=== PATIENT | female | born 1985 | race Caucasian/White ===

== ENCOUNTER 2021-03-11 10:08 | Inpatient (IN) ==
[2021-03-11] MEDS ORDERED: PANTOprazole 80 MG in DEXTROSE 5% 100 ML IV STA (11:21)
[2021-03-11] MEDS ORDERED: LORazepam 1 MG/2 ML VIAL IV STA (11:21)
[2021-03-11] MEDS ORDERED: SODIUM CHLORIDE 0.9% 1000ML 500 ML IV ONE (11:21)
--- NOTE | 2021-03-11 11:28 | Emergency Department Note ---
Impression & Plan Acute alcoholic hepatitis, Acute upper GI bleed, Alcohol withdrawal, Elevated INR, Acute hyponatremia ED Provider Note Name: JOSEPH WALTER Age: 35 Sex: F Arrives Via: Walk-In Informant: Patient, Mother ED Provider: Jeffery Coburn MD Chief Complaint: abdominal discomfort Impression: Acute alcoholic hepatitis Acute Upper Gi Bleed Alcohol Withdrawal Hyponatremia Elevated INR Medical Decision Makin yr old female arrives with mother for evaluation of worsening abdominal discomfort. Patient with long history alcoholism drinking 1 to 2 bottles wine nightly. Admits shakes if no etoh. On exam she is clearly cirrhotic with significant jaundice as well as has some shakes from no recent ETOH. Neurologically she is awake, alert, oriented and not confused. She is mildly tachycardic with soft, non-tender abdomen which has fluid wave with distension. Abdominal exam not consistent with peritonitis nor infection at this time. Mild hypotension on arrival improved with IV fluids. Admit black stools as well as some blood in vomit earlier but no large clots of blood. Will hold off on octreotide at this time. Initial Hgb ok and WBC is somewhat elevated. She was given IV ativan on arrival and some IV fluids with vast improvement in symptoms. Labs with acute hyponatremia, elevated bili, elevated lfts, normal cr, elevated INR amongst others. She is in acute hepatitis. Reviewed with chef instructor GI who advised meds and hospitalist admission with plan to monitoring neuro closely and take to Endo if worsening bleeding or anemia. We will treat with steroids, nac, albumin, thiamine, and will need admission. Patient re-evaluated many times and extensive amount of time spent managing her care. Prior Medical Record and Triage/Nursing Notes reviewed by Me Additional history obtained from chart and mother Differentials:Infection, dehydration, metabolic abnormality, hypo/hyperglycemia, electrolyte disturbance, anemia, hypoxia, cardiac sources, intracerebral event, toxicologic, neurologic, as well as other pathologies. Vital Signs: reviewed and remarkable for mild hypotension/tachy Interventions: saline lock, ativan 2mg iv, nss bolus, decadron iv, n- acetylcysteine iv, albumin iv, banana bag Labs:Reviewed and remarkable for extensive abnormalities Imaging:X ray results are stated below per my interpretation: Chest: 1 view: No infiltrate, no effusion, normal cardiac border. EKG:Per My Interpretation: Indication Liver failure: NSR 99 bpm, qtc 487. PAC. No Ischemia. Compared to EKG 05/11/08, no significant changes. Cardiac/Tele Monitoring: Cardiac Monitoring: An Order was placed for continuous cardiac monitoring. The monitor shows a rate of 90 with a normal sinus rhythm. Consults:Dr Ochoa: Advised above meds, hospitalist admit and will consult on patient Dr Minnie MITTAL Hospitalist in to evaluate patient further Plan: Disposition:Hospitalization. Condition: Fair History of Present Illness:35 yr old female arrives for evaluation of abdominal discomfort. Patient notes longterm use of alcohol for stress management. Drinking 1 to 2 bottles a day. Notes worsening abdominal distention over the last months. Associated nause,a vomiting, blood in vomit, black stools, weakness and shakes. Also having leg swelling, yellowing of eyes. To the point where she can not take a deep breath due to abdominal swelling. Notes worsening to the point of inability to eat. No projectile bloody emesis. No trauma/injuries/falls. Denies chest pain, sob, syncope, back pain, headache, rashes, urinary changes, nor other symptoms. Patient admits to taking entire bottle alkaseltzer a few weeks ago for indegestion. no NSAID use. Unable to go a day without ETOH due to shakes. Last etoh last night. ROS: See above HPI for pertinent positives & negatives. A total of 10 systems reviewed and were otherwise negative. Past Medical History:Anxiety, HTN, Alcohol abuse Past Surgical History:None Family History:See Below Social History:See Below Home Medications:None being taken Allergies:NKDA Vitals:Blood Pressure: 90/59, Pulse 97, RR 18, T 37.0C, O2 99% on RA Physical Exam: GENERAL: Patient is unwell and jaundice appearing and in moderate distress. Tremulous and anxious EYES: ++jaundice, unremarkable pupils. ENT: Mucous membranes moist, no nasal congestion. NECK: No masses appreciated, nomeningismus, trachea is midline. RESPIRATORY: No dyspnea. Clear to auscultation and equal bilaterally. No wheeze, no rhonchi. CARDIOVASCULAR: Regular rate and rhythm.No murmurs, rubs, gallops appreciated. GASTROINTESTINAL: Distended, distant bowel sounds, soft, fluid wave, no peritonitis..No masses appreciated. BACK: No midline tenderness, no CVA tenderness EXTREMITIES: Normal motion all extremities, no cyanosis, no edema. NEUROLOGIC: Alert and oriented, no acute motor or sensory deficits, no focal weakness, cranial nerves grossly intact. SKIN: No rash, ++ jaundice, no diaphoresis. Tattoo posterior right shoulder PSYCH: Appropriate, anxious GCS: 15 ED Course: Times/Reassessments: Vastly improved with ativan, breathing comfortably and no distress. Multiple rechecks, comfortable with staying MN, questions answered Critical Care: I have personally spent 45 minutes of critical care time in the direct management of this patient. Acute hepatitis with impending liver failure, GI bleed and alcohol withdrawal requiring rapid management. This was a life/limb threatening event. This 45 minutes is in excess of all separately billable procedures. Jeffery Coburn MD Past Med/Surg History Medical History (Updated 03/11/21 @ 19:27 by Jeffery Coburn MD) AA (alcohol abuse) Acute alcoholic hepatitis Coagulopathy Generalized anxiety disorder Hypertension Hyponatremia Obesities, morbid Upper GI bleed Surgical History No history of previous surgery Family History Father Myocardial infarction Depression Diabetes Heart disease Grandfather Prostate cancer MATERNAL Mother Depression Hypertension Denies family history of Ovarian cancer Breast cancer Colorectal cancer History of alcoholism Social History Smoking Status: Current every day smoker Tobacco Type: Cigarettes Age Started Using Tobacco: 22; Cigarettes Per Day: 5; Second Hand Exposure: No; Do You Dip or Chew Tobacco: No; Tobacco Cessation Education Requested by Patient: No Hx Alcohol Use: Yes Alcohol type: wine and hard liquor Alcohol Intake Frequency: 4 or More x per/Week Alcohol Intake Frequency Comment: DAILY; 1-2 bottles wine/day; multiple rum & coke Hx Substance Use: No Preferred Language: Croatian Communication Ability: Effective Visual Impairment: No Limitations Hearing Ability: Normal Steerer Required: No Beliefs That Will Affect Care: None marital status: Single Current Living Situation: Family Current Living Situation Comment: lives in [place] w/ Mom/dad current occupational status: unemployed 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 How many Children do You have: 0 Other Information That Helps Us Care for You: No Feels Safe at Home: Yes Safety Concerns: Feels Safe At This Time Childhood Exposure to Second-Hand Smoke: No Dental Care, Regularly: No Physical Activity Frequency: Does not Exercise Seatbelt Use: always Sunscreen Use: Yes Sexual Activity: has been sexually active, but not for at least 12 months Assistive Devices: Glasses Allergies Allergies Allergy/AdvReac Type Severity Reaction Status Date / Time No Known Allergies Allergy Unknown Unverified 03/11/21 12:47 Home Meds Previous Rx's Medication Instructions Recorded losartan 25 mg tablet 25 mg PO DAILY #90 tab 01/01/21 buspirone 5 mg tablet 5 mg PO BID #60 tab 02/01/21 pantoprazole 40 mg tablet,delayed 40 mg PO DAILY #90 tab 02/01/21 release Results & Data (ED) Vital Signs Vital Signs - 24 hr 03/11/21 10:21 03/11/21 12:14 03/11/21 14:00 Temperature 37.0 C Temperature Source Temporal Artery Scan Pulse Rate 97 H Pulse Rate [Finger] 98 H 98 H Respiratory Rate 18 22 20 Respiratory Effort / Characteristics Non-Labored Respiratory Depth Normal Blood Pressure 90/59 L Blood Pressure [Left Arm] 106/64 106/64 Blood Pressure Mean 69 Blood Pressure Mean [Left Arm] 78 78 Pulse Oximetry 99 98 94 Oxygen Delivery Method Room Air Room Air Room Air Sepsis Recent Fever Within 48 Hours No Sepsis New/Unexplained Change in Mental Status No Sepsis Action Taken by Nursing No Action Required 03/11/21 15:32 Temperature Temperature Source Pulse Rate Pulse Rate [Finger] 106 H Respiratory Rate 18 Respiratory Effort / Characteristics Respiratory Depth Blood Pressure Blood Pressure [Left Arm] 106/64 Blood Pressure Mean Blood Pressure Mean [Left Arm] 78 Pulse Oximetry 97 Oxygen Delivery Method Room Air Sepsis Recent Fever Within 48 Hours Sepsis New/Unexplained Change in Mental Status Sepsis Action Taken by Nursing Laboratory Data Result diagrams: 03/11/21 17:40 03/11/21 17:40 Lab Results 03/11/21 03/11/21 03/11/21 Range/Units 10:40 10:40 10:40 WBC 16.03 H (4.8-10.8) K/uL RBC 3.72 L (4.2-5.4) M/uL Hgb 12.8 (12.0-16.0) g/dL Hct 35.2 L (37-47) % MCV 94.6 (80-100) fL MCH 34.4 H (25-34) pg MCHC 36.4 H (32-36) g/dL RDW Std Deviation 69.8 H (36.4-46.3) fL RDW Coeff of Ace 20.1 H (11.5-14.5) % Plt Count 239 (130-400) K/uL MPV 10.1 (7.4-10.4) fL Immature Gran % (Auto) 0.6 % Neut % (Auto) 85.9 % Lymph % (Auto) 7.8 % Henderson % (Auto) 5.1 % Eos % (Auto) 0.4 % Baso % (Auto) 0.2 % Neut # (Auto) 13.78 H (1.4-6.5) K/uL Lymph # (Auto) 1.25 (1.2-3.4) K/uL Henderson # (Auto) 0.81 H (0.11-0.59) K/uL Eos # (Auto) 0.07 (0-0.5) K/uL Baso # (Auto) 0.03 (0-0.2) K/uL Immature Gran # (Auto) 0.09 H (0.00-0.02) K/uL Anisocytosis Present Target Cells 2+ PT (9.0-12.0) Seconds INR (0.9-1.1) APTT (21.0-31.0) Seconds PTT Ratio Sodium 117 L* (136-145) mmol/L Potassium 3.6 (3.5-5.1) mmol/L Chloride 83 L (98-107) mmol/L Carbon Dioxide 23 (21-32) mmol/L Anion Gap 11.0 (3-11) BUN 3 L (7-18) mg/dl Creatinine 1.16 (0.6-1.2) mg/dl Est Cr Clr Drug Dosing 67.5 ml/min Est GFR ( Amer) 70.6 ml/min Est GFR (Non-Af Amer) 61.0 ml/min BUN/Creatinine Ratio 2.6 L (10-20) Glucose 100 H (70-99) mg/dl Osmolality (280-300) mOsm/kg Calcium 7.6 L (8.5-10.1) mg/dl Magnesium 1.9 (1.8-2.4) mg/dl Total Bilirubin 17.6 H (0.2-1) mg/dl Direct Bilirubin 14.7 H (0-0.2) mg/dl AST 459 H (15-37) U/L ALT 135 H (12-78) U/L Alkaline Phosphatase 479 H (45-117) U/L Ammonia (11-32) umol/L Troponin I < 0.015 (0-0.045) ng/ml Total Protein 6.5 (6.4-8.2) gm/dl Albumin 2.2 L (3.4-5.0) gm/dl Lipase 281 (73-393) U/L TSH 5.580 H (0.300-4.500) uIu/ml Free T4 1.30 (0.8-1.6) ng/dl HCG, Qual (Negative) Urine Color Urine Appearance (Clear) Urine pH (4.5-7.5) Ur Specific [place] (1.000-1.030) Urine Protein (Negative) Urine Glucose (UA) (Negative) Urine Ketones (Negative) Urine Blood (Negative) Urine Nitrite (Negative) Urine Bilirubin (Negative) Urine Urobilinogen (Negative) Ur Leukocyte Esterase (Negative) Urine WBC (Auto) (0-5) /hpf Urine RBC (Auto) (0-4) /hpf U Hyaline Cast (Auto) (0-5) /lpf U Epithel Cells (Auto) (0-5) /lpf Urine Bacteria (Auto) (Negative) Urine Yeast Urine Osmolality (500-800) mOsm/kg Ur Random Sodium mmol/L Salicylates (2.8-20) mg/dl Urine Opiates Screen (Neg) Ur Methadone, Qual (Neg) Acetaminophen (10-30) ug/ml Urine Barbiturates (Neg) Ur Phencyclidine (PCP) (Neg) U Amphetamin/Meth Scrn (Neg) MDMA (Ecstasy) Screen (Neg) U Benzodiazepines Scrn (Neg) Ur Cocaine Metabolite (Neg) U Marijuana (THC) Screen (Neg) Ethyl Alcohol mg/dL (0-3) mg/dl COVID-19 Eval Order SARS-CoV-2 (PCR) (Negative) 03/11/21 03/11/21 03/11/21 Range/Units 10:40 11:48 11:48 WBC (4.8-10.8) K/uL RBC (4.2-5.4) M/uL Hgb (12.0-16.0) g/dL Hct (37-47) % MCV (80-100) fL MCH (25-34) pg MCHC (32-36) g/dL RDW Std Deviation (36.4-46.3) fL RDW Coeff of Ace (11.5-14.5) % Plt Count (130-400) K/uL MPV (7.4-10.4) fL Immature Gran % (Auto) % Neut % (Auto) % Lymph % (Auto) % Henderson % (Auto) % Eos % (Auto) % Baso % (Auto) % Neut # (Auto) (1.4-6.5) K/uL Lymph # (Auto) (1.2-3.4) K/uL Henderson # (Auto) (0.11-0.59) K/uL Eos # (Auto) (0-0.5) K/uL Baso # (Auto) (0-0.2) K/uL Immature Gran # (Auto) (0.00-0.02) K/uL Anisocytosis Target Cells PT 24.3 H (9.0-12.0) Seconds INR 2.6 H (0.9-1.1) APTT 51.8 H* (21.0-31.0) Seconds PTT Ratio 2.0 Sodium (136-145) mmol/L Potassium (3.5-5.1) mmol/L Chloride (98-107) mmol/L Carbon Dioxide (21-32) mmol/L Anion Gap (3-11) BUN (7-18) mg/dl Creatinine (0.6-1.2) mg/dl Est Cr Clr Drug Dosing ml/min Est GFR ( Amer) ml/min Est GFR (Non-Af Amer) ml/min BUN/Creatinine Ratio (10-20) Glucose (70-99) mg/dl Osmolality (280-300) mOsm/kg Calcium (8.5-10.1) mg/dl Magnesium (1.8-2.4) mg/dl Total Bilirubin (0.2-1) mg/dl Direct Bilirubin (0-0.2) mg/dl AST (15-37) U/L ALT (12-78) U/L Alkaline Phosphatase (45-117) U/L Ammonia (11-32) umol/L Troponin I (0-0.045) ng/ml Total Protein (6.4-8.2) gm/dl Albumin (3.4-5.0) gm/dl Lipase (73-393) U/L TSH (0.300-4.500) uIu/ml Free T4 (0.8-1.6) ng/dl HCG, Qual Negative (Negative) Urine Color Urine Appearance (Clear) Urine pH (4.5-7.5) Ur Specific [place] (1.000-1.030) Urine Protein (Negative) Urine Glucose (UA) (Negative) Urine Ketones (Negative) Urine Blood (Negative) Urine Nitrite (Negative) Urine Bilirubin (Negative) Urine Urobilinogen (Negative) Ur Leukocyte Esterase (Negative) Urine WBC (Auto) (0-5) /hpf Urine RBC (Auto) (0-4) /hpf U Hyaline Cast (Auto) (0-5) /lpf U Epithel Cells (Auto) (0-5) /lpf Urine Bacteria (Auto) (Negative) Urine Yeast Urine Osmolality (500-800) mOsm/kg Ur Random Sodium mmol/L Salicylates (2.8-20) mg/dl Urine Opiates Screen (Neg) Ur Methadone, Qual (Neg) Acetaminophen (10-30) ug/ml Urine Barbiturates (Neg) Ur Phencyclidine (PCP) (Neg) U Amphetamin/Meth Scrn (Neg) MDMA (Ecstasy) Screen (Neg) U Benzodiazepines Scrn (Neg) Ur Cocaine Metabolite (Neg) U Marijuana (THC) Screen (Neg) Ethyl Alcohol mg/dL 93.0 H (0-3) mg/dl COVID-19 Eval Order SARS-CoV-2 (PCR) (Negative) 03/11/21 03/11/21 03/11/21 Range/Units 11:48 11:48 12:18 WBC (4.8-10.8) K/uL RBC (4.2-5.4) M/uL Hgb (12.0-16.0) g/dL Hct (37-47) % MCV (80-100) fL MCH (25-34) pg MCHC (32-36) g/dL RDW Std Deviation (36.4-46.3) fL RDW Coeff of Ace (11.5-14.5) % Plt Count (130-400) K/uL MPV (7.4-10.4) fL Immature Gran % (Auto) % Neut % (Auto) % Lymph % (Auto) % Henderson % (Auto) % Eos % (Auto) % Baso % (Auto) % Neut # (Auto) (1.4-6.5) K/uL Lymph # (Auto) (1.2-3.4) K/uL [place] # (Auto) (0.11-0.59) K/uL Eos # (Auto) (0-0.5) K/uL Baso # (Auto) (0-0.2) K/uL Immature Gran # (Auto) (0.00-0.02) K/uL Anisocytosis Target Cells PT (9.0-12.0) Seconds INR (0.9-1.1) APTT (21.0-31.0) Seconds PTT Ratio Sodium (136-145) mmol/L Potassium (3.5-5.1) mmol/L Chloride (98-107) mmol/L Carbon Dioxide (21-32) mmol/L Anion Gap (3-11) BUN (7-18) mg/dl Creatinine (0.6-1.2) mg/dl Est Cr Clr Drug Dosing ml/min Est GFR ( Amer) ml/min Est GFR (Non-Af Amer) ml/min BUN/Creatinine Ratio (10-20) Glucose (70-99) mg/dl Osmolality 272 L (280-300) mOsm/kg Calcium (8.5-10.1) mg/dl Magnesium (1.8-2.4) mg/dl Total Bilirubin (0.2-1) mg/dl Direct Bilirubin (0-0.2) mg/dl AST (15-37) U/L ALT (12-78) U/L Alkaline Phosphatase (45-117) U/L Ammonia < 10.0 L (11-32) umol/L Troponin I (0-0.045) ng/ml Total Protein (6.4-8.2) gm/dl Albumin (3.4-5.0) gm/dl Lipase (73-393) U/L TSH (0.300-4.500) uIu/ml Free T4 (0.8-1.6) ng/dl HCG, Qual (Negative) Urine Color Dark Yellow Urine Appearance Cloudy A (Clear) Urine pH 5.5 (4.5-7.5) Ur Specific [place] 1.012 (1.000-1.030) Urine Protein Negative (Negative) Urine Glucose (UA) Negative (Negative) Urine Ketones 1+ H (Negative) Urine Blood 3+ H (Negative) Urine Nitrite Positive A (Negative) Urine Bilirubin 3+ H (Negative) Urine Urobilinogen Negative (Negative) Ur Leukocyte Esterase Trace H (Negative) Urine WBC (Auto) 1-5 (0-5) /hpf Urine RBC (Auto) 5-10 H (0-4) /hpf U Hyaline Cast (Auto) 1-5 (0-5) /lpf U Epithel Cells (Auto) >30 H (0-5) /lpf Urine Bacteria (Auto) 1+ H (Negative) Urine Yeast Not Reportable Urine Osmolality (500-800) mOsm/kg Ur Random Sodium mmol/L Salicylates (2.8-20) mg/dl Urine Opiates Screen (Neg) Ur Methadone, Qual (Neg) Acetaminophen (10-30) ug/ml Urine Barbiturates (Neg) Ur Phencyclidine (PCP) (Neg) U Amphetamin/Meth Scrn (Neg) MDMA (Ecstasy) Screen (Neg) U Benzodiazepines Scrn (Neg) Ur Cocaine Metabolite (Neg) U Marijuana (THC) Screen (Neg) Ethyl Alcohol mg/dL (0-3) mg/dl COVID-19 Eval Order SARS-CoV-2 (PCR) (Negative) 03/11/21 03/11/21 03/11/21 Range/Units 12:18 12:18 12:18 WBC (4.8-10.8) K/uL RBC (4.2-5.4) M/uL Hgb (12.0-16.0) g/dL Hct (37-47) % MCV (80-100) fL MCH (25-34) pg MCHC (32-36) g/dL RDW Std Deviation (36.4-46.3) fL RDW Coeff of Ace (11.5-14.5) % Plt Count (130-400) K/uL MPV (7.4-10.4) fL Immature Gran % (Auto) % Neut % (Auto) % Lymph % (Auto) % [place] % (Auto) % Eos % (Auto) % Baso % (Auto) % Neut # (Auto) (1.4-6.5) K/uL Lymph # (Auto) (1.2-3.4) K/uL [place] # (Auto) (0.11-0.59) K/uL Eos # (Auto) (0-0.5) K/uL Baso # (Auto) (0-0.2) K/uL Immature Gran # (Auto) (0.00-0.02) K/uL Anisocytosis Target Cells PT (9.0-12.0) Seconds INR (0.9-1.1) APTT (21.0-31.0) Seconds PTT Ratio Sodium (136-145) mmol/L Potassium (3.5-5.1) mmol/L Chloride (98-107) mmol/L Carbon Dioxide (21-32) mmol/L Anion Gap (3-11) BUN (7-18) mg/dl Creatinine (0.6-1.2) mg/dl Est Cr Clr Drug Dosing ml/min Est GFR ( Amer) ml/min Est GFR (Non-Af Amer) ml/min BUN/Creatinine Ratio (10-20) Glucose (70-99) mg/dl Osmolality (280-300) mOsm/kg Calcium (8.5-10.1) mg/dl Magnesium (1.8-2.4) mg/dl Total Bilirubin (0.2-1) mg/dl Direct Bilirubin (0-0.2) mg/dl AST (15-37) U/L ALT (12-78) U/L Alkaline Phosphatase (45-117) U/L Ammonia (11-32) umol/L Troponin I (0-0.045) ng/ml Total Protein (6.4-8.2) gm/dl Albumin (3.4-5.0) gm/dl Lipase (73-393) U/L TSH (0.300-4.500) uIu/ml Free T4 (0.8-1.6) ng/dl HCG, Qual (Negative) Urine Color Urine Appearance (Clear) Urine pH (4.5-7.5) Ur Specific [place] (1.000-1.030) Urine Protein (Negative) Urine Glucose (UA) (Negative) Urine Ketones (Negative) Urine Blood (Negative) Urine Nitrite (Negative) Urine Bilirubin (Negative) Urine Urobilinogen (Negative) Ur Leukocyte Esterase (Negative) Urine WBC (Auto) (0-5) /hpf Urine RBC (Auto) (0-4) /hpf U Hyaline Cast (Auto) (0-5) /lpf U Epithel Cells (Auto) (0-5) /lpf Urine Bacteria (Auto) (Negative) Urine Yeast Urine Osmolality 217 L (500-800) mOsm/kg Ur Random Sodium < 5 mmol/L Salicylates (2.8-20) mg/dl Urine Opiates Screen Neg (Neg) Ur Methadone, Qual Neg (Neg) Acetaminophen (10-30) ug/ml Urine Barbiturates Neg (Neg) Ur Phencyclidine (PCP) Neg (Neg) U Amphetamin/Meth Scrn Neg (Neg) MDMA (Ecstasy) Screen Neg (Neg) U Benzodiazepines Scrn Neg (Neg) Ur Cocaine Metabolite Neg (Neg) U Marijuana (THC) Screen Neg (Neg) Ethyl Alcohol mg/dL (0-3) mg/dl COVID-19 Eval Order SARS-CoV-2 (PCR) (Negative) 03/11/21 03/11/21 03/11/21 Range/Units 14:30 14:30 14:52 WBC (4.8-10.8) K/uL RBC (4.2-5.4) M/uL Hgb (12.0-16.0) g/dL Hct (37-47) % MCV (80-100) fL MCH (25-34) pg MCHC (32-36) g/dL RDW Std Deviation (36.4-46.3) fL RDW Coeff of Ace (11.5-14.5) % Plt Count (130-400) K/uL MPV (7.4-10.4) fL Immature Gran % (Auto) % Neut % (Auto) % Lymph % (Auto) % [place] % (Auto) % Eos % (Auto) % Baso % (Auto) % Neut # (Auto) (1.4-6.5) K/uL Lymph # (Auto) (1.2-3.4) K/uL [place] # (Auto) (0.11-0.59) K/uL Eos # (Auto) (0-0.5) K/uL Baso # (Auto) (0-0.2) K/uL Immature Gran # (Auto) (0.00-0.02) K/uL Anisocytosis Target Cells PT (9.0-12.0) Seconds INR (0.9-1.1) APTT (21.0-31.0) Seconds PTT Ratio Sodium 120 L (136-145) mmol/L Potassium (3.5-5.1) mmol/L Chloride (98-107) mmol/L Carbon Dioxide (21-32) mmol/L Anion Gap (3-11) BUN (7-18) mg/dl Creatinine (0.6-1.2) mg/dl Est Cr Clr Drug Dosing ml/min Est GFR ( Amer) ml/min Est GFR (Non-Af Amer) ml/min BUN/Creatinine Ratio (10-20) Glucose (70-99) mg/dl Osmolality (280-300) mOsm/kg Calcium (8.5-10.1) mg/dl Magnesium (1.8-2.4) mg/dl Total Bilirubin (0.2-1) mg/dl Direct Bilirubin (0-0.2) mg/dl AST (15-37) U/L ALT (12-78) U/L Alkaline Phosphatase (45-117) U/L Ammonia (11-32) umol/L Troponin I (0-0.045) ng/ml Total Protein (6.4-8.2) gm/dl Albumin (3.4-5.0) gm/dl Lipase (73-393) U/L TSH (0.300-4.500) uIu/ml Free T4 (0.8-1.6) ng/dl HCG, Qual (Negative) Urine Color Urine Appearance (Clear) Urine pH (4.5-7.5) Ur Specific [place] (1.000-1.030) Urine Protein (Negative) Urine Glucose (UA) (Negative) Urine Ketones (Negative) Urine Blood (Negative) Urine Nitrite (Negative) Urine Bilirubin (Negative) Urine Urobilinogen (Negative) Ur Leukocyte Esterase (Negative) Urine WBC (Auto) (0-5) /hpf Urine RBC (Auto) (0-4) /hpf U Hyaline Cast (Auto) (0-5) /lpf U Epithel Cells (Auto) (0-5) /lpf Urine Bacteria (Auto) (Negative) Urine Yeast Urine Osmolality (500-800) mOsm/kg Ur Random Sodium mmol/L Salicylates (2.8-20) mg/dl Urine Opiates Screen (Neg) Ur Methadone, Qual (Neg) Acetaminophen (10-30) ug/ml Urine Barbiturates (Neg) Ur Phencyclidine (PCP) (Neg) U Amphetamin/Meth Scrn (Neg) MDMA (Ecstasy) Screen (Neg) U Benzodiazepines Scrn (Neg) Ur Cocaine Metabolite (Neg) U Marijuana (THC) Screen (Neg) Ethyl Alcohol mg/dL (0-3) mg/dl COVID-19 Eval Order Covid19 at [facility] SARS-CoV-2 (PCR) NEGATIVE (Negative) Administered Medications Lorazepam (Ativan) 1 mg in 2 mls @ 2 mls/min IV ONE PRN; Protocol PRN Reason: EtoH Withdrawal AWSS 6-10 Stop: 04/10/21 15:51 Last Admin: 03/11/21 16:21 Dose: 2 mls/min Documented by: [id number] Thiamine HCl 250 mg/ Sodium (Chloride) 52.5 mls @ 208 mls/hr IV TID JONNA Stop: 04/10/21 17:59 Last Infusion: 03/11/21 18:23 Dose: 0 mls/hr Documented by: [id number] Admin: 03/11/21 17:53 Dose: 208 mls/hr Documented by: [id number] Albumin Human (Albumin 5%) 250 mls @ 50 mls/hr IV ONE ONE Stop: 03/11/21 22:18 Last Admin: 03/11/21 18:55 Dose: 50 mls/hr Documented by: [id number] Discontinued Medications Acetylcysteine (Acetylcysteine Iv 21 Hr Regimen (>40kg)) 1 ea IV NOW STA; Protocol Stop: 03/11/21 13:20 Last Admin: 03/11/21 17:32 Dose: 1 ea Documented by: [id number] Dexamethasone Sodium Phosphate (DexamethasonePf 10 Mg/Ml Vial) 10 mg IV NOW ONE Stop: 03/11/21 13:20 Last Admin: 03/11/21 14:04 Dose: 10 mg Documented by: [id number] Sodium Chloride (Nss 1000ml) 500 mls @ 999 mls/hr IV .Q31M ONE Stop: 03/11/21 11:51 Last Infusion: 03/11/21 12:44 Dose: 0 mls/hr Documented by: [id number] Admin: 03/11/21 12:13 Dose: 999 mls/hr Documented by: [id number] Pantoprazole Sodium 80 mg/ (Dextrose) 100 mls @ 400 mls/hr IV ONE STA Stop: 03/11/21 11:35 Last Infusion: 03/11/21 12:38 Dose: 0 mls/hr Documented by: [id number] Admin: 03/11/21 12:23 Dose: 400 mls/hr Documented by: [id number] Lorazepam (Ativan) 1 mg in 2 mls @ 2 mls/min IV NOW STA Stop: 03/11/21 11:22 Last Admin: 03/11/21 12:13 Dose: 2 mls/min Documented by: [id number] Acetylcysteine 12,410 mg/ (Dextrose) 262.05 mls @ 200 mls/hr IV ONCE ONE Stop: 03/11/21 14:37 Last Infusion: 03/11/21 15:27 Dose: 0 mls/hr Documented by: [id number] Admin: 03/11/21 14:05 Dose: 200 mls/hr Documented by: [id number] Acetylcysteine 4,140 mg/ (Dextrose) 520.7 mls @ 125 mls/hr IV ONCE ONE Stop: 03/11/21 18:29 Last Admin: 03/11/21 15:30 Dose: 125 mls/hr Documented by: [id number] Albumin Human (Albumin 25%) 12.5 gm in 50 mls @ 50 mls/hr IV Q1H JONNA Stop: 03/11/21 15:29 Last Infusion: 03/11/21 16:11 Dose: 0 mls/hr Documented by: [id number] Admin: 03/11/21 15:20 Dose: 50 mls/hr Documented by: [id number] Infusion: 03/11/21 15:20 Dose: 0 mls/hr Documented by: [id number] Admin: 03/11/21 14:21 Dose: 50 mls/hr Documented by: [id number] Multivitamins 10 ml/ Thiamine HCl 100 mg/ Folic Acid 1 mg/Sodium Chloride 1,011.2 mls @ 1,011.2 mls/hr IV .Q1H ONE Stop: 03/11/21 14:18 Last Infusion: 03/11/21 17:51 Dose: 0 mls/hr Documented by: [id number] Admin: 03/11/21 16:10 Dose: 1,011.2 mls/hr Documented by: [id number] Ceftriaxone Sodium 2,000 mg/ (Dextrose) 70 mls @ 100 mls/hr IV NOW STA; Protocol Stop: 03/11/21 17:58 Last Infusion: 03/11/21 18:23 Dose: 0 mls/hr Documented by: [id number] Admin: 03/11/21 17:32 Dose: 100 mls/hr Documented by: [id number] Octreotide Acetate 50 mcg/ (Syringe) 10 mls @ 3 mls/min IV ONE ONE Stop: 03/11/21 17:33 Last Admin: 03/11/21 17:32 Dose: 3 mls/min Documented by: [id number] Phytonadione 10 mg/ Sodium (Chloride) 51 mls @ 102 mls/hr IV ONE ONE Stop: 03/11/21 17:59 Last Infusion: 03/11/21 18:23 Dose: 0 mls/hr Documented by: [id number] Admin: 03/11/21 17:47 Dose: 102 mls/hr Documented by: [id number] Folic Acid 1 mg/ Syringe 10 mls @ 5 mls/min IV ONE ONE Stop: 03/11/21 17:31 Last Admin: 03/11/21 17:47 Dose: 5 mls/min Documented by: [id number] Ondansetron HCl (Ondansetron Inj 2 Mg/Ml 2 Ml Vial) Confirm Administered Dose 4 mg .ROUTE .STK-MED ONE Stop: 03/11/21 15:58 Last Admin: 03/11/21 15:59 Dose: 4 mg Documented by: [id number] Ondansetron HCl (Ondansetron Inj 2 Mg/Ml 2 Ml Vial) 4 mg IV NOW STA Stop: 03/11/21 16:14 Last Admin: 03/11/21 17:33 Dose: Not Given Documented by: [id number] Imaging Data Radiologist's Impression: Abdomen/Pelvis CT 03/11/21 15:[address] WITHOUT CONTRAST CT DOSE: 843.20 mGy.cm HISTORY: acute hepatitis, ?ascites, cirrhosis? TECHNIQUE: Multiaxial CT images of the abdomen and pelvis were performed without contrast. A dose lowering technique was utilized adhering to the principles of ALARA. COMPARISON STUDY: None. FINDINGS: A few bibasilar linear densities likely representing subsegmental atelectasis. No pneumoperitoneum. No pneumatosis. No fractures within the visualized osseous structures. There is moderate body wall edema. The liver is severely enlarged and markedly hypodense. This could represent an acute hepatitis or severe hepatic steatosis. There is moderate circumferential thickening of the gallbladder which is mildly distended. The spleen is normal in size. Normal adrenal glands. No renal stones or hydronephrosis. There is mild peripancreatic fat stranding/edema. No retroperitoneal lymphadenopathy. Normal caliber abdominal aorta. There is trace ascites seen within the abdomen. The bladder, uterus, bilateral adnexa are within normal limits. The appendix is reportedly surgically absent. No dilated loops of bowel to suggest an obst ruction. Mild thickening at the ascending colon may be due to the patient's diffuse edematous state. IMPRESSION: 1. The liver is severely enlarged and markedly hypodense. This could represent acute hepatitis or severe hepatic steatosis. 2. Moderate circumferential thickening of the gallbladder wall. Nonspecific but could be due to the hepatic abnormality. Acute cholecystitis is considered less likely but not entirely excluded. 3. Moderate body wall edema. 4. Trace ascites. 5. Mild peripancreatic fat stranding/edema. This could represent an acute pancreatitis versus peripancreatic edema related to the patient's diffuse edematous state. Recommend correlation with pancreatic enzymes. ACT 112: Negative or not required by law. Electronically signed by: Anand Marshall M.D. 03/11/2021 5:05 PM Discharge Plan Visit Data Chief Complaint: Abdominal Pain Stated Complaint: BLOATED ED Provider: Jeffery Coburn Discharge Problem: Acute alcoholic hepatitis, Acute upper GI bleed, Alcohol withdrawal, Elevated INR, Acute hyponatremia Patient Disposition: Admitted As Inpatient Discharge Instructions Interventions: ED Discharge Assessment Last Done: 03/11/21 16:41 Discharge Problem: Alcohol withdrawal Qualifiers: Complication of substance-induced condition: uncomplicated Qualified Code(s): F10.230 - Alcohol dependence with withdrawal, uncomplicated
[2021-03-11 11:31] LABS: Basophils # (auto) 0.03 K/uL (0-0.2); Basophils % (auto) 0.2 %; Eosinophils # (auto) 0.07 K/uL (0-0.5); Eosinophils % (auto) 0.4 %; Hematocrit (blood only) 35.2 % (37-47); Hemoglobin 12.8 g/dL (12.0-16.0); Immature Granulocytes # (auto) 0.09 K/uL (0.00-0.02); Immature Granulocytes % (auto) 0.6 %; Lymphocytes # (auto) 1.25 K/uL (1.2-3.4); Lymphocytes % (auto) 7.8 %; Mean Corpuscular Hemoglobin 34.4 pg (25-34); Mean Corpuscular Hgb Conc 36.4 g/dL (32-36); Mean Corpuscular Volume 94.6 fL (80-100); Mean Platelet Volume 10.1 fL (7.4-10.4); Monocytes # (auto) 0.81 K/uL (0.11-0.59); Monocytes % (auto) 5.1 %; Neutrophils # (auto) 13.78 K/uL (1.4-6.5); Neutrophils % (auto) 85.9 %; Platelet Count 239 K/uL (130-400); RDW Coefficient of Variation 20.1 % (11.5-14.5); RDW Standard Deviation 69.8 fL (36.4-46.3); Red Blood Count 3.72 M/uL (4.2-5.4); White Blood Count 16.03 K/uL (4.8-10.8)
[2021-03-11 11:39] LABS: Pregnancy Test, Serum Negative (Negative)
[2021-03-11 11:54] LABS: Alanine Aminotransferase 135 U/L (12-78); Albumin Level 2.2 gm/dl (3.4-5.0); Alkaline Phosphatase 479 U/L (45-117); Anisocytosis Present; Aspartate Aminotransferase 459 U/L (15-37); BUN Creatinine Ratio 2.6 (10-20); Bilirubin,Total 17.6 mg/dl (0.2-1); Blood Urea Nitrogen 3 mg/dl (7-18); Calcium 7.6 mg/dl (8.5-10.1); Carbon Dioxide 23 mmol/L (21-32); Chloride 83 mmol/L (98-107); Creatinine Clr Calc Pharmacy 67.5 ml/min; Est GFR (African American) 70.6 ml/min; Glucose 100 mg/dl (70-99); Lipase 281 U/L (73-393); Magnesium 1.9 mg/dl (1.8-2.4); Potassium 3.6 mmol/L (3.5-5.1); Sodium 117 mmol/L (136-145); Target Cells 2+; Total Protein 6.5 gm/dl (6.4-8.2); Troponin I < 0.015 ng/ml (0-0.045)
[2021-03-11 12:15] LABS: Bilirubin Direct 14.7 mg/dl (0-0.2)
[2021-03-11 12:26] LABS: INR 2.6 (0.9-1.1); Prothrombin Time 24.3 Seconds (9.0-12.0)
[2021-03-11 12:32] LABS: Appearance Urine Cloudy (Clear); Blood Urine 3+ (Negative); Color Urine Dark Yellow; Epithelial Cell Urine Auto >30 /lpf (0-5); Glucose Urine UA Negative (Negative); Ketones Urine 1+ (Negative); Leukocyte Esterase Urine Trace (Negative); Nitrite Urine Positive (Negative); Protein Urine Negative (Negative); Specific Gravity Urine 1.012 (1.000-1.030); Urobilinogen Urine Negative (Negative); pH Urine 5.5 (4.5-7.5)
[2021-03-11 12:42] LABS: Bilirubin Urine 3+ (Negative)
[2021-03-11 12:44] LABS: Bacteria Urine Automated 1+ (Negative)
[2021-03-11 12:46] LABS: Partial Thromboplastin Time 51.8 Seconds (21.0-31.0)
[2021-03-11 13:05] LABS: Amphetamines+Metham, Urine Neg (Neg); Barbiturates, Urine Neg (Neg); Benzodiazepine, Urine Neg (Neg); Cocaine, Urine Neg (Neg); MDMA (Ecstacy), Urine Neg (Neg); Methadone, Urine Neg (Neg); Opiate, Urine Neg (Neg); Phencyclidine, Urine Neg (Neg)
[2021-03-11] MEDS ORDERED: ACETYLCYSTEINE IV ONE ×3 (13:19→18:20)
[2021-03-11] MEDS ORDERED: AcetylCYSTEINE IV 21 HR REGIMEN (>40KG) IV STA (13:19)
[2021-03-11] MEDS ORDERED: DEXTROSE 5% IV ONE ×3 (13:19→18:20)
[2021-03-11] MEDS ORDERED: MULTI-VITAMIN INFUSION 10 ML, THIAMINE HCL 100 MG, FOLIC ACID 1 MG in SODIUM CHLORIDE 0... IV ONE (13:19)
[2021-03-11] MEDS ORDERED: dexAMETHasone**PF** 10 MG/ML VIAL IV ONE (13:19)
[2021-03-11] MEDS: ALBUMIN 25% 12.5 GM/50 ML VIAL IV SCH ×2 (14:21→15:20)
--- NOTE | 2021-03-11 14:43 | History & Physical Report ---
Date of Service March 11, 2021 Assessment & Plan (1) Acute alcoholic hepatitis: SEVERE acute etoh hepatitis. Troy's discriminant function score at least 75. Decadron 10mg IV x 1 given in ER. Severe coagulopathy. Fortunately she has stable BP, normal Creatinine, and no evidence of hepatic encephalopathy. There is concern for upper GI bleeding. Until EGD is complete and until H/H trend is known further steroids to be deferred for now per GI recommendations. I obtained CT abd/pelvis prior to transfer to ICU -- SEVERE hepatomegaly with only trace ascites. Serial LFTs. Serial coags. Serial CBC/platelets. Patient with history of cocaine abuse - check acute hepatitis profile in am, r/o Hep B & C. Prognosis is very guarded given the severity of her hepatitis. Cont NAC protocol as recommended by GI. Start rocephin for SBP prophylaxis and possible UTI. Appreciate critical care & GI consultations. (2) Coagulopathy: Severe, 2nd to acute etoh hepatitis. Check fibrinogen. Patient with hematemesis last evening at home, and heme + stool here. If H/H trend down she will need urgent EGD. Give FFP if urgent EGD is needed. Consider cryoprecipitate if fibrinogen is low and there is ongoing GI Bleeding. Consider vitamin K. (3) Hematemesis: Seen last night at home. Initial Hb here is 12. Trend h/h's q4h. GI aware of hematemesis. Due to concerns of upper GI bleeding will place on PPI drip and octreotide drip (latter in the event this is variceal in origin). (4) Ascites: only mild seen on CT abd/pelvis today. certainly at risk of worsening ascites in the midst of her critical illness and severe hepatitis. rocephin IV for SBP prophy. (5) Alcoholism: severe. thiamine 200mg IV BID. folic acid 1mg IV daily. with resulting acute etoh hepatitis. psych consult requested - she reports she uses her etoh to quell her severe anxiety. long-standing h/o untreated depression. was hospitalized at the [facility] at age 21 for severe depression and alcohol abuse. AT HIGH RISK OF ETOH WITHDRAWAL. ativan per etoh withdrawal protocol. defer to critical care any prophylactic meds. (6) Hyponatremia: severe. repeat Na level in ER was 120, up from 117. Urine Na <5 c/w severe solute depletion. Low serum Na likely multifactorial - acute liver failure, poor oral intake, vomiting, etc. cont cautious isotonic saline repletion. albumin per GI recommendations. TSH minimally elevated - unlikely playing any role in the low Na. Check cortisol level. serial Na checks q6h. (7) Abnormal TSH: would repeat the TSH in about 6 weeks as outpatient. no Rx indicated at this time. (8) Generalized anxiety disorder: severe. see above. psych consult. HOLD buspar. (9) Hypertension: HOLD ARB (10) UTI (urinary tract infection): u/a suggestive of UTI send urine cx. rocephin for SBP prophylaxis should suffice. (11) DVT prophylaxis: SCDS chemical means contraindicated due to GI bleeding father, and later her mother, updated at bedside complex care coordination with ER, ICU, and GI patient is critically ill with guarded prognosis and is at high risk of ARF, etoh withdrawal, resp failure, etc. total critical care time 100 minutes History of Present Illness Chief Complaint: abdominal distension Primary Care Provider: Hector Myrick, III, PAN HELPER 35yo female with history of alcohol abuse presents with acute/chronic abdominal distension and bloating. She also mentions "seeing blood in my stool" and has had labored breathing. Over the last few days the abdominal distension has worsened. With respect to GI bleeding she states it is bright red blood; no melena. She is drinking 1-2 bottles of wine each day "for anxiety." Over 2 weeks ago she was drinking rum with coke as well. In college she became a heavy drinker, and following college the drinking worsened. She became a regular user of alcohol in the last 2-3 years. Denies any tylenol use. Last night she had hematemesis after eating Cheerios. Had at least 4 episodes of such last night. She is vague about how much blood she saw. Lastly, she mentions she had been taking ivana seltzer for her "teeth" - not GI upset. She was taking the ivana-seltzer every 4-6 hours several weeks ago. Teeth are no longer bothering her. She stopped the ivana-seltzer abut 2 weeks ago. Allergies Allergy/AdvReac Type Severity Reaction Status Date / Time No Known Allergies Allergy Unknown Unverified 03/11/21 12:47 Home Medications Medication Instructions Recorded Confirmed Type losartan 25 mg tablet 25 mg PO DAILY #90 tab 04/12/21 06/20/21 Rx buspirone 5 mg tablet 5 mg PO BID #60 tab 02/01/21 03/11/21 Rx pantoprazole 40 mg tablet,delayed 40 mg PO DAILY #90 tab 02/01/21 03/11/21 Rx release Past Med/Surg History Medical History AA (alcohol abuse) Acute alcoholic hepatitis Coagulopathy Generalized anxiety disorder Hypertension Hyponatremia Obesities, morbid Upper GI bleed Surgical History No history of previous surgery Family History Father Myocardial infarction Depression Diabetes Heart disease Grandfather Prostate cancer MATERNAL Mother Depression Hypertension Denies family history of Ovarian cancer Breast cancer Colorectal cancer History of alcoholism Social History Smoking Status: Current every day smoker Tobacco Type: Cigarettes Age Started Using Tobacco: 22; Cigarettes Per Day: 5; Second Hand Exposure: No; Do You Dip or Chew Tobacco: No; Tobacco Cessation Education Requested by Patient: No Hx Alcohol Use: Yes Alcohol type: wine and hard liquor Alcohol Intake Frequency: 4 or More x per/Week Alcohol Intake Frequency Comment: DAILY; 1-2 bottles wine/day; multiple rum & coke Hx Substance Use: No Preferred Language: [place] Communication Ability: Effective Visual Impairment: No Limitations Hearing Ability: Normal Nurse Prn Required: No Beliefs That Will Affect Care: None marital status: Single Current Living Situation: Family Current Living Situation Comment: lives in [place] w/ Mom/dad current occupational status: unemployed 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 How many Children do You have: 0 Other Information That Helps Us Care for You: No Feels Safe at Home: Yes Safety Concerns: Feels Safe At This Time Childhood Exposure to Second-Hand Smoke: No Dental Care, Regularly: No Physical Activity Frequency: Does not Exercise Seatbelt Use: always Sunscreen Use: Yes Sexual Activity: has been sexually active, but not for at least 12 months Assistive Devices: Glasses and Oxygen - Continuous Review of Systems Constitutional: + fatigue and + anorexia; no fever, no weight loss and no weight gain Eyes: no worsening vision Ear, Nose, Mouth, Throat: + post nasal drip; no dysphagia Respiratory: + cough and + dyspnea on exertion Cardiovascular: + chest pain (substernal - gets it when she is anxious) and + edema Gastrointestinal: + abdominal pain, + belching, + bloating, + early satiety, + heartburn, + nausea, + vomiting, + hematemesis and + blood in stools Genitourinary: no dysuria LMP 5 months ago Musculoskeletal: + back pain Integumentary: no rash jaundice - no one noted it recently Neurologic: no loss of sensation and no tingling Psychiatric: + abnormal sleep pattern and + anxiety Endocrine: no diabetes Hematologic / Lymphatic: no easy bleeding Physical Exam Constitutional: + ill appearing and + obese; + not well developed, + not well nourished, no acute distress, no altered mental status and + not healthy appearing Eyes: PERRL; no nystagmus ENMT: Mouth: + oral mucosal abnormality (icterus of mucous membranes; no lesions, however) Neck: trachea midline, no thyromegaly Respiratory: normal respiratory effort, lungs clear to auscultation Auscultation: + diminished lung sounds (right base only) Cardiovascular: Rate/Rhythm: regular rhythm and + tachycardic Heart Sounds: normal S1, normal S2 and + murmur (1/6 ANATOLIY LSB) Vessels: posterior tibial pulses present and dorsalis pedis pulses present; no JVD Extremities: + edema (1-2+ b/l ) Gastrointestinal (Abdomen): Inspection/Auscultation: + abdomen distended Percussion/Palpation: + abdomen tender (minimal - high epigastric region) and + hepatomegaly (severe - about 2 inches below costal margin ); no guarding and no splenomegaly Rectal Exam: + heme positive stool and + hemorrhoids (x 2 - internal ); no rectal mass, no fecal impaction and no rectal tenderness EDSON - chaperoned by nursing staff Musculoskeletal: no cyanosis or clubbing, extremities motor strength 5/5 Skin: + jaundice (severe - from head down to knees ) Neurologic: deep tendon reflexes 2+ bilaterally and moves all extremities; no focal motor deficits Motor/Sensory: no tremor and no asterixis Psychiatric: Orientation: alert and oriented x 3 Affect: + flat affect Lymphatic: no cervical lymphadenopathy Results & Data Results & [facility] ([facility] Vital Signs (Past 12 Hours) Vital Signs Temp Pulse Pulse Resp BP BP Pulse Ox 03/11/21 12:14 98 H 22 106/64 98 03/11/21 10:21 37.0 C 97 H 18 90/59 L 99 Laboratory Results Abnormal lab results 03/11/21 03/11/21 03/11/21 Range/Units 10:40 10:40 11:48 WBC 16.03 H (4.8-10.8) K/uL RBC 3.72 L (4.2-5.4) M/uL Hgb (12.0-16.0) g/dL Hct 35.2 L (37-47) % MCH 34.4 H (25-34) pg MCHC 36.4 H (32-36) g/dL RDW Std Deviation 69.8 H (36.4-46.3) fL RDW Coeff of Ace 20.1 H (11.5-14.5) % Neut # (Auto) 13.78 H (1.4-6.5) K/uL Lymph # (Auto) (1.2-3.4) K/uL [place] # (Auto) 0.81 H (0.11-0.59) K/uL Immature Gran # (Auto) 0.09 H (0.00-0.02) K/uL PT 24.3 H (9.0-12.0) Seconds INR 2.6 H (0.9-1.1) APTT 51.8 H* (21.0-31.0) Seconds Fibrinogen (184-400) mg/dl VBG pCO2 (38-50) mmHg Sodium 117 L* (136-145) mmol/L Chloride 83 L (98-107) mmol/L Carbon Dioxide (21-32) mmol/L Anion Gap (3-11) BUN 3 L (7-18) mg/dl BUN/Creatinine Ratio 2.6 L (10-20) Glucose 100 H (70-99) mg/dl Osmolality (280-300) mOsm/kg Lactate (0.4-2.0) mmol/L Calcium 7.6 L (8.5-10.1) mg/dl Total Bilirubin 17.6 H (0.2-1) mg/dl Direct Bilirubin 14.7 H (0-0.2) mg/dl AST 459 H (15-37) U/L ALT 135 H (12-78) U/L Alkaline Phosphatase 479 H (45-117) U/L Ammonia (11-32) umol/L Albumin 2.2 L (3.4-5.0) gm/dl TSH 5.580 H (0.300-4.500) uIu/ml Urine Appearance (Clear) Urine Ketones (Negative) Urine Blood (Negative) Urine Nitrite (Negative) Urine Bilirubin (Negative) Ur Leukocyte Esterase (Negative) Urine RBC (Auto) (0-4) /hpf U Epithel Cells (Auto) (0-5) /lpf Urine Bacteria (Auto) (Negative) Urine Osmolality (500-800) mOsm/kg Nasal Screen MRSA (PCR) (Negative) Ethyl Alcohol mg/dL (0-3) mg/dl 03/11/21 03/11/21 03/11/21 Range/Units 11:48 11:48 11:48 WBC (4.8-10.8) K/uL RBC (4.2-5.4) M/uL Hgb (12.0-16.0) g/dL Hct (37-47) % MCH (25-34) pg MCHC (32-36) g/dL RDW Std Deviation (36.4-46.3) fL RDW Coeff of Ace (11.5-14.5) % Neut # (Auto) (1.4-6.5) K/uL Lymph # (Auto) (1.2-3.4) K/uL [place] # (Auto) (0.11-0.59) K/uL Immature Gran # (Auto) (0.00-0.02) K/uL PT (9.0-12.0) Seconds INR (0.9-1.1) APTT (21.0-31.0) Seconds Fibrinogen (184-400) mg/dl VBG pCO2 (38-50) mmHg Sodium (136-145) mmol/L Chloride (98-107) mmol/L Carbon Dioxide (21-32) mmol/L Anion Gap (3-11) BUN (7-18) mg/dl BUN/Creatinine Ratio (10-20) Glucose (70-99) mg/dl Osmolality 272 L (280-300) mOsm/kg Lactate (0.4-2.0) mmol/L Calcium (8.5-10.1) mg/dl Total Bilirubin (0.2-1) mg/dl Direct Bilirubin (0-0.2) mg/dl AST (15-37) U/L ALT (12-78) U/L Alkaline Phosphatase (45-117) U/L Ammonia < 10.0 L (11-32) umol/L Albumin (3.4-5.0) gm/dl TSH (0.300-4.500) uIu/ml Urine Appearance (Clear) Urine Ketones (Negative) Urine Blood (Negative) Urine Nitrite (Negative) Urine Bilirubin (Negative) Ur Leukocyte Esterase (Negative) Urine RBC (Auto) (0-4) /hpf U Epithel Cells (Auto) (0-5) /lpf Urine Bacteria (Auto) (Negative) Urine Osmolality (500-800) mOsm/kg Nasal Screen MRSA (PCR) (Negative) Ethyl Alcohol mg/dL 93.0 H (0-3) mg/dl 03/11/21 03/11/21 03/11/21 Range/Units 12:18 12:18 14:52 WBC (4.8-10.8) K/uL RBC (4.2-5.4) M/uL Hgb (12.0-16.0) g/dL Hct (37-47) % MCH (25-34) pg MCHC (32-36) g/dL RDW Std Deviation (36.4-46.3) fL RDW Coeff of Ace (11.5-14.5) % Neut # (Auto) (1.4-6.5) K/uL Lymph # (Auto) (1.2-3.4) K/uL [place] # (Auto) (0.11-0.59) K/uL Immature Gran # (Auto) (0.00-0.02) K/uL PT (9.0-12.0) Seconds INR (0.9-1.1) APTT (21.0-31.0) Seconds Fibrinogen (184-400) mg/dl VBG pCO2 (38-50) mmHg Sodium 120 L (136-145) mmol/L Chloride (98-107) mmol/L Carbon Dioxide (21-32) mmol/L Anion Gap (3-11) BUN (7-18) mg/dl BUN/Creatinine Ratio (10-20) Glucose (70-99) mg/dl Osmolality (280-300) mOsm/kg Lactate (0.4-2.0) mmol/L Calcium (8.5-10.1) mg/dl Total Bilirubin (0.2-1) mg/dl Direct Bilirubin (0-0.2) mg/dl AST (15-37) U/L ALT (12-78) U/L Alkaline Phosphatase (45-117) U/L Ammonia (11-32) umol/L Albumin (3.4-5.0) gm/dl TSH (0.300-4.500) uIu/ml Urine Appearance Cloudy A (Clear) Urine Ketones 1+ H (Negative) Urine Blood 3+ H (Negative) Urine Nitrite Positive A (Negative) Urine Bilirubin 3+ H (Negative) Ur Leukocyte Esterase Trace H (Negative) Urine RBC (Auto) 5-10 H (0-4) /hpf U Epithel Cells (Auto) >30 H (0-5) /lpf Urine Bacteria (Auto) 1+ H (Negative) Urine Osmolality 217 L (500-800) mOsm/kg Nasal Screen MRSA (PCR) (Negative) Ethyl Alcohol mg/dL (0-3) mg/dl 03/11/21 03/11/21 03/11/21 Range/Units 16:02 16:14 17:10 WBC (4.8-10.8) K/uL RBC (4.2-5.4) M/uL Hgb 10.9 L (12.0-16.0) g/dL Hct 29.8 L (37-47) % MCH (25-34) pg MCHC (32-36) g/dL RDW Std Deviation (36.4-46.3) fL RDW Coeff of Ace (11.5-14.5) % Neut # (Auto) (1.4-6.5) K/uL Lymph # (Auto) (1.2-3.4) K/uL [place] # (Auto) (0.11-0.59) K/uL Immature Gran # (Auto) (0.00-0.02) K/uL PT (9.0-12.0) Seconds INR (0.9-1.1) APTT (21.0-31.0) Seconds Fibrinogen 143 L (184-400) mg/dl VBG pCO2 (38-50) mmHg Sodium (136-145) mmol/L Chloride (98-107) mmol/L Carbon Dioxide (21-32) mmol/L Anion Gap (3-11) BUN (7-18) mg/dl BUN/Creatinine Ratio (10-20) Glucose (70-99) mg/dl Osmolality (280-300) mOsm/kg Lactate (0.4-2.0) mmol/L Calcium (8.5-10.1) mg/dl Total Bilirubin (0.2-1) mg/dl Direct Bilirubin (0-0.2) mg/dl AST (15-37) U/L ALT (12-78) U/L Alkaline Phosphatase (45-117) U/L Ammonia (11-32) umol/L Albumin (3.4-5.0) gm/dl TSH (0.300-4.500) uIu/ml Urine Appearance (Clear) Urine Ketones (Negative) Urine Blood (Negative) Urine Nitrite (Negative) Urine Bilirubin (Negative) Ur Leukocyte Esterase (Negative) Urine RBC (Auto) (0-4) /hpf U Epithel Cells (Auto) (0-5) /lpf Urine Bacteria (Auto) (Negative) Urine Osmolality (500-800) mOsm/kg Nasal Screen MRSA (PCR) Positive A (Negative) Ethyl Alcohol mg/dL (0-3) mg/dl 03/11/21 03/11/21 03/11/21 Range/Units 17:40 17:40 21:39 WBC 12.53 H (4.8-10.8) K/uL RBC 3.39 L (4.2-5.4) M/uL Hgb 11.7 L (12.0-16.0) g/dL Hct 32.5 L (37-47) % MCH 34.5 H (25-34) pg MCHC (32-36) g/dL RDW Std Deviation 70.4 H (36.4-46.3) fL RDW Coeff of Ace 19.9 H (11.5-14.5) % Neut # (Auto) 11.64 H (1.4-6.5) K/uL Lymph # (Auto) 0.40 L (1.2-3.4) K/uL [place] # (Auto) (0.11-0.59) K/uL Immature Gran # (Auto) 0.06 H (0.00-0.02) K/uL PT (9.0-12.0) Seconds INR (0.9-1.1) APTT (21.0-31.0) Seconds Fibrinogen (184-400) mg/dl VBG pCO2 (38-50) mmHg Sodium 124 L 124 L (136-145) mmol/L Chloride 87 L 87 L (98-107) mmol/L Carbon Dioxide 20 L (21-32) mmol/L Anion Gap 17.0 H 15.0 H (3-11) BUN 3 L 3 L (7-18) mg/dl BUN/Creatinine Ratio 2.8 L 2.8 L (10-20) Glucose 119 H 255 H (70-99) mg/dl Osmolality (280-300) mOsm/kg Lactate (0.4-2.0) mmol/L Calcium 7.9 L 7.9 L (8.5-10.1) mg/dl Total Bilirubin (0.2-1) mg/dl Direct Bilirubin (0-0.2) mg/dl AST (15-37) U/L ALT (12-78) U/L Alkaline Phosphatase (45-117) U/L Ammonia (11-32) umol/L Albumin (3.4-5.0) gm/dl TSH (0.300-4.500) uIu/ml Urine Appearance (Clear) Urine Ketones (Negative) Urine Blood (Negative) Urine Nitrite (Negative) Urine Bilirubin (Negative) Ur Leukocyte Esterase (Negative) Urine RBC (Auto) (0-4) /hpf U Epithel Cells (Auto) (0-5) /lpf Urine Bacteria (Auto) (Negative) Urine Osmolality (500-800) mOsm/kg Nasal Screen MRSA (PCR) (Negative) Ethyl Alcohol mg/dL (0-3) mg/dl 03/11/21 03/11/21 Range/Units 21:39 21:39 WBC (4.8-10.8) K/uL RBC (4.2-5.4) M/uL Hgb (12.0-16.0) g/dL Hct (37-47) % MCH (25-34) pg MCHC (32-36) g/dL RDW Std Deviation (36.4-46.3) fL RDW Coeff of Ace (11.5-14.5) % Neut # (Auto) (1.4-6.5) K/uL Lymph # (Auto) (1.2-3.4) K/uL [place] # (Auto) (0.11-0.59) K/uL Immature Gran # (Auto) (0.00-0.02) K/uL PT (9.0-12.0) Seconds INR (0.9-1.1) APTT (21.0-31.0) Seconds Fibrinogen (184-400) mg/dl VBG pCO2 35 L (38-50) mmHg Sodium (136-145) mmol/L Chloride (98-107) mmol/L Carbon Dioxide (21-32) mmol/L Anion Gap (3-11) BUN (7-18) mg/dl BUN/Creatinine Ratio (10-20) Glucose (70-99) mg/dl Osmolality (280-300) mOsm/kg Lactate 3.1 H* (0.4-2.0) mmol/L Calcium (8.5-10.1) mg/dl Total Bilirubin (0.2-1) mg/dl Direct Bilirubin (0-0.2) mg/dl AST (15-37) U/L ALT (12-78) U/L Alkaline Phosphatase (45-117) U/L Ammonia (11-32) umol/L Albumin (3.4-5.0) gm/dl TSH (0.300-4.500) uIu/ml Urine Appearance (Clear) Urine Ketones (Negative) Urine Blood (Negative) Urine Nitrite (Negative) Urine Bilirubin (Negative) Ur Leukocyte Esterase (Negative) Urine RBC (Auto) (0-4) /hpf U Epithel Cells (Auto) (0-5) /lpf Urine Bacteria (Auto) (Negative) Urine Osmolality (500-800) mOsm/kg Nasal Screen MRSA (PCR) (Negative) Ethyl Alcohol mg/dL (0-3) mg/dl Diagnostic Findings Abdomen/Pelvis CT 03/11/21 15:[address] WITHOUT CONTRAST CT DOSE: 843.20 mGy.cm HISTORY: acute hepatitis, ?ascites, cirrhosis? TECHNIQUE: Multiaxial CT images of the abdomen and pelvis were performed without contrast. A dose lowering technique was utilized adhering to the principles of ALARA. COMPARISON STUDY: None. FINDINGS: A few bibasilar linear densities likely representing subsegmental atelectasis. No pneumoperitoneum. No pneumatosis. No fractures within the visualized osseous structures. There is moderate body wall edema. The liver is severely enlarged and markedly hypodense. This could represent an acute hepatitis or severe hepatic steatosis. There is moderate circumferential thickening of the gallbladder which is mildly distended. The spleen is normal in size. Normal adrenal glands. No renal stones or hydronephrosis. There is mild peripancreatic fat stranding/edema. No retroperitoneal lymphadenopathy. Normal caliber abdominal aorta. There is trace ascites seen within the abdomen. The bladder, uterus, bilateral adnexa are within normal limits. The appendix is reportedly surgically absent. No dilated loops of bowel to suggest an obstruction. Mild thickening at the ascending colon may be due to the patient's diffuse edematous state. IMPRESSION: 1. The liver is severely enlarged and markedly hypodense. This could represent acute hepatitis or severe hepatic steatosis. 2. Moderate circumferential thickening of the gallbladder wall. Nonspecific but could be due to the hepatic abnormality. Acute cholecystitis is considered less likely but not entirely excluded. 3. Moderate body wall edema. 4. Trace ascites. 5. Mild peripancreatic fat stranding/edema. This could represent an acute pancreatitis versus peripancreatic edema related to the patient's diffuse edematous state. Recommend correlation with pancreatic enzymes. ACT 112: Negative or not required by law. Electronically signed by: Anand Marshall M.D. 03/11/2021 5:05 PM EKG - NSR, PACs, flattened ST segments anterior leads and inferior leads; nonsignificant Q's inferior leads Code Status & VTE Plan Code Status full VTE Prophylaxis Plan VTE Prophylaxis will be ordered: Yes Critical Care Time Critical Care Time: Yes Total Critical Care Time: 100 PG Care Time/CCT Total # of Minutes Spent Total Time Spent with Patient: Total time spent is greater than 50% in coordination of care (as documented) at patient's floor/unit and/or counseling patient: Critical Care Time: Yes Total Critical Care Time: 100 Coding Level of Care Code None Diagnoses Acute alcoholic hepatitis K70.10 Coagulopathy D68.9 Hematemesis K92.0 Ascites R18.8 Alcoholism F10.20 Hyponatremia E87.1 Abnormal TSH R79.89 Generalized anxiety disorder F41.1 Hypertension I10 UTI (urinary tract infection) N39.0 DVT prophylaxis Z29.9 Additional Codes Critical Care Time - Critical Care Time: Yes ([id number]) Time Spent (min) 100
[2021-03-11] MEDS ORDERED: LORazepam 1 MG/2 ML VIAL IV PRN ×3 (15:52→17:21)
[2021-03-11] MEDS ORDERED: ONDANSETRON INJ 2 MG/ML 2 ML VIAL ONE ×2 (15:57→19:36)
[2021-03-11] MEDS ORDERED: OCTREOTIDE ACETATE 500 MCG in 0.9 % SODIUM CHLORIDE 100 ML IV SCH (16:00)
[2021-03-11] MEDS ORDERED: ONDANSETRON INJ 2 MG/ML 2 ML VIAL IV STA (16:13)
[2021-03-11 16:21] LABS: Hematocrit (blood only) 29.8 % (37-47); Hemoglobin 10.9 g/dL (12.0-16.0)
[2021-03-11 16:38] LABS: Fibrinogen 143 mg/dl (184-400)
[2021-03-11] MEDS ORDERED: SODIUM CHLORIDE 0.9% 250 ML IV PRN (16:40)
--- NOTE | 2021-03-11 16:44 | Critical Care Consultation ---
Date of Consultation March 11, 2021 Assessment & Plan (1) Acute alcoholic hepatitis: 35-year-old female with a past medical history of alcoholism presenting for acute decompensated liver failure due to alcoholic hepatitis, severe hyponatremia, urinary tract infection and findings concerning for an upper GI bleed. Neurologic: No significant issues at present. Ammonia less than 10. We will need to monitor neurological status closely given her severe hyponatremia. We will aim to improve her sodium levels by no greater than 8 mEq in 24 hours due to the concern of pontine myelinolysis. Start thiamine 250 mg 3 times daily to prevent Warnicke's encephalopathy. Folic acid 1 mg daily. Will initiate alcohol withdrawal protocol with IV Ativan. Pulmonary: No issues at present. At significant risk for aspiration. Maintain head of the bed elevated at all times. Cardiovascular: No significant issues. Maintain mean arterial pressures above 65 consider higher pressures given her cirrhotic state. Gastrointestinal: Concern for upper GI bleed. Currently on octreotide and Protonix drip. GI to perform EGD. Personal interpretation of CT abdomen does not demonstrate evidence of significant ascites. Massive hepatomegaly noted. Will initiate ceftriaxone for prophylaxis. Continue albumin infusion. Continue N-acetylcysteine given the concern for alcoholic hepatitis. Steroids are contraindicated at this time despite her elevated MDF score due to the presence of urinary tract infection and concern for GI bleed. Will defer further use of steroids or pentoxifylline to gastroenterology. Trend daily INR and liver function tests. Meld score 33. Madrey discriminant function score 83.4. Child Lopez class C. Renal: Renal function intact. Hyponatremia likely secondary to hypervolemic hyponatremia in the setting of decompensated liver failure. Continue to monitor sodium closely. BMP ordered every 4 hours. Infectious disease: We will start ceftriaxone given the concerning urinary tract infection and upper GI bleed in the setting of decompensated liver failure. Hematologic: Receiving 2 units of FFP given her elevated INR and the concern for upper GI bleed. We will give 10 mg of IV vitamin K. Fibrinogen level low likely related to liver failure difficult to discern whether this is from DIC or liver failure. Will maintain hemoglobin above 7. Endocrine: TSH mildly elevated. Consider the addition of levothyroxine in the next 1 to 2 days. Cortisol levels pending. F/E/N: N.p.o. Lines and tubes: Peripheral IVs VTE prophylaxis: SCDs CODE STATUS: Full Family at bedside: None available at bedside Disposition: Remain in the ICU I have personally spent 35 minutes of critical care time in the direct management of this patient. This is a life/limb threatening event. This includes time spent evaluating patient, direct bedside care, chart review, placing orders, interpretation of diagnostic studies, discussion with consultants, patient, and family members, as well as other required patient management activities. This time is exclusive of all separately billable procedures, and teaching time and separate from and in addition to any other critical care service time. Thank you for allowing us to participate in the care of this patient. (2) Coagulopathy: (3) Alcoholism: (4) Upper GI bleed: (5) Hyponatremia: History of Present Illness Reason for Consultation: Upper GI bleed and hyponatremia History of Present Illness 35-year-old female who presented to the ER due to abdominal distention and bloating. She noted blood in her stool. She has had increasing abdominal distention over the last several days. She is a heavy alcohol drinker and drinks 1-2 bottles of wine a day. She had several episodes of hematemesis yesterday. She notes several weeks of lower GI bleeding. Labs reviewed and suggest anemia with a hemoglobin of 10.9. She has a significant coagulopathy with an elevated INR 2.6, PTT 51.8 and fibrinogen of 143. Severe hyponatremia was noted on ER presentation with a sodium level of 117. Sodium currently is 120. Serum osmolality 272. Transaminitis is noted with an AST of 459. ALT 135. Alk phos 479. Total bilirubin 17.6. Urinalysis was grossly abnormal and was positive for leukoesterase and urine nitrates. 3+ blood. Urine sodium was low at 5. Allergies Allergy/AdvReac Type Severity Reaction Status Date / Time No Known Allergies Allergy Unknown Unverified 03/11/21 12:47 Home Medications Medication Instructions Recorded Confirmed Type losartan 25 mg tablet 25 mg PO DAILY #90 tab 01/01/21 03/11/21 Rx buspirone 5 mg tablet 5 mg PO BID #60 tab 02/01/21 03/11/21 Rx pantoprazole 40 mg tablet,delayed 40 mg PO DAILY #90 tab 02/01/21 03/11/21 Rx release Patient History Medical History (Updated 03/11/21 @ 16:45 by Dominic Dewitt MD) AA (alcohol abuse) Generalized anxiety disorder Hypertension Upper GI bleed Surgical History No history of previous surgery Family History Father Myocardial infarction Depression Diabetes Heart disease Grandfather Prostate cancer MATERNAL Mother Depression Hypertension Denies family history of Ovarian cancer Breast cancer Colorectal cancer History of alcoholism Social History Smoking Status: Current every day smoker Tobacco Type: Cigarettes Age Started Using Tobacco: 22; Cigarettes Per Day: 5; Second Hand Exposure: No; Do You Dip or Chew Tobacco: No; Tobacco Cessation Education Requested by Patient: No Hx Alcohol Use: Yes Alcohol type: wine and hard liquor Alcohol Intake Frequency: 4 or More x per/Week Alcohol Intake Frequency Comment: DAILY; 1-2 bottles wine/day; multiple rum & coke Hx Substance Use: No Preferred Language: Honduran Communication Ability: Effective Visual Impairment: No Limitations Hearing Ability: Normal 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 Beliefs That Will Affect Care: None marital status: Single Current Living Situation: Family Current Living Situation Comment: lives in [place] w/ Mom/dad current occupational status: unemployed 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 How many Children do You have: 0 Other Information That Helps Us Care for You: No Feels Safe at Home: Yes Safety Concerns: Feels Safe At This Time Childhood Exposure to Second-Hand Smoke: No Dental Care, Regularly: No Physical Activity Frequency: Does not Exercise Seatbelt Use: always Sunscreen Use: Yes Sexual Activity: has been sexually active, but not for at least 12 months Assistive Devices: Glasses Review of Systems Review of Systems: All systems reviewed & are unremarkable except as noted in HPI & below Physical Exam Constitutional: + ill appearing and + obese Eyes: PERRL, conjunctivae normal, anicteric sclerae Scleral icterus noted. ENMT: external ear and nose normal, oropharynx normal Respiratory: normal respiratory effort, lungs clear to auscultation Cardiovascular: RRR, no murmur, no edema Gastrointestinal (Abdomen): Massive hepatomegaly noted. Mildly tender to palpation. No fluid wave. Musculoskeletal: no cyanosis or clubbing, extremities motor strength 5/5 Skin: Spider angiomata noted on her abdomen. Neurologic: PERRL, EOMI, accommodation nl, no face palsy, no dysarthria Psychiatric: A+Ox3, euthymic affect Results & Data Results & Data ([facility]) Vital Signs (Past 12 Hours) Vital Signs Temp Pulse Pulse Resp BP BP Pulse Ox 03/11/21 16:14 105 H 15 106/64 94 03/11/21 15:32 106 H 18 106/64 97 03/11/21 14:00 98 H 20 106/64 94 03/11/21 12:14 98 H 22 106/64 98 03/11/21 10:21 98.6 F 97 H 18 90/59 L 99 Vital signs, labs and imaging reviewed Coding Level of Care Code Critical Care 1st 30-74 mins Diagnoses Acute alcoholic hepatitis K70.10 Coagulopathy D68.9 Alcoholism F10.20 Upper GI bleed K92.2 Hyponatremia E87.1 Time Spent (min) 35
--- NOTE | 2021-03-11 17:06 | CT Scan Report ---
ABDOMEN AND PELVIS CT WITHOUT CONTRAST CT DOSE: 843.20 mGy.cm HISTORY: acute hepatitis, ?ascites, cirrhosis? TECHNIQUE: Multiaxial CT images of the abdomen and pelvis were performed without contrast. A dose lo wering technique was utilized adhering to the principles of ALARA. COMPARISON STUDY: None. FINDINGS: A few bibasilar linear densities likely representing subsegmental atelectasis. No pneumoper itoneum. No pneumatosis. No fractures within the visualized osseous structures. There is moderate bod y wall edema. The liver is severely enlarged and markedly hypodense. This could represent an acute he patitis or severe hepatic steatosis. There is moderate circumferential thickening of the gallbladder which is mildly distended. The spleen is normal in size. Normal adrenal glands. No renal stones or hy dronephrosis. There is mild peripancreatic fat stranding/edema. No retroperitoneal lymphadenopathy. N ormal caliber abdominal aorta. There is trace ascites seen within the abdomen. The bladder, uterus, b ilateral adnexa are within normal limits. The appendix is reportedly surgically absent. No dilated lo ops of bowel to suggest an obstruction. Mild thickening at the ascending colon may be due to the michael ent's diffuse edematous state. IMPRESSION: 1. The liver is severely enlarged and markedly hypodense. This could represent acute hepatitis or sev ere hepatic steatosis. 2. Moderate circumferential thickening of the gallbladder wall. Nonspecific but could be due to the h epatic abnormality. Acute cholecystitis is considered less likely but not entirely excluded. 3. Moderate body wall edema. 4. Trace ascites. 5. Mild peripancreatic fat stranding/edema. This could represent an acute pancreatitis versus peripan creatic edema related to the patient's diffuse edematous state. Recommend correlation with pancreatic enzymes. ACT 112: Negative or not required by law. Electronically signed by: Anand Marshall M.D. 03/11/2021 5:05 PM
[2021-03-11] MEDS ORDERED: cefTRIAXone SODIUM 1,000 MG in DEXTROSE 5% 50 ML IV SCH (17:15)
[2021-03-11] MEDS ORDERED: cefTRIAXone SODIUM 2,000 MG in DEXTROSE 5% 50 ML IV STA (17:17)
[2021-03-11] MEDS ORDERED: ALBUMIN 5% 250 ML IV ONE (17:19)
[2021-03-11] MEDS ORDERED: LORazepam 2 MG/4 ML VIAL IV PRN (17:21)
[2021-03-11] MEDS ORDERED: ATIVAN IV ALCOHOL WITHDRAWL IV PRN (17:21)
[2021-03-11] MEDS ORDERED: LORazepam 3 MG/6 ML VIAL IV PRN (17:21)
[2021-03-11] MEDS ORDERED: cefTRIAXone SODIUM 2,000 MG/70 ML BAG IV STA (17:22)
[2021-03-11] MEDS ORDERED: ICU PROTOCOL FOR HYPERGLYCEMIA PRN (17:22)
--- NOTE | 2021-03-11 17:24 | Electrocardiogram Report ---
Test Reason : Blood Pressure : / mmHG Vent. Rate : 099 BPM Atrial Rate : 099 BPM P-R Int : 114 ms QRS Dur : 080 ms QT Int : 380 ms P-R-T Axes : -06 012 018 degrees QTc Int : 487 ms Sinus rhythm with Premature supraventricular complexes Low voltage QRS Possible Inferior infarct , age undetermined Abnormal ECG When compared with ECG of 11-MAY-2008 19:25, Premature supraventricular complexes are now Present Confirmed by Mehul Anderson ([id number]) on 03/11/2021 5:24:26 PM Referred By: REFERRED SELF Confirmed By:Nico Anderson
[2021-03-11] MEDS ORDERED: FOLIC ACID 1 MG in SYRINGE 9.8 ML IV ONE (17:30)
[2021-03-11] MEDS ORDERED: PHYTONADIONE 10 MG in SODIUM CHLORIDE 0.9% 50 ML IV ONE (17:30)
[2021-03-11] MEDS ORDERED: OCTREOTIDE ACETATE 50 MCG in SYRINGE 9.5 ML IV ONE (17:30)
[2021-03-11] MEDS: THIAMINE HCL 250 MG in SODIUM CHLORIDE 0.9% 50 ML IV SCH (17:53)
--- NOTE | 2021-03-11 18:09 | Anesthesiology Consultation ---
Date of Service March 11, 2021 Assessment & Plan (1) Acute alcoholic hepatitis: (2) Coagulopathy: (3) Hyponatremia: (4) Encounter for pre-operative examination: Chart Review Chart Review: Acceptable Risk for Surgery (urgent procedure needed) History Surgery Operation Date: 03/11/21 18:30 Proposed Procedures p Esophagogastroduodenoscopy - Brett Ochoa MD Height/Weight Height: 5 ft 2 in Weight: 82.7 kg Allergies Allergy/AdvReac Type Severity Reaction Status Date / Time No Known Allergies Allergy Unknown Unverified 03/11/21 12:47 Medications Home Medications Medication Instructions Recorded Confirmed Last Taken losartan 25 mg tablet 25 mg PO DAILY #90 tab 01/01/21 03/11/21 Unknown buspirone 5 mg tablet 5 mg PO BID #60 tab 02/01/21 03/11/21 Unknown pantoprazole 40 mg tablet,delayed 40 mg PO DAILY #90 tab 02/01/21 03/11/21 Unknown release Active Medications Generic Name Dose Route Start Last Admin Trade Name Freq PRN Reason Stop Dose Admin Acetylcysteine 4,140 mg/ 520.7 mls @ 125 mls/hr 03/11/21 14:20 03/11/21 15:30 Dextrose IV 03/11/21 18:29 125 mls/hr ONCE ONE Administration Lorazepam 1 mg in 2 mls @ 2 mls/min 03/11/21 15:52 03/11/21 16:21 Ativan IV 04/10/21 15:51 2 mls/min ONE PRN Administration EtoH Withdrawal AWSS 6-10 Protocol Thiamine HCl 250 mg/ Sodium 52.5 mls @ 208 mls/hr 03/11/21 18:00 03/11/21 17:53 Chloride IV 04/10/21 17:59 208 mls/hr TID JONNA Administration Past Medical History Medical History (Updated 03/11/21 @ 18:13 by Evin Barrera MD) AA (alcohol abuse) Acute alcoholic hepatitis Coagulopathy Generalized anxiety disorder Hypertension Hyponatremia Upper GI bleed Past Family History Family History Father Myocardial infarction Depression Diabetes Heart disease Grandfather Prostate cancer MATERNAL Mother Depression Hypertension Denies family history of Ovarian cancer Breast cancer Colorectal cancer History of alcoholism Past Surgical History Surgical History No history of previous surgery Social History Smoking Status: Current every day smoker tobacco type: cigarettes Smoking cigarettes per day: 5 Do You Dip or Chew Tobacco: No Hx Alcohol Use: Yes Alcohol type: wine and hard liquor alcohol intake frequency: 3 or more drinks per day Alcohol Intake Frequency Comment: 1-2 bottles wine per day plus occasional liquor intake Hx Substance Use: No Substance Use Type Other:: h/o cocaine use (snort) - last use 2018 Physical Exam Vital Signs Last Vital Signs Temp 37.0 C 03/11/21 10:21 Pulse 105 H 03/11/21 16:14 Resp 15 03/11/21 16:14 BP 106/64 03/11/21 16:14 Pulse Ox 94 03/11/21 16:14 Testing Laboratory Results PT 24.3 Seconds (9.0-12.0) H 03/11/21 11:48 INR 2.6 (0.9-1.1) H 03/11/21 11:48 APTT 51.8 Seconds (21.0-31.0) H* 03/11/21 11:48 Urine Color Dark Yellow 03/11/21 12:18 Urine Appearance Cloudy (Clear) A 03/11/21 12:18 Urine pH 5.5 (4.5-7.5) 03/11/21 12:18 Ur Specific [place] 1.012 (1.000-1.030) 03/11/21 12:18 Urine Protein Negative (Negative) 03/11/21 12:18 Urine Glucose (UA) Negative (Negative) 03/11/21 12:18 Urine Ketones 1+ (Negative) H 03/11/21 12:18 Urine Nitrite Positive (Negative) A 03/11/21 12:18 Ur Leukocyte Esterase Trace (Negative) H 03/11/21 12:18 Urine WBC (Auto) 1-5 /hpf (0-5) 03/11/21 12:18 Urine RBC (Auto) 5-10 /hpf (0-4) H 03/11/21 12:18 U Hyaline Cast (Auto) 1-5 /lpf (0-5) 03/11/21 12:18 U Epithel Cells (Auto) >30 /lpf (0-5) H 03/11/21 12:18 Urine Bacteria (Auto) 1+ (Negative) H 03/11/21 12:18 Blood Type Cancelled 03/11/21 16:14 Antibody Screen Cancelled 03/11/21 16:14 Laboratory Tests 03/11/21 03/11/21 03/11/21 10:40 10:40 11:48 WBC 16.03 H Hgb Hct Plt Count 239 PT 24.3 H INR 2.6 H APTT 51.8 H* Sodium Potassium 3.6 Chloride 83 L Carbon Dioxide 23 BUN 3 L Creatinine 1.16 SARS-CoV-2 (PCR) 03/11/21 03/11/21 03/11/21 14:30 14:52 16:14 WBC Hgb 10.9 L Hct 29.8 L Plt Count PT INR APTT Sodium 120 L Potassium Chloride Carbon Dioxide BUN Creatinine SARS-CoV-2 (PCR) NEGATIVE Electrocardiogram Date: 03/11/21 Findings: + NSR @ (99 PAC's) possible inferior infarct
[2021-03-11 18:39] LABS: BUN Creatinine Ratio 2.8 (10-20); Calcium 7.9 mg/dl (8.5-10.1); Creatinine Clr Calc Pharmacy 77.5 ml/min; Est GFR (African American) 83.5 ml/min; Est GFR (Non-African American) 72.1 ml/min
[2021-03-11 18:57] LABS: Basophils # (auto) 0.01 K/uL (0-0.2); Basophils % (auto) 0.1 %; Eosinophils # (auto) 0.01 K/uL (0-0.5); Eosinophils % (auto) 0.1 %; Hematocrit (blood only) 32.5 % (37-47); Hemoglobin 11.7 g/dL (12.0-16.0); Immature Granulocytes # (auto) 0.06 K/uL (0.00-0.02); Immature Granulocytes % (auto) 0.5 %; Lymphocytes % (auto) 3.2 %; Mean Corpuscular Hemoglobin 34.5 pg (25-34); Mean Corpuscular Volume 95.9 fL (80-100); Mean Platelet Volume 10.2 fL (7.4-10.4); Monocytes # (auto) 0.41 K/uL (0.11-0.59); Monocytes % (auto) 3.3 %; Neutrophils # (auto) 11.64 K/uL (1.4-6.5); Neutrophils % (auto) 92.8 %; Platelet Count 196 K/uL (130-400); RDW Coefficient of Variation 19.9 % (11.5-14.5); RDW Standard Deviation 70.4 fL (36.4-46.3); Red Blood Count 3.39 M/uL (4.2-5.4); White Blood Count 12.53 K/uL (4.8-10.8)
--- NOTE | 2021-03-11 19:01 | Gastrointestinal Consultation ---
Date of Consultation March 11, 2021 Assessment & Plan (1) Upper GI bleed: Plan for urgent EGD today, start FFP transfusion. IV PPI and Octreotide drip. IV Ceftriaxone. Patient was explained in detail regarding risks, benefits, limitations and alternatives of the above endoscopic procedure. Risks of intravenous sedation used for procedure were also explained. Risks include, but not limited to perforation, bleeding, infection, respiratory distress, cardiac arrest and . Patient is also aware about the possibility of missed lesion. Patient's questions were answered. The patient verbalized understanding the information and agreed to undergo the procedure. (2) Acute alcoholic hepatitis: Mental status intact hence not yet acute liver failure. MDF is high but will hold off steroids till we control her UGIB. Alcohol cessation counseling provided. Albumin given which will help with her hyponatremia. Equivocal benefit of NAC. Watch for DTs and refeeding syndrome. (3) Coagulopathy: History of Present Illness Attending Physician: Trayrosa Hartman 35 years old female patient with no medical comorbids presented to the hospital with hematemesis. Reports heavy alcohol use for many years, worsened recently, mother at bedside as well. She lost her Job and insurance during COVID pandemic and she got depressed, she lives with her parents and drink wine daily. In the ED she was found with labs suggestive of alcoholic hepatitis. Reports 5 episodes of bright red hematemesis and melena. Mild abdominal discomfort and worsening distention. Had similar alcohol related issues 15 years ago. Allergies Allergy/AdvReac Type Severity Reaction Status Date / Time No Known Allergies Allergy Unknown Unverified 03/11/21 12:47 Home Medications Medication Instructions Recorded Confirmed Type losartan 25 mg tablet 25 mg PO DAILY #90 tab 01/01/21 03/11/21 Rx buspirone 5 mg tablet 5 mg PO BID #60 tab 02/01/21 03/11/21 Rx pantoprazole 40 mg tablet,delayed 40 mg PO DAILY #90 tab 02/01/21 03/11/21 Rx release Patient History Medical History (Updated 03/11/21 @ 18:13 by Evin Barrera MD) AA (alcohol abuse) Acute alcoholic hepatitis Coagulopathy Generalized anxiety disorder Hypertension Hyponatremia Upper GI bleed Surgical History No history of previous surgery Family History Father Myocardial infarction Depression Diabetes Heart disease Grandfather Prostate cancer MATERNAL Mother Depression Hypertension Denies family history of Ovarian cancer Breast cancer Colorectal cancer History of alcoholism Social History Smoking Status: Current every day smoker Tobacco Type: Cigarettes Age Started Using Tobacco: 22; Cigarettes Per Day: 5; Second Hand Exposure: No; Do You Dip or Chew Tobacco: No; Tobacco Cessation Education Requested by Patient: No Hx Alcohol Use: Yes Alcohol type: wine and hard liquor Alcohol Intake Frequency: 4 or More x per/Week Alcohol Intake Frequency Comment: DAILY; 1-2 bottles wine/day; multiple rum & coke Hx Substance Use: No Preferred Language: Polish Communication Ability: Effective Visual Impairment: No Limitations Hearing Ability: Normal Copywriter Required: No Beliefs That Will Affect Care: None marital status: Single Current Living Situation: Family Current Living Situation Comment: lives in [place] w/ Mom/dad current occupational status: unemployed 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 How many Children do You have: 0 Other Information That Helps Us Care for You: No Feels Safe at Home: Yes Safety Concerns: Feels Safe At This Time Childhood Exposure to Second-Hand Smoke: No Dental Care, Regularly: No Physical Activity Frequency: Does not Exercise Seatbelt Use: always Sunscreen Use: Yes Sexual Activity: has been sexually active, but not for at least 12 months Assistive Devices: Glasses Review of Systems Constitutional: no fever, no chills, no fatigue and no weight loss Eyes: no eye pain and no worsening vision Ear, Nose, Mouth, Throat: no tinnitus, no dizziness, no nasal discharge and no epistaxis Respiratory: no cough, no dyspnea, no dyspnea on exertion and no wheezing Cardiovascular: no chest pain, no orthopnea, no palpitations and no edema Gastrointestinal: as per Subjective / HPI Genitourinary: no dysuria, no urinary frequency, no urinary incontinence and no hematuria Musculoskeletal: no stiffness and no myalgia Neurologic: no localized weakness, no paralysis, no tremor(s) and no headache(s) Endocrine: no polydipsia and no polyuria Hematologic / Lymphatic: no easy bleeding and no night sweats Physical Exam Constitutional: + well hydrated, cooperative and comfortable Eyes: PERRL scleral icterus ENMT: external ear and nose normal, oropharynx normal Neck: normal visual inspection and trachea midline Respiratory: normal respiratory effort, lungs clear to auscultation Auscultation: no wheezes Cardiovascular: RRR, no murmur, no edema Gastrointestinal (Abdomen): Inspection/Auscultation: + abdomen distended and normal bowel sounds Percussion/Palpation: abdomen soft, + hepatomegaly and + ascites Musculoskeletal: no cyanosis or clubbing, extremities motor strength 5/5 Skin: no rashes, warm and dry Neurologic: awake; no focal motor deficits Results & Data ([facility]) Vital Signs (Past 12 Hours) Vital Signs Temp Pulse Pulse Resp BP BP Pulse Ox 03/11/21 18:36 36.8 C 102 H 20 129/85 92 03/11/21 18:21 36.8 C 115 H 22 152/99 H 93 03/11/21 16:14 105 H 15 106/64 94 03/11/21 15:32 106 H 18 106/64 97 03/11/21 14:00 98 H 20 106/64 94 03/11/21 12:14 98 H 22 106/64 98 03/11/21 10:21 37.0 C 97 H 18 90/59 L 99 Laboratory Results Laboratory Results - last 24 hr 03/11/21 03/11/21 03/11/21 10:40 10:40 10:40 WBC 16.03 H RBC 3.72 L Hgb 12.8 Hct 35.2 L MCV 94.6 MCH 34.4 H MCHC 36.4 H RDW Std Deviation 69.8 H RDW Coeff of Ace 20.1 H Plt Count 239 MPV 10.1 Immature Gran % (Auto) 0.6 Neut % (Auto) 85.9 Lymph % (Auto) 7.8 Placer % (Auto) 5.1 Eos % (Auto) 0.4 Baso % (Auto) 0.2 Neut # (Auto) 13.78 H Lymph # (Auto) 1.25 Placer # (Auto) 0.81 H Eos # (Auto) 0.07 Baso # (Auto) 0.03 Immature Gran # (Auto) 0.09 H Anisocytosis Present Target Cells 2+ PT INR APTT PTT Ratio Fibrinogen Sodium 117 L* Potassium 3.6 Chloride 83 L Carbon Dioxide 23 Anion Gap 11.0 BUN 3 L Creatinine 1.16 Est Cr Clr Drug Dosing 67.5 Est GFR ( Amer) 70.6 Est GFR (Non-Af Amer) 61.0 BUN/Creatinine Ratio 2.6 L Glucose 100 H Osmolality Calcium 7.6 L Magnesium 1.9 Total Bilirubin 17.6 H Direct Bilirubin 14.7 H AST 459 H ALT 135 H Alkaline Phosphatase 479 H Ammonia Troponin I < 0.015 Total Protein 6.5 Albumin 2.2 L Lipase 281 TSH 5.580 H Free T4 1.30 HCG, Qual Random Cortisol Specimen Hemolysis Urine Color Urine Appearance Urine pH Ur Specific [place] Urine Protein Urine Glucose (UA) Urine Ketones Urine Blood Urine Nitrite Urine Bilirubin Urine Urobilinogen Ur Leukocyte Esterase Urine WBC (Auto) Urine RBC (Auto) U Hyaline Cast (Auto) U Epithel Cells (Auto) Urine Bacteria (Auto) Urine Yeast Urine Osmolality Ur Random Sodium Nasal Screen MRSA (PCR) Salicylates Urine Opiates Screen Ur Methadone, Qual Acetaminophen Urine Barbiturates Ur Phencyclidine (PCP) U Amphetamin/Meth Scrn MDMA (Ecstasy) Screen U Benzodiazepines Scrn Ur Cocaine Metabolite U Marijuana (THC) Screen Ethyl Alcohol mg/dL COVID-19 Eval Order SARS-CoV-2 (PCR) Blood Type Blood Type Recheck Antibody Screen 03/11/21 03/11/21 03/11/21 10:40 11:48 11:48 WBC RBC Hgb Hct MCV MCH MCHC RDW Std Deviation RDW Coeff of Ace Plt Count MPV Immature Gran % (Auto) Neut % (Auto) Lymph % (Auto) Placer % (Auto) Eos % (Auto) Baso % (Auto) Neut # (Auto) Lymph # (Auto) Placer # (Auto) Eos # (Auto) Baso # (Auto) Immature Gran # (Auto) Anisocytosis Target Cells PT 24.3 H INR 2.6 H APTT 51.8 H* PTT Ratio 2.0 Fibrinogen Sodium Potassium Chloride Carbon Dioxide Anion Gap BUN Creatinine Est Cr Clr Drug Dosing Est GFR ( Amer) Est GFR (Non-Af Amer) BUN/Creatinine Ratio Glucose Osmolality Calcium Magnesium Total Bilirubin Direct Bilirubin AST ALT Alkaline Phosphatase Ammonia Troponin I Total Protein Albumin Lipase TSH Free T4 HCG, Qual Negative Random Cortisol Specimen Hemolysis Urine Color Urine Appearance Urine pH Ur Specific [place] Urine Protein Urine Glucose (UA) Urine Ketones Urine Blood Urine Nitrite Urine Bilirubin Urine Urobilinogen Ur Leukocyte Esterase Urine WBC (Auto) Urine RBC (Auto) U Hyaline Cast (Auto) U Epithel Cells (Auto) Urine Bacteria (Auto) Urine Yeast Urine Osmolality Ur Random Sodium Nasal Screen MRSA (PCR) Salicylates Urine Opiates Screen Ur Methadone, Qual Acetaminophen Urine Barbiturates Ur Phencyclidine (PCP) U Amphetamin/Meth Scrn MDMA (Ecstasy) Screen U Benzodiazepines Scrn Ur Cocaine Metabolite U Marijuana (THC) Screen Ethyl Alcohol mg/dL 93.0 H COVID-19 Eval Order SARS-CoV-2 (PCR) Blood Type Blood Type Recheck Antibody Screen 03/11/21 03/11/21 03/11/21 11:48 11:48 12:18 WBC RBC Hgb Hct MCV MCH MCHC RDW Std Deviation RDW Coeff of Ace Plt Count MPV Immature Gran % (Auto) Neut % (Auto) Lymph % (Auto) Placer % (Auto) Eos % (Auto) Baso % (Auto) Neut # (Auto) Lymph # (Auto) Placer # (Auto) Eos # (Auto) Baso # (Auto) Immature Gran # (Auto) Anisocytosis Target Cells PT INR APTT PTT Ratio Fibrinogen Sodium Potassium Chloride Carbon Dioxide Anion Gap BUN Creatinine Est Cr Clr Drug Dosing Est GFR ( Amer) Est GFR (Non-Af Amer) BUN/Creatinine Ratio Glucose Osmolality 272 L Calcium Magnesium Total Bilirubin Direct Bilirubin AST ALT Alkaline Phosphatase Ammonia < 10.0 L Troponin I Total Protein Albumin Lipase TSH Free T4 HCG, Qual Random Cortisol Specimen Hemolysis Urine Color Dark Yellow Urine Appearance Cloudy A Urine pH 5.5 Ur Specific [place] 1.012 Urine Protein Negative Urine Glucose (UA) Negative Urine Ketones 1+ H Urine Blood 3+ H Urine Nitrite Positive A Urine Bilirubin 3+ H Urine Urobilinogen Negative Ur Leukocyte Esterase Trace H Urine WBC (Auto) 1-5 Urine RBC (Auto) 5-10 H U Hyaline Cast (Auto) 1-5 U Epithel Cells (Auto) >30 H Urine Bacteria (Auto) 1+ H Urine Yeast Not Reportable Urine Osmolality Ur Random Sodium Nasal Screen MRSA (PCR) Salicylates Urine Opiates Screen Ur Methadone, Qual Acetaminophen Urine Barbiturates Ur Phencyclidine (PCP) U Amphetamin/Meth Scrn MDMA (Ecstasy) Screen U Benzodiazepines Scrn Ur Cocaine Metabolite U Marijuana (THC) Screen Ethyl Alcohol mg/dL COVID-19 Eval Order SARS-CoV-2 (PCR) Blood Type Blood Type Recheck Antibody Screen 03/11/21 03/11/21 03/11/21 12:18 12:18 12:18 WBC RBC Hgb Hct MCV MCH MCHC RDW Std Deviation RDW Coeff of Ace Plt Count MPV Immature Gran % (Auto) Neut % (Auto) Lymph % (Auto) Placer % (Auto) Eos % (Auto) Baso % (Auto) Neut # (Auto) Lymph # (Auto) Placer # (Auto) Eos # (Auto) Baso # (Auto) Immature Gran # (Auto) Anisocytosis Target Cells PT INR APTT PTT Ratio Fibrinogen Sodium Potassium Chloride Carbon Dioxide Anion Gap BUN Creatinine Est Cr Clr Drug Dosing Est GFR ( Amer) Est GFR (Non-Af Amer) BUN/Creatinine Ratio Glucose Osmolality Calcium Magnesium Total Bilirubin Direct Bilirubin AST ALT Alkaline Phosphatase Ammonia Troponin I Total Protein Albumin Lipase TSH Free T4 HCG, Qual Random Cortisol Specimen Hemolysis Urine Color Urine Appearance Urine pH Ur Specific [place] Urine Protein Urine Glucose (UA) Urine Ketones Urine Blood Urine Nitrite Urine Bilirubin Urine Urobilinogen Ur Leukocyte Esterase Urine WBC (Auto) Urine RBC (Auto) U Hyaline Cast (Auto) U Epithel Cells (Auto) Urine Bacteria (Auto) Urine Yeast Urine Osmolality 217 L Ur Random Sodium < 5 Nasal Screen MRSA (PCR) Salicylates Urine Opiates Screen Neg Ur Methadone, Qual Neg Acetaminophen Urine Barbiturates Neg Ur Phencyclidine (PCP) Neg U Amphetamin/Meth Scrn Neg MDMA (Ecstasy) Screen Neg U Benzodiazepines Scrn Neg Ur Cocaine Metabolite Neg U Marijuana (THC) Screen Neg Ethyl Alcohol mg/dL COVID-19 Eval Order SARS-CoV-2 (PCR) Blood Type Blood Type Recheck Antibody Screen 03/11/21 03/11/21 03/11/21 14:30 14:30 14:52 WBC RBC Hgb Hct MCV MCH MCHC RDW Std Deviation RDW Coeff of Ace Plt Count MPV Immature Gran % (Auto) Neut % (Auto) Lymph % (Auto) Placer % (Auto) Eos % (Auto) Baso % (Auto) Neut # (Auto) Lymph # (Auto) Placer # (Auto) Eos # (Auto) Baso # (Auto) Immature Gran # (Auto) Anisocytosis Target Cells PT INR APTT PTT Ratio Fibrinogen Sodium 120 L Potassium Chloride Carbon Dioxide Anion Gap BUN Creatinine Est Cr Clr Drug Dosing Est GFR ( Amer) Est GFR (Non-Af Amer) BUN/Creatinine Ratio Glucose Osmolality Calcium Magnesium Total Bilirubin Direct Bilirubin AST ALT Alkaline Phosphatase Ammonia Troponin I Total Protein Albumin Lipase TSH Free T4 HCG, Qual Random Cortisol Specimen Hemolysis Urine Color Urine Appearance Urine pH Ur Specific [place] Urine Protein Urine Glucose (UA) Urine Ketones Urine Blood Urine Nitrite Urine Bilirubin Urine Urobilinogen Ur Leukocyte Esterase Urine WBC (Auto) Urine RBC (Auto) U Hyaline Cast (Auto) U Epithel Cells (Auto) Urine Bacteria (Auto) Urine Yeast Urine Osmolality Ur Random Sodium Nasal Screen MRSA (PCR) Salicylates Urine Opiates Screen Ur Methadone, Qual Acetaminophen Urine Barbiturates Ur Phencyclidine (PCP) U Amphetamin/Meth Scrn MDMA (Ecstasy) Screen U Benzodiazepines Scrn Ur Cocaine Metabolite U Marijuana (THC) Screen Ethyl Alcohol mg/dL COVID-19 Eval Order Covid19 at [facility] SARS-CoV-2 (PCR) NEGATIVE Blood Type Blood Type Recheck Antibody Screen 03/11/21 03/11/21 03/11/21 14:52 16:02 16:14 WBC RBC Hgb 10.9 L Hct 29.8 L MCV MCH MCHC RDW Std Deviation RDW Coeff of Ace Plt Count MPV Immature Gran % (Auto) Neut % (Auto) Lymph % (Auto) Placer % (Auto) Eos % (Auto) Baso % (Auto) Neut # (Auto) Lymph # (Auto) Placer # (Auto) Eos # (Auto) Baso # (Auto) Immature Gran # (Auto) Anisocytosis Target Cells PT INR APTT PTT Ratio Fibrinogen 143 L Sodium Potassium Chloride Carbon Dioxide Anion Gap BUN Creatinine Est Cr Clr Drug Dosing Est GFR ( Amer) Est GFR (Non-Af Amer) BUN/Creatinine Ratio Glucose Osmolality Calcium Magnesium Total Bilirubin Direct Bilirubin AST ALT Alkaline Phosphatase Ammonia Troponin I Total Protein Albumin Lipase TSH Free T4 HCG, Qual Random Cortisol Pending Specimen Hemolysis Urine Color Urine Appearance Urine pH Ur Specific [place] Urine Protein Urine Glucose (UA) Urine Ketones Urine Blood Urine Nitrite Urine Bilirubin Urine Urobilinogen Ur Leukocyte Esterase Urine WBC (Auto) Urine RBC (Auto) U Hyaline Cast (Auto) U Epithel Cells (Auto) Urine Bacteria (Auto) Urine Yeast Urine Osmolality Ur Random Sodium Nasal Screen MRSA (PCR) Salicylates Urine Opiates Screen Ur Methadone, Qual Acetaminophen Urine Barbiturates Ur Phencyclidine (PCP) U Amphetamin/Meth Scrn MDMA (Ecstasy) Screen U Benzodiazepines Scrn Ur Cocaine Metabolite U Marijuana (THC) Screen Ethyl Alcohol mg/dL COVID-19 Eval Order SARS-CoV-2 (PCR) Blood Type Blood Type Recheck Antibody Screen 03/11/21 03/11/21 03/11/21 16:14 16:14 17:10 WBC RBC Hgb Hct MCV MCH MCHC RDW Std Deviation RDW Coeff of Ace Plt Count MPV Immature Gran % (Auto) Neut % (Auto) Lymph % (Auto) Placer % (Auto) Eos % (Auto) Baso % (Auto) Neut # (Auto) Lymph # (Auto) Placer # (Auto) Eos # (Auto) Baso # (Auto) Immature Gran # (Auto) Anisocytosis Target Cells PT INR APTT PTT Ratio Fibrinogen Sodium Potassium Chloride Carbon Dioxide Anion Gap BUN Creatinine Est Cr Clr Drug Dosing Est GFR ( Amer) Est GFR (Non-Af Amer) BUN/Creatinine Ratio Glucose Osmolality Calcium Magnesium Total Bilirubin Direct Bilirubin AST ALT Alkaline Phosphatase Ammonia Troponin I Total Protein Albumin Lipase TSH Free T4 HCG, Qual Random Cortisol Specimen Hemolysis Urine Color Urine Appearance Urine pH Ur Specific [place] Urine Protein Urine Glucose (UA) Urine Ketones Urine Blood Urine Nitrite Urine Bilirubin Urine Urobilinogen Ur Leukocyte Esterase Urine WBC (Auto) Urine RBC (Auto) U Hyaline Cast (Auto) U Epithel Cells (Auto) Urine Bacteria (Auto) Urine Yeast Urine Osmolality Ur Random Sodium Nasal Screen MRSA (PCR) Positive A Salicylates Urine Opiates Screen Ur Methadone, Qual Acetaminophen Urine Barbiturates Ur Phencyclidine (PCP) U Amphetamin/Meth Scrn MDMA (Ecstasy) Screen U Benzodiazepines Scrn Ur Cocaine Metabolite U Marijuana (THC) Screen Ethyl Alcohol mg/dL COVID-19 Eval Order SARS-CoV-2 (PCR) Blood Type Cancelled Blood Type Recheck A Negative Antibody Screen Cancelled 03/11/21 03/11/21 03/11/21 17:40 17:40 17:40 WBC 12.53 H RBC 3.39 L Hgb 11.7 L Hct 32.5 L MCV 95.9 MCH 34.5 H MCHC 36.0 RDW Std Deviation 70.4 H RDW Coeff of Ace 19.9 H Plt Count 196 MPV 10.2 Immature Gran % (Auto) 0.5 Neut % (Auto) 92.8 Lymph % (Auto) 3.2 Placer % (Auto) 3.3 Eos % (Auto) 0.1 Baso % (Auto) 0.1 Neut # (Auto) 11.64 H Lymph # (Auto) 0.40 L Placer # (Auto) 0.41 Eos # (Auto) 0.01 Baso # (Auto) 0.01 Immature Gran # (Auto) 0.06 H Anisocytosis Target Cells PT INR APTT PTT Ratio Fibrinogen Sodium 124 L Potassium 4.0 Chloride 87 L Carbon Dioxide 20 L Anion Gap 17.0 H BUN 3 L Creatinine 1.01 Est Cr Clr Drug Dosing 77.5 Est GFR ( Amer) 83.5 Est GFR (Non-Af Amer) 72.1 BUN/Creatinine Ratio 2.8 L Glucose 119 H Osmolality Calcium 7.9 L Magnesium Total Bilirubin Direct Bilirubin AST ALT Alkaline Phosphatase Ammonia Troponin I Total Protein Albumin Lipase TSH Free T4 HCG, Qual Random Cortisol Specimen Hemolysis Urine Color Urine Appearance Urine pH Ur Specific [place] Urine Protein Urine Glucose (UA) Urine Ketones Urine Blood Urine Nitrite Urine Bilirubin Urine Urobilinogen Ur Leukocyte Esterase Urine WBC (Auto) Urine RBC (Auto) U Hyaline Cast (Auto) U Epithel Cells (Auto) Urine Bacteria (Auto) Urine Yeast Urine Osmolality Ur Random Sodium Nasal Screen MRSA (PCR) Salicylates Urine Opiates Screen Ur Methadone, Qual Acetaminophen Urine Barbiturates Ur Phencyclidine (PCP) U Amphetamin/Meth Scrn MDMA (Ecstasy) Screen U Benzodiazepines Scrn Ur Cocaine Metabolite U Marijuana (THC) Screen Ethyl Alcohol mg/dL COVID-19 Eval Order SARS-CoV-2 (PCR) Blood Type A Negative Blood Type Recheck Antibody Screen NEGATIVE
[2021-03-11] MEDS ORDERED: LIDOCAINE 2% 2 ML VIAL/AMP(20MG/ML) INFIL ONE (19:07)
[2021-03-11] MEDS ORDERED: PROPOFOL IV EMULSION 10 MG/ML 20 ML VIAL IV ONE (19:07)
[2021-03-11] MEDS ORDERED: SUCCINYLCHOLINE CHLORIDE 20 MG/ML 10 ML VIAL IV ONE (19:07)
[2021-03-11] MEDS ORDERED: DEXTROSE 5% 250 ML IV ONE ×3 (19:19→22:40)
[2021-03-11] MEDS ORDERED: DEXAMETHASONE SOD INJ 4 MG/ML VIAL ONE (19:36)
--- NOTE | 2021-03-11 19:40 | Operative Report ---
Post Operative Report Pre & Post Diagnosis Operation Date: 03/11/21 18:30 <No data on this case meets the specified criteria> I identified the patient and participated in the time-out.: Yes Procedure Operation Date: 03/11/21 18:30 <No data on this case meets the specified criteria> Surgeon Brett Ochoa MD Electronics Test Engineer None Estimated Blood Loss 0 Findings See Below (Severe Esophagitis) Specimens None Description of Procedure EGD I attest to the content of the Intraoperative Record and any orders documented therein. Any exceptions are noted below.
--- NOTE | 2021-03-11 19:49 | GI REPORT ---
Patient Name: Megan Gloria Procedure Date: 03/11/2021 5:58 PM Date of : 1985 Admit Type: Inpatient Age: 35 Gender: Female Attending MD: Brett Ochoa MD Procedure: Upper GI endoscopy Providers: Brett Ochoa MD Referring MD: Tray Hartman Indications: Hematemesis Medicines: General Anesthesia Complications: No immediate complications. Estimated Blood Loss: Estimated blood loss: none. Procedure: Pre-Anesthesia Assessment: - Prior to the procedure, a History and Physical was performed, and patient medications, allergies and sensitivities were reviewed. The patient's tolerance of previous anesthesia was reviewed. - The risks and benefits of the procedure and the sedation options and risks were discussed with the patient. All questions were answered and informed consent was obtained. - Patient identification and proposed procedure were verified prior to the procedure by the physician and the nurse. The procedure was verified in the procedure room. - Pre-procedure physical examination revealed no contraindications to sedation. After obtaining informed consent, the endoscope was passed under direct vision. Throughout the procedure, the patient's blood pressure, pulse, and oxygen saturations were monitored continuously. The Endoscope was introduced through the mouth, and advanced to the second part of duodenum. The upper GI endoscopy was accomplished without difficulty. The patient tolerated the procedure well. Findings: LA Grade D (one or more mucosal breaks involving at least 75% of esophageal circumference) esophagitis with no bleeding was found in the lower third of the esophagus. The entire examined stomach was normal. The duodenal bulb and second portion of the duodenum were normal. Impression: - LA Grade D erosive esophagitis. - Normal stomach. - Normal duodenal bulb and second portion of the duodenum. - No specimens collected. Recommendation: - Return patient to ICU for ongoing care. - Clear liquid diet. - Repeat upper endoscopy in 3 months to check healing. - IV PPI. - No need for IV Octreotide. Brett Ochoa MD 03/11/2021 7:49:07 PM This report has been signed electronically. Note Initiated On: 03/11/2021 5:58 PM Number of Addenda: 0 I attest to the content of the Intraoperative Record and orders documented therein, exceptions below {[id number]}
--- NOTE | 2021-03-11 20:02 | Anesthesiology Progress Note ---
Date of Service March 11, 2021 Anesthesia Post Procedure Vital Signs Vital Signs: Temp Pulse Pulse Resp BP BP Pulse Ox 03/11/21 19:00 111 H 16 133/92 93 03/11/21 18:52 36.8 C 107 H 20 133/92 96 03/11/21 18:37 36.8 C 114 H 20 133/92 95 03/11/21 18:36 36.8 C 102 H 20 129/85 92 03/11/21 18:34 111 H 15 129/85 92 03/11/21 18:30 110 H 21 91 03/11/21 18:21 36.8 C 115 H 22 152/99 H 93 03/11/21 18:00 106 H 16 152/99 H 94 03/11/21 17:30 110 H 15 132/75 92 03/11/21 17:09 113 H 22 104/82 96 03/11/21 17:05 108 H 17 03/11/21 16:14 105 H 15 106/64 94 03/11/21 15:32 106 H 18 106/64 97 03/11/21 14:00 98 H 20 106/64 94 03/11/21 12:14 98 H 22 106/64 98 03/11/21 10:21 37.0 C 97 H 18 90/59 L 99 Pain Intensity Abdomen: Pain Intensity: 2 Transfer of Care Handoff Completed per policy Notes Mental Status: alert / awake / arousable Patient Amnestic to Procedure: Yes Nausea / Vomiting: adequately controlled Pain: adequately controlled Airway Patency, RR, SpO2: stable & adequate BP & HR: stable & adequate Hydration State: stable & adequate Anesthetic Complications: no major complications apparent and Pt Satisfied with anesthetic care Notes: The patient is awake and stable at her baseline. Sign out was given to Benny the ICU PA.
[2021-03-11] MEDS ORDERED: fentaNYL citrate 100 MCG/2 ML VIAL IV PRN (20:03)
[2021-03-11] MEDS ORDERED: ONDANSETRON INJ 2 MG/ML 2 ML VIAL IV PRN (20:03)
[2021-03-11] MEDS ORDERED: ATROPINE SULFATE 0.1 MG/ML 10ML SYR IV PRN (20:03)
[2021-03-11] MEDS ORDERED: PHENYLEPHRINE 100MCG/ML 5ML SYR IV PRN (20:03)
[2021-03-11] MEDS ORDERED: ePHEDrine sulfate 50 MG/ML AMP IV PRN (20:03)
[2021-03-11] MEDS ORDERED: LABETALOL HCL IV 5 MG/ML 20ML IV PRN (20:03)
[2021-03-11] MEDS: PANTOprazole 40 MG in DEXTROSE 5% 100 ML IV SCH ×2 (20:11→21:44)
[2021-03-11] MEDS ORDERED: THIAMINE HCL 200 MG in SODIUM CHLORIDE 0.9% 50 ML IV SCH (21:00)
[2021-03-11 21:58] LABS: Base Excess VBG -2.4 mEq/L; Oxygen Saturation VBG 64.9 %; pH VBG 7.41 (7.36-7.41)
[2021-03-11 22:13] LABS: BUN Creatinine Ratio 2.8 (10-20); Calcium 7.9 mg/dl (8.5-10.1); Creatinine Clr Calc Pharmacy 79.9 ml/min; Est GFR (African American) 86.6 ml/min; Est GFR (Non-African American) 74.7 ml/min; Potassium 4.2 mmol/L (3.5-5.1)
[2021-03-11] MEDS ORDERED: DEXTROSE 5% 500 ML IV ONE (22:42)
[2021-03-11 23:31] LABS: Hematocrit (blood only) 29.4 % (37-47); Hemoglobin 10.6 g/dL (12.0-16.0); Mean Corpuscular Hemoglobin 34.3 pg (25-34); Mean Corpuscular Hgb Conc 36.1 g/dL (32-36); Mean Corpuscular Volume 95.1 fL (80-100); Platelet Count 185 K/uL (130-400); RDW Coefficient of Variation 20.2 % (11.5-14.5); RDW Standard Deviation 70.6 fL (36.4-46.3); Red Blood Count 3.09 M/uL (4.2-5.4); White Blood Count 10.55 K/uL (4.8-10.8)
[2021-03-11 23:52] LABS: Anisocytosis Present; Basophilic Stippling 1+; Basophils # (auto) 0.01 K/uL (0-0.2); Basophils % (auto) 0.1 %; Immature Granulocytes # (auto) 0.09 K/uL (0.00-0.02); Immature Granulocytes % (auto) 0.9 %; Lymphocytes # (auto) 0.42 K/uL (1.2-3.4); Monocytes # (auto) 0.16 K/uL (0.11-0.59); Monocytes % (auto) 1.5 %; Neutrophils # (auto) 9.87 K/uL (1.4-6.5); Neutrophils % (auto) 93.5 %; Pappenheimer Bodies 1+; Target Cells 1+
[2021-03-12] MEDS: THIAMINE HCL 250 MG in SODIUM CHLORIDE 0.9% 50 ML IV SCH ×4 (00:02→20:29)
[2021-03-12] MEDS: PANTOprazole 40 MG in DEXTROSE 5% 100 ML IV SCH ×2 (00:19→05:20)
--- NOTE | 2021-03-12 00:25 | Critical Care Progress Note ---
Date of Service March 12, 2021 Assessment & Plan (1) Acute alcoholic hepatitis: 35-year-old female with a past medical history of alcoholism presenting for acute decompensated liver failure due to alcoholic hepatitis, severe hyponatremia, urinary tract infection and findings concerning for an upper GI bleed. Neurologic: No significant issues at present. Ammonia less than 10. We will need to monitor neurological status closely given her severe hyponatremia. Start thiamine 250 mg 3 times daily to prevent Wernicke's encephalopathy. Folic acid 1 mg daily. Anxiety -BuSpar 7.5 mg 3 times daily as needed Pulmonary: No issues at present. At significant risk for aspiration. Maintain head of the bed elevated at all times. Cardiovascular: Hypertension -Restart losartan Gastrointestinal: Esophagitis -C PPI twice daily - EGD reviewed -No documented varices will discontinue ceftriaxone for prophylaxis - N-acetylcysteine completed - Steroids are relatively contraindicated at this time despite her elevated MDF score due to the presence of urinary tract infection and esophagitis Will defer further use of steroids or pentoxifylline to gastroenterology. Renal: Renal function intact. Hyponatremia likely secondary to hypervolemic hyponatremia in the setting of decompensated liver failure. Continue to monitor sodium closely. Infectious disease: -Transition to oral Cipro for acute cystitis culture pending Hematologic: Supratherapeutic INR Endocrine: ICU hyperglycemia protocol F/E/N: Full liquids progress diet as tolerated Lines and tubes: Peripheral IVs VTE prophylaxis: SCDs CODE STATUS: Full Family at bedside: None available at bedside Disposition: Remain in the ICU secondary to hyponatremia (2) Coagulopathy: (3) Alcoholism: (4) Upper GI bleed: (5) Hyponatremia: Admission and Anticipated Discharge Date Admission Date: March 11, 2021 Supervising Physician Co-Signing Physician Notes I have personally spent 35 minutes of critical care time in the direct management of this patient. This is a life/limb threatening event. This includes time spent evaluating patient, direct bedside care, chart review, placing orders, interpretation of diagnostic studies, discussion with consultants, patient, and/or family members regarding treatment decisions, as well as other required patient management activities. This time is exclusive of all separately billable procedures, and teaching time and separate from and in addition to any other critical care service time. Subjective no current complaints Physical Exam Physical Exam: General: Alert. nontoxic. Skin: Warm, dry, Head: Atraumatic Ears, nose, mouth and throat: airway patent, scleral jaundice Cardiovascular: Normal peripheral perfusion Respiratory: no respiratory distress Gastrointestinal: Non distended Musculoskeletal: No deformity Results & Data Results & Data ([facility]) Vital Signs (Past 12 Hours) Vital Signs Temp Pulse Pulse Resp BP BP BP 03/12/21 00:06 36.7 C 03/11/21 23:20 36.7 C 03/11/21 23:00 108 H 17 155/95 H 03/11/21 22:30 94 H 14 142/87 H 03/11/21 22:00 97 H 20 139/90 03/11/21 21:43 36.5 C 105 H 18 146/85 H 03/11/21 21:22 36.5 C 105 H 17 146/85 H 03/11/21 20:52 36.5 C 98 H 18 141/95 H 03/11/21 20:37 36.5 C 104 H 15 139/94 03/11/21 20:35 36.5 C 98 H 17 142/89 H 03/11/21 20:30 100 H 16 146/86 H 03/11/21 20:21 36.5 C 102 H 20 147/96 H 03/11/21 20:20 104 H 20 147/96 H 03/11/21 20:10 97 H 16 143/90 H 03/11/21 20:09 36.5 C 105 H 14 136/102 H 03/11/21 20:00 36.5 C 104 H 101 H 16 136/102 H 137/84 03/11/21 19:52 36.5 C 110 H 16 121/84 03/11/21 19:00 111 H 16 133/92 03/11/21 18:52 36.8 C 107 H 20 133/92 03/11/21 18:37 36.8 C 114 H 20 133/92 03/11/21 18:36 36.8 C 102 H 20 129/85 03/11/21 18:34 111 H 15 129/85 03/11/21 18:30 110 H 21 03/11/21 18:21 36.8 C 115 H 22 152/99 H 03/11/21 18:00 106 H 16 152/99 H 03/11/21 17:30 110 H 15 132/75 03/11/21 17:09 113 H 22 104/82 06/20/21 17:05 108 H 17 03/11/21 16:14 105 H 15 106/64 03/11/21 15:32 106 H 18 106/64 03/11/21 14:00 98 H 20 106/64 Pulse Ox 03/12/21 00:06 03/11/21 23:20 03/11/21 23:00 95 03/11/21 22:30 93 03/11/21 22:00 90 03/11/21 21:43 95 03/11/21 21:22 97 03/11/21 20:52 95 03/11/21 20:37 94 03/11/21 20:35 95 03/11/21 20:30 96 03/11/21 20:21 95 03/11/21 20:20 97 03/11/21 20:10 98 03/11/21 20:09 99 03/11/21 20:00 99 03/11/21 19:52 99 03/11/21 19:00 93 03/11/21 18:52 96 03/11/21 18:37 95 03/11/21 18:36 92 03/11/21 18:34 92 03/11/21 18:30 91 03/11/21 18:21 93 03/11/21 18:00 94 03/11/21 17:30 92 03/11/21 17:09 96 03/11/21 17:05 03/11/21 16:14 94 03/11/21 15:32 97 03/11/21 14:00 94 Laboratory Results 03/12/21 03/12/21 03/12/21 Range/Units 11:17 11:15 08:20 WBC 13.27 H (4.8-10.8) K/uL RBC 2.94 L (4.2-5.4) M/uL Hgb 10.0 L (12.0-16.0) g/dL Hct 28.3 L (37-47) % MCV 96.3 (80-100) fL MCH 34.0 (25-34) pg MCHC 35.3 (32-36) g/dL RDW Std Deviation 71.7 H (36.4-46.3) fL RDW Coeff of Ace 20.5 H (11.5-14.5) % Plt Count 171 (130-400) K/uL MPV 9.7 (7.4-10.4) fL Immature Gran % (Auto) 0.5 % Neut % (Auto) 91.1 % Lymph % (Auto) 3.4 % Benson % (Auto) 4.9 % Eos % (Auto) 0.0 % Baso % (Auto) 0.1 % Neut # (Auto) 12.10 H (1.4-6.5) K/uL Lymph # (Auto) 0.45 L (1.2-3.4) K/uL Benson # (Auto) 0.65 H (0.11-0.59) K/uL Eos # (Auto) 0.00 (0-0.5) K/uL Baso # (Auto) 0.01 (0-0.2) K/uL Immature Gran # (Auto) 0.06 H (0.00-0.02) K/uL Basophilic Stippling Anisocytosis Present Pappenheimer Bodies Target Cells 2+ PT (9.0-12.0) Seconds INR (0.9-1.1) APTT (21.0-31.0) Seconds PTT Ratio Fibrinogen (184-400) mg/dl VBG pH (7.36-7.41) VBG pCO2 (38-50) mmHg VBG pO2 mmHg VBG HCO3 mmol/L VBG O2 Saturation % VBG Base Excess mEq/L Barometric Pressure mm/Hg Sodium 127 L (136-145) mmol/L Potassium 3.3 L (3.5-5.1) mmol/L Chloride 92 L (98-107) mmol/L Carbon Dioxide 24 (21-32) mmol/L Anion Gap 11.0 (3-11) BUN 2 L (7-18) mg/dl Creatinine 0.86 (0.6-1.2) mg/dl Est Cr Clr Drug Dosing 90.4 ml/min Est GFR ( Amer) 101.4 ml/min Est GFR (Non-Af Amer) 87.5 ml/min BUN/Creatinine Ratio 2.3 L (10-20) Glucose 248 H (70-99) mg/dl POC Glucose 183 H (70-99) mg/dl Osmolality (280-300) mOsm/kg Lactate (0.4-2.0) mmol/L Calcium 8.2 L (8.5-10.1) mg/dl Phosphorus (2.5-4.9) mg/dl Magnesium (1.8-2.4) mg/dl Total Bilirubin (0.2-1) mg/dl Direct Bilirubin (0-0.2) mg/dl AST (15-37) U/L ALT (12-78) U/L Alkaline Phosphatase (45-117) U/L Ammonia (11-32) umol/L Total Protein (6.4-8.2) gm/dl Albumin (3.4-5.0) gm/dl Globulin (2.5-4.0) gm/dl Albumin/Globulin Ratio (0.9-2) Random Cortisol mcg/dl Specimen Hemolysis Urine Color Urine Appearance (Clear) Urine pH (4.5-7.5) Ur Specific Herman (1.000-1.030) Urine Protein (Negative) Urine Glucose (UA) (Negative) Urine Ketones (Negative) Urine Blood (Negative) Urine Nitrite (Negative) Urine Bilirubin (Negative) Urine Urobilinogen (Negative) Ur Leukocyte Esterase (Negative) Urine WBC (Auto) (0-5) /hpf Urine RBC (Auto) (0-4) /hpf U Hyaline Cast (Auto) (0-5) /lpf U Epithel Cells (Auto) (0-5) /lpf Urine Bacteria (Auto) (Negative) Urine Yeast Urine Osmolality (500-800) mOsm/kg Ur Random Sodium mmol/L Nasal Screen MRSA (PCR) (Negative) Urine Opiates Screen (Neg) Ur Methadone, Qual (Neg) Urine Barbiturates (Neg) Ur Phencyclidine (PCP) (Neg) U Amphetamin/Meth Scrn (Neg) MDMA (Ecstasy) Screen (Neg) U Benzodiazepines Scrn (Neg) Ur Cocaine Metabolite (Neg) U Marijuana (THC) Screen (Neg) Ethyl Alcohol mg/dL (0-3) mg/dl COVID-19 Eval Order SARS-CoV-2 (PCR) (Negative) Hepatitis A IgM Ab Hep Bs Antigen (Neg) Hep B Core IgM Ab Hepatitis C Antibody (Neg) Blood Type Blood Type Recheck Antibody Screen 03/12/21 03/12/21 03/12/21 Range/Units 06:01 05:47 04:07 WBC (4.8-10.8) K/uL RBC (4.2-5.4) M/uL Hgb (12.0-16.0) g/dL Hct (37-47) % MCV (80-100) fL MCH (25-34) pg MCHC (32-36) g/dL RDW Std Deviation (36.4-46.3) fL RDW Coeff of Ace (11.5-14.5) % Plt Count (130-400) K/uL MPV (7.4-10.4) fL Immature Gran % (Auto) % Neut % (Auto) % Lymph % (Auto) % Benson % (Auto) % Eos % (Auto) % Baso % (Auto) % Neut # (Auto) (1.4-6.5) K/uL Lymph # (Auto) (1.2-3.4) K/uL Benson # (Auto) (0.11-0.59) K/uL Eos # (Auto) (0-0.5) K/uL Baso # (Auto) (0-0.2) K/uL Immature Gran # (Auto) (0.00-0.02) K/uL Basophilic Stippling Anisocytosis Pappenheimer Bodies Target Cells PT (9.0-12.0) Seconds INR (0.9-1.1) APTT (21.0-31.0) Seconds PTT Ratio Fibrinogen (184-400) mg/dl VBG pH (7.36-7.41) VBG pCO2 (38-50) mmHg VBG pO2 mmHg VBG HCO3 mmol/L VBG O2 Saturation % VBG Base Excess mEq/L Barometric Pressure mm/Hg Sodium 128 L (136-145) mmol/L Potassium 3.6 (3.5-5.1) mmol/L Chloride (98-107) mmol/L Carbon Dioxide (21-32) mmol/L Anion Gap (3-11) BUN (7-18) mg/dl Creatinine (0.6-1.2) mg/dl Est Cr Clr Drug Dosing ml/min Est GFR ( Amer) ml/min Est GFR (Non-Af Amer) ml/min BUN/Creatinine Ratio (10-20) Glucose (70-99) mg/dl POC Glucose 224 H (70-99) mg/dl Osmolality (280-300) mOsm/kg Lactate (0.4-2.0) mmol/L Calcium (8.5-10.1) mg/dl Phosphorus (2.5-4.9) mg/dl Magnesium 2.1 (1.8-2.4) mg/dl Total Bilirubin (0.2-1) mg/dl Direct Bilirubin 13.8 H (0-0.2) mg/dl AST 310 H (15-37) U/L ALT (12-78) U/L Alkaline Phosphatase (45-117) U/L Ammonia (11-32) umol/L Total Protein (6.4-8.2) gm/dl Albumin (3.4-5.0) gm/dl Globulin (2.5-4.0) gm/dl Albumin/Globulin Ratio (0.9-2) Random Cortisol mcg/dl Specimen Hemolysis Urine Color Urine Appearance (Clear) Urine pH (4.5-7.5) Ur Specific Herman (1.000-1.030) Urine Protein (Negative) Urine Glucose (UA) (Negative) Urine Ketones (Negative) Urine Blood (Negative) Urine Nitrite (Negative) Urine Bilirubin (Negative) Urine Urobilinogen (Negative) Ur Leukocyte Esterase (Negative) Urine WBC (Auto) (0-5) /hpf Urine RBC (Auto) (0-4) /hpf U Hyaline Cast (Auto) (0-5) /lpf U Epithel Cells (Auto) (0-5) /lpf Urine Bacteria (Auto) (Negative) Urine Yeast Urine Osmolality (500-800) mOsm/kg Ur Random Sodium mmol/L Nasal Screen MRSA (PCR) (Negative) Urine Opiates Screen (Neg) Ur Methadone, Qual (Neg) Urine Barbiturates (Neg) Ur Phencyclidine (PCP) (Neg) U Amphetamin/Meth Scrn (Neg) MDMA (Ecstasy) Screen (Neg) U Benzodiazepines Scrn (Neg) Ur Cocaine Metabolite (Neg) U Marijuana (THC) Screen (Neg) Ethyl Alcohol mg/dL (0-3) mg/dl COVID-19 Eval Order SARS-CoV-2 (PCR) (Negative) Hepatitis A IgM Ab Hep Bs Antigen (Neg) Hep B Core IgM Ab Hepatitis C Antibody (Neg) Blood Type Blood Type Recheck Antibody Screen 03/12/21 03/12/21 03/12/21 Range/Units 03:17 02:17 02:17 WBC 10.06 (4.8-10.8) K/uL RBC 3.05 L (4.2-5.4) M/uL Hgb 10.4 L (12.0-16.0) g/dL Hct 29.4 L (37-47) % MCV 96.4 (80-100) fL MCH 34.1 H (25-34) pg MCHC 35.4 (32-36) g/dL RDW Std Deviation 71.8 H (36.4-46.3) fL RDW Coeff of Ace 20.2 H (11.5-14.5) % Plt Count 189 (130-400) K/uL MPV 10.2 (7.4-10.4) fL Immature Gran % (Auto) 0.7 % Neut % (Auto) 93.7 % Lymph % (Auto) 3.4 % Benson % (Auto) 2.1 % Eos % (Auto) 0.0 % Baso % (Auto) 0.1 % Neut # (Auto) 9.43 H (1.4-6.5) K/uL Lymph # (Auto) 0.34 L (1.2-3.4) K/uL Benson # (Auto) 0.21 (0.11-0.59) K/uL Eos # (Auto) 0.00 (0-0.5) K/uL Baso # (Auto) 0.01 (0-0.2) K/uL Immature Gran # (Auto) 0.07 H (0.00-0.02) K/uL Basophilic Stippling 1+ Anisocytosis Present Pappenheimer Bodies 1+ Target Cells 1+ PT (9.0-12.0) Seconds INR (0.9-1.1) APTT (21.0-31.0) Seconds PTT Ratio Fibrinogen (184-400) mg/dl VBG pH (7.36-7.41) VBG pCO2 (38-50) mmHg VBG pO2 mmHg VBG HCO3 mmol/L VBG O2 Saturation % VBG Base Excess mEq/L Barometric Pressure mm/Hg Sodium (136-145) mmol/L Potassium (3.5-5.1) mmol/L Chloride (98-107) mmol/L Carbon Dioxide (21-32) mmol/L Anion Gap (3-11) BUN (7-18) mg/dl Creatinine (0.6-1.2) mg/dl Est Cr Clr Drug Dosing ml/min Est GFR ( Amer) ml/min Est GFR (Non-Af Amer) ml/min BUN/Creatinine Ratio (10-20) Glucose (70-99) mg/dl POC Glucose 261 H (70-99) mg/dl Osmolality (280-300) mOsm/kg Lactate 2.9 H* (0.4-2.0) mmol/L Calcium (8.5-10.1) mg/dl Phosphorus (2.5-4.9) mg/dl Magnesium (1.8-2.4) mg/dl Total Bilirubin (0.2-1) mg/dl Direct Bilirubin (0-0.2) mg/dl AST (15-37) U/L ALT (12-78) U/L Alkaline Phosphatase (45-117) U/L Ammonia (11-32) umol/L Total Protein (6.4-8.2) gm/dl Albumin (3.4-5.0) gm/dl Globulin (2.5-4.0) gm/dl Albumin/Globulin Ratio (0.9-2) Random Cortisol mcg/dl Specimen Hemolysis Urine Color Urine Appearance (Clear) Urine pH (4.5-7.5) Ur Specific Herman (1.000-1.030) Urine Protein (Negative) Urine Glucose (UA) (Negative) Urine Ketones (Negative) Urine Blood (Negative) Urine Nitrite (Negative) Urine Bilirubin (Negative) Urine Urobilinogen (Negative) Ur Leukocyte Esterase (Negative) Urine WBC (Auto) (0-5) /hpf Urine RBC (Auto) (0-4) /hpf U Hyaline Cast (Auto) (0-5) /lpf U Epithel Cells (Auto) (0-5) /lpf Urine Bacteria (Auto) (Negative) Urine Yeast Urine Osmolality (500-800) mOsm/kg Ur Random Sodium mmol/L Nasal Screen MRSA (PCR) (Negative) Urine Opiates Screen (Neg) Ur Methadone, Qual (Neg) Urine Barbiturates (Neg) Ur Phencyclidine (PCP) (Neg) U Amphetamin/Meth Scrn (Neg) MDMA (Ecstasy) Screen (Neg) U Benzodiazepines Scrn (Neg) Ur Cocaine Metabolite (Neg) U Marijuana (THC) Screen (Neg) Ethyl Alcohol mg/dL (0-3) mg/dl COVID-19 Eval Order SARS-CoV-2 (PCR) (Negative) Hepatitis A IgM Ab Hep Bs Antigen (Neg) Hep B Core IgM Ab Hepatitis C Antibody (Neg) Blood Type Blood Type Recheck Antibody Screen 03/12/21 03/12/21 03/12/21 Range/Units 02:17 02:17 02:17 WBC (4.8-10.8) K/uL RBC (4.2-5.4) M/uL Hgb (12.0-16.0) g/dL Hct (37-47) % MCV (80-100) fL MCH (25-34) pg MCHC (32-36) g/dL RDW Std Deviation (36.4-46.3) fL RDW Coeff of Ace (11.5-14.5) % Plt Count (130-400) K/uL MPV (7.4-10.4) fL Immature Gran % (Auto) % Neut % (Auto) % Lymph % (Auto) % Benson % (Auto) % Eos % (Auto) % Baso % (Auto) % Neut # (Auto) (1.4-6.5) K/uL Lymph # (Auto) (1.2-3.4) K/uL Benson # (Auto) (0.11-0.59) K/uL Eos # (Auto) (0-0.5) K/uL Baso # (Auto) (0-0.2) K/uL Immature Gran # (Auto) (0.00-0.02) K/uL Basophilic Stippling Anisocytosis Pappenheimer Bodies Target Cells PT 23.1 H (9.0-12.0) Seconds INR 2.4 H (0.9-1.1) APTT (21.0-31.0) Seconds PTT Ratio Fibrinogen (184-400) mg/dl VBG pH (7.36-7.41) VBG pCO2 (38-50) mmHg VBG pO2 mmHg VBG HCO3 mmol/L VBG O2 Saturation % VBG Base Excess mEq/L Barometric Pressure mm/Hg Sodium 128 L (136-145) mmol/L Potassium (3.5-5.1) mmol/L Chloride 92 L (98-107) mmol/L Carbon Dioxide 25 (21-32) mmol/L Anion Gap 11.0 (3-11) BUN 2 L (7-18) mg/dl Creatinine 0.92 (0.6-1.2) mg/dl Est Cr Clr Drug Dosing 85.1 ml/min Est GFR ( Amer) 93.5 ml/min Est GFR (Non-Af Amer) 80.7 ml/min BUN/Creatinine Ratio 2.5 L (10-20) Glucose 273 H (70-99) mg/dl POC Glucose (70-99) mg/dl Osmolality (280-300) mOsm/kg Lactate (0.4-2.0) mmol/L Calcium 7.9 L (8.5-10.1) mg/dl Phosphorus 1.8 L (2.5-4.9) mg/dl Magnesium (1.8-2.4) mg/dl Total Bilirubin 17.3 H (0.2-1) mg/dl Direct Bilirubin (0-0.2) mg/dl AST (15-37) U/L ALT 105 H (12-78) U/L Alkaline Phosphatase 321 H (45-117) U/L Ammonia (11-32) umol/L Total Protein 6.2 L (6.4-8.2) gm/dl Albumin 2.5 L (3.4-5.0) gm/dl Globulin 3.7 (2.5-4.0) gm/dl Albumin/Globulin Ratio 0.7 L (0.9-2) Random Cortisol mcg/dl Specimen Hemolysis Urine Color Urine Appearance (Clear) Urine pH (4.5-7.5) Ur Specific Herman (1.000-1.030) Urine Protein (Negative) Urine Glucose (UA) (Negative) Urine Ketones (Negative) Urine Blood (Negative) Urine Nitrite (Negative) Urine Bilirubin (Negative) Urine Urobilinogen (Negative) Ur Leukocyte Esterase (Negative) Urine WBC (Auto) (0-5) /hpf Urine RBC (Auto) (0-4) /hpf U Hyaline Cast (Auto) (0-5) /lpf U Epithel Cells (Auto) (0-5) /lpf Urine Bacteria (Auto) (Negative) Urine Yeast Urine Osmolality (500-800) mOsm/kg Ur Random Sodium mmol/L Nasal Screen MRSA (PCR) (Negative) Urine Opiates Screen (Neg) Ur Methadone, Qual (Neg) Urine Barbiturates (Neg) Ur Phencyclidine (PCP) (Neg) U Amphetamin/Meth Scrn (Neg) MDMA (Ecstasy) Screen (Neg) U Benzodiazepines Scrn (Neg) Ur Cocaine Metabolite (Neg) U Marijuana (THC) Screen (Neg) Ethyl Alcohol mg/dL (0-3) mg/dl COVID-19 Eval Order SARS-CoV-2 (PCR) (Negative) Hepatitis A IgM Ab Pending Hep Bs Antigen (Neg) Hep B Core IgM Ab Pending Hepatitis C Antibody (Neg) Blood Type Blood Type Recheck Antibody Screen 03/12/21 03/11/21 03/11/21 Range/Units 02:17 23:16 23:15 WBC 10.55 (4.8-10.8) K/uL RBC 3.09 L (4.2-5.4) M/uL Hgb 10.6 L (12.0-16.0) g/dL Hct 29.4 L (37-47) % MCV 95.1 (80-100) fL MCH 34.3 H (25-34) pg MCHC 36.1 H (32-36) g/dL RDW Std Deviation 70.6 H (36.4-46.3) fL RDW Coeff of Ace 20.2 H (11.5-14.5) % Plt Count 185 (130-400) K/uL MPV 10.0 (7.4-10.4) fL Immature Gran % (Auto) 0.9 % Neut % (Auto) 93.5 % Lymph % (Auto) 4.0 % Benson % (Auto) 1.5 % Eos % (Auto) 0.0 % Baso % (Auto) 0.1 % Neut # (Auto) 9.87 H (1.4-6.5) K/uL Lymph # (Auto) 0.42 L (1.2-3.4) K/uL Benson # (Auto) 0.16 (0.11-0.59) K/uL Eos # (Auto) 0.00 (0-0.5) K/uL Baso # (Auto) 0.01 (0-0.2) K/uL Immature Gran # (Auto) 0.09 H (0.00-0.02) K/uL Basophilic Stippling 1+ Anisocytosis Present Pappenheimer Bodies 1+ Target Cells 1+ PT (9.0-12.0) Seconds INR (0.9-1.1) APTT (21.0-31.0) Seconds PTT Ratio Fibrinogen (184-400) mg/dl VBG pH (7.36-7.41) VBG pCO2 (38-50) mmHg VBG pO2 mmHg VBG HCO3 mmol/L VBG O2 Saturation % VBG Base Excess mEq/L Barometric Pressure mm/Hg Sodium (136-145) mmol/L Potassium (3.5-5.1) mmol/L Chloride (98-107) mmol/L Carbon Dioxide (21-32) mmol/L Anion Gap (3-11) BUN (7-18) mg/dl Creatinine (0.6-1.2) mg/dl Est Cr Clr Drug Dosing ml/min Est GFR ( Amer) ml/min Est GFR (Non-Af Amer) ml/min BUN/Creatinine Ratio (10-20) Glucose (70-99) mg/dl POC Glucose 257 H (70-99) mg/dl Osmolality (280-300) mOsm/kg Lactate (0.4-2.0) mmol/L Calcium (8.5-10.1) mg/dl Phosphorus (2.5-4.9) mg/dl Magnesium (1.8-2.4) mg/dl Total Bilirubin (0.2-1) mg/dl Direct Bilirubin (0-0.2) mg/dl AST (15-37) U/L ALT (12-78) U/L Alkaline Phosphatase (45-117) U/L Ammonia (11-32) umol/L Total Protein (6.4-8.2) gm/dl Albumin (3.4-5.0) gm/dl Globulin (2.5-4.0) gm/dl Albumin/Globulin Ratio (0.9-2) Random Cortisol mcg/dl Specimen Hemolysis Urine Color Urine Appearance (Clear) Urine pH (4.5-7.5) Ur Specific Herman (1.000-1.030) Urine Protein (Negative) Urine Glucose (UA) (Negative) Urine Ketones (Negative) Urine Blood (Negative) Urine Nitrite (Negative) Urine Bilirubin (Negative) Urine Urobilinogen (Negative) Ur Leukocyte Esterase (Negative) Urine WBC (Auto) (0-5) /hpf Urine RBC (Auto) (0-4) /hpf U Hyaline Cast (Auto) (0-5) /lpf U Epithel Cells (Auto) (0-5) /lpf Urine Bacteria (Auto) (Negative) Urine Yeast Urine Osmolality (500-800) mOsm/kg Ur Random Sodium mmol/L Nasal Screen MRSA (PCR) (Negative) Urine Opiates Screen (Neg) Ur Methadone, Qual (Neg) Urine Barbiturates (Neg) Ur Phencyclidine (PCP) (Neg) U Amphetamin/Meth Scrn (Neg) MDMA (Ecstasy) Screen (Neg) U Benzodiazepines Scrn (Neg) Ur Cocaine Metabolite (Neg) U Marijuana (THC) Screen (Neg) Ethyl Alcohol mg/dL (0-3) mg/dl COVID-19 Eval Order SARS-CoV-2 (PCR) (Negative) Hepatitis A IgM Ab Hep Bs Antigen Neg (Neg) Hep B Core IgM Ab Hepatitis C Antibody Neg (Neg) Blood Type Blood Type Recheck Antibody Screen 03/11/21 03/11/21 03/11/21 Range/Units 21:39 21:39 21:39 WBC (4.8-10.8) K/uL RBC (4.2-5.4) M/uL Hgb (12.0-16.0) g/dL Hct (37-47) % MCV (80-100) fL MCH (25-34) pg MCHC (32-36) g/dL RDW Std Deviation (36.4-46.3) fL RDW Coeff of Ace (11.5-14.5) % Plt Count (130-400) K/uL MPV (7.4-10.4) fL Immature Gran % (Auto) % Neut % (Auto) % Lymph % (Auto) % Benson % (Auto) % Eos % (Auto) % Baso % (Auto) % Neut # (Auto) (1.4-6.5) K/uL Lymph # (Auto) (1.2-3.4) K/uL Benson # (Auto) (0.11-0.59) K/uL Eos # (Auto) (0-0.5) K/uL Baso # (Auto) (0-0.2) K/uL Immature Gran # (Auto) (0.00-0.02) K/uL Basophilic Stippling Anisocytosis Pappenheimer Bodies Target Cells PT (9.0-12.0) Seconds INR (0.9-1.1) APTT (21.0-31.0) Seconds PTT Ratio Fibrinogen (184-400) mg/dl VBG pH 7.41 (7.36-7.41) VBG pCO2 35 L (38-50) mmHg VBG pO2 34 mmHg VBG HCO3 22 mmol/L VBG O2 Saturation 64.9 % VBG Base Excess -2.4 mEq/L Barometric Pressure 726.7 mm/Hg Sodium 124 L (136-145) mmol/L Potassium 4.2 (3.5-5.1) mmol/L Chloride 87 L (98-107) mmol/L Carbon Dioxide 22 (21-32) mmol/L Anion Gap 15.0 H (3-11) BUN 3 L (7-18) mg/dl Creatinine 0.98 (0.6-1.2) mg/dl Est Cr Clr Drug Dosing 79.9 ml/min Est GFR ( Amer) 86.6 ml/min Est GFR (Non-Af Amer) 74.7 ml/min BUN/Creatinine Ratio 2.8 L (10-20) Glucose 255 H (70-99) mg/dl POC Glucose (70-99) mg/dl Osmolality (280-300) mOsm/kg Lactate 3.1 H* (0.4-2.0) mmol/L Calcium 7.9 L (8.5-10.1) mg/dl Phosphorus (2.5-4.9) mg/dl Magnesium (1.8-2.4) mg/dl Total Bilirubin (0.2-1) mg/dl Direct Bilirubin (0-0.2) mg/dl AST (15-37) U/L ALT (12-78) U/L Alkaline Phosphatase (45-117) U/L Ammonia (11-32) umol/L Total Protein (6.4-8.2) gm/dl Albumin (3.4-5.0) gm/dl Globulin (2.5-4.0) gm/dl Albumin/Globulin Ratio (0.9-2) Random Cortisol mcg/dl Specimen Hemolysis Urine Color Urine Appearance (Clear) Urine pH (4.5-7.5) Ur Specific Herman (1.000-1.030) Urine Protein (Negative) Urine Glucose (UA) (Negative) Urine Ketones (Negative) Urine Blood (Negative) Urine Nitrite (Negative) Urine Bilirubin (Negative) Urine Urobilinogen (Negative) Ur Leukocyte Esterase (Negative) Urine WBC (Auto) (0-5) /hpf Urine RBC (Auto) (0-4) /hpf U Hyaline Cast (Auto) (0-5) /lpf U Epithel Cells (Auto) (0-5) /lpf Urine Bacteria (Auto) (Negative) Urine Yeast Urine Osmolality (500-800) mOsm/kg Ur Random Sodium mmol/L Nasal Screen MRSA (PCR) (Negative) Urine Opiates Screen (Neg) Ur Methadone, Qual (Neg) Urine Barbiturates (Neg) Ur Phencyclidine (PCP) (Neg) U Amphetamin/Meth Scrn (Neg) MDMA (Ecstasy) Screen (Neg) U Benzodiazepines Scrn (Neg) Ur Cocaine Metabolite (Neg) U Marijuana (THC) Screen (Neg) Ethyl Alcohol mg/dL (0-3) mg/dl COVID-19 Eval Order SARS-CoV-2 (PCR) (Negative) Hepatitis A IgM Ab Hep Bs Antigen (Neg) Hep B Core IgM Ab Hepatitis C Antibody (Neg) Blood Type Blood Type Recheck Antibody Screen 03/11/21 03/11/21 03/11/21 Range/Units 17:40 17:40 17:40 WBC 12.53 H (4.8-10.8) K/uL RBC 3.39 L (4.2-5.4) M/uL Hgb 11.7 L (12.0-16.0) g/dL Hct 32.5 L (37-47) % MCV 95.9 (80-100) fL MCH 34.5 H (25-34) pg MCHC 36.0 (32-36) g/dL RDW Std Deviation 70.4 H (36.4-46.3) fL RDW Coeff of Ace 19.9 H (11.5-14.5) % Plt Count 196 (130-400) K/uL MPV 10.2 (7.4-10.4) fL Immature Gran % (Auto) 0.5 % Neut % (Auto) 92.8 % Lymph % (Auto) 3.2 % Benson % (Auto) 3.3 % Eos % (Auto) 0.1 % Baso % (Auto) 0.1 % Neut # (Auto) 11.64 H (1.4-6.5) K/uL Lymph # (Auto) 0.40 L (1.2-3.4) K/uL Benson # (Auto) 0.41 (0.11-0.59) K/uL Eos # (Auto) 0.01 (0-0.5) K/uL Baso # (Auto) 0.01 (0-0.2) K/uL Immature Gran # (Auto) 0.06 H (0.00-0.02) K/uL Basophilic Stippling Anisocytosis Pappenheimer Bodies Target Cells PT (9.0-12.0) Seconds INR (0.9-1.1) APTT (21.0-31.0) Seconds PTT Ratio Fibrinogen (184-400) mg/dl VBG pH (7.36-7.41) VBG pCO2 (38-50) mmHg VBG pO2 mmHg VBG HCO3 mmol/L VBG O2 Saturation % VBG Base Excess mEq/L Barometric Pressure mm/Hg Sodium 124 L (136-145) mmol/L Potassium 4.0 (3.5-5.1) mmol/L Chloride 87 L (98-107) mmol/L Carbon Dioxide 20 L (21-32) mmol/L Anion Gap 17.0 H (3-11) BUN 3 L (7-18) mg/dl Creatinine 1.01 (0.6-1.2) mg/dl Est Cr Clr Drug Dosing 77.5 ml/min Est GFR ( Amer) 83.5 ml/min Est GFR (Non-Af Amer) 72.1 ml/min BUN/Creatinine Ratio 2.8 L (10-20) Glucose 119 H (70-99) mg/dl POC Glucose (70-99) mg/dl Osmolality (280-300) mOsm/kg Lactate (0.4-2.0) mmol/L Calcium 7.9 L (8.5-10.1) mg/dl Phosphorus (2.5-4.9) mg/dl Magnesium (1.8-2.4) mg/dl Total Bilirubin (0.2-1) mg/dl Direct Bilirubin (0-0.2) mg/dl AST (15-37) U/L ALT (12-78) U/L Alkaline Phosphatase (45-117) U/L Ammonia (11-32) umol/L Total Protein (6.4-8.2) gm/dl Albumin (3.4-5.0) gm/dl Globulin (2.5-4.0) gm/dl Albumin/Globulin Ratio (0.9-2) Random Cortisol mcg/dl Specimen Hemolysis Urine Color Urine Appearance (Clear) Urine pH (4.5-7.5) Ur Specific Herman (1.000-1.030) Urine Protein (Negative) Urine Glucose (UA) (Negative) Urine Ketones (Negative) Urine Blood (Negative) Urine Nitrite (Negative) Urine Bilirubin (Negative) Urine Urobilinogen (Negative) Ur Leukocyte Esterase (Negative) Urine WBC (Auto) (0-5) /hpf Urine RBC (Auto) (0-4) /hpf U Hyaline Cast (Auto) (0-5) /lpf U Epithel Cells (Auto) (0-5) /lpf Urine Bacteria (Auto) (Negative) Urine Yeast Urine Osmolality (500-800) mOsm/kg Ur Random Sodium mmol/L Nasal Screen MRSA (PCR) (Negative) Urine Opiates Screen (Neg) Ur Methadone, Qual (Neg) Urine Barbiturates (Neg) Ur Phencyclidine (PCP) (Neg) U Amphetamin/Meth Scrn (Neg) MDMA (Ecstasy) Screen (Neg) U Benzodiazepines Scrn (Neg) Ur Cocaine Metabolite (Neg) U Marijuana (THC) Screen (Neg) Ethyl Alcohol mg/dL (0-3) mg/dl COVID-19 Eval Order SARS-CoV-2 (PCR) (Negative) Hepatitis A IgM Ab Hep Bs Antigen (Neg) Hep B Core IgM Ab Hepatitis C Antibody (Neg) Blood Type A Negative Blood Type Recheck Antibody Screen NEGATIVE 03/11/21 03/11/21 03/11/21 Range/Units 17:10 16:14 16:14 WBC (4.8-10.8) K/uL RBC (4.2-5.4) M/uL Hgb (12.0-16.0) g/dL Hct (37-47) % MCV (80-100) fL MCH (25-34) pg MCHC (32-36) g/dL RDW Std Deviation (36.4-46.3) fL RDW Coeff of Ace (11.5-14.5) % Plt Count (130-400) K/uL MPV (7.4-10.4) fL Immature Gran % (Auto) % Neut % (Auto) % Lymph % (Auto) % Benson % (Auto) % Eos % (Auto) % Baso % (Auto) % Neut # (Auto) (1.4-6.5) K/uL Lymph # (Auto) (1.2-3.4) K/uL Benson # (Auto) (0.11-0.59) K/uL Eos # (Auto) (0-0.5) K/uL Baso # (Auto) (0-0.2) K/uL Immature Gran # (Auto) (0.00-0.02) K/uL Basophilic Stippling Anisocytosis Pappenheimer Bodies Target Cells PT (9.0-12.0) Seconds INR (0.9-1.1) APTT (21.0-31.0) Seconds PTT Ratio Fibrinogen (184-400) mg/dl VBG pH (7.36-7.41) VBG pCO2 (38-50) mmHg VBG pO2 mmHg VBG HCO3 mmol/L VBG O2 Saturation % VBG Base Excess mEq/L Barometric Pressure mm/Hg Sodium (136-145) mmol/L Potassium (3.5-5.1) mmol/L Chloride (98-107) mmol/L Carbon Dioxide (21-32) mmol/L Anion Gap (3-11) BUN (7-18) mg/dl Creatinine (0.6-1.2) mg/dl Est Cr Clr Drug Dosing ml/min Est GFR ( Amer) ml/min Est GFR (Non-Af Amer) ml/min BUN/Creatinine Ratio (10-20) Glucose (70-99) mg/dl POC Glucose (70-99) mg/dl Osmolality (280-300) mOsm/kg Lactate (0.4-2.0) mmol/L Calcium (8.5-10.1) mg/dl Phosphorus (2.5-4.9) mg/dl Magnesium (1.8-2.4) mg/dl Total Bilirubin (0.2-1) mg/dl Direct Bilirubin (0-0.2) mg/dl AST (15-37) U/L ALT (12-78) U/L Alkaline Phosphatase (45-117) U/L Ammonia (11-32) umol/L Total Protein (6.4-8.2) gm/dl Albumin (3.4-5.0) gm/dl Globulin (2.5-4.0) gm/dl Albumin/Globulin Ratio (0.9-2) Random Cortisol mcg/dl Specimen Hemolysis Urine Color Urine Appearance (Clear) Urine pH (4.5-7.5) Ur Specific Herman (1.000-1.030) Urine Protein (Negative) Urine Glucose (UA) (Negative) Urine Ketones (Negative) Urine Blood (Negative) Urine Nitrite (Negative) Urine Bilirubin (Negative) Urine Urobilinogen (Negative) Ur Leukocyte Esterase (Negative) Urine WBC (Auto) (0-5) /hpf Urine RBC (Auto) (0-4) /hpf U Hyaline Cast (Auto) (0-5) /lpf U Epithel Cells (Auto) (0-5) /lpf Urine Bacteria (Auto) (Negative) Urine Yeast Urine Osmolality (500-800) mOsm/kg Ur Random Sodium mmol/L Nasal Screen MRSA (PCR) Positive A (Negative) Urine Opiates Screen (Neg) Ur Methadone, Qual (Neg) Urine Barbiturates (Neg) Ur Phencyclidine (PCP) (Neg) U Amphetamin/Meth Scrn (Neg) MDMA (Ecstasy) Screen (Neg) U Benzodiazepines Scrn (Neg) Ur Cocaine Metabolite (Neg) U Marijuana (THC) Screen (Neg) Ethyl Alcohol mg/dL (0-3) mg/dl COVID-19 Eval Order SARS-CoV-2 (PCR) (Negative) Hepatitis A IgM Ab Hep Bs Antigen (Neg) Hep B Core IgM Ab Hepatitis C Antibody (Neg) Blood Type Cancelled Blood Type Recheck A Negative Antibody Screen Cancelled 03/11/21 03/11/21 03/11/21 Range/Units 16:14 16:02 14:52 WBC (4.8-10.8) K/uL RBC (4.2-5.4) M/uL Hgb 10.9 L (12.0-16.0) g/dL Hct 29.8 L (37-47) % MCV (80-100) fL MCH (25-34) pg MCHC (32-36) g/dL RDW Std Deviation (36.4-46.3) fL RDW Coeff of Ace (11.5-14.5) % Plt Count (130-400) K/uL MPV (7.4-10.4) fL Immature Gran % (Auto) % Neut % (Auto) % Lymph % (Auto) % Benson % (Auto) % Eos % (Auto) % Baso % (Auto) % Neut # (Auto) (1.4-6.5) K/uL Lymph # (Auto) (1.2-3.4) K/uL Benson # (Auto) (0.11-0.59) K/uL Eos # (Auto) (0-0.5) K/uL Baso # (Auto) (0-0.2) K/uL Immature Gran # (Auto) (0.00-0.02) K/uL Basophilic Stippling Anisocytosis Pappenheimer Bodies Target Cells PT (9.0-12.0) Seconds INR (0.9-1.1) APTT (21.0-31.0) Seconds PTT Ratio Fibrinogen 143 L (184-400) mg/dl VBG pH (7.36-7.41) VBG pCO2 (38-50) mmHg VBG pO2 mmHg VBG HCO3 mmol/L VBG O2 Saturation % VBG Base Excess mEq/L Barometric Pressure mm/Hg Sodium (136-145) mmol/L Potassium (3.5-5.1) mmol/L Chloride (98-107) mmol/L Carbon Dioxide (21-32) mmol/L Anion Gap (3-11) BUN (7-18) mg/dl Creatinine (0.6-1.2) mg/dl Est Cr Clr Drug Dosing ml/min Est GFR ( Amer) ml/min Est GFR (Non-Af Amer) ml/min BUN/Creatinine Ratio (10-20) Glucose (70-99) mg/dl POC Glucose (70-99) mg/dl Osmolality (280-300) mOsm/kg Lactate (0.4-2.0) mmol/L Calcium (8.5-10.1) mg/dl Phosphorus (2.5-4.9) mg/dl Magnesium (1.8-2.4) mg/dl Total Bilirubin (0.2-1) mg/dl Direct Bilirubin (0-0.2) mg/dl AST (15-37) U/L ALT (12-78) U/L Alkaline Phosphatase (45-117) U/L Ammonia (11-32) umol/L Total Protein (6.4-8.2) gm/dl Albumin (3.4-5.0) gm/dl Globulin (2.5-4.0) gm/dl Albumin/Globulin Ratio (0.9-2) Random Cortisol 22.84 mcg/dl Specimen Hemolysis Urine Color Urine Appearance (Clear) Urine pH (4.5-7.5) Ur Specific Herman (1.000-1.030) Urine Protein (Negative) Urine Glucose (UA) (Negative) Urine Ketones (Negative) Urine Blood (Negative) Urine Nitrite (Negative) Urine Bilirubin (Negative) Urine Urobilinogen (Negative) Ur Leukocyte Esterase (Negative) Urine WBC (Auto) (0-5) /hpf Urine RBC (Auto) (0-4) /hpf U Hyaline Cast (Auto) (0-5) /lpf U Epithel Cells (Auto) (0-5) /lpf Urine Bacteria (Auto) (Negative) Urine Yeast Urine Osmolality (500-800) mOsm/kg Ur Random Sodium mmol/L Nasal Screen MRSA (PCR) (Negative) Urine Opiates Screen (Neg) Ur Methadone, Qual (Neg) Urine Barbiturates (Neg) Ur Phencyclidine (PCP) (Neg) U Amphetamin/Meth Scrn (Neg) MDMA (Ecstasy) Screen (Neg) U Benzodiazepines Scrn (Neg) Ur Cocaine Metabolite (Neg) U Marijuana (THC) Screen (Neg) Ethyl Alcohol mg/dL (0-3) mg/dl COVID-19 Eval Order SARS-CoV-2 (PCR) (Negative) Hepatitis A IgM Ab Hep Bs Antigen (Neg) Hep B Core IgM Ab Hepatitis C Antibody (Neg) Blood Type Blood Type Recheck Antibody Screen 03/11/21 03/11/21 03/11/21 Range/Units 14:52 14:30 14:30 WBC (4.8-10.8) K/uL RBC (4.2-5.4) M/uL Hgb (12.0-16.0) g/dL Hct (37-47) % MCV (80-100) fL MCH (25-34) pg MCHC (32-36) g/dL RDW Std Deviation (36.4-46.3) fL RDW Coeff of Ace (11.5-14.5) % Plt Count (130-400) K/uL MPV (7.4-10.4) fL Immature Gran % (Auto) % Neut % (Auto) % Lymph % (Auto) % Benson % (Auto) % Eos % (Auto) % Baso % (Auto) % Neut # (Auto) (1.4-6.5) K/uL Lymph # (Auto) (1.2-3.4) K/uL Benson # (Auto) (0.11-0.59) K/uL Eos # (Auto) (0-0.5) K/uL Baso # (Auto) (0-0.2) K/uL Immature Gran # (Auto) (0.00-0.02) K/uL Basophilic Stippling Anisocytosis Pappenheimer Bodies Target Cells PT (9.0-12.0) Seconds INR (0.9-1.1) APTT (21.0-31.0) Seconds PTT Ratio Fibrinogen (184-400) mg/dl VBG pH (7.36-7.41) VBG pCO2 (38-50) mmHg VBG pO2 mmHg VBG HCO3 mmol/L VBG O2 Saturation % VBG Base Excess mEq/L Barometric Pressure mm/Hg Sodium 120 L (136-145) mmol/L Potassium (3.5-5.1) mmol/L Chloride (98-107) mmol/L Carbon Dioxide (21-32) mmol/L Anion Gap (3-11) BUN (7-18) mg/dl Creatinine (0.6-1.2) mg/dl Est Cr Clr Drug Dosing ml/min Est GFR ( Amer) ml/min Est GFR (Non-Af Amer) ml/min BUN/Creatinine Ratio (10-20) Glucose (70-99) mg/dl POC Glucose (70-99) mg/dl Osmolality (280-300) mOsm/kg Lactate (0.4-2.0) mmol/L Calcium (8.5-10.1) mg/dl Phosphorus (2.5-4.9) mg/dl Magnesium (1.8-2.4) mg/dl Total Bilirubin (0.2-1) mg/dl Direct Bilirubin (0-0.2) mg/dl AST (15-37) U/L ALT (12-78) U/L Alkaline Phosphatase (45-117) U/L Ammonia (11-32) umol/L Total Protein (6.4-8.2) gm/dl Albumin (3.4-5.0) gm/dl Globulin (2.5-4.0) gm/dl Albumin/Globulin Ratio (0.9-2) Random Cortisol mcg/dl Specimen Hemolysis Urine Color Urine Appearance (Clear) Urine pH (4.5-7.5) Ur Specific Herman (1.000-1.030) Urine Protein (Negative) Urine Glucose (UA) (Negative) Urine Ketones (Negative) Urine Blood (Negative) Urine Nitrite (Negative) Urine Bilirubin (Negative) Urine Urobilinogen (Negative) Ur Leukocyte Esterase (Negative) Urine WBC (Auto) (0-5) /hpf Urine RBC (Auto) (0-4) /hpf U Hyaline Cast (Auto) (0-5) /lpf U Epithel Cells (Auto) (0-5) /lpf Urine Bacteria (Auto) (Negative) Urine Yeast Urine Osmolality (500-800) mOsm/kg Ur Random Sodium mmol/L Nasal Screen MRSA (PCR) (Negative) Urine Opiates Screen (Neg) Ur Methadone, Qual (Neg) Urine Barbiturates (Neg) Ur Phencyclidine (PCP) (Neg) U Amphetamin/Meth Scrn (Neg) MDMA (Ecstasy) Screen (Neg) U Benzodiazepines Scrn (Neg) Ur Cocaine Metabolite (Neg) U Marijuana (THC) Screen (Neg) Ethyl Alcohol mg/dL (0-3) mg/dl COVID-19 Eval Order Covid19 at [facility] SARS-CoV-2 (PCR) NEGATIVE (Negative) Hepatitis A IgM Ab Hep Bs Antigen (Neg) Hep B Core IgM Ab Hepatitis C Antibody (Neg) Blood Type Blood Type Recheck Antibody Screen 03/11/21 03/11/21 03/11/21 Range/Units 12:18 12:18 12:18 WBC (4.8-10.8) K/uL RBC (4.2-5.4) M/uL Hgb (12.0-16.0) g/dL Hct (37-47) % MCV (80-100) fL MCH (25-34) pg MCHC (32-36) g/dL RDW Std Deviation (36.4-46.3) fL RDW Coeff of Ace (11.5-14.5) % Plt Count (130-400) K/uL MPV (7.4-10.4) fL Immature Gran % (Auto) % Neut % (Auto) % Lymph % (Auto) % Benson % (Auto) % Eos % (Auto) % Baso % (Auto) % Neut # (Auto) (1.4-6.5) K/uL Lymph # (Auto) (1.2-3.4) K/uL Benson # (Auto) (0.11-0.59) K/uL Eos # (Auto) (0-0.5) K/uL Baso # (Auto) (0-0.2) K/uL Immature Gran # (Auto) (0.00-0.02) K/uL Basophilic Stippling Anisocytosis Pappenheimer Bodies Target Cells PT (9.0-12.0) Seconds INR (0.9-1.1) APTT (21.0-31.0) Seconds PTT Ratio Fibrinogen (184-400) mg/dl VBG pH (7.36-7.41) VBG pCO2 (38-50) mmHg VBG pO2 mmHg VBG HCO3 mmol/L VBG O2 Saturation % VBG Base Excess mEq/L Barometric Pressure mm/Hg Sodium (136-145) mmol/L Potassium (3.5-5.1) mmol/L Chloride (98-107) mmol/L Carbon Dioxide (21-32) mmol/L Anion Gap (3-11) BUN (7-18) mg/dl Creatinine (0.6-1.2) mg/dl Est Cr Clr Drug Dosing ml/min Est GFR ( Amer) ml/min Est GFR (Non-Af Amer) ml/min BUN/Creatinine Ratio (10-20) Glucose (70-99) mg/dl POC Glucose (70-99) mg/dl Osmolality (280-300) mOsm/kg Lactate (0.4-2.0) mmol/L Calcium (8.5-10.1) mg/dl Phosphorus (2.5-4.9) mg/dl Magnesium (1.8-2.4) mg/dl Total Bilirubin (0.2-1) mg/dl Direct Bilirubin (0-0.2) mg/dl AST (15-37) U/L ALT (12-78) U/L Alkaline Phosphatase (45-117) U/L Ammonia (11-32) umol/L Total Protein (6.4-8.2) gm/dl Albumin (3.4-5.0) gm/dl Globulin (2.5-4.0) gm/dl Albumin/Globulin Ratio (0.9-2) Random Cortisol mcg/dl Specimen Hemolysis Urine Color Urine Appearance (Clear) Urine pH (4.5-7.5) Ur Specific Herman (1.000-1.030) Urine Protein (Negative) Urine Glucose (UA) (Negative) Urine Ketones (Negative) Urine Blood (Negative) Urine Nitrite (Negative) Urine Bilirubin (Negative) Urine Urobilinogen (Negative) Ur Leukocyte Esterase (Negative) Urine WBC (Auto) (0-5) /hpf Urine RBC (Auto) (0-4) /hpf U Hyaline Cast (Auto) (0-5) /lpf U Epithel Cells (Auto) (0-5) /lpf Urine Bacteria (Auto) (Negative) Urine Yeast Urine Osmolality 217 L (500-800) mOsm/kg Ur Random Sodium < 5 mmol/L Nasal Screen MRSA (PCR) (Negative) Urine Opiates Screen Neg (Neg) Ur Methadone, Qual Neg (Neg) Urine Barbiturates Neg (Neg) Ur Phencyclidine (PCP) Neg (Neg) U Amphetamin/Meth Scrn Neg (Neg) MDMA (Ecstasy) Screen Neg (Neg) U Benzodiazepines Scrn Neg (Neg) Ur Cocaine Metabolite Neg (Neg) U Marijuana (THC) Screen Neg (Neg) Ethyl Alcohol mg/dL (0-3) mg/dl COVID-19 Eval Order SARS-CoV-2 (PCR) (Negative) Hepatitis A IgM Ab Hep Bs Antigen (Neg) Hep B Core IgM Ab Hepatitis C Antibody (Neg) Blood Type Blood Type Recheck Antibody Screen 03/11/21 03/11/21 03/11/21 Range/Units 12:18 11:48 11:48 WBC (4.8-10.8) K/uL RBC (4.2-5.4) M/uL Hgb (12.0-16.0) g/dL Hct (37-47) % MCV (80-100) fL MCH (25-34) pg MCHC (32-36) g/dL RDW Std Deviation (36.4-46.3) fL RDW Coeff of Ace (11.5-14.5) % Plt Count (130-400) K/uL MPV (7.4-10.4) fL Immature Gran % (Auto) % Neut % (Auto) % Lymph % (Auto) % Benson % (Auto) % Eos % (Auto) % Baso % (Auto) % Neut # (Auto) (1.4-6.5) K/uL Lymph # (Auto) (1.2-3.4) K/uL Benson # (Auto) (0.11-0.59) K/uL Eos # (Auto) (0-0.5) K/uL Baso # (Auto) (0-0.2) K/uL Immature Gran # (Auto) (0.00-0.02) K/uL Basophilic Stippling Anisocytosis Pappenheimer Bodies Target Cells PT (9.0-12.0) Seconds INR (0.9-1.1) APTT (21.0-31.0) Seconds PTT Ratio Fibrinogen (184-400) mg/dl VBG pH (7.36-7.41) VBG pCO2 (38-50) mmHg VBG pO2 mmHg VBG HCO3 mmol/L VBG O2 Saturation % VBG Base Excess mEq/L Barometric Pressure mm/Hg Sodium (136-145) mmol/L Potassium (3.5-5.1) mmol/L Chloride (98-107) mmol/L Carbon Dioxide (21-32) mmol/L Anion Gap (3-11) BUN (7-18) mg/dl Creatinine (0.6-1.2) mg/dl Est Cr Clr Drug Dosing ml/min Est GFR ( Amer) ml/min Est GFR (Non-Af Amer) ml/min BUN/Creatinine Ratio (10-20) Glucose (70-99) mg/dl POC Glucose (70-99) mg/dl Osmolality 272 L (280-300) mOsm/kg Lactate (0.4-2.0) mmol/L Calcium (8.5-10.1) mg/dl Phosphorus (2.5-4.9) mg/dl Magnesium (1.8-2.4) mg/dl Total Bilirubin (0.2-1) mg/dl Direct Bilirubin (0-0.2) mg/dl AST (15-37) U/L ALT (12-78) U/L Alkaline Phosphatase (45-117) U/L Ammonia < 10.0 L (11-32) umol/L Total Protein (6.4-8.2) gm/dl Albumin (3.4-5.0) gm/dl Globulin (2.5-4.0) gm/dl Albumin/Globulin Ratio (0.9-2) Random Cortisol mcg/dl Specimen Hemolysis Urine Color Dark Yellow Urine Appearance Cloudy A (Clear) Urine pH 5.5 (4.5-7.5) Ur Specific Herman 1.012 (1.000-1.030) Urine Protein Negative (Negative) Urine Glucose (UA) Negative (Negative) Urine Ketones 1+ H (Negative) Urine Blood 3+ H (Negative) Urine Nitrite Positive A (Negative) Urine Bilirubin 3+ H (Negative) Urine Urobilinogen Negative (Negative) Ur Leukocyte Esterase Trace H (Negative) Urine WBC (Auto) 1-5 (0-5) /hpf Urine RBC (Auto) 5-10 H (0-4) /hpf U Hyaline Cast (Auto) 1-5 (0-5) /lpf U Epithel Cells (Auto) >30 H (0-5) /lpf Urine Bacteria (Auto) 1+ H (Negative) Urine Yeast Not Reportable Urine Osmolality (500-800) mOsm/kg Ur Random Sodium mmol/L Nasal Screen MRSA (PCR) (Negative) Urine Opiates Screen (Neg) Ur Methadone, Qual (Neg) Urine Barbiturates (Neg) Ur Phencyclidine (PCP) (Neg) U Amphetamin/Meth Scrn (Neg) MDMA (Ecstasy) Screen (Neg) U Benzodiazepines Scrn (Neg) Ur Cocaine Metabolite (Neg) U Marijuana (THC) Screen (Neg) Ethyl Alcohol mg/dL (0-3) mg/dl COVID-19 Eval Order SARS-CoV-2 (PCR) (Negative) Hepatitis A IgM Ab Hep Bs Antigen (Neg) Hep B Core IgM Ab Hepatitis C Antibody (Neg) Blood Type Blood Type Recheck Antibody Screen 03/11/21 03/11/21 03/11/21 Range/Units 11:48 11:48 10:40 WBC (4.8-10.8) K/uL RBC (4.2-5.4) M/uL Hgb (12.0-16.0) g/dL Hct (37-47) % MCV (80-100) fL MCH (25-34) pg MCHC (32-36) g/dL RDW Std Deviation (36.4-46.3) fL RDW Coeff of Ace (11.5-14.5) % Plt Count (130-400) K/uL MPV (7.4-10.4) fL Immature Gran % (Auto) % Neut % (Auto) % Lymph % (Auto) % Benson % (Auto) % Eos % (Auto) % Baso % (Auto) % Neut # (Auto) (1.4-6.5) K/uL Lymph # (Auto) (1.2-3.4) K/uL Benson # (Auto) (0.11-0.59) K/uL Eos # (Auto) (0-0.5) K/uL Baso # (Auto) (0-0.2) K/uL Immature Gran # (Auto) (0.00-0.02) K/uL Basophilic Stippling Anisocytosis Pappenheimer Bodies Target Cells PT 24.3 H (9.0-12.0) Seconds INR 2.6 H (0.9-1.1) APTT 51.8 H* (21.0-31.0) Seconds PTT Ratio 2.0 Fibrinogen (184-400) mg/dl VBG pH (7.36-7.41) VBG pCO2 (38-50) mmHg VBG pO2 mmHg VBG HCO3 mmol/L VBG O2 Saturation % VBG Base Excess mEq/L Barometric Pressure mm/Hg Sodium (136-145) mmol/L Potassium (3.5-5.1) mmol/L Chloride (98-107) mmol/L Carbon Dioxide (21-32) mmol/L Anion Gap (3-11) BUN (7-18) mg/dl Creatinine (0.6-1.2) mg/dl Est Cr Clr Drug Dosing ml/min Est GFR ( Amer) ml/min Est GFR (Non-Af Amer) ml/min BUN/Creatinine Ratio (10-20) Glucose (70-99) mg/dl POC Glucose (70-99) mg/dl Osmolality (280-300) mOsm/kg Lactate (0.4-2.0) mmol/L Calcium (8.5-10.1) mg/dl Phosphorus (2.5-4.9) mg/dl Magnesium (1.8-2.4) mg/dl Total Bilirubin (0.2-1) mg/dl Direct Bilirubin 14.7 H (0-0.2) mg/dl AST (15-37) U/L ALT (12-78) U/L Alkaline Phosphatase (45-117) U/L Ammonia (11-32) umol/L Total Protein (6.4-8.2) gm/dl Albumin (3.4-5.0) gm/dl Globulin (2.5-4.0) gm/dl Albumin/Globulin Ratio (0.9-2) Random Cortisol mcg/dl Specimen Hemolysis Urine Color Urine Appearance (Clear) Urine pH (4.5-7.5) Ur Specific Herman (1.000-1.030) Urine Protein (Negative) Urine Glucose (UA) (Negative) Urine Ketones (Negative) Urine Blood (Negative) Urine Nitrite (Negative) Urine Bilirubin (Negative) Urine Urobilinogen (Negative) Ur Leukocyte Esterase (Negative) Urine WBC (Auto) (0-5) /hpf Urine RBC (Auto) (0-4) /hpf U Hyaline Cast (Auto) (0-5) /lpf U Epithel Cells (Auto) (0-5) /lpf Urine Bacteria (Auto) (Negative) Urine Yeast Urine Osmolality (500-800) mOsm/kg Ur Random Sodium mmol/L Nasal Screen MRSA (PCR) (Negative) Urine Opiates Screen (Neg) Ur Methadone, Qual (Neg) Urine Barbiturates (Neg) Ur Phencyclidine (PCP) (Neg) U Amphetamin/Meth Scrn (Neg) MDMA (Ecstasy) Screen (Neg) U Benzodiazepines Scrn (Neg) Ur Cocaine Metabolite (Neg) U Marijuana (THC) Screen (Neg) Ethyl Alcohol mg/dL 93.0 H (0-3) mg/dl COVID-19 Eval Order SARS-CoV-2 (PCR) (Negative) Hepatitis A IgM Ab Hep Bs Antigen (Neg) Hep B Core IgM Ab Hepatitis C Antibody (Neg) Blood Type Blood Type Recheck Antibody Screen Coding Level of Care Code Critical Care 1st 30-74 mins Diagnoses Acute alcoholic hepatitis K70.10 Coagulopathy D68.9 Alcoholism F10.20 Upper GI bleed K92.2 Hyponatremia E87.1
[2021-03-12 02:30] LABS: Basophils # (auto) 0.01 K/uL (0-0.2); Basophils % (auto) 0.1 %; Hematocrit (blood only) 29.4 % (37-47); Hemoglobin 10.4 g/dL (12.0-16.0); Immature Granulocytes # (auto) 0.07 K/uL (0.00-0.02); Immature Granulocytes % (auto) 0.7 %; Lymphocytes # (auto) 0.34 K/uL (1.2-3.4); Lymphocytes % (auto) 3.4 %; Mean Corpuscular Hemoglobin 34.1 pg (25-34); Mean Corpuscular Hgb Conc 35.4 g/dL (32-36); Mean Corpuscular Volume 96.4 fL (80-100); Mean Platelet Volume 10.2 fL (7.4-10.4); Monocytes # (auto) 0.21 K/uL (0.11-0.59); Monocytes % (auto) 2.1 %; Neutrophils # (auto) 9.43 K/uL (1.4-6.5); Neutrophils % (auto) 93.7 %; Platelet Count 189 K/uL (130-400); RDW Coefficient of Variation 20.2 % (11.5-14.5); RDW Standard Deviation 71.8 fL (36.4-46.3); Red Blood Count 3.05 M/uL (4.2-5.4); White Blood Count 10.06 K/uL (4.8-10.8)
[2021-03-12 02:48] LABS: INR 2.4 (0.9-1.1); Prothrombin Time 23.1 Seconds (9.0-12.0)
[2021-03-12 02:52] LABS: Anisocytosis Present; Basophilic Stippling 1+; Pappenheimer Bodies 1+; Target Cells 1+
[2021-03-12 03:11] LABS: Albumin Globulin Ratio 0.7 (0.9-2); Albumin Level 2.5 gm/dl (3.4-5.0); BUN Creatinine Ratio 2.5 (10-20); Bilirubin,Total 17.3 mg/dl (0.2-1); Calcium 7.9 mg/dl (8.5-10.1); Creatinine Clr Calc Pharmacy 85.1 ml/min; Est GFR (African American) 93.5 ml/min; Est GFR (Non-African American) 80.7 ml/min; Globulin 3.7 gm/dl (2.5-4.0); Phosphorus 1.8 mg/dl (2.5-4.9); Total Protein 6.2 gm/dl (6.4-8.2)
[2021-03-12] MEDS ORDERED: GLUCOSE 10 TABS/TUBE PO PRN (03:25)
[2021-03-12] MEDS ORDERED: GLUCOSE 40% GEL 15 GM TUBE PO PRN (03:25)
[2021-03-12] MEDS ORDERED: CARBOHYDRATES FOR HYPOGLYCEMIA PO PRN (03:25)
[2021-03-12] MEDS ORDERED: DEXTROSE 50% 50 ML SYRINGE IV PRN (03:25)
[2021-03-12] MEDS ORDERED: SODIUM CHLORIDE 0.45 % 1,000 ML IV ONE (03:25)
[2021-03-12] MEDS ORDERED: GLUCAGON FOR INJ 1 MG VIAL SQ PRN (03:25)
[2021-03-12] MEDS ORDERED: PHYTONADIONE 10 MG in SODIUM CHLORIDE 0.9% 50 ML IV ONE (03:30)
[2021-03-12] MEDS ORDERED: DESMOPRESSIN ACETATE 2 MCG in SODIUM CHLORIDE 0.9% 50 ML IV STA (03:34)
[2021-03-12] MEDS: INSULIN ASPART 100 UNITS/ML 3 ML PEN SC SCH ×4 (03:59→20:27)
[2021-03-12 04:38] LABS: Magnesium 2.1 mg/dl (1.8-2.4); Potassium 3.6 mmol/L (3.5-5.1)
[2021-03-12 05:03] LABS: Bilirubin Direct 13.8 mg/dl (0-0.2)
[2021-03-12] MEDS ORDERED: DEXTROSE 5% 500 ML IV ONE (06:34)
[2021-03-12] MEDS ORDERED: SODIUM CHLORIDE 0.45 % 1,000 ML IV SCH (07:00)
[2021-03-12] MEDS: FOLIC ACID 1 MG in SYRINGE 9.8 ML IV SCH (08:35)
[2021-03-12 08:54] LABS: BUN Creatinine Ratio 2.3 (10-20); Calcium 8.2 mg/dl (8.5-10.1); Creatinine Clr Calc Pharmacy 90.4 ml/min; Est GFR (African American) 101.4 ml/min; Est GFR (Non-African American) 87.5 ml/min; Potassium 3.3 mmol/L (3.5-5.1)
[2021-03-12] MEDS ORDERED: LORazepam 1 MG/2 ML VIAL IV STA (08:55)
[2021-03-12] MEDS ORDERED: FOLIC ACID 1 MG in SYRINGE 9.8 ML IV SCH (09:00)
[2021-03-12] MEDS ORDERED: PHARMACY GLYCEMIC MGMT CONSULT PRN (09:05)
[2021-03-12] MEDS ORDERED: INSULIN ASPART 100 UNITS/ML 3 ML PEN SC STA (09:10)
[2021-03-12] MEDS ORDERED: INSULIN GLARGINE SOLOSTAR 100 UNITS/ML 3 ML PEN SC ONE (09:15)
[2021-03-12 09:36] LABS: Hepatitis B Surf Ag Rflx Conf Neg (Neg)
[2021-03-12 10:04] LABS: Hepatitis C IgG 13Yrs+Old_Rflx Neg (Neg)
--- NOTE | 2021-03-12 10:08 | Gastroenterology Progress Note ---
Date of Service March 12, 2021 Assessment & Plan (1) Acute alcoholic hepatitis: 35 year old female with hematemesis, alcoholic hepatitis s/p EGD w/o evidence of high risk lesions, esophagitis noted ETOH cessation ETOH withdrawal protocol DR Brower Once infectious etiology ruled out start Prednisone Check Rosibel score day 7 Can continue IV PPI today then convert to PO tomorrow Daily labs Watch for any acute mental status changes, asterixis etc Admission and Anticipated Discharge Date Admission Date: March 11, 2021 Supervising Physician Co-Signing Physician Notes Attg add: I interviewed and examined pt, reviewed chart and labs. Pt without complaint. On exam, she is without tremor, confusion. She has no PE evidence of vol overload. Her skin is markedly jaundiced. A/p: UGIB - PPI gtt today, then PO PPI BID x 8 weeks. Compelte 7 days abx. Alc hep - Consider steroids once off PPI gtt, encourage PO intake. Need for EtOH cessation discussed. Subjective Pt was seen and evaluated, chart reviewed. Awake, alert and oriented. Offers no complaints this AM No nausea, vomiting No black/bloody stools EGD reviewed. Review of Systems Review of Systems: All systems reviewed & are unremarkable except as noted in Subjective Physical Exam Constitutional: well developed, well nourished, + ill appearing and + well hydrated; no acute distress Neck: trachea midline, no thyromegaly trachea midline; no neck crepitus Respiratory: normal respiratory effort, lungs clear to auscultation no cough Auscultation: no crackles Cardiovascular: RRR, no murmur, no edema Gastrointestinal (Abdomen): normal bowel sounds, soft, nontender, no hepatosplenomegaly Results & Data ([facility]) Vital Signs (Past 12 Hours) Vital Signs Temp Pulse Resp BP Pulse Ox 03/12/21 09:00 105 H 15 142/92 H 89 L 03/12/21 08:00 36.7 C 103 H 14 144/88 H 91 03/12/21 07:00 100 H 13 147/89 H 93 03/12/21 06:30 113 H 14 134/89 92 03/12/21 06:00 107 H 15 133/93 97 03/12/21 05:30 109 H 13 127/80 93 03/12/21 05:00 114 H 20 135/90 96 03/12/21 04:30 96 H 13 143/95 H 96 03/12/21 04:00 36.4 C L 94 H 14 146/96 H 97 03/12/21 03:30 100 H 12 131/88 94 03/12/21 03:00 101 H 12 140/86 94 03/12/21 02:30 101 H 17 143/87 H 95 03/12/21 02:00 102 H 12 147/82 H 94 03/12/21 01:30 107 H 13 152/100 H 96 03/12/21 01:00 111 H 19 135/86 96 03/12/21 00:30 108 H 18 146/99 H 96 03/12/21 00:06 36.7 C 03/12/21 00:00 95 H 13 148/89 H 94 03/11/21 23:59 94 H 03/11/21 23:30 97 H 14 144/86 H 94 03/11/21 23:20 36.7 C 03/11/21 23:00 108 H 17 155/95 H 95 03/11/21 22:30 94 H 14 142/87 H 93 Laboratory Results 03/12/21 03/12/21 03/12/21 Range/Units 08:20 06:01 05:47 WBC (4.8-10.8) K/uL RBC (4.2-5.4) M/uL Hgb (12.0-16.0) g/dL Hct (37-47) % MCV (80-100) fL MCH (25-34) pg MCHC (32-36) g/dL RDW Std Deviation (36.4-46.3) fL RDW Coeff of Ace (11.5-14.5) % Plt Count (130-400) K/uL MPV (7.4-10.4) fL Immature Gran % (Auto) % Neut % (Auto) % Lymph % (Auto) % Elliott % (Auto) % Eos % (Auto) % Baso % (Auto) % Neut # (Auto) (1.4-6.5) K/uL Lymph # (Auto) (1.2-3.4) K/uL Elliott # (Auto) (0.11-0.59) K/uL Eos # (Auto) (0-0.5) K/uL Baso # (Auto) (0-0.2) K/uL Immature Gran # (Auto) (0.00-0.02) K/uL Basophilic Stippling Anisocytosis Pappenheimer Bodies Target Cells PT (9.0-12.0) Seconds INR (0.9-1.1) APTT (21.0-31.0) Seconds PTT Ratio Fibrinogen (184-400) mg/dl VBG pH (7.36-7.41) VBG pCO2 (38-50) mmHg VBG pO2 mmHg VBG HCO3 mmol/L VBG O2 Saturation % VBG Base Excess mEq/L Barometric Pressure mm/Hg Sodium 127 L 128 L (136-145) mmol/L Potassium 3.3 L (3.5-5.1) mmol/L Chloride 92 L (98-107) mmol/L Carbon Dioxide 24 (21-32) mmol/L Anion Gap 11.0 (3-11) BUN 2 L (7-18) mg/dl Creatinine 0.86 (0.6-1.2) mg/dl Est Cr Clr Drug Dosing 90.4 ml/min Est GFR ( Amer) 101.4 ml/min Est GFR (Non-Af Amer) 87.5 ml/min BUN/Creatinine Ratio 2.3 L (10-20) Glucose 248 H (70-99) mg/dl POC Glucose 224 H (70-99) mg/dl Osmolality (280-300) mOsm/kg Lactate (0.4-2.0) mmol/L Calcium 8.2 L (8.5-10.1) mg/dl Phosphorus (2.5-4.9) mg/dl Magnesium (1.8-2.4) mg/dl Total Bilirubin (0.2-1) mg/dl Direct Bilirubin (0-0.2) mg/dl AST (15-37) U/L ALT (12-78) U/L Alkaline Phosphatase (45-117) U/L Ammonia (11-32) umol/L Troponin I (0-0.045) ng/ml Total Protein (6.4-8.2) gm/dl Albumin (3.4-5.0) gm/dl Globulin (2.5-4.0) gm/dl Albumin/Globulin Ratio (0.9-2) Lipase (73-393) U/L TSH (0.300-4.500) uIu/ml Free T4 (0.8-1.6) ng/dl HCG, Qual (Negative) Random Cortisol Specimen Hemolysis Urine Color Urine Appearance (Clear) Urine pH (4.5-7.5) Ur Specific [place] (1.000-1.030) Urine Protein (Negative) Urine Glucose (UA) (Negative) Urine Ketones (Negative) Urine Blood (Negative) Urine Nitrite (Negative) Urine Bilirubin (Negative) Urine Urobilinogen (Negative) Ur Leukocyte Esterase (Negative) Urine WBC (Auto) (0-5) /hpf Urine RBC (Auto) (0-4) /hpf U Hyaline Cast (Auto) (0-5) /lpf U Epithel Cells (Auto) (0-5) /lpf Urine Bacteria (Auto) (Negative) Urine Yeast Urine Osmolality (500-800) mOsm/kg Ur Random Sodium mmol/L Nasal Screen MRSA (PCR) (Negative) Salicylates (2.8-20) mg/dl Urine Opiates Screen (Neg) Ur Methadone, Qual (Neg) Acetaminophen (10-30) ug/ml Urine Barbiturates (Neg) Ur Phencyclidine (PCP) (Neg) U Amphetamin/Meth Scrn (Neg) MDMA (Ecstasy) Screen (Neg) U Benzodiazepines Scrn (Neg) Ur Cocaine Metabolite (Neg) U Marijuana (THC) Screen (Neg) Ethyl Alcohol mg/dL (0-3) mg/dl COVID-19 Eval Order SARS-CoV-2 (PCR) (Negative) Hepatitis A IgM Ab Hep Bs Antigen (Neg) Hep B Core IgM Ab Hepatitis C Antibody (Neg) Blood Type Blood Type Recheck Antibody Screen 03/12/21 03/12/21 03/12/21 Range/Units 04:07 03:17 02:17 WBC (4.8-10.8) K/uL RBC (4.2-5.4) M/uL Hgb (12.0-16.0) g/dL Hct (37-47) % MCV (80-100) fL MCH (25-34) pg MCHC (32-36) g/dL RDW Std Deviation (36.4-46.3) fL RDW Coeff of Ace (11.5-14.5) % Plt Count (130-400) K/uL MPV (7.4-10.4) fL Immature Gran % (Auto) % Neut % (Auto) % Lymph % (Auto) % Elliott % (Auto) % Eos % (Auto) % Baso % (Auto) % Neut # (Auto) (1.4-6.5) K/uL Lymph # (Auto) (1.2-3.4) K/uL Elliott # (Auto) (0.11-0.59) K/uL Eos # (Auto) (0-0.5) K/uL Baso # (Auto) (0-0.2) K/uL Immature Gran # (Auto) (0.00-0.02) K/uL Basophilic Stippling Anisocytosis Pappenheimer Bodies Target Cells PT (9.0-12.0) Seconds INR (0.9-1.1) APTT (21.0-31.0) Seconds PTT Ratio Fibrinogen (184-400) mg/dl VBG pH (7.36-7.41) VBG pCO2 (38-50) mmHg VBG pO2 mmHg VBG HCO3 mmol/L VBG O2 Saturation % VBG Base Excess mEq/L Barometric Pressure mm/Hg Sodium (136-145) mmol/L Potassium 3.6 (3.5-5.1) mmol/L Chloride (98-107) mmol/L Carbon Dioxide (21-32) mmol/L Anion Gap (3-11) BUN (7-18) mg/dl Creatinine (0.6-1.2) mg/dl Est Cr Clr Drug Dosing ml/min Est GFR ( Amer) ml/min Est GFR (Non-Af Amer) ml/min BUN/Creatinine Ratio (10-20) Glucose (70-99) mg/dl POC Glucose 261 H (70-99) mg/dl Osmolality (280-300) mOsm/kg Lactate 2.9 H* (0.4-2.0) mmol/L Calcium (8.5-10.1) mg/dl Phosphorus (2.5-4.9) mg/dl Magnesium 2.1 (1.8-2.4) mg/dl Total Bilirubin (0.2-1) mg/dl Direct Bilirubin 13.8 H (0-0.2) mg/dl AST 310 H (15-37) U/L ALT (12-78) U/L Alkaline Phosphatase (45-117) U/L Ammonia (11-32) umol/L Troponin I (0-0.045) ng/ml Total Protein (6.4-8.2) gm/dl Albumin (3.4-5.0) gm/dl Globulin (2.5-4.0) gm/dl Albumin/Globulin Ratio (0.9-2) Lipase (73-393) U/L TSH (0.300-4.500) uIu/ml Free T4 (0.8-1.6) ng/dl HCG, Qual (Negative) Random Cortisol Specimen Hemolysis Urine Color Urine Appearance (Clear) Urine pH (4.5-7.5) Ur Specific [place] (1.000-1.030) Urine Protein (Negative) Urine Glucose (UA) (Negative) Urine Ketones (Negative) Urine Blood (Negative) Urine Nitrite (Negative) Urine Bilirubin (Negative) Urine Urobilinogen (Negative) Ur Leukocyte Esterase (Negative) Urine WBC (Auto) (0-5) /hpf Urine RBC (Auto) (0-4) /hpf U Hyaline Cast (Auto) (0-5) /lpf U Epithel Cells (Auto) (0-5) /lpf Urine Bacteria (Auto) (Negative) Urine Yeast Urine Osmolality (500-800) mOsm/kg Ur Random Sodium mmol/L Nasal Screen MRSA (PCR) (Negative) Salicylates (2.8-20) mg/dl Urine Opiates Screen (Neg) Ur Methadone, Qual (Neg) Acetaminophen (10-30) ug/ml Urine Barbiturates (Neg) Ur Phencyclidine (PCP) (Neg) U Amphetamin/Meth Scrn (Neg) MDMA (Ecstasy) Screen (Neg) U Benzodiazepines Scrn (Neg) Ur Cocaine Metabolite (Neg) U Marijuana (THC) Screen (Neg) Ethyl Alcohol mg/dL (0-3) mg/dl COVID-19 Eval Order SARS-CoV-2 (PCR) (Negative) Hepatitis A IgM Ab Hep Bs Antigen (Neg) Hep B Core IgM Ab Hepatitis C Antibody (Neg) Blood Type Blood Type Recheck Antibody Screen 03/12/21 03/12/21 03/12/21 Range/Units 02:17 02:17 02:17 WBC 10.06 (4.8-10.8) K/uL RBC 3.05 L (4.2-5.4) M/uL Hgb 10.4 L (12.0-16.0) g/dL Hct 29.4 L (37-47) % MCV 96.4 (80-100) fL MCH 34.1 H (25-34) pg MCHC 35.4 (32-36) g/dL RDW Std Deviation 71.8 H (36.4-46.3) fL RDW Coeff of Ace 20.2 H (11.5-14.5) % Plt Count 189 (130-400) K/uL MPV 10.2 (7.4-10.4) fL Immature Gran % (Auto) 0.7 % Neut % (Auto) 93.7 % Lymph % (Auto) 3.4 % Elliott % (Auto) 2.1 % Eos % (Auto) 0.0 % Baso % (Auto) 0.1 % Neut # (Auto) 9.43 H (1.4-6.5) K/uL Lymph # (Auto) 0.34 L (1.2-3.4) K/uL Elliott # (Auto) 0.21 (0.11-0.59) K/uL Eos # (Auto) 0.00 (0-0.5) K/uL Baso # (Auto) 0.01 (0-0.2) K/uL Immature Gran # (Auto) 0.07 H (0.00-0.02) K/uL Basophilic Stippling 1+ Anisocytosis Present Pappenheimer Bodies 1+ Target Cells 1+ PT 23.1 H (9.0-12.0) Seconds INR 2.4 H (0.9-1.1) APTT (21.0-31.0) Seconds PTT Ratio Fibrinogen (184-400) mg/dl VBG pH (7.36-7.41) VBG pCO2 (38-50) mmHg VBG pO2 mmHg VBG HCO3 mmol/L VBG O2 Saturation % VBG Base Excess mEq/L Barometric Pressure mm/Hg Sodium 128 L (136-145) mmol/L Potassium (3.5-5.1) mmol/L Chloride 92 L (98-107) mmol/L Carbon Dioxide 25 (21-32) mmol/L Anion Gap 11.0 (3-11) BUN 2 L (7-18) mg/dl Creatinine 0.92 (0.6-1.2) mg/dl Est Cr Clr Drug Dosing 85.1 ml/min Est GFR ( Amer) 93.5 ml/min Est GFR (Non-Af Amer) 80.7 ml/min BUN/Creatinine Ratio 2.5 L (10-20) Glucose 273 H (70-99) mg/dl POC Glucose (70-99) mg/dl Osmolality (280-300) mOsm/kg Lactate (0.4-2.0) mmol/L Calcium 7.9 L (8.5-10.1) mg/dl Phosphorus 1.8 L (2.5-4.9) mg/dl Magnesium (1.8-2.4) mg/dl Total Bilirubin 17.3 H (0.2-1) mg/dl Direct Bilirubin (0-0.2) mg/dl AST (15-37) U/L ALT 105 H (12-78) U/L Alkaline Phosphatase 321 H (45-117) U/L Ammonia (11-32) umol/L Troponin I (0-0.045) ng/ml Total Protein 6.2 L (6.4-8.2) gm/dl Albumin 2.5 L (3.4-5.0) gm/dl Globulin 3.7 (2.5-4.0) gm/dl Albumin/Globulin Ratio 0.7 L (0.9-2) Lipase (73-393) U/L TSH (0.300-4.500) uIu/ml Free T4 (0.8-1.6) ng/dl HCG, Qual (Negative) Random Cortisol Specimen Hemolysis Urine Color Urine Appearance (Clear) Urine pH (4.5-7.5) Ur Specific [place] (1.000-1.030) Urine Protein (Negative) Urine Glucose (UA) (Negative) Urine Ketones (Negative) Urine Blood (Negative) Urine Nitrite (Negative) Urine Bilirubin (Negative) Urine Urobilinogen (Negative) Ur Leukocyte Esterase (Negative) Urine WBC (Auto) (0-5) /hpf Urine RBC (Auto) (0-4) /hpf U Hyaline Cast (Auto) (0-5) /lpf U Epithel Cells (Auto) (0-5) /lpf Urine Bacteria (Auto) (Negative) Urine Yeast Urine Osmolality (500-800) mOsm/kg Ur Random Sodium mmol/L Nasal Screen MRSA (PCR) (Negative) Salicylates (2.8-20) mg/dl Urine Opiates Screen (Neg) Ur Methadone, Qual (Neg) Acetaminophen (10-30) ug/ml Urine Barbiturates (Neg) Ur Phencyclidine (PCP) (Neg) U Amphetamin/Meth Scrn (Neg) MDMA (Ecstasy) Screen (Neg) U Benzodiazepines Scrn (Neg) Ur Cocaine Metabolite (Neg) U Marijuana (THC) Screen (Neg) Ethyl Alcohol mg/dL (0-3) mg/dl COVID-19 Eval Order SARS-CoV-2 (PCR) (Negative) Hepatitis A IgM Ab Hep Bs Antigen (Neg) Hep B Core IgM Ab Hepatitis C Antibody (Neg) Blood Type Blood Type Recheck Antibody Screen 03/12/21 03/12/21 03/11/21 Range/Units 02:17 02:17 23:16 WBC (4.8-10.8) K/uL RBC (4.2-5.4) M/uL Hgb (12.0-16.0) g/dL Hct (37-47) % MCV (80-100) fL MCH (25-34) pg MCHC (32-36) g/dL RDW Std Deviation (36.4-46.3) fL RDW Coeff of Ace (11.5-14.5) % Plt Count (130-400) K/uL MPV (7.4-10.4) fL Immature Gran % (Auto) % Neut % (Auto) % Lymph % (Auto) % Elliott % (Auto) % Eos % (Auto) % Baso % (Auto) % Neut # (Auto) (1.4-6.5) K/uL Lymph # (Auto) (1.2-3.4) K/uL Elliott # (Auto) (0.11-0.59) K/uL Eos # (Auto) (0-0.5) K/uL Baso # (Auto) (0-0.2) K/uL Immature Gran # (Auto) (0.00-0.02) K/uL Basophilic Stippling Anisocytosis Pappenheimer Bodies Target Cells PT (9.0-12.0) Seconds INR (0.9-1.1) APTT (21.0-31.0) Seconds PTT Ratio Fibrinogen (184-400) mg/dl VBG pH (7.36-7.41) VBG pCO2 (38-50) mmHg VBG pO2 mmHg VBG HCO3 mmol/L VBG O2 Saturation % VBG Base Excess mEq/L Barometric Pressure mm/Hg Sodium (136-145) mmol/L Potassium (3.5-5.1) mmol/L Chloride (98-107) mmol/L Carbon Dioxide (21-32) mmol/L Anion Gap (3-11) BUN (7-18) mg/dl Creatinine (0.6-1.2) mg/dl Est Cr Clr Drug Dosing ml/min Est GFR ( Amer) ml/min Est GFR (Non-Af Amer) ml/min BUN/Creatinine Ratio (10-20) Glucose (70-99) mg/dl POC Glucose 257 H (70-99) mg/dl Osmolality (280-300) mOsm/kg Lactate (0.4-2.0) mmol/L Calcium (8.5-10.1) mg/dl Phosphorus (2.5-4.9) mg/dl Magnesium (1.8-2.4) mg/dl Total Bilirubin (0.2-1) mg/dl Direct Bilirubin (0-0.2) mg/dl AST (15-37) U/L ALT (12-78) U/L Alkaline Phosphatase (45-117) U/L Ammonia (11-32) umol/L Troponin I (0-0.045) ng/ml Total Protein (6.4-8.2) gm/dl Albumin (3.4-5.0) gm/dl Globulin (2.5-4.0) gm/dl Albumin/Globulin Ratio (0.9-2) Lipase (73-393) U/L TSH (0.300-4.500) uIu/ml Free T4 (0.8-1.6) ng/dl HCG, Qual (Negative) Random Cortisol Specimen Hemolysis Urine Color Urine Appearance (Clear) Urine pH (4.5-7.5) Ur Specific [place] (1.000-1.030) Urine Protein (Negative) Urine Glucose (UA) (Negative) Urine Ketones (Negative) Urine Blood (Negative) Urine Nitrite (Negative) Urine Bilirubin (Negative) Urine Urobilinogen (Negative) Ur Leukocyte Esterase (Negative) Urine WBC (Auto) (0-5) /hpf Urine RBC (Auto) (0-4) /hpf U Hyaline Cast (Auto) (0-5) /lpf U Epithel Cells (Auto) (0-5) /lpf Urine Bacteria (Auto) (Negative) Urine Yeast Urine Osmolality (500-800) mOsm/kg Ur Random Sodium mmol/L Nasal Screen MRSA (PCR) (Negative) Salicylates (2.8-20) mg/dl Urine Opiates Screen (Neg) Ur Methadone, Qual (Neg) Acetaminophen (10-30) ug/ml Urine Barbiturates (Neg) Ur Phencyclidine (PCP) (Neg) U Amphetamin/Meth Scrn (Neg) MDMA (Ecstasy) Screen (Neg) U Benzodiazepines Scrn (Neg) Ur Cocaine Metabolite (Neg) U Marijuana (THC) Screen (Neg) Ethyl Alcohol mg/dL (0-3) mg/dl COVID-19 Eval Order SARS-CoV-2 (PCR) (Negative) Hepatitis A IgM Ab Pending Hep Bs Antigen Neg (Neg) Hep B Core IgM Ab Pending Hepatitis C Antibody Neg (Neg) Blood Type Blood Type Recheck Antibody Screen 03/11/21 03/11/21 03/11/21 Range/Units 23:15 21:39 21:39 WBC 10.55 (4.8-10.8) K/uL RBC 3.09 L (4.2-5.4) M/uL Hgb 10.6 L (12.0-16.0) g/dL Hct 29.4 L (37-47) % MCV 95.1 (80-100) fL MCH 34.3 H (25-34) pg MCHC 36.1 H (32-36) g/dL RDW Std Deviation 70.6 H (36.4-46.3) fL RDW Coeff of Ace 20.2 H (11.5-14.5) % Plt Count 185 (130-400) K/uL MPV 10.0 (7.4-10.4) fL Immature Gran % (Auto) 0.9 % Neut % (Auto) 93.5 % Lymph % (Auto) 4.0 % Elliott % (Auto) 1.5 % Eos % (Auto) 0.0 % Baso % (Auto) 0.1 % Neut # (Auto) 9.87 H (1.4-6.5) K/uL Lymph # (Auto) 0.42 L (1.2-3.4) K/uL Elliott # (Auto) 0.16 (0.11-0.59) K/uL Eos # (Auto) 0.00 (0-0.5) K/uL Baso # (Auto) 0.01 (0-0.2) K/uL Immature Gran # (Auto) 0.09 H (0.00-0.02) K/uL Basophilic Stippling 1+ Anisocytosis Present Pappenheimer Bodies 1+ Target Cells 1+ PT (9.0-12.0) Seconds INR (0.9-1.1) APTT (21.0-31.0) Seconds PTT Ratio Fibrinogen (184-400) mg/dl VBG pH 7.41 (7.36-7.41) VBG pCO2 35 L (38-50) mmHg VBG pO2 34 mmHg VBG HCO3 22 mmol/L VBG O2 Saturation 64.9 % VBG Base Excess -2.4 mEq/L Barometric Pressure 726.7 mm/Hg Sodium (136-145) mmol/L Potassium (3.5-5.1) mmol/L Chloride (98-107) mmol/L Carbon Dioxide (21-32) mmol/L Anion Gap (3-11) BUN (7-18) mg/dl Creatinine (0.6-1.2) mg/dl Est Cr Clr Drug Dosing ml/min Est GFR ( Amer) ml/min Est GFR (Non-Af Amer) ml/min BUN/Creatinine Ratio (10-20) Glucose (70-99) mg/dl POC Glucose (70-99) mg/dl Osmolality (280-300) mOsm/kg Lactate 3.1 H* (0.4-2.0) mmol/L Calcium (8.5-10.1) mg/dl Phosphorus (2.5-4.9) mg/dl Magnesium (1.8-2.4) mg/dl Total Bilirubin (0.2-1) mg/dl Direct Bilirubin (0-0.2) mg/dl AST (15-37) U/L ALT (12-78) U/L Alkaline Phosphatase (45-117) U/L Ammonia (11-32) umol/L Troponin I (0-0.045) ng/ml Total Protein (6.4-8.2) gm/dl Albumin (3.4-5.0) gm/dl Globulin (2.5-4.0) gm/dl Albumin/Globulin Ratio (0.9-2) Lipase (73-393) U/L TSH (0.300-4.500) uIu/ml Free T4 (0.8-1.6) ng/dl HCG, Qual (Negative) Random Cortisol Specimen Hemolysis Urine Color Urine Appearance (Clear) Urine pH (4.5-7.5) Ur Specific [place] (1.000-1.030) Urine Protein (Negative) Urine Glucose (UA) (Negative) Urine Ketones (Negative) Urine Blood (Negative) Urine Nitrite (Negative) Urine Bilirubin (Negative) Urine Urobilinogen (Negative) Ur Leukocyte Esterase (Negative) Urine WBC (Auto) (0-5) /hpf Urine RBC (Auto) (0-4) /hpf U Hyaline Cast (Auto) (0-5) /lpf U Epithel Cells (Auto) (0-5) /lpf Urine Bacteria (Auto) (Negative) Urine Yeast Urine Osmolality (500-800) mOsm/kg Ur Random Sodium mmol/L Nasal Screen MRSA (PCR) (Negative) Salicylates (2.8-20) mg/dl Urine Opiates Screen (Neg) Ur Methadone, Qual (Neg) Acetaminophen (10-30) ug/ml Urine Barbiturates (Neg) Ur Phencyclidine (PCP) (Neg) U Amphetamin/Meth Scrn (Neg) MDMA (Ecstasy) Screen (Neg) U Benzodiazepines Scrn (Neg) Ur Cocaine Metabolite (Neg) U Marijuana (THC) Screen (Neg) Ethyl Alcohol mg/dL (0-3) mg/dl COVID-19 Eval Order SARS-CoV-2 (PCR) (Negative) Hepatitis A IgM Ab Hep Bs Antigen (Neg) Hep B Core IgM Ab Hepatitis C Antibody (Neg) Blood Type Blood Type Recheck Antibody Screen 03/11/21 03/11/21 03/11/21 Range/Units 21:39 17:40 17:40 WBC (4.8-10.8) K/uL RBC (4.2-5.4) M/uL Hgb (12.0-16.0) g/dL Hct (37-47) % MCV (80-100) fL MCH (25-34) pg MCHC (32-36) g/dL RDW Std Deviation (36.4-46.3) fL RDW Coeff of Ace (11.5-14.5) % Plt Count (130-400) K/uL MPV (7.4-10.4) fL Immature Gran % (Auto) % Neut % (Auto) % Lymph % (Auto) % Elliott % (Auto) % Eos % (Auto) % Baso % (Auto) % Neut # (Auto) (1.4-6.5) K/uL Lymph # (Auto) (1.2-3.4) K/uL Elliott # (Auto) (0.11-0.59) K/uL Eos # (Auto) (0-0.5) K/uL Baso # (Auto) (0-0.2) K/uL Immature Gran # (Auto) (0.00-0.02) K/uL Basophilic Stippling Anisocytosis Pappenheimer Bodies Target Cells PT (9.0-12.0) Seconds INR (0.9-1.1) APTT (21.0-31.0) Seconds PTT Ratio Fibrinogen (184-400) mg/dl VBG pH (7.36-7.41) VBG pCO2 (38-50) mmHg VBG pO2 mmHg VBG HCO3 mmol/L VBG O2 Saturation % VBG Base Excess mEq/L Barometric Pressure mm/Hg Sodium 124 L 124 L (136-145) mmol/L Potassium 4.2 4.0 (3.5-5.1) mmol/L Chloride 87 L 87 L (98-107) mmol/L Carbon Dioxide 22 20 L (21-32) mmol/L Anion Gap 15.0 H 17.0 H (3-11) BUN 3 L 3 L (7-18) mg/dl Creatinine 0.98 1.01 (0.6-1.2) mg/dl Est Cr Clr Drug Dosing 79.9 77.5 ml/min Est GFR ( Amer) 86.6 83.5 ml/min Est GFR (Non-Af Amer) 74.7 72.1 ml/min BUN/Creatinine Ratio 2.8 L 2.8 L (10-20) Glucose 255 H 119 H (70-99) mg/dl POC Glucose (70-99) mg/dl Osmolality (280-300) mOsm/kg Lactate (0.4-2.0) mmol/L Calcium 7.9 L 7.9 L (8.5-10.1) mg/dl Phosphorus (2.5-4.9) mg/dl Magnesium (1.8-2.4) mg/dl Total Bilirubin (0.2-1) mg/dl Direct Bilirubin (0-0.2) mg/dl AST (15-37) U/L ALT (12-78) U/L Alkaline Phosphatase (45-117) U/L Ammonia (11-32) umol/L Troponin I (0-0.045) ng/ml Total Protein (6.4-8.2) gm/dl Albumin (3.4-5.0) gm/dl Globulin (2.5-4.0) gm/dl Albumin/Globulin Ratio (0.9-2) Lipase (73-393) U/L TSH (0.300-4.500) uIu/ml Free T4 (0.8-1.6) ng/dl HCG, Qual (Negative) Random Cortisol Specimen Hemolysis Urine Color Urine Appearance (Clear) Urine pH (4.5-7.5) Ur Specific [place] (1.000-1.030) Urine Protein (Negative) Urine Glucose (UA) (Negative) Urine Ketones (Negative) Urine Blood (Negative) Urine Nitrite (Negative) Urine Bilirubin (Negative) Urine Urobilinogen (Negative) Ur Leukocyte Esterase (Negative) Urine WBC (Auto) (0-5) /hpf Urine RBC (Auto) (0-4) /hpf U Hyaline Cast (Auto) (0-5) /lpf U Epithel Cells (Auto) (0-5) /lpf Urine Bacteria (Auto) (Negative) Urine Yeast Urine Osmolality (500-800) mOsm/kg Ur Random Sodium mmol/L Nasal Screen MRSA (PCR) (Negative) Salicylates (2.8-20) mg/dl Urine Opiates Screen (Neg) Ur Methadone, Qual (Neg) Acetaminophen (10-30) ug/ml Urine Barbiturates (Neg) Ur Phencyclidine (PCP) (Neg) U Amphetamin/Meth Scrn (Neg) MDMA (Ecstasy) Screen (Neg) U Benzodiazepines Scrn (Neg) Ur Cocaine Metabolite (Neg) U Marijuana (THC) Screen (Neg) Ethyl Alcohol mg/dL (0-3) mg/dl COVID-19 Eval Order SARS-CoV-2 (PCR) (Negative) Hepatitis A IgM Ab Hep Bs Antigen (Neg) Hep B Core IgM Ab Hepatitis C Antibody (Neg) Blood Type A Negative Blood Type Recheck Antibody Screen NEGATIVE 03/11/21 03/11/21 03/11/21 Range/Units 17:40 17:10 16:14 WBC 12.53 H (4.8-10.8) K/uL RBC 3.39 L (4.2-5.4) M/uL Hgb 11.7 L (12.0-16.0) g/dL Hct 32.5 L (37-47) % MCV 95.9 (80-100) fL MCH 34.5 H (25-34) pg MCHC 36.0 (32-36) g/dL RDW Std Deviation 70.4 H (36.4-46.3) fL RDW Coeff of Ace 19.9 H (11.5-14.5) % Plt Count 196 (130-400) K/uL MPV 10.2 (7.4-10.4) fL Immature Gran % (Auto) 0.5 % Neut % (Auto) 92.8 % Lymph % (Auto) 3.2 % Elliott % (Auto) 3.3 % Eos % (Auto) 0.1 % Baso % (Auto) 0.1 % Neut # (Auto) 11.64 H (1.4-6.5) K/uL Lymph # (Auto) 0.40 L (1.2-3.4) K/uL Elliott # (Auto) 0.41 (0.11-0.59) K/uL Eos # (Auto) 0.01 (0-0.5) K/uL Baso # (Auto) 0.01 (0-0.2) K/uL Immature Gran # (Auto) 0.06 H (0.00-0.02) K/uL Basophilic Stippling Anisocytosis Pappenheimer Bodies Target Cells PT (9.0-12.0) Seconds INR (0.9-1.1) APTT (21.0-31.0) Seconds PTT Ratio Fibrinogen (184-400) mg/dl VBG pH (7.36-7.41) VBG pCO2 (38-50) mmHg VBG pO2 mmHg VBG HCO3 mmol/L VBG O2 Saturation % VBG Base Excess mEq/L Barometric Pressure mm/Hg Sodium (136-145) mmol/L Potassium (3.5-5.1) mmol/L Chloride (98-107) mmol/L Carbon Dioxide (21-32) mmol/L Anion Gap (3-11) BUN (7-18) mg/dl Creatinine (0.6-1.2) mg/dl Est Cr Clr Drug Dosing ml/min Est GFR ( Amer) ml/min Est GFR (Non-Af Amer) ml/min BUN/Creatinine Ratio (10-20) Glucose (70-99) mg/dl POC Glucose (70-99) mg/dl Osmolality (280-300) mOsm/kg Lactate (0.4-2.0) mmol/L Calcium (8.5-10.1) mg/dl Phosphorus (2.5-4.9) mg/dl Magnesium (1.8-2.4) mg/dl Total Bilirubin (0.2-1) mg/dl Direct Bilirubin (0-0.2) mg/dl AST (15-37) U/L ALT (12-78) U/L Alkaline Phosphatase (45-117) U/L Ammonia (11-32) umol/L Troponin I (0-0.045) ng/ml Total Protein (6.4-8.2) gm/dl Albumin (3.4-5.0) gm/dl Globulin (2.5-4.0) gm/dl Albumin/Globulin Ratio (0.9-2) Lipase (73-393) U/L TSH (0.300-4.500) uIu/ml Free T4 (0.8-1.6) ng/dl HCG, Qual (Negative) Random Cortisol Specimen Hemolysis Urine Color Urine Appearance (Clear) Urine pH (4.5-7.5) Ur Specific [place] (1.000-1.030) Urine Protein (Negative) Urine Glucose (UA) (Negative) Urine Ketones (Negative) Urine Blood (Negative) Urine Nitrite (Negative) Urine Bilirubin (Negative) Urine Urobilinogen (Negative) Ur Leukocyte Esterase (Negative) Urine WBC (Auto) (0-5) /hpf Urine RBC (Auto) (0-4) /hpf U Hyaline Cast (Auto) (0-5) /lpf U Epithel Cells (Auto) (0-5) /lpf Urine Bacteria (Auto) (Negative) Urine Yeast Urine Osmolality (500-800) mOsm/kg Ur Random Sodium mmol/L Nasal Screen MRSA (PCR) Positive A (Negative) Salicylates (2.8-20) mg/dl Urine Opiates Screen (Neg) Ur Methadone, Qual (Neg) Acetaminophen (10-30) ug/ml Urine Barbiturates (Neg) Ur Phencyclidine (PCP) (Neg) U Amphetamin/Meth Scrn (Neg) MDMA (Ecstasy) Screen (Neg) U Benzodiazepines Scrn (Neg) Ur Cocaine Metabolite (Neg) U Marijuana (THC) Screen (Neg) Ethyl Alcohol mg/dL (0-3) mg/dl COVID-19 Eval Order SARS-CoV-2 (PCR) (Negative) Hepatitis A IgM Ab Hep Bs Antigen (Neg) Hep B Core IgM Ab Hepatitis C Antibody (Neg) Blood Type Blood Type Recheck A Negative Antibody Screen 03/11/21 03/11/21 03/11/21 Range/Units 16:14 16:14 16:02 WBC (4.8-10.8) K/uL RBC (4.2-5.4) M/uL Hgb 10.9 L (12.0-16.0) g/dL Hct 29.8 L (37-47) % MCV (80-100) fL MCH (25-34) pg MCHC (32-36) g/dL RDW Std Deviation (36.4-46.3) fL RDW Coeff of Ace (11.5-14.5) % Plt Count (130-400) K/uL MPV (7.4-10.4) fL Immature Gran % (Auto) % Neut % (Auto) % Lymph % (Auto) % Elliott % (Auto) % Eos % (Auto) % Baso % (Auto) % Neut # (Auto) (1.4-6.5) K/uL Lymph # (Auto) (1.2-3.4) K/uL [place] # (Auto) (0.11-0.59) K/uL Eos # (Auto) (0-0.5) K/uL Baso # (Auto) (0-0.2) K/uL Immature Gran # (Auto) (0.00-0.02) K/uL Basophilic Stippling Anisocytosis Pappenheimer Bodies Target Cells PT (9.0-12.0) Seconds INR (0.9-1.1) APTT (21.0-31.0) Seconds PTT Ratio Fibrinogen 143 L (184-400) mg/dl VBG pH (7.36-7.41) VBG pCO2 (38-50) mmHg VBG pO2 mmHg VBG HCO3 mmol/L VBG O2 Saturation % VBG Base Excess mEq/L Barometric Pressure mm/Hg Sodium (136-145) mmol/L Potassium (3.5-5.1) mmol/L Chloride (98-107) mmol/L Carbon Dioxide (21-32) mmol/L Anion Gap (3-11) BUN (7-18) mg/dl Creatinine (0.6-1.2) mg/dl Est Cr Clr Drug Dosing ml/min Est GFR ( Amer) ml/min Est GFR (Non-Af Amer) ml/min BUN/Creatinine Ratio (10-20) Glucose (70-99) mg/dl POC Glucose (70-99) mg/dl Osmolality (280-300) mOsm/kg Lactate (0.4-2.0) mmol/L Calcium (8.5-10.1) mg/dl Phosphorus (2.5-4.9) mg/dl Magnesium (1.8-2.4) mg/dl Total Bilirubin (0.2-1) mg/dl Direct Bilirubin (0-0.2) mg/dl AST (15-37) U/L ALT (12-78) U/L Alkaline Phosphatase (45-117) U/L Ammonia (11-32) umol/L Troponin I (0-0.045) ng/ml Total Protein (6.4-8.2) gm/dl Albumin (3.4-5.0) gm/dl Globulin (2.5-4.0) gm/dl Albumin/Globulin Ratio (0.9-2) Lipase (73-393) U/L TSH (0.300-4.500) uIu/ml Free T4 (0.8-1.6) ng/dl HCG, Qual (Negative) Random Cortisol Specimen Hemolysis Urine Color Urine Appearance (Clear) Urine pH (4.5-7.5) Ur Specific [place] (1.000-1.030) Urine Protein (Negative) Urine Glucose (UA) (Negative) Urine Ketones (Negative) Urine Blood (Negative) Urine Nitrite (Negative) Urine Bilirubin (Negative) Urine Urobilinogen (Negative) Ur Leukocyte Esterase (Negative) Urine WBC (Auto) (0-5) /hpf Urine RBC (Auto) (0-4) /hpf U Hyaline Cast (Auto) (0-5) /lpf U Epithel Cells (Auto) (0-5) /lpf Urine Bacteria (Auto) (Negative) Urine Yeast Urine Osmolality (500-800) mOsm/kg Ur Random Sodium mmol/L Nasal Screen MRSA (PCR) (Negative) Salicylates (2.8-20) mg/dl Urine Opiates Screen (Neg) Ur Methadone, Qual (Neg) Acetaminophen (10-30) ug/ml Urine Barbiturates (Neg) Ur Phencyclidine (PCP) (Neg) U Amphetamin/Meth Scrn (Neg) MDMA (Ecstasy) Screen (Neg) U Benzodiazepines Scrn (Neg) Ur Cocaine Metabolite (Neg) U Marijuana (THC) Screen (Neg) Ethyl Alcohol mg/dL (0-3) mg/dl COVID-19 Eval Order SARS-CoV-2 (PCR) (Negative) Hepatitis A IgM Ab Hep Bs Antigen (Neg) Hep B Core IgM Ab Hepatitis C Antibody (Neg) Blood Type Cancelled Blood Type Recheck Antibody Screen Cancelled 03/11/21 03/11/21 03/11/21 Range/Units 14:52 14:52 14:30 WBC (4.8-10.8) K/uL RBC (4.2-5.4) M/uL Hgb (12.0-16.0) g/dL Hct (37-47) % MCV (80-100) fL MCH (25-34) pg MCHC (32-36) g/dL RDW Std Deviation (36.4-46.3) fL RDW Coeff of Ace (11.5-14.5) % Plt Count (130-400) K/uL MPV (7.4-10.4) fL Immature Gran % (Auto) % Neut % (Auto) % Lymph % (Auto) % Elliott % (Auto) % Eos % (Auto) % Baso % (Auto) % Neut # (Auto) (1.4-6.5) K/uL Lymph # (Auto) (1.2-3.4) K/uL Elliott # (Auto) (0.11-0.59) K/uL Eos # (Auto) (0-0.5) K/uL Baso # (Auto) (0-0.2) K/uL Immature Gran # (Auto) (0.00-0.02) K/uL Basophilic Stippling Anisocytosis Pappenheimer Bodies Target Cells PT (9.0-12.0) Seconds INR (0.9-1.1) APTT (21.0-31.0) Seconds PTT Ratio Fibrinogen (184-400) mg/dl VBG pH (7.36-7.41) VBG pCO2 (38-50) mmHg VBG pO2 mmHg VBG HCO3 mmol/L VBG O2 Saturation % VBG Base Excess mEq/L Barometric Pressure mm/Hg Sodium 120 L (136-145) mmol/L Potassium (3.5-5.1) mmol/L Chloride (98-107) mmol/L Carbon Dioxide (21-32) mmol/L Anion Gap (3-11) BUN (7-18) mg/dl Creatinine (0.6-1.2) mg/dl Est Cr Clr Drug Dosing ml/min Est GFR ( Amer) ml/min Est GFR (Non-Af Amer) ml/min BUN/Creatinine Ratio (10-20) Glucose (70-99) mg/dl POC Glucose (70-99) mg/dl Osmolality (280-300) mOsm/kg Lactate (0.4-2.0) mmol/L Calcium (8.5-10.1) mg/dl Phosphorus (2.5-4.9) mg/dl Magnesium (1.8-2.4) mg/dl Total Bilirubin (0.2-1) mg/dl Direct Bilirubin (0-0.2) mg/dl AST (15-37) U/L ALT (12-78) U/L Alkaline Phosphatase (45-117) U/L Ammonia (11-32) umol/L Troponin I (0-0.045) ng/ml Total Protein (6.4-8.2) gm/dl Albumin (3.4-5.0) gm/dl Globulin (2.5-4.0) gm/dl Albumin/Globulin Ratio (0.9-2) Lipase (73-393) U/L TSH (0.300-4.500) uIu/ml Free T4 (0.8-1.6) ng/dl HCG, Qual (Negative) Random Cortisol Pending Specimen Hemolysis Urine Color Urine Appearance (Clear) Urine pH (4.5-7.5) Ur Specific [place] (1.000-1.030) Urine Protein (Negative) Urine Glucose (UA) (Negative) Urine Ketones (Negative) Urine Blood (Negative) Urine Nitrite (Negative) Urine Bilirubin (Negative) Urine Urobilinogen (Negative) Ur Leukocyte Esterase (Negative) Urine WBC (Auto) (0-5) /hpf Urine RBC (Auto) (0-4) /hpf U Hyaline Cast (Auto) (0-5) /lpf U Epithel Cells (Auto) (0-5) /lpf Urine Bacteria (Auto) (Negative) Urine Yeast Urine Osmolality (500-800) mOsm/kg Ur Random Sodium mmol/L Nasal Screen MRSA (PCR) (Negative) Salicylates (2.8-20) mg/dl Urine Opiates Screen (Neg) Ur Methadone, Qual (Neg) Acetaminophen (10-30) ug/ml Urine Barbiturates (Neg) Ur Phencyclidine (PCP) (Neg) U Amphetamin/Meth Scrn (Neg) MDMA (Ecstasy) Screen (Neg) U Benzodiazepines Scrn (Neg) Ur Cocaine Metabolite (Neg) U Marijuana (THC) Screen (Neg) Ethyl Alcohol mg/dL (0-3) mg/dl COVID-19 Eval Order SARS-CoV-2 (PCR) NEGATIVE (Negative) Hepatitis A IgM Ab Hep Bs Antigen (Neg) Hep B Core IgM Ab Hepatitis C Antibody (Neg) Blood Type Blood Type Recheck Antibody Screen 03/11/21 03/11/21 03/11/21 Range/Units 14:30 12:18 12:18 WBC (4.8-10.8) K/uL RBC (4.2-5.4) M/uL Hgb (12.0-16.0) g/dL Hct (37-47) % MCV (80-100) fL MCH (25-34) pg MCHC (32-36) g/dL RDW Std Deviation (36.4-46.3) fL RDW Coeff of Ace (11.5-14.5) % Plt Count (130-400) K/uL MPV (7.4-10.4) fL Immature Gran % (Auto) % Neut % (Auto) % Lymph % (Auto) % Elliott % (Auto) % Eos % (Auto) % Baso % (Auto) % Neut # (Auto) (1.4-6.5) K/uL Lymph # (Auto) (1.2-3.4) K/uL Elliott # (Auto) (0.11-0.59) K/uL Eos # (Auto) (0-0.5) K/uL Baso # (Auto) (0-0.2) K/uL Immature Gran # (Auto) (0.00-0.02) K/uL Basophilic Stippling Anisocytosis Pappenheimer Bodies Target Cells PT (9.0-12.0) Seconds INR (0.9-1.1) APTT (21.0-31.0) Seconds PTT Ratio Fibrinogen (184-400) mg/dl VBG pH (7.36-7.41) VBG pCO2 (38-50) mmHg VBG pO2 mmHg VBG HCO3 mmol/L VBG O2 Saturation % VBG Base Excess mEq/L Barometric Pressure mm/Hg Sodium (136-145) mmol/L Potassium (3.5-5.1) mmol/L Chloride (98-107) mmol/L Carbon Dioxide (21-32) mmol/L Anion Gap (3-11) BUN (7-18) mg/dl Creatinine (0.6-1.2) mg/dl Est Cr Clr Drug Dosing ml/min Est GFR ( Amer) ml/min Est GFR (Non-Af Amer) ml/min BUN/Creatinine Ratio (10-20) Glucose (70-99) mg/dl POC Glucose (70-99) mg/dl Osmolality (280-300) mOsm/kg Lactate (0.4-2.0) mmol/L Calcium (8.5-10.1) mg/dl Phosphorus (2.5-4.9) mg/dl Magnesium (1.8-2.4) mg/dl Total Bilirubin (0.2-1) mg/dl Direct Bilirubin (0-0.2) mg/dl AST (15-37) U/L ALT (12-78) U/L Alkaline Phosphatase (45-117) U/L Ammonia (11-32) umol/L Troponin I (0-0.045) ng/ml Total Protein (6.4-8.2) gm/dl Albumin (3.4-5.0) gm/dl Globulin (2.5-4.0) gm/dl Albumin/Globulin Ratio (0.9-2) Lipase (73-393) U/L TSH (0.300-4.500) uIu/ml Free T4 (0.8-1.6) ng/dl HCG, Qual (Negative) Random Cortisol Specimen Hemolysis Urine Color Urine Appearance (Clear) Urine pH (4.5-7.5) Ur Specific [place] (1.000-1.030) Urine Protein (Negative) Urine Glucose (UA) (Negative) Urine Ketones (Negative) Urine Blood (Negative) Urine Nitrite (Negative) Urine Bilirubin (Negative) Urine Urobilinogen (Negative) Ur Leukocyte Esterase (Negative) Urine WBC (Auto) (0-5) /hpf Urine RBC (Auto) (0-4) /hpf U Hyaline Cast (Auto) (0-5) /lpf U Epithel Cells (Auto) (0-5) /lpf Urine Bacteria (Auto) (Negative) Urine Yeast Urine Osmolality 217 L (500-800) mOsm/kg Ur Random Sodium < 5 mmol/L Nasal Screen MRSA (PCR) (Negative) Salicylates (2.8-20) mg/dl Urine Opiates Screen (Neg) Ur Methadone, Qual (Neg) Acetaminophen (10-30) ug/ml Urine Barbiturates (Neg) Ur Phencyclidine (PCP) (Neg) U Amphetamin/Meth Scrn (Neg) MDMA (Ecstasy) Screen (Neg) U Benzodiazepines Scrn (Neg) Ur Cocaine Metabolite (Neg) U Marijuana (THC) Screen (Neg) Ethyl Alcohol mg/dL (0-3) mg/dl COVID-19 Eval Order Covid19 at [facility] SARS-CoV-2 (PCR) (Negative) Hepatitis A IgM Ab Hep Bs Antigen (Neg) Hep B Core IgM Ab Hepatitis C Antibody (Neg) Blood Type Blood Type Recheck Antibody Screen 03/11/21 03/11/21 03/11/21 Range/Units 12:18 12:18 11:48 WBC (4.8-10.8) K/uL RBC (4.2-5.4) M/uL Hgb (12.0-16.0) g/dL Hct (37-47) % MCV (80-100) fL MCH (25-34) pg MCHC (32-36) g/dL RDW Std Deviation (36.4-46.3) fL RDW Coeff of Ace (11.5-14.5) % Plt Count (130-400) K/uL MPV (7.4-10.4) fL Immature Gran % (Auto) % Neut % (Auto) % Lymph % (Auto) % Elliott % (Auto) % Eos % (Auto) % Baso % (Auto) % Neut # (Auto) (1.4-6.5) K/uL Lymph # (Auto) (1.2-3.4) K/uL Elliott # (Auto) (0.11-0.59) K/uL Eos # (Auto) (0-0.5) K/uL Baso # (Auto) (0-0.2) K/uL Immature Gran # (Auto) (0.00-0.02) K/uL Basophilic Stippling Anisocytosis Pappenheimer Bodies Target Cells PT (9.0-12.0) Seconds INR (0.9-1.1) APTT (21.0-31.0) Seconds PTT Ratio Fibrinogen (184-400) mg/dl VBG pH (7.36-7.41) VBG pCO2 (38-50) mmHg VBG pO2 mmHg VBG HCO3 mmol/L VBG O2 Saturation % VBG Base Excess mEq/L Barometric Pressure mm/Hg Sodium (136-145) mmol/L Potassium (3.5-5.1) mmol/L Chloride (98-107) mmol/L Carbon Dioxide (21-32) mmol/L Anion Gap (3-11) BUN (7-18) mg/dl Creatinine (0.6-1.2) mg/dl Est Cr Clr Drug Dosing ml/min Est GFR ( Amer) ml/min Est GFR (Non-Af Amer) ml/min BUN/Creatinine Ratio (10-20) Glucose (70-99) mg/dl POC Glucose (70-99) mg/dl Osmolality 272 L (280-300) mOsm/kg Lactate (0.4-2.0) mmol/L Calcium (8.5-10.1) mg/dl Phosphorus (2.5-4.9) mg/dl Magnesium (1.8-2.4) mg/dl Total Bilirubin (0.2-1) mg/dl Direct Bilirubin (0-0.2) mg/dl AST (15-37) U/L ALT (12-78) U/L Alkaline Phosphatase (45-117) U/L Ammonia (11-32) umol/L Troponin I (0-0.045) ng/ml Total Protein (6.4-8.2) gm/dl Albumin (3.4-5.0) gm/dl Globulin (2.5-4.0) gm/dl Albumin/Globulin Ratio (0.9-2) Lipase (73-393) U/L TSH (0.300-4.500) uIu/ml Free T4 (0.8-1.6) ng/dl HCG, Qual (Negative) Random Cortisol Specimen Hemolysis Urine Color Dark Yellow Urine Appearance Cloudy A (Clear) Urine pH 5.5 (4.5-7.5) Ur Specific [place] 1.012 (1.000-1.030) Urine Protein Negative (Negative) Urine Glucose (UA) Negative (Negative) Urine Ketones 1+ H (Negative) Urine Blood 3+ H (Negative) Urine Nitrite Positive A (Negative) Urine Bilirubin 3+ H (Negative) Urine Urobilinogen Negative (Negative) Ur Leukocyte Esterase Trace H (Negative) Urine WBC (Auto) 1-5 (0-5) /hpf Urine RBC (Auto) 5-10 H (0-4) /hpf U Hyaline Cast (Auto) 1-5 (0-5) /lpf U Epithel Cells (Auto) >30 H (0-5) /lpf Urine Bacteria (Auto) 1+ H (Negative) Urine Yeast Not Reportable Urine Osmolality (500-800) mOsm/kg Ur Random Sodium mmol/L Nasal Screen MRSA (PCR) (Negative) Salicylates (2.8-20) mg/dl Urine Opiates Screen Neg (Neg) Ur Methadone, Qual Neg (Neg) Acetaminophen (10-30) ug/ml Urine Barbiturates Neg (Neg) Ur Phencyclidine (PCP) Neg (Neg) U Amphetamin/Meth Scrn Neg (Neg) MDMA (Ecstasy) Screen Neg (Neg) U Benzodiazepines Scrn Neg (Neg) Ur Cocaine Metabolite Neg (Neg) U Marijuana (THC) Screen Neg (Neg) Ethyl Alcohol mg/dL (0-3) mg/dl COVID-19 Eval Order SARS-CoV-2 (PCR) (Negative) Hepatitis A IgM Ab Hep Bs Antigen (Neg) Hep B Core IgM Ab Hepatitis C Antibody (Neg) Blood Type Blood Type Recheck Antibody Screen 03/11/21 03/11/21 03/11/21 Range/Units 11:48 11:48 11:48 WBC (4.8-10.8) K/uL RBC (4.2-5.4) M/uL Hgb (12.0-16.0) g/dL Hct (37-47) % MCV (80-100) fL MCH (25-34) pg MCHC (32-36) g/dL RDW Std Deviation (36.4-46.3) fL RDW Coeff of Ace (11.5-14.5) % Plt Count (130-400) K/uL MPV (7.4-10.4) fL Immature Gran % (Auto) % Neut % (Auto) % Lymph % (Auto) % Elliott % (Auto) % Eos % (Auto) % Baso % (Auto) % Neut # (Auto) (1.4-6.5) K/uL Lymph # (Auto) (1.2-3.4) K/uL Elliott # (Auto) (0.11-0.59) K/uL Eos # (Auto) (0-0.5) K/uL Baso # (Auto) (0-0.2) K/uL Immature Gran # (Auto) (0.00-0.02) K/uL Basophilic Stippling Anisocytosis Pappenheimer Bodies Target Cells PT 24.3 H (9.0-12.0) Seconds INR 2.6 H (0.9-1.1) APTT 51.8 H* (21.0-31.0) Seconds PTT Ratio 2.0 Fibrinogen (184-400) mg/dl VBG pH (7.36-7.41) VBG pCO2 (38-50) mmHg VBG pO2 mmHg VBG HCO3 mmol/L VBG O2 Saturation % VBG Base Excess mEq/L Barometric Pressure mm/Hg Sodium (136-145) mmol/L Potassium (3.5-5.1) mmol/L Chloride (98-107) mmol/L Carbon Dioxide (21-32) mmol/L Anion Gap (3-11) BUN (7-18) mg/dl Creatinine (0.6-1.2) mg/dl Est Cr Clr Drug Dosing ml/min Est GFR ( Amer) ml/min Est GFR (Non-Af Amer) ml/min BUN/Creatinine Ratio (10-20) Glucose (70-99) mg/dl POC Glucose (70-99) mg/dl Osmolality (280-300) mOsm/kg Lactate (0.4-2.0) mmol/L Calcium (8.5-10.1) mg/dl Phosphorus (2.5-4.9) mg/dl Magnesium (1.8-2.4) mg/dl Total Bilirubin (0.2-1) mg/dl Direct Bilirubin (0-0.2) mg/dl AST (15-37) U/L ALT (12-78) U/L Alkaline Phosphatase (45-117) U/L Ammonia < 10.0 L (11-32) umol/L Troponin I (0-0.045) ng/ml Total Protein (6.4-8.2) gm/dl Albumin (3.4-5.0) gm/dl Globulin (2.5-4.0) gm/dl Albumin/Globulin Ratio (0.9-2) Lipase (73-393) U/L TSH (0.300-4.500) uIu/ml Free T4 (0.8-1.6) ng/dl HCG, Qual (Negative) Random Cortisol Specimen Hemolysis Urine Color Urine Appearance (Clear) Urine pH (4.5-7.5) Ur Specific [place] (1.000-1.030) Urine Protein (Negative) Urine Glucose (UA) (Negative) Urine Ketones (Negative) Urine Blood (Negative) Urine Nitrite (Negative) Urine Bilirubin (Negative) Urine Urobilinogen (Negative) Ur Leukocyte Esterase (Negative) Urine WBC (Auto) (0-5) /hpf Urine RBC (Auto) (0-4) /hpf U Hyaline Cast (Auto) (0-5) /lpf U Epithel Cells (Auto) (0-5) /lpf Urine Bacteria (Auto) (Negative) Urine Yeast Urine Osmolality (500-800) mOsm/kg Ur Random Sodium mmol/L Nasal Screen MRSA (PCR) (Negative) Salicylates (2.8-20) mg/dl Urine Opiates Screen (Neg) Ur Methadone, Qual (Neg) Acetaminophen (10-30) ug/ml Urine Barbiturates (Neg) Ur Phencyclidine (PCP) (Neg) U Amphetamin/Meth Scrn (Neg) MDMA (Ecstasy) Screen (Neg) U Benzodiazepines Scrn (Neg) Ur Cocaine Metabolite (Neg) U Marijuana (THC) Screen (Neg) Ethyl Alcohol mg/dL 93.0 H (0-3) mg/dl COVID-19 Eval Order SARS-CoV-2 (PCR) (Negative) Hepatitis A IgM Ab Hep Bs Antigen (Neg) Hep B Core IgM Ab Hepatitis C Antibody (Neg) Blood Type Blood Type Recheck Antibody Screen 03/11/21 03/11/21 03/11/21 Range/Units 10:40 10:40 10:40 WBC (4.8-10.8) K/uL RBC (4.2-5.4) M/uL Hgb (12.0-16.0) g/dL Hct (37-47) % MCV (80-100) fL MCH (25-34) pg MCHC (32-36) g/dL RDW Std Deviation (36.4-46.3) fL RDW Coeff of Aec (11.5-14.5) % Plt Count (130-400) K/uL MPV (7.4-10.4) fL Immature Gran % (Auto) % Neut % (Auto) % Lymph % (Auto) % Elliott % (Auto) % Eos % (Auto) % Baso % (Auto) % Neut # (Auto) (1.4-6.5) K/uL Lymph # (Auto) (1.2-3.4) K/uL Elliott # (Auto) (0.11-0.59) K/uL Eos # (Auto) (0-0.5) K/uL Baso # (Auto) (0-0.2) K/uL Immature Gran # (Auto) (0.00-0.02) K/uL Basophilic Stippling Anisocytosis Pappenheimer Bodies Target Cells PT (9.0-12.0) Seconds INR (0.9-1.1) APTT (21.0-31.0) Seconds PTT Ratio Fibrinogen (184-400) mg/dl VBG pH (7.36-7.41) VBG pCO2 (38-50) mmHg VBG pO2 mmHg VBG HCO3 mmol/L VBG O2 Saturation % VBG Base Excess mEq/L Barometric Pressure mm/Hg Sodium 117 L* (136-145) mmol/L Potassium 3.6 (3.5-5.1) mmol/L Chloride 83 L (98-107) mmol/L Carbon Dioxide 23 (21-32) mmol/L Anion Gap 11.0 (3-11) BUN 3 L (7-18) mg/dl Creatinine 1.16 (0.6-1.2) mg/dl Est Cr Clr Drug Dosing 67.5 ml/min Est GFR ( Amer) 70.6 ml/min Est GFR (Non-Af Amer) 61.0 ml/min BUN/Creatinine Ratio 2.6 L (10-20) Glucose 100 H (70-99) mg/dl POC Glucose (70-99) mg/dl Osmolality (280-300) mOsm/kg Lactate (0.4-2.0) mmol/L Calcium 7.6 L (8.5-10.1) mg/dl Phosphorus (2.5-4.9) mg/dl Magnesium 1.9 (1.8-2.4) mg/dl Total Bilirubin 17.6 H (0.2-1) mg/dl Direct Bilirubin 14.7 H (0-0.2) mg/dl AST 459 H (15-37) U/L ALT 135 H (12-78) U/L Alkaline Phosphatase 479 H (45-117) U/L Ammonia (11-32) umol/L Troponin I < 0.015 (0-0.045) ng/ml Total Protein 6.5 (6.4-8.2) gm/dl Albumin 2.2 L (3.4-5.0) gm/dl Globulin (2.5-4.0) gm/dl Albumin/Globulin Ratio (0.9-2) Lipase 281 (73-393) U/L TSH 5.580 H (0.300-4.500) uIu/ml Free T4 1.30 (0.8-1.6) ng/dl HCG, Qual Negative (Negative) Random Cortisol Specimen Hemolysis Urine Color Urine Appearance (Clear) Urine pH (4.5-7.5) Ur Specific [place] (1.000-1.030) Urine Protein (Negative) Urine Glucose (UA) (Negative) Urine Ketones (Negative) Urine Blood (Negative) Urine Nitrite (Negative) Urine Bilirubin (Negative) Urine Urobilinogen (Negative) Ur Leukocyte Esterase (Negative) Urine WBC (Auto) (0-5) /hpf Urine RBC (Auto) (0-4) /hpf U Hyaline Cast (Auto) (0-5) /lpf U Epithel Cells (Auto) (0-5) /lpf Urine Bacteria (Auto) (Negative) Urine Yeast Urine Osmolality (500-800) mOsm/kg Ur Random Sodium mmol/L Nasal Screen MRSA (PCR) (Negative) Salicylates (2.8-20) mg/dl Urine Opiates Screen (Neg) Ur Methadone, Qual (Neg) Acetaminophen (10-30) ug/ml Urine Barbiturates (Neg) Ur Phencyclidine (PCP) (Neg) U Amphetamin/Meth Scrn (Neg) MDMA (Ecstasy) Screen (Neg) U Benzodiazepines Scrn (Neg) Ur Cocaine Metabolite (Neg) U Marijuana (THC) Screen (Neg) Ethyl Alcohol mg/dL (0-3) mg/dl COVID-19 Eval Order SARS-CoV-2 (PCR) (Negative) Hepatitis A IgM Ab Hep Bs Antigen (Neg) Hep B Core IgM Ab Hepatitis C Antibody (Neg) Blood Type Blood Type Recheck Antibody Screen 03/11/21 Range/Units 10:40 WBC 16.03 H (4.8-10.8) K/uL RBC 3.72 L (4.2-5.4) M/uL Hgb 12.8 (12.0-16.0) g/dL Hct 35.2 L (37-47) % MCV 94.6 (80-100) fL MCH 34.4 H (25-34) pg MCHC 36.4 H (32-36) g/dL RDW Std Deviation 69.8 H (36.4-46.3) fL RDW Coeff of Ace 20.1 H (11.5-14.5) % Plt Count 239 (130-400) K/uL MPV 10.1 (7.4-10.4) fL Immature Gran % (Auto) 0.6 % Neut % (Auto) 85.9 % Lymph % (Auto) 7.8 % Elliott % (Auto) 5.1 % Eos % (Auto) 0.4 % Baso % (Auto) 0.2 % Neut # (Auto) 13.78 H (1.4-6.5) K/uL Lymph # (Auto) 1.25 (1.2-3.4) K/uL Elliott # (Auto) 0.81 H (0.11-0.59) K/uL Eos # (Auto) 0.07 (0-0.5) K/uL Baso # (Auto) 0.03 (0-0.2) K/uL Immature Gran # (Auto) 0.09 H (0.00-0.02) K/uL Basophilic Stippling Anisocytosis Present Pappenheimer Bodies Target Cells 2+ PT (9.0-12.0) Seconds INR (0.9-1.1) APTT (21.0-31.0) Seconds PTT Ratio Fibrinogen (184-400) mg/dl VBG pH (7.36-7.41) VBG pCO2 (38-50) mmHg VBG pO2 mmHg VBG HCO3 mmol/L VBG O2 Saturation % VBG Base Excess mEq/L Barometric Pressure mm/Hg Sodium (136-145) mmol/L Potassium (3.5-5.1) mmol/L Chloride (98-107) mmol/L Carbon Dioxide (21-32) mmol/L Anion Gap (3-11) BUN (7-18) mg/dl Creatinine (0.6-1.2) mg/dl Est Cr Clr Drug Dosing ml/min Est GFR ( Amer) ml/min Est GFR (Non-Af Amer) ml/min BUN/Creatinine Ratio (10-20) Glucose (70-99) mg/dl POC Glucose (70-99) mg/dl Osmolality (280-300) mOsm/kg Lactate (0.4-2.0) mmol/L Calcium (8.5-10.1) mg/dl Phosphorus (2.5-4.9) mg/dl Magnesium (1.8-2.4) mg/dl Total Bilirubin (0.2-1) mg/dl Direct Bilirubin (0-0.2) mg/dl AST (15-37) U/L ALT (12-78) U/L Alkaline Phosphatase (45-117) U/L Ammonia (11-32) umol/L Troponin I (0-0.045) ng/ml Total Protein (6.4-8.2) gm/dl Albumin (3.4-5.0) gm/dl Globulin (2.5-4.0) gm/dl Albumin/Globulin Ratio (0.9-2) Lipase (73-393) U/L TSH (0.300-4.500) uIu/ml Free T4 (0.8-1.6) ng/dl HCG, Qual (Negative) Random Cortisol Specimen Hemolysis Urine Color Urine Appearance (Clear) Urine pH (4.5-7.5) Ur Specific [place] (1.000-1.030) Urine Protein (Negative) Urine Glucose (UA) (Negative) Urine Ketones (Negative) Urine Blood (Negative) Urine Nitrite (Negative) Urine Bilirubin (Negative) Urine Urobilinogen (Negative) Ur Leukocyte Esterase (Negative) Urine WBC (Auto) (0-5) /hpf Urine RBC (Auto) (0-4) /hpf U Hyaline Cast (Auto) (0-5) /lpf U Epithel Cells (Auto) (0-5) /lpf Urine Bacteria (Auto) (Negative) Urine Yeast Urine Osmolality (500-800) mOsm/kg Ur Random Sodium mmol/L Nasal Screen MRSA (PCR) (Negative) Salicylates (2.8-20) mg/dl Urine Opiates Screen (Neg) Ur Methadone, Qual (Neg) Acetaminophen (10-30) ug/ml Urine Barbiturates (Neg) Ur Phencyclidine (PCP) (Neg) U Amphetamin/Meth Scrn (Neg) MDMA (Ecstasy) Screen (Neg) U Benzodiazepines Scrn (Neg) Ur Cocaine Metabolite (Neg) U Marijuana (THC) Screen (Neg) Ethyl Alcohol mg/dL (0-3) mg/dl COVID-19 Eval Order SARS-CoV-2 (PCR) (Negative) Hepatitis A IgM Ab Hep Bs Antigen (Neg) Hep B Core IgM Ab Hepatitis C Antibody (Neg) Blood Type Blood Type Recheck Antibody Screen
[2021-03-12] MEDS ORDERED: POTASSIUM PHOSPHATE 21 MMOL in SODIUM CHLORIDE 0.9% 500 ML IV ONE (10:30)
[2021-03-12] MEDS: LOSARTAN POTASSIUM 25 MG TAB PO SCH (11:12)
[2021-03-12] MEDS: CIPROFLOXACIN 500 MG TAB PO SCH ×2 (11:12→20:27)
[2021-03-12] MEDS: busPIRone 7.5 MG TAB PO SCH ×2 (11:12→20:27)
[2021-03-12 11:26] LABS: Basophils # (auto) 0.01 K/uL (0-0.2); Basophils % (auto) 0.1 %; Hematocrit (blood only) 28.3 % (37-47); Immature Granulocytes # (auto) 0.06 K/uL (0.00-0.02); Immature Granulocytes % (auto) 0.5 %; Lymphocytes # (auto) 0.45 K/uL (1.2-3.4); Lymphocytes % (auto) 3.4 %; Mean Corpuscular Hgb Conc 35.3 g/dL (32-36); Mean Corpuscular Volume 96.3 fL (80-100); Mean Platelet Volume 9.7 fL (7.4-10.4); Monocytes # (auto) 0.65 K/uL (0.11-0.59); Monocytes % (auto) 4.9 %; Neutrophils % (auto) 91.1 %; Platelet Count 171 K/uL (130-400); RDW Coefficient of Variation 20.5 % (11.5-14.5); RDW Standard Deviation 71.7 fL (36.4-46.3); Red Blood Count 2.94 M/uL (4.2-5.4); White Blood Count 13.27 K/uL (4.8-10.8)
[2021-03-12 11:57] LABS: Anisocytosis Present; Target Cells 2+
[2021-03-12] MEDS ORDERED: INSULIN ASPART 100 UNITS/ML 3 ML PEN SC SCH ×2 (12:00)
--- NOTE | 2021-03-12 12:35 | Pharmacy Report ---
Pharmacy Glycemic Short Note 2 - Date of Service March 12, 2021 - Glycemic Short BSG Results (Last 24 hours): 03/11/21 03/11/21 03/11/21 17:40 21:39 23:16 Glucose 119 H 255 H POC Glucose 257 H 03/12/21 03/12/21 03/12/21 02:17 03:17 06:01 Glucose 273 H POC Glucose 261 H 224 H 03/12/21 03/12/21 08:20 11:17 Glucose 248 H POC Glucose 183 H OUTPATIENT ANTIDIABETIC REGIMEN: * None * HbA1c on order for 03/13/21 ASSESSMENT: * 35 yo F admitted with alcoholic hepatitis/hematemesis. * BSG's elevated 2nd steroids administered yesterday (none ongoing) and D5W infusion for overly rapid correction of Na (none ongoing) * Will give one-time low dose of Lantus as steroid effects will likely persist today * Will tighten Novolog parameters to weight-based moderate stress estimate (with slightly tighter CHO ratio 2nd steroids yesterday) PLAN FOR INPATIENT GLYCEMIC CONTROL: * Basal insulin * Lantus 15 units SQ x1 now * Bolus insulin * NovoLog per scale ACHS or Q6hrs while NPO * Goal Range: Low 120 mg/dL - High 150 mg/dL * Correction Factor: 30 mg/dL/unit * Nutritional / Prandial insulin per carb ratio of 1 unit per 9 grams CHO co nsumed
[2021-03-12 14:45] LABS: BUN Creatinine Ratio 2.9 (10-20); Calcium 7.6 mg/dl (8.5-10.1); Creatinine Clr Calc Pharmacy 102.3 ml/min; Est GFR (African American) 117.8 ml/min; Est GFR (Non-African American) 101.6 ml/min; Potassium 3.4 mmol/L (3.5-5.1)
--- NOTE | 2021-03-12 15:03 | Electrocardiogram Report ---
Test Reason : Blood Pressure : / mmHG Vent. Rate : 102 BPM Atrial Rate : 102 BPM P-R Int : 164 ms QRS Dur : 078 ms QT Int : 306 ms P-R-T Axes : 057 025 050 degrees QTc Int : 398 ms Sinus tachycardia Low voltage QRS Nonspecific T wave abnormality Abnormal ECG When compared with ECG of 11-MAR-2021 12:13, Premature supraventricular complexes are no longer Present Nonspecific T wave abnormality, worse in Lateral leads QT has shortened Confirmed by Chuckie Cherry ([id number]) on 03/12/2021 3:02:57 PM Referred By: REFERRED SELF Confirmed By:Chuckie Cherry
--- NOTE | 2021-03-12 15:25 | Psychiatric Consultation ---
Date of Consultation March 12, 2021 Impression / Recommendations Impression 35-year-old woman presenting with alcohol withdrawal and anxiety along with multiple other medical issues.. Typically anxiety is a symptom of alcohol withdrawal, however patient is endorsing longstanding anxiety prior to, which has led her to drink excessively. She will benefit from psychiatric medications to address her underlying symptoms to hopefully prevent her from drinking excessively in the future. Patient would also benefit from rehab if agreeable to go. (1) Generalized anxiety disorder: Continue to treat patient's alcohol withdrawal with Ativan. This will address her anxiety while she is in the hospital. We will plan to initiate Lexapro and a long-acting benzodiazepine once patient is out of the seizure window. Patient will require outpatient psychiatric care Risk Factors Assessment Male: No Health Problems: Yes Mental Health Diagnoses: Yes Hopelessness: No Psych History Chief Complaint "My drinking got out of hand because of my anxiety". History of Present Illness As per psychiatric liaison "Met with patient for initial assessment re: depression/anxiety and h/o inpatient treatment. Patient awake and alert at this time, speech is slowed, But answers questions appropriately. Patient reports severe anxiety with agoraphobia, often isolating/withdrawn. Patient reports worsening anxiety after moving back from [place] in 2019 (just prior to start of pandemic). She was residing in this area and moved to [place] for a job opportunity. 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 Patient has history of depression/anxiety since early late adolescents. Attempted OD on benedryl (while intoxicated) at age 21, then was placed at [place]. Denies any other suicide attempts or inpatient treatment. Patient seen psychiatrist, Dr. Courtney ~ 10 years ago. No history of therapy or other psych supports. Patient denies long standing history of violen ce or aggression. She admits to irritability recently. She is prescribed Buspar and Lexapro but have not been compliant. She is interested in restarting Lexapro, reporting it was helpful in the past. She does not believe Buspar is helpful and prefer to not continue it. Patient currently lives with her parents and able to return there. She does not identify any other supports. Conversation needed to be interrupted for EKG and other nursing interventions. Psychiatrist to see patient today and liaison will follow-up. " Patient was seen by property underwriter this afternoon. She endorses the above information is accurate. She states that her alcohol drinking was out of hand, but feels that it was used to self medicate her anxiety. She does not feel rehab would be necessary if she is on a correct mentioned regimen to address her underlying anxiety. Patient denies any history of manic symptoms. Denies any psychotic symptoms. Patient is also denying any current suicidal ideation. She does report longstanding anxiety along with occasional panic attacks. Past Psychiatric History Previous Psych History: As above Previous Psych Admissions: 1 prior psychiatric mission at the [facility] at age 21. Allergies Allergy/AdvReac Type Severity Reaction Status Date / Time No Known Allergies Allergy Unknown Unverified 03/11/21 12:47 Home Medications Medication Instructions Recorded Confirmed Type losartan 25 mg tablet 25 mg PO DAILY #90 tab 01/01/21 03/11/21 Rx buspirone 5 mg tablet 5 mg PO BID #60 tab 02/01/21 03/11/21 Rx pantoprazole 40 mg tablet,delayed 40 mg PO DAILY #90 tab 02/01/21 03/11/21 Rx release Personal History Beliefs That Will Affect Care: None Patient History Medical History AA (alcohol abuse) Acute alcoholic hepatitis Coagulopathy Generalized anxiety disorder Hypertension Hyponatremia Obesities, morbid Upper GI bleed Surgical History No history of previous surgery Family History Father Myocardial infarction Depression Diabetes Heart disease Grandfather Prostate cancer MATERNAL Mother Depression Hypertension Denies family history of Ovarian cancer Breast cancer Colorectal cancer History of alcoholism Social History Smoking Status: Current every day smoker Tobacco Type: Cigarettes Age Started Using Tobacco: 22; Cigarettes Per Day: 5; Second Hand Exposure: No; Do You Dip or Chew Tobacco: No; Tobacco Cessation Education Requested by Patient: No Hx Alcohol Use: Yes Alcohol type: wine and hard liquor Alcohol Intake Frequency: 4 or More x per/Week Alcohol Intake Frequency Comment: DAILY; 1-2 bottles wine/day; multiple rum & coke Hx Substance Use: No Preferred Language: Mexican Communication Ability: Effective Visual Impairment: No Limitations Hearing Ability: Normal Forklift Wheel Loader Required: No Beliefs That Will Affect Care: None marital status: Single Current Living Situation: Family Current Living Situation Comment: lives in [place] w/ Mom/dad current occupational status: unemployed 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 How many Children do You have: 0 Other Information That Helps Us Care for You: No Feels Safe at Home: Yes Safety Concerns: Feels Safe At This Time Childhood Exposure to Second-Hand Smoke: No Dental Care, Regularly: No Physical Activity Frequency: Does not Exercise Seatbelt Use: always Sunscreen Use: Yes Sexual Activity: has been sexually active, but not for at least 12 months Assistive Devices: Glasses Physical Exam Vital Signs (Past 24 Hours): Last Vital Signs Temp 36.6 C 03/12/21 12:00 Pulse 104 H 03/12/21 13:00 Resp 14 03/12/21 13:00 BP 135/79 03/12/21 13:00 Pulse Ox 89 L 03/12/21 13:00 Review of Systems All systems reviewed & are unremarkable except as noted in HPI & below Results & Data ([facility]) Medications Administered Buspirone HCl (Buspirone 7.5 Mg Tab) 7.5 mg PO BID [facility] Stop: 04/11/21 10:29 Last Admin: 03/12/21 11:12 Dose: Not Given Documented by: [id number] Ciprofloxacin (Ciprofloxacin 500 Mg Tab) 500 mg PO BID JONNA Stop: 03/22/21 10:29 Last Admin: 03/12/21 11:12 Dose: 500 mg Documented by: [id number] Lorazepam (Ativan) 1 mg in 2 mls @ 2 mls/min IV ONE PRN; Protocol PRN Reason: EtoH Withdrawal AWSS 6-10 Stop: 04/10/21 15:51 Last Admin: 03/11/21 16:21 Dose: 2 mls/min Documented by: [id number] Thiamine HCl 250 mg/ Sodium (Chloride) 52.5 mls @ 208 mls/hr IV TID JONNA Stop: 04/10/21 17:59 Last Infusion: 03/12/21 14:59 Dose: 0 mls/hr Documented by: [id number] Admin: 03/12/21 14:43 Dose: 208 mls/hr Documented by: [id number] Infusion: 03/12/21 08:50 Dose: 0 mls/hr Documented by: [id number] Admin: 03/12/21 08:34 Dose: 208 mls/hr Documented by: [id number] Infusion: 03/12/21 00:19 Dose: 0 mls/hr Documented by: [id number] Admin: 03/12/21 00:02 Dose: 208 mls/hr Documented by: [id number] Infusion: 03/11/21 18:23 Dose: 0 mls/hr Documented by: [id number] Admin: 03/11/21 17:53 Dose: 208 mls/hr Documented by: [id number] Folic Acid 1 mg/ Syringe 10 mls @ 5 mls/min IV QAM [facility] Stop: 04/11/21 08:59 Last Admin: 03/12/21 08:35 Dose: 5 mls/min Documented by: [id number] Potassium Phosphate 21 mmol/ (Sodium Chloride) 507 mls @ 88 mls/hr IV ONE ONE Stop: 03/12/21 16:15 Last Admin: 03/12/21 11:12 Dose: 88 mls/hr Documented by: [id number] Losartan Potassium (Losartan Potassium 25 Mg Tab) 25 mg PO DAILY [facility] Stop: 04/11/21 10:29 Last Admin: 03/12/21 11:12 Dose: 25 mg Documented by: [id number] Coding Level of Care Code 29390 [facility] Intl Hosp Care Lvl 2 Diagnoses Generalized anxiety disorder F41.1
[2021-03-12] MEDS ORDERED: cefTRIAXone SODIUM 2,000 MG in DEXTROSE 5% 50 ML IV SCH (17:00)
--- NOTE | 2021-03-12 17:46 | Hospitalist Progress Note ---
Date of Service March 12, 2021 Assessment & Plan (1) Acute alcoholic hepatitis: SEVERE acute EToH hepatitis. Troy's discriminant function score is 68 on 03/12. - Serial labs - Finished NAC protocol as recommended by GI. - Was on ceftriaxone for SBP prophylaxis, but no varices seen on EGD, so this was stopped. - Appreciate critical care & GI consultations. (2) Hematemesis: Seen at home. Initial hgb here is 12. - Trended down to 10.0 on 03/12. (3) Alcoholism: Severe. - Continue thiamine & folic acid - Psych consult requested - she reports she uses her EToH to quell her severe anxiety. - AT HIGH RISK OF ETOH WITHDRAWAL. (4) Hyponatremia: Na was 117 on admission. - Correcting per ICU; aim for 8 - 10 mg/dL/day. (5) Hypertension: BP is 135/80 today. - Hold losartan for now (6) Abnormal TSH: Would repeat the TSH in about 6 weeks as outpatient. No Rx indicated at this time. (7) Generalized anxiety disorder: - See above. (8) DVT prophylaxis: SCDs - Chemical means contraindicated due to GI bleeding Admission and Anticipated Discharge Date Admission Date: March 11, 2021 Subjective No complaints. Reports no fevers/chills, chest pain, shortness of breath, abdominal pain, nausea, or vomiting. Physical Exam Constitutional: WD/WN, vitals as above Eyes: EOM intact bilaterally; no conjunctival abnormality and sclerae not anicteric ENMT: external ear and nose normal, oropharynx normal Neck: trachea midline, no thyromegaly normal visual inspection Respiratory: normal respiratory effort, lungs clear to auscultation no respiratory distress Cardiovascular: RRR, no murmur, no edema Gastrointestinal (Abdomen): Inspection/Auscultation: abdomen normal to inspection; abdomen not distended Musculoskeletal: no cyanosis or clubbing, extremities motor strength 5/5 Skin: no rashes, warm and dry Neurologic: moves all extremities and awake Psychiatric: Orientation: alert, oriented to person and cooperative Results & Data Results & Data ([facility]) Vital Signs (Past 12 Hours) Vital Signs Temp Pulse Resp BP Pulse Ox 03/12/21 13:00 104 H 14 135/79 89 L 03/12/21 12:00 36.6 C 104 H 15 136/81 90 03/12/21 11:30 113 H 17 117/76 94 03/12/21 10:00 106 H 17 137/85 91 03/12/21 09:00 105 H 15 142/92 H 89 L 03/12/21 08:00 36.7 C 103 H 14 144/88 H 91 03/12/21 07:00 100 H 13 147/89 H 93 03/12/21 06:30 113 H 14 134/89 92 03/12/21 06:00 107 H 15 133/93 97 PG Care Time/CCT Total # of Minutes Spent Total Time Spent with Patient: Total time spent is greater than 50% in coordination of care (as documented) at patient's floor/unit and/or counseling patient: Coding Level of Care Code 31647 Subseq Hosp Care Lvl 2 Diagnoses Acute alcoholic hepatitis K70.10 Hematemesis K92.0 Alcoholism F10.20 Hyponatremia E87.1 Hypertension I10 Abnormal TSH R79.89 Generalized anxiety disorder F41.1 DVT prophylaxis Z29.9
[2021-03-12 18:15] LABS: Basophils # (auto) 0.01 K/uL (0-0.2); Basophils % (auto) 0.1 %; Hematocrit (blood only) 29.3 % (37-47); Hemoglobin 10.4 g/dL (12.0-16.0); Immature Granulocytes % (auto) 0.6 %; Lymphocytes % (auto) 4.4 %; Mean Corpuscular Hemoglobin 34.6 pg (25-34); Mean Corpuscular Hgb Conc 35.5 g/dL (32-36); Mean Corpuscular Volume 97.3 fL (80-100); Mean Platelet Volume 9.9 fL (7.4-10.4); Monocytes # (auto) 0.88 K/uL (0.11-0.59); Monocytes % (auto) 5.5 %; Neutrophils # (auto) 14.24 K/uL (1.4-6.5); Neutrophils % (auto) 89.4 %; Platelet Count 177 K/uL (130-400); RDW Coefficient of Variation 20.5 % (11.5-14.5); RDW Standard Deviation 72.8 fL (36.4-46.3); Red Blood Count 3.01 M/uL (4.2-5.4); White Blood Count 15.93 K/uL (4.8-10.8)
[2021-03-12 18:37] LABS: Anisocytosis Present; Target Cells 2+
[2021-03-12 18:38] LABS: BUN Creatinine Ratio 3.2 (10-20); Creatinine Clr Calc Pharmacy 83.6 ml/min; Est GFR (African American) 92.3 ml/min; Est GFR (Non-African American) 79.6 ml/min; Potassium 3.7 mmol/L (3.5-5.1)
[2021-03-12] MEDS: PANTOprazole 40 MG in SYRINGE 0 ML IV SCH (20:28)
[2021-03-13] MEDS ORDERED: INSULIN ASPART 100 UNITS/ML 3 ML PEN SC ONE (02:00)
[2021-03-13 02:51] LABS: Hepatitis A Antibody IgM NON-REACTIVE (NON-REACTIVE); Hepatitis B Core Antibody IgM NON-REACTIVE (NON-REACTIVE)
[2021-03-13 05:39] LABS: INR 1.7 (0.9-1.1); Prothrombin Time 16.9 Seconds (9.0-12.0)
[2021-03-13 05:56] LABS: Albumin Level 2.3 gm/dl (3.4-5.0); BUN Creatinine Ratio 3.7 (10-20); Bilirubin,Total 19.8 mg/dl (0.2-1); Magnesium 2.3 mg/dl (1.8-2.4); Phosphorus 1.8 mg/dl (2.5-4.9); Potassium 3.8 mmol/L (3.5-5.1); Total Protein 5.5 gm/dl (6.4-8.2)
[2021-03-13 05:57] LABS: Basophils # (auto) 0.01 K/uL (0-0.2); Basophils % (auto) 0.1 %; Hematocrit (blood only) 27.5 % (37-47); Hemoglobin 9.6 g/dL (12.0-16.0); Immature Granulocytes # (auto) 0.07 K/uL (0.00-0.02); Immature Granulocytes % (auto) 0.5 %; Lymphocytes # (auto) 0.88 K/uL (1.2-3.4); Lymphocytes % (auto) 6.5 %; Mean Corpuscular Hemoglobin 34.5 pg (25-34); Mean Corpuscular Hgb Conc 34.9 g/dL (32-36); Mean Corpuscular Volume 98.9 fL (80-100); Mean Platelet Volume 10.3 fL (7.4-10.4); Monocytes % (auto) 5.9 %; Neutrophils # (auto) 11.77 K/uL (1.4-6.5); Platelet Count 176 K/uL (130-400); RDW Coefficient of Variation 20.7 % (11.5-14.5); RDW Standard Deviation 75.2 fL (36.4-46.3); Red Blood Count 2.78 M/uL (4.2-5.4); White Blood Count 13.53 K/uL (4.8-10.8)
[2021-03-13 06:26] LABS: Estimated Average Glucose 103 mg/dl; Hemoglobin A1C 5.2 % (4.5-5.6)
[2021-03-13 06:31] LABS: Bilirubin Direct 14.8 mg/dl (0-0.2)
[2021-03-13 06:32] LABS: Creatinine Clr Calc Pharmacy 105.2 ml/min; Est GFR (African American) 121.7 ml/min
[2021-03-13 06:38] LABS: Anisocytosis Present; Basophilic Stippling 1+; Pappenheimer Bodies 1+; Target Cells 1+
[2021-03-13] MEDS: busPIRone 7.5 MG TAB PO SCH ×2 (08:26→21:42)
[2021-03-13] MEDS: CIPROFLOXACIN 500 MG TAB PO SCH (08:28)
[2021-03-13] MEDS: LOSARTAN POTASSIUM 25 MG TAB PO SCH (08:28)
[2021-03-13] MEDS: INSULIN ASPART 100 UNITS/ML 3 ML PEN SC SCH ×4 (08:32→21:43)
[2021-03-13] MEDS: THIAMINE HCL 250 MG in SODIUM CHLORIDE 0.9% 50 ML IV SCH ×3 (08:37→22:09)
[2021-03-13] MEDS: PANTOprazole 40 MG in SYRINGE 0 ML IV SCH (08:37)
[2021-03-13] MEDS: FOLIC ACID 1 MG in SYRINGE 9.8 ML IV SCH (08:38)
[2021-03-13] MEDS ORDERED: INSULIN GLARGINE SOLOSTAR 100 UNITS/ML 3 ML PEN SC ONE (09:15)
--- NOTE | 2021-03-13 09:18 | Gastroenterology Progress Note ---
Date of Service March 13, 2021 Assessment & Plan (1) Acute alcoholic hepatitis: 35 year old female with hematemesis, alcoholic hepatitis s/p EGD w/o evidence of high risk lesions, esophagitis noted ETOH cessation ETOH withdrawal protocol DR Brower Once infectious etiology ruled out start Prednisolone 40 mg daily Check Rosibel score day 7 If responding to steroids, continue full 28 days, and then taper off over 16 days - decrease 10 mg per day every four days until a dose of 10 mg per day is r eached, then by 5 mg per day every three days then stop PO PPI BID Daily labs Watch for any acute mental status changes, asterixis etc Thank you for allowing us to participate in the care of this patient. Please call with any acute changes, questions or concerns. Please see addendum below with additional recommendation from my supervising physician. Admission and Anticipated Discharge Date Admission Date: March 11, 2021 Supervising Physician Co-Signing Physician Notes I interviewed and examined pt, reviewed chart and labs. Pt without complaints, no new events. Labs show stable creat, no enceph on exam. Would recommend completing 7 d abx for GIB , BID PPI for eosphagitis, prednisolone as above. Subjective Pt was seen and evaluated, chart reviewed. Feeling well, tired. No acute concerns this AM No abd pain, no nausea, vomiting. Denies black/bloody stools. Is hungry. Review of Systems Review of Systems: All systems reviewed & are unremarkable except as noted in HPI & below Physical Exam Constitutional: well developed, well nourished, + ill appearing and + well hydrated; no acute distress Neck: trachea midline, no thyromegaly trachea midline; no neck crepitus Respiratory: normal respiratory effort, lungs clear to auscultation no cough Auscultation: no crackles Cardiovascular: RRR, no murmur, no edema Gastrointestinal (Abdomen): normal bowel sounds, soft, nontender, no hepatosplenomegaly Results & Data ([facility]) Vital Signs (Past 12 Hours) Vital Signs Temp Pulse Pulse Resp BP BP Pulse Ox 03/13/21 07:00 92 H 16 115/76 95 03/13/21 06:00 102 H 14 131/82 90 03/13/21 05:00 97 H 13 123/78 90 03/13/21 04:00 36.6 C 96 H 12 117/72 90 03/13/21 03:00 98 H 12 111/73 91 03/13/21 02:00 99 H 12 114/74 90 03/13/21 01:00 96 H 11 L 123/71 90 03/13/21 00:00 36.7 C 91 H 12 117/77 91 03/12/21 23:23 94 H 03/12/21 23:00 93 H 13 121/74 90 03/12/21 22:00 100 H 12 126/68 90 Laboratory Results 03/13/21 03/13/21 03/13/21 Range/Units 08:19 05:12 05:12 WBC (4.8-10.8) K/uL RBC (4.2-5.4) M/uL Hgb (12.0-16.0) g/dL Hct (37-47) % MCV (80-100) fL MCH (25-34) pg MCHC (32-36) g/dL RDW Std Deviation (36.4-46.3) fL RDW Coeff of Ace (11.5-14.5) % Plt Count (130-400) K/uL MPV (7.4-10.4) fL Immature Gran % (Auto) % Neut % (Auto) % Lymph % (Auto) % Smyth % (Auto) % Eos % (Auto) % Baso % (Auto) % Neut # (Auto) (1.4-6.5) K/uL Lymph # (Auto) (1.2-3.4) K/uL Smyth # (Auto) (0.11-0.59) K/uL Eos # (Auto) (0-0.5) K/uL Baso # (Auto) (0-0.2) K/uL Immature Gran # (Auto) (0.00-0.02) K/uL Basophilic Stippling Anisocytosis Pappenheimer Bodies Target Cells PT (9.0-12.0) Seconds INR (0.9-1.1) Sodium 130 L (136-145) mmol/L Potassium 3.8 (3.5-5.1) mmol/L Chloride 96 L (98-107) mmol/L Carbon Dioxide 28 (21-32) mmol/L Anion Gap 6.0 (3-11) BUN 3 L (7-18) mg/dl Creatinine 0.74 (0.6-1.2) mg/dl Est Cr Clr Drug Dosing 105.2 ml/min Est GFR ( Amer) 121.7 ml/min Est GFR (Non-Af Amer) 105.0 ml/min BUN/Creatinine Ratio 3.7 L (10-20) Glucose 121 H (70-99) mg/dl POC Glucose 181 H (70-99) mg/dl Estimat Average Glucose 103 mg/dl Hemoglobin A1c 5.2 (4.5-5.6) % Calcium 8.0 L (8.5-10.1) mg/dl Phosphorus 1.8 L (2.5-4.9) mg/dl Magnesium 2.3 (1.8-2.4) mg/dl Total Bilirubin 19.8 H (0.2-1) mg/dl Direct Bilirubin 14.8 H (0-0.2) mg/dl AST 257 H (15-37) U/L ALT 87 H (12-78) U/L Alkaline Phosphatase 286 H (45-117) U/L Total Protein 5.5 L (6.4-8.2) gm/dl Albumin 2.3 L (3.4-5.0) gm/dl Random Cortisol mcg/dl Hepatitis A IgM Ab (NON-REACTIVE) Hep Bs Antigen (Neg) Hep B Core IgM Ab (NON-REACTIVE) Hepatitis C Antibody (Neg) 03/13/21 03/13/21 03/13/21 Range/Units 05:12 05:12 01:53 WBC 13.53 H (4.8-10.8) K/uL RBC 2.78 L (4.2-5.4) M/uL Hgb 9.6 L (12.0-16.0) g/dL Hct 27.5 L (37-47) % MCV 98.9 (80-100) fL MCH 34.5 H (25-34) pg MCHC 34.9 (32-36) g/dL RDW Std Deviation 75.2 H (36.4-46.3) fL RDW Coeff of Ace 20.7 H (11.5-14.5) % Plt Count 176 (130-400) K/uL MPV 10.3 (7.4-10.4) fL Immature Gran % (Auto) 0.5 % Neut % (Auto) 87.0 % Lymph % (Auto) 6.5 % Smyth % (Auto) 5.9 % Eos % (Auto) 0.0 % Baso % (Auto) 0.1 % Neut # (Auto) 11.77 H (1.4-6.5) K/uL Lymph # (Auto) 0.88 L (1.2-3.4) K/uL Smyth # (Auto) 0.80 H (0.11-0.59) K/uL Eos # (Auto) 0.00 (0-0.5) K/uL Baso # (Auto) 0.01 (0-0.2) K/uL Immature Gran # (Auto) 0.07 H (0.00-0.02) K/uL Basophilic Stippling 1+ Anisocytosis Present Pappenheimer Bodies 1+ Target Cells 1+ PT 16.9 H (9.0-12.0) Seconds INR 1.7 H (0.9-1.1) Sodium (136-145) mmol/L Potassium (3.5-5.1) mmol/L Chloride (98-107) mmol/L Carbon Dioxide (21-32) mmol/L Anion Gap (3-11) BUN (7-18) mg/dl Creatinine (0.6-1.2) mg/dl Est Cr Clr Drug Dosing ml/min Est GFR ( Amer) ml/min Est GFR (Non-Af Amer) ml/min BUN/Creatinine Ratio (10-20) Glucose (70-99) mg/dl POC Glucose 137 H (70-99) mg/dl Estimat Average Glucose mg/dl Hemoglobin A1c (4.5-5.6) % Calcium (8.5-10.1) mg/dl Phosphorus (2.5-4.9) mg/dl Magnesium (1.8-2.4) mg/dl Total Bilirubin (0.2-1) mg/dl Direct Bilirubin (0-0.2) mg/dl AST (15-37) U/L ALT (12-78) U/L Alkaline Phosphatase (45-117) U/L Total Protein (6.4-8.2) gm/dl Albumin (3.4-5.0) gm/dl Random Cortisol mcg/dl Hepatitis A IgM Ab (NON-REACTIVE) Hep Bs Antigen (Neg) Hep B Core IgM Ab (NON-REACTIVE) Hepatitis C Antibody (Neg) 03/12/21 03/12/21 03/12/21 Range/Units 23:36 23:31 20:25 WBC (4.8-10.8) K/uL RBC (4.2-5.4) M/uL Hgb (12.0-16.0) g/dL Hct (37-47) % MCV (80-100) fL MCH (25-34) pg MCHC (32-36) g/dL RDW Std Deviation (36.4-46.3) fL RDW Coeff of Ace (11.5-14.5) % Plt Count (130-400) K/uL MPV (7.4-10.4) fL Immature Gran % (Auto) % Neut % (Auto) % Lymph % (Auto) % Smyth % (Auto) % Eos % (Auto) % Baso % (Auto) % Neut # (Auto) (1.4-6.5) K/uL Lymph # (Auto) (1.2-3.4) K/uL Smyth # (Auto) (0.11-0.59) K/uL Eos # (Auto) (0-0.5) K/uL Baso # (Auto) (0-0.2) K/uL Immature Gran # (Auto) (0.00-0.02) K/uL Basophilic Stippling Anisocytosis Pappenheimer Bodies Target Cells PT (9.0-12.0) Seconds INR (0.9-1.1) Sodium 130 L (136-145) mmol/L Potassium (3.5-5.1) mmol/L Chloride (98-107) mmol/L Carbon Dioxide (21-32) mmol/L Anion Gap (3-11) BUN (7-18) mg/dl Creatinine (0.6-1.2) mg/dl Est Cr Clr Drug Dosing ml/min Est GFR ( Amer) ml/min Est GFR (Non-Af Amer) ml/min BUN/Creatinine Ratio (10-20) Glucose (70-99) mg/dl POC Glucose 153 H 146 H (70-99) mg/dl Estimat Average Glucose mg/dl Hemoglobin A1c (4.5-5.6) % Calcium (8.5-10.1) mg/dl Phosphorus (2.5-4.9) mg/dl Magnesium (1.8-2.4) mg/dl Total Bilirubin (0.2-1) mg/dl Direct Bilirubin (0-0.2) mg/dl AST (15-37) U/L ALT (12-78) U/L Alkaline Phosphatase (45-117) U/L Total Protein (6.4-8.2) gm/dl Albumin (3.4-5.0) gm/dl Random Cortisol mcg/dl Hepatitis A IgM Ab (NON-REACTIVE) Hep Bs Antigen (Neg) Hep B Core IgM Ab (NON-REACTIVE) Hepatitis C Antibody (Neg) 03/12/21 03/12/21 03/12/21 Range/Units 17:55 17:55 16:26 WBC 15.93 H (4.8-10.8) K/uL RBC 3.01 L (4.2-5.4) M/uL Hgb 10.4 L (12.0-16.0) g/dL Hct 29.3 L (37-47) % MCV 97.3 (80-100) fL MCH 34.6 H (25-34) pg MCHC 35.5 (32-36) g/dL RDW Std Deviation 72.8 H (36.4-46.3) fL RDW Coeff of Ace 20.5 H (11.5-14.5) % Plt Count 177 (130-400) K/uL MPV 9.9 (7.4-10.4) fL Immature Gran % (Auto) 0.6 % Neut % (Auto) 89.4 % Lymph % (Auto) 4.4 % Smyth % (Auto) 5.5 % Eos % (Auto) 0.0 % Baso % (Auto) 0.1 % Neut # (Auto) 14.24 H (1.4-6.5) K/uL Lymph # (Auto) 0.70 L (1.2-3.4) K/uL Smyth # (Auto) 0.88 H (0.11-0.59) K/uL Eos # (Auto) 0.00 (0-0.5) K/uL Baso # (Auto) 0.01 (0-0.2) K/uL Immature Gran # (Auto) 0.10 H (0.00-0.02) K/uL Basophilic Stippling Anisocytosis Present Pappenheimer Bodies Target Cells 2+ PT (9.0-12.0) Seconds INR (0.9-1.1) Sodium 129 L (136-145) mmol/L Potassium 3.7 (3.5-5.1) mmol/L Chloride 94 L (98-107) mmol/L Carbon Dioxide 26 (21-32) mmol/L Anion Gap 10.0 (3-11) BUN 3 L (7-18) mg/dl Creatinine 0.93 (0.6-1.2) mg/dl Est Cr Clr Drug Dosing 83.6 ml/min Est GFR ( Amer) 92.3 ml/min Est GFR (Non-Af Amer) 79.6 ml/min BUN/Creatinine Ratio 3.2 L (10-20) Glucose 169 H (70-99) mg/dl POC Glucose 145 H (70-99) mg/dl Estimat Average Glucose mg/dl Hemoglobin A1c (4.5-5.6) % Calcium 8.0 L (8.5-10.1) mg/dl Phosphorus (2.5-4.9) mg/dl Magnesium (1.8-2.4) mg/dl Total Bilirubin (0.2-1) mg/dl Direct Bilirubin (0-0.2) mg/dl AST (15-37) U/L ALT (12-78) U/L Alkaline Phosphatase (45-117) U/L Total Protein (6.4-8.2) gm/dl Albumin (3.4-5.0) gm/dl Random Cortisol mcg/dl Hepatitis A IgM Ab (NON-REACTIVE) Hep Bs Antigen (Neg) Hep B Core IgM Ab (NON-REACTIVE) Hepatitis C Antibody (Neg) 03/12/21 03/12/21 03/12/21 Range/Units 13:54 11:17 11:15 WBC 13.27 H (4.8-10.8) K/uL RBC 2.94 L (4.2-5.4) M/uL Hgb 10.0 L (12.0-16.0) g/dL Hct 28.3 L (37-47) % MCV 96.3 (80-100) fL MCH 34.0 (25-34) pg MCHC 35.3 (32-36) g/dL RDW Std Deviation 71.7 H (36.4-46.3) fL RDW Coeff of Ace 20.5 H (11.5-14.5) % Plt Count 171 (130-400) K/uL MPV 9.7 (7.4-10.4) fL Immature Gran % (Auto) 0.5 % Neut % (Auto) 91.1 % Lymph % (Auto) 3.4 % Smyth % (Auto) 4.9 % Eos % (Auto) 0.0 % Baso % (Auto) 0.1 % Neut # (Auto) 12.10 H (1.4-6.5) K/uL Lymph # (Auto) 0.45 L (1.2-3.4) K/uL Smyth # (Auto) 0.65 H (0.11-0.59) K/uL Eos # (Auto) 0.00 (0-0.5) K/uL Baso # (Auto) 0.01 (0-0.2) K/uL Immature Gran # (Auto) 0.06 H (0.00-0.02) K/uL Basophilic Stippling Anisocytosis Present Pappenheimer Bodies Target Cells 2+ PT (9.0-12.0) Seconds INR (0.9-1.1) Sodium 127 L (136-145) mmol/L Potassium 3.4 L (3.5-5.1) mmol/L Chloride 94 L (98-107) mmol/L Carbon Dioxide 26 (21-32) mmol/L Anion Gap 7.0 (3-11) BUN 2 L (7-18) mg/dl Creatinine 0.76 (0.6-1.2) mg/dl Est Cr Clr Drug Dosing 102.3 ml/min Est GFR ( Amer) 117.8 ml/min Est GFR (Non-Af Amer) 101.6 ml/min BUN/Creatinine Ratio 2.9 L (10-20) Glucose 153 H (70-99) mg/dl POC Glucose 183 H (70-99) mg/dl Estimat Average Glucose mg/dl Hemoglobin A1c (4.5-5.6) % Calcium 7.6 L (8.5-10.1) mg/dl Phosphorus (2.5-4.9) mg/dl Magnesium (1.8-2.4) mg/dl Total Bilirubin (0.2-1) mg/dl Direct Bilirubin (0-0.2) mg/dl AST (15-37) U/L ALT (12-78) U/L Alkaline Phosphatase (45-117) U/L Total Protein (6.4-8.2) gm/dl Albumin (3.4-5.0) gm/dl Random Cortisol mcg/dl Hepatitis A IgM Ab (NON-REACTIVE) Hep Bs Antigen (Neg) Hep B Core IgM Ab (NON-REACTIVE) Hepatitis C Antibody (Neg) 03/12/21 03/12/21 03/11/21 Range/Units 02:17 02:17 14:52 WBC (4.8-10.8) K/uL RBC (4.2-5.4) M/uL Hgb (12.0-16.0) g/dL Hct (37-47) % MCV (80-100) fL MCH (25-34) pg MCHC (32-36) g/dL RDW Std Deviation (36.4-46.3) fL RDW Coeff of Ace (11.5-14.5) % Plt Count (130-400) K/uL MPV (7.4-10.4) fL Immature Gran % (Auto) % Neut % (Auto) % Lymph % (Auto) % Smyth % (Auto) % Eos % (Auto) % Baso % (Auto) % Neut # (Auto) (1.4-6.5) K/uL Lymph # (Auto) (1.2-3.4) K/uL Smyth # (Auto) (0.11-0.59) K/uL Eos # (Auto) (0-0.5) K/uL Baso # (Auto) (0-0.2) K/uL Immature Gran # (Auto) (0.00-0.02) K/uL Basophilic Stippling Anisocytosis Pappenheimer Bodies Target Cells PT (9.0-12.0) Seconds INR (0.9-1.1) Sodium (136-145) mmol/L Potassium (3.5-5.1) mmol/L Chloride (98-107) mmol/L Carbon Dioxide (21-32) mmol/L Anion Gap (3-11) BUN (7-18) mg/dl Creatinine (0.6-1.2) mg/dl Est Cr Clr Drug Dosing ml/min Est GFR ( Amer) ml/min Est GFR (Non-Af Amer) ml/min BUN/Creatinine Ratio (10-20) Glucose (70-99) mg/dl POC Glucose (70-99) mg/dl Estimat Average Glucose mg/dl Hemoglobin A1c (4.5-5.6) % Calcium (8.5-10.1) mg/dl Phosphorus (2.5-4.9) mg/dl Magnesium (1.8-2.4) mg/dl Total Bilirubin (0.2-1) mg/dl Direct Bilirubin (0-0.2) mg/dl AST (15-37) U/L ALT (12-78) U/L Alkaline Phosphatase (45-117) U/L Total Protein (6.4-8.2) gm/dl Albumin (3.4-5.0) gm/dl Random Cortisol 22.84 mcg/dl Hepatitis A IgM Ab NON-REACTIVE (NON-REACTIVE) Hep Bs Antigen Neg (Neg) Hep B Core IgM Ab NON-REACTIVE (NON-REACTIVE) Hepatitis C Antibody Neg (Neg)
--- NOTE | 2021-03-13 09:29 | Critical Care Progress Note ---
Date of Service March 13, 2021 Assessment & Plan (1) Acute alcoholic hepatitis: 35-year-old female with a past medical history of alcoholism presenting for acute decompensated liver failure due to alcoholic hepatitis, severe hyponatremia, urinary tract infection and findings concerning for an upper GI bleed. Neurologic: No significant issues at present. Ammonia less than 10. We will need to monitor neurological status closely given her severe hyponatremia. Start thiamine 250 mg 3 times daily to prevent Wernicke's encephalopathy. Folic acid 1 mg daily. Anxiety -BuSpar 7.5 mg 3 times daily as needed Pulmonary: No issues at present. Cardiovascular: Hypertension -losartan Gastrointestinal: Esophagitis - PPI twice daily - EGD reviewed -No documented varices will discontinue ceftriaxone for prophylaxis - N-acetylcysteine completed - Steroids are relatively contraindicated at this time despite her elevated MDF score due to the presence of urinary tract infection and esophagitis. Renal: Renal function intact. -Hyponatremia significantly improved. Hypophosphatemia -21 mmol potassium phosphate Infectious disease: -Gardnerella-like UTI species will discontinue antibiotics Hematologic: Supratherapeutic INR: Improving Endocrine: ICU hyperglycemia protocol: Improving F/E/N: Regular diet Lines and tubes: Peripheral IVs VTE prophylaxis: SCDs CODE STATUS: Full Family at bedside: None available at bedside Disposition: Stable for downgrade out of ICU (2) Coagulopathy: (3) Alcoholism: (4) Upper GI bleed: (5) Hyponatremia: Admission and Anticipated Discharge Date Admission Date: March 11, 2021 Subjective No overnight events, no complaints Physical Exam Physical Exam: General: Alert. nontoxic. Skin: Warm, dry, Head: Atraumatic Ears, nose, mouth and throat: airway patent, scleral jaundice Cardiovascular: Normal peripheral perfusion Respiratory: no respiratory distress Gastrointestinal: Non distended Musculoskeletal: No deformity Results & Data Results & Data ([facility]) Vital Signs (Past 12 Hours) Vital Signs Temp Pulse Pulse Resp BP BP Pulse Ox 03/13/21 07:00 92 H 16 115/76 95 03/13/21 06:00 102 H 14 131/82 90 03/13/21 05:00 97 H 13 123/78 90 03/13/21 04:00 36.6 C 96 H 12 117/72 90 03/13/21 03:00 98 H 12 111/73 91 03/13/21 02:00 99 H 12 114/74 90 03/13/21 01:00 96 H 11 L 123/71 90 03/13/21 00:00 36.7 C 91 H 12 117/77 91 03/12/21 23:23 94 H 03/12/21 23:00 93 H 13 121/74 90 03/12/21 22:00 100 H 12 126/68 90 Laboratory Results 03/13/21 03/13/21 03/13/21 Range/Units 08:19 05:12 05:12 WBC (4.8-10.8) K/uL RBC (4.2-5.4) M/uL Hgb (12.0-16.0) g/dL Hct (37-47) % MCV (80-100) fL MCH (25-34) pg MCHC (32-36) g/dL RDW Std Deviation (36.4-46.3) fL RDW Coeff of Ace (11.5-14.5) % Plt Count (130-400) K/uL MPV (7.4-10.4) fL Immature Gran % (Auto) % Neut % (Auto) % Lymph % (Auto) % Guthrie % (Auto) % Eos % (Auto) % Baso % (Auto) % Neut # (Auto) (1.4-6.5) K/uL Lymph # (Auto) (1.2-3.4) K/uL Guthrie # (Auto) (0.11-0.59) K/uL Eos # (Auto) (0-0.5) K/uL Baso # (Auto) (0-0.2) K/uL Immature Gran # (Auto) (0.00-0.02) K/uL Basophilic Stippling Anisocytosis Pappenheimer Bodies Target Cells PT (9.0-12.0) Seconds INR (0.9-1.1) Sodium 130 L (136-145) mmol/L Potassium 3.8 (3.5-5.1) mmol/L Chloride 96 L (98-107) mmol/L Carbon Dioxide 28 (21-32) mmol/L Anion Gap 6.0 (3-11) BUN 3 L (7-18) mg/dl Creatinine 0.74 (0.6-1.2) mg/dl Est Cr Clr Drug Dosing 105.2 ml/min Est GFR ( Amer) 121.7 ml/min Est GFR (Non-Af Amer) 105.0 ml/min BUN/Creatinine Ratio 3.7 L (10-20) Glucose 121 H (70-99) mg/dl POC Glucose 181 H (70-99) mg/dl Estimat Average Glucose 103 mg/dl Hemoglobin A1c 5.2 (4.5-5.6) % Calcium 8.0 L (8.5-10.1) mg/dl Phosphorus 1.8 L (2.5-4.9) mg/dl Magnesium 2.3 (1.8-2.4) mg/dl Total Bilirubin 19.8 H (0.2-1) mg/dl Direct Bilirubin 14.8 H (0-0.2) mg/dl AST 257 H (15-37) U/L ALT 87 H (12-78) U/L Alkaline Phosphatase 286 H (45-117) U/L Total Protein 5.5 L (6.4-8.2) gm/dl Albumin 2.3 L (3.4-5.0) gm/dl Random Cortisol mcg/dl Hepatitis A IgM Ab (NON-REACTIVE) Hep Bs Antigen (Neg) Hep B Core IgM Ab (NON-REACTIVE) Hepatitis C Antibody (Neg) 03/13/21 03/13/21 03/13/21 Range/Units 05:12 05:12 01:53 WBC 13.53 H (4.8-10.8) K/uL RBC 2.78 L (4.2-5.4) M/uL Hgb 9.6 L (12.0-16.0) g/dL Hct 27.5 L (37-47) % MCV 98.9 (80-100) fL MCH 34.5 H (25-34) pg MCHC 34.9 (32-36) g/dL RDW Std Deviation 75.2 H (36.4-46.3) fL RDW Coeff of Ace 20.7 H (11.5-14.5) % Plt Count 176 (130-400) K/uL MPV 10.3 (7.4-10.4) fL Immature Gran % (Auto) 0.5 % Neut % (Auto) 87.0 % Lymph % (Auto) 6.5 % Guthrie % (Auto) 5.9 % Eos % (Auto) 0.0 % Baso % (Auto) 0.1 % Neut # (Auto) 11.77 H (1.4-6.5) K/uL Lymph # (Auto) 0.88 L (1.2-3.4) K/uL Guthrie # (Auto) 0.80 H (0.11-0.59) K/uL Eos # (Auto) 0.00 (0-0.5) K/uL Baso # (Auto) 0.01 (0-0.2) K/uL Immature Gran # (Auto) 0.07 H (0.00-0.02) K/uL Basophilic Stippling 1+ Anisocytosis Present Pappenheimer Bodies 1+ Target Cells 1+ PT 16.9 H (9.0-12.0) Seconds INR 1.7 H (0.9-1.1) Sodium (136-145) mmol/L Potassium (3.5-5.1) mmol/L Chloride (98-107) mmol/L Carbon Dioxide (21-32) mmol/L Anion Gap (3-11) BUN (7-18) mg/dl Creatinine (0.6-1.2) mg/dl Est Cr Clr Drug Dosing ml/min Est GFR ( Amer) ml/min Est GFR (Non-Af Amer) ml/min BUN/Creatinine Ratio (10-20) Glucose (70-99) mg/dl POC Glucose 137 H (70-99) mg/dl Estimat Average Glucose mg/dl Hemoglobin A1c (4.5-5.6) % Calcium (8.5-10.1) mg/dl Phosphorus (2.5-4.9) mg/dl Magnesium (1.8-2.4) mg/dl Total Bilirubin (0.2-1) mg/dl Direct Bilirubin (0-0.2) mg/dl AST (15-37) U/L ALT (12-78) U/L Alkaline Phosphatase (45-117) U/L Total Protein (6.4-8.2) gm/dl Albumin (3.4-5.0) gm/dl Random Cortisol mcg/dl Hepatitis A IgM Ab (NON-REACTIVE) Hep Bs Antigen (Neg) Hep B Core IgM Ab (NON-REACTIVE) Hepatitis C Antibody (Neg) 03/12/21 03/12/2121 Range/Units 23:36 23:31 20:25 WBC (4.8-10.8) K/uL RBC (4.2-5.4) M/uL Hgb (12.0-16.0) g/dL Hct (37-47) % MCV (80-100) fL MCH (25-34) pg MCHC (32-36) g/dL RDW Std Deviation (36.4-46.3) fL RDW Coeff of Ace (11.5-14.5) % Plt Count (130-400) K/uL MPV (7.4-10.4) fL Immature Gran % (Auto) % Neut % (Auto) % Lymph % (Auto) % Guthrie % (Auto) % Eos % (Auto) % Baso % (Auto) % Neut # (Auto) (1.4-6.5) K/uL Lymph # (Auto) (1.2-3.4) K/uL Guthrie # (Auto) (0.11-0.59) K/uL Eos # (Auto) (0-0.5) K/uL Baso # (Auto) (0-0.2) K/uL Immature Gran # (Auto) (0.00-0.02) K/uL Basophilic Stippling Anisocytosis Pappenheimer Bodies Target Cells PT (9.0-12.0) Seconds INR (0.9-1.1) Sodium 130 L (136-145) mmol/L Potassium (3.5-5.1) mmol/L Chloride (98-107) mmol/L Carbon Dioxide (21-32) mmol/L Anion Gap (3-11) BUN (7-18) mg/dl Creatinine (0.6-1.2) mg/dl Est Cr Clr Drug Dosing ml/min Est GFR ( Amer) ml/min Est GFR (Non-Af Amer) ml/min BUN/Creatinine Ratio (10-20) Glucose (70-99) mg/dl POC Glucose 153 H 146 H (70-99) mg/dl Estimat Average Glucose mg/dl Hemoglobin A1c (4.5-5.6) % Calcium (8.5-10.1) mg/dl Phosphorus (2.5-4.9) mg/dl Magnesium (1.8-2.4) mg/dl Total Bilirubin (0.2-1) mg/dl Direct Bilirubin (0-0.2) mg/dl AST (15-37) U/L ALT (12-78) U/L Alkaline Phosphatase (45-117) U/L Total Protein (6.4-8.2) gm/dl Albumin (3.4-5.0) gm/dl Random Cortisol mcg/dl Hepatitis A IgM Ab (NON-REACTIVE) Hep Bs Antigen (Neg) Hep B Core IgM Ab (NON-REACTIVE) Hepatitis C Antibody (Neg) 03/12/21 03/12/21 03/12/21 Range/Units 17:55 17:55 16:26 WBC 15.93 H (4.8-10.8) K/uL RBC 3.01 L (4.2-5.4) M/uL Hgb 10.4 L (12.0-16.0) g/dL Hct 29.3 L (37-47) % MCV 97.3 (80-100) fL MCH 34.6 H (25-34) pg MCHC 35.5 (32-36) g/dL RDW Std Deviation 72.8 H (36.4-46.3) fL RDW Coeff of Ace 20.5 H (11.5-14.5) % Plt Count 177 (130-400) K/uL MPV 9.9 (7.4-10.4) fL Immature Gran % (Auto) 0.6 % Neut % (Auto) 89.4 % Lymph % (Auto) 4.4 % Guthrie % (Auto) 5.5 % Eos % (Auto) 0.0 % Baso % (Auto) 0.1 % Neut # (Auto) 14.24 H (1.4-6.5) K/uL Lymph # (Auto) 0.70 L (1.2-3.4) K/uL Guthrie # (Auto) 0.88 H (0.11-0.59) K/uL Eos # (Auto) 0.00 (0-0.5) K/uL Baso # (Auto) 0.01 (0-0.2) K/uL Immature Gran # (Auto) 0.10 H (0.00-0.02) K/uL Basophilic Stippling Anisocytosis Present Pappenheimer Bodies Target Cells 2+ PT (9.0-12.0) Seconds INR (0.9-1.1) Sodium 129 L (136-145) mmol/L Potassium 3.7 (3.5-5.1) mmol/L Chloride 94 L (98-107) mmol/L Carbon Dioxide 26 (21-32) mmol/L Anion Gap 10.0 (3-11) BUN 3 L (7-18) mg/dl Creatinine 0.93 (0.6-1.2) mg/dl Est Cr Clr Drug Dosing 83.6 ml/min Est GFR ( Amer) 92.3 ml/min Est GFR (Non-Af Amer) 79.6 ml/min BUN/Creatinine Ratio 3.2 L (10-20) Glucose 169 H (70-99) mg/dl POC Glucose 145 H (70-99) mg/dl Estimat Average Glucose mg/dl Hemoglobin A1c (4.5-5.6) % Calcium 8.0 L (8.5-10.1) mg/dl Phosphorus (2.5-4.9) mg/dl Magnesium (1.8-2.4) mg/dl Total Bilirubin (0.2-1) mg/dl Direct Bilirubin (0-0.2) mg/dl AST (15-37) U/L ALT (12-78) U/L Alkaline Phosphatase (45-117) U/L Total Protein (6.4-8.2) gm/dl Albumin (3.4-5.0) gm/dl Random Cortisol mcg/dl Hepatitis A IgM Ab (NON-REACTIVE) Hep Bs Antigen (Neg) Hep B Core IgM Ab (NON-REACTIVE) Hepatitis C Antibody (Neg) 03/12/21 03/12/21 03/12/21 Range/Units 13:54 11:17 11:15 WBC 13.27 H (4.8-10.8) K/uL RBC 2.94 L (4.2-5.4) M/uL Hgb 10.0 L (12.0-16.0) g/dL Hct 28.3 L (37-47) % MCV 96.3 (80-100) fL MCH 34.0 (25-34) pg MCHC 35.3 (32-36) g/dL RDW Std Deviation 71.7 H (36.4-46.3) fL RDW Coeff of Ace 20.5 H (11.5-14.5) % Plt Count 171 (130-400) K/uL MPV 9.7 (7.4-10.4) fL Immature Gran % (Auto) 0.5 % Neut % (Auto) 91.1 % Lymph % (Auto) 3.4 % Guthrie % (Auto) 4.9 % Eos % (Auto) 0.0 % Baso % (Auto) 0.1 % Neut # (Auto) 12.10 H (1.4-6.5) K/uL Lymph # (Auto) 0.45 L (1.2-3.4) K/uL Guthrie # (Auto) 0.65 H (0.11-0.59) K/uL Eos # (Auto) 0.00 (0-0.5) K/uL Baso # (Auto) 0.01 (0-0.2) K/uL Immature Gran # (Auto) 0.06 H (0.00-0.02) K/uL Basophilic Stippling Anisocytosis Present Pappenheimer Bodies Target Cells 2+ PT (9.0-12.0) Seconds INR (0.9-1.1) Sodium 127 L (136-145) mmol/L Potassium 3.4 L (3.5-5.1) mmol/L Chloride 94 L (98-107) mmol/L Carbon Dioxide 26 (21-32) mmol/L Anion Gap 7.0 (3-11) BUN 2 L (7-18) mg/dl Creatinine 0.76 (0.6-1.2) mg/dl Est Cr Clr Drug Dosing 102.3 ml/min Est GFR ( Amer) 117.8 ml/min Est GFR (Non-Af Amer) 101.6 ml/min BUN/Creatinine Ratio 2.9 L (10-20) Glucose 153 H (70-99) mg/dl POC Glucose 183 H (70-99) mg/dl Estimat Average Glucose mg/dl Hemoglobin A1c (4.5-5.6) % Calcium 7.6 L (8.5-10.1) mg/dl Phosphorus (2.5-4.9) mg/dl Magnesium (1.8-2.4) mg/dl Total Bilirubin (0.2-1) mg/dl Direct Bilirubin (0-0.2) mg/dl AST (15-37) U/L ALT (12-78) U/L Alkaline Phosphatase (45-117) U/L Total Protein (6.4-8.2) gm/dl Albumin (3.4-5.0) gm/dl Random Cortisol mcg/dl Hepatitis A IgM Ab (NON-REACTIVE) Hep Bs Antigen (Neg) Hep B Core IgM Ab (NON-REACTIVE) Hepatitis C Antibody (Neg) 03/12/21 03/12/21 03/11/21 Range/Units 02:17 02:17 14:52 WBC (4.8-10.8) K/uL RBC (4.2-5.4) M/uL Hgb (12.0-16.0) g/dL Hct (37-47) % MCV (80-100) fL MCH (25-34) pg MCHC (32-36) g/dL RDW Std Deviation (36.4-46.3) fL RDW Coeff of Ace (11.5-14.5) % Plt Count (130-400) K/uL MPV (7.4-10.4) fL Immature Gran % (Auto) % Neut % (Auto) % Lymph % (Auto) % Guthrie % (Auto) % Eos % (Auto) % Baso % (Auto) % Neut # (Auto) (1.4-6.5) K/uL Lymph # (Auto) (1.2-3.4) K/uL Guthrie # (Auto) (0.11-0.59) K/uL Eos # (Auto) (0-0.5) K/uL Baso # (Auto) (0-0.2) K/uL Immature Gran # (Auto) (0.00-0.02) K/uL Basophilic Stippling Anisocytosis Pappenheimer Bodies Target Cells PT (9.0-12.0) Seconds INR (0.9-1.1) Sodium (136-145) mmol/L Potassium (3.5-5.1) mmol/L Chloride (98-107) mmol/L Carbon Dioxide (21-32) mmol/L Anion Gap (3-11) BUN (7-18) mg/dl Creatinine (0.6-1.2) mg/dl Est Cr Clr Drug Dosing ml/min Est GFR ( Amer) ml/min Est GFR (Non-Af Amer) ml/min BUN/Creatinine Ratio (10-20) Glucose (70-99) mg/dl POC Glucose (70-99) mg/dl Estimat Average Glucose mg/dl Hemoglobin A1c (4.5-5.6) % Calcium (8.5-10.1) mg/dl Phosphorus (2.5-4.9) mg/dl Magnesium (1.8-2.4) mg/dl Total Bilirubin (0.2-1) mg/dl Direct Bilirubin (0-0.2) mg/dl AST (15-37) U/L ALT (12-78) U/L Alkaline Phosphatase (45-117) U/L Total Protein (6.4-8.2) gm/dl Albumin (3.4-5.0) gm/dl Random Cortisol 22.84 mcg/dl Hepatitis A IgM Ab NON-REACTIVE (NON-REACTIVE) Hep Bs Antigen Neg (Neg) Hep B Core IgM Ab NON-REACTIVE (NON-REACTIVE) Hepatitis C Antibody Neg (Neg) Coding Level of Care Code 17065 Subseq Hosp Care Lvl 3 Diagnoses Acute alcoholic hepatitis K70.10 Coagulopathy D68.9 Alcoholism F10.20 Upper GI bleed K92.2 Hyponatremia E87.1
[2021-03-13] MEDS ORDERED: POTASSIUM PHOSPHATE 21 MMOL in SODIUM CHLORIDE 0.9% 500 ML IV STA (10:06)
--- NOTE | 2021-03-13 10:23 | Pharmacy Report ---
Pharmacy Glycemic Short Note 2 - Date of Service March 13, 2021 - Glycemic Short BSG Results (Last 24 hours): 03/12/21 03/12/21 03/12/21 11:17 13:54 16:26 Glucose 153 H POC Glucose 183 H 145 H 03/12/21 03/12/21 03/12/21 17:55 20:25 23:36 Glucose 169 H POC Glucose 146 H 153 H 03/13/21 03/13/21 03/13/21 01:53 05:12 08:19 Glucose 121 H POC Glucose 137 H 181 H OUTPATIENT ANTIDIABETIC REGIMEN: * None * HbA1c 5.2% on 03/13/21 ASSESSMENT: 03/13 * HbA1c resulted - normal * BSG's responded nicely to interventions yesterday * POC BSG >180 mg/dL this AM, but ? if this was obtained post-prandially as it was significantly different from the random w AM labs * Will continue Novolog and also continue low-dose once daily Lantus for now * Anticipate prolonged tapering course of prednisolone to start tomorrow, per GI note 03/12 * 35 yo F admitted with alcoholic hepatitis/hematemesis. * BSG's elevated 2nd steroids administered yesterday (none ongoing) and D5W infusion for overly rapid correction of Na (none ongoing) * Will give one-time low dose of Lantus as steroid effects will likely persist today * Will tighten Novolog parameters to weight-based moderate stress estimate (with slightly tighter CHO ratio 2nd steroids yesterday) PLAN FOR INPATIENT GLYCEMIC CONTROL: * Basal insulin * Lantus 15 units SQ x1 now * Bolus insulin * NovoLog per scale ACHS or Q6hrs while NPO * Goal Range: Low 120 mg/dL - High 150 mg/dL * Correction Factor: 30 mg/dL/unit * Nutritional / Prandial insulin per carb ratio of 1 unit per 9 grams CHO consumed
--- NOTE | 2021-03-13 12:55 | Hospitalist Progress Note ---
Date of Service March 13, 2021 Assessment & Plan (1) Acute alcoholic hepatitis: SEVERE acute EToH hepatitis. Troy's discriminant function score was 68 on 03/12. Down to 43 on 03/13. - Finished NAC protocol as recommended by GI. - Was on ceftriaxone for SBP prophylaxis, but no varices seen on EGD, so this was stopped. - Appreciate critical care & GI consultations. - Start prednisolone 40 mg PO daily on 03/14. (2) Hematemesis: Seen at home. Initial hgb here is 12. - Trended down to 10.0 on 03/12. Presently 9.6 on 03/13. (3) Alcoholism: Severe. - Continue thiamine & folic acid - Psych consult requested - she reports she uses her EToH to quell her severe anxiety. - AT HIGH RISK OF ETOH WITHDRAWAL. (4) Hyponatremia: Na was 117 on admission. Due to poor PO intake. - Corrected per ICU; aim for 8 - 10 mg/dL/day. On 03/13, it was 130. (5) Hypertension: BP is 115/65 today. - Continue losartan (6) Abnormal TSH: Would repeat the TSH in about 6 weeks as outpatient. No Rx indicated at this time. (7) Generalized anxiety disorder: - See above. (8) DVT prophylaxis: SCDs - Chemical means contraindicated due to GI bleeding Admission and Anticipated Discharge Date Admission Date: March 11, 2021 Subjective Doing well today. Some tremor and anxiety. Reports no fevers/chills, chest pain, shortness of breath, abdominal pain, nausea, or vomiting. Physical Exam Constitutional: WD/WN, vitals as above Eyes: EOM intact bilaterally; no conjunctival abnormality and sclerae not anicteric ENMT: external ear and nose normal, oropharynx normal Neck: trachea midline, no thyromegaly normal visual inspection Respiratory: normal respiratory effort, lungs clear to auscultation no respiratory distress Cardiovascular: RRR, no murmur, no edema Gastrointestinal (Abdomen): Inspection/Auscultation: abdomen normal to inspection; abdomen not distended Musculoskeletal: no cyanosis or clubbing, extremities motor strength 5/5 Skin: no rashes, warm and dry Neurologic: moves all extremities and awake Psychiatric: Orientation: alert, oriented to person and cooperative Results & Data Results & Data ([facility]) Vital Signs (Past 12 Hours) Vital Signs Temp Pulse Pulse Resp BP BP Pulse Ox 03/13/21 12:00 36.8 C 96 H 14 114/66 91 03/13/21 11:00 98 H 20 117/75 91 03/13/21 10:00 100 H 14 122/77 92 03/13/21 09:00 97 H 16 139/83 94 03/13/21 08:00 36.4 C L 98 H 104 H 14 117/80 92 03/13/21 07:00 92 H 16 115/76 95 03/13/21 06:00 102 H 14 131/82 90 03/13/21 05:00 97 H 13 123/78 90 03/13/21 04:00 36.6 C 96 H 12 117/72 90 03/13/21 03:00 98 H 12 111/73 91 03/13/21 02:00 99 H 12 114/74 90 03/13/21 01:00 96 H 11 L 123/71 90 PG Care Time/CCT Total # of Minutes Spent Total Time Spent with Patient: Total time spent is greater than 50% in coordination of care (as documented) at patient's floor/unit and/or counseling patient: Coding Level of Care Code 24086 Subseq Hosp Care Lvl 2 Diagnoses Acute alcoholic hepatitis K70.10 Hematemesis K92.0 Alcoholism F10.20 Hyponatremia E87.1 Hypertension I10 Abnormal TSH R79.89 Generalized anxiety disorder F41.1 DVT prophylaxis Z29.9
[2021-03-14 08:23] LABS: INR 1.6 (0.9-1.1); Prothrombin Time 15.3 Seconds (9.0-12.0)
[2021-03-14 08:41] LABS: Hematocrit (blood only) 30.5 % (37-47); Hemoglobin 10.3 g/dL (12.0-16.0); Mean Corpuscular Hemoglobin 34.8 pg (25-34); Mean Corpuscular Hgb Conc 33.8 g/dL (32-36); Mean Platelet Volume 10.6 fL (7.4-10.4); Nucleated RBC # (auto) 0.04 K/uL (0-0); Nucleated RBC % (auto) 0.3 %; Platelet Count 172 K/uL (130-400); RDW Standard Deviation 79.1 fL (36.4-46.3); Red Blood Count 2.96 M/uL (4.2-5.4); White Blood Count 12.35 K/uL (4.8-10.8)
[2021-03-14] MEDS: INSULIN ASPART 100 UNITS/ML 3 ML PEN SC SCH ×4 (08:51→21:30)
[2021-03-14] MEDS: busPIRone 7.5 MG TAB PO SCH (08:59)
[2021-03-14] MEDS: FOLIC ACID 1 MG in SYRINGE 9.8 ML IV SCH (08:59)
[2021-03-14] MEDS: THIAMINE HCL 250 MG in SODIUM CHLORIDE 0.9% 50 ML IV SCH (09:06)
[2021-03-14 09:07] LABS: ALC (manual) 0.75 K/uL (1.2-3.4); ANC (manual) 10.84 K/uL (1.4-6.5); Anisocytosis Present; Lymphocytes # (manual) 0.75 K/uL (1.2-3.4); Lymphocytes % (manual) 6.1 %; Monocytes # (manual) 0.64 K/uL (0.11-0.59); Monocytes % (manual) 5.2 %; Myelocytes # (manual) 0.11 K/uL (0-0); Myelocytes % (manual) 0.9 %; Neutrophils # (manual) 10.84 K/uL (1.4-6.5); Neutrophils % (manual) 87.8 %; Target Cells 2+
[2021-03-14] MEDS: prednisoLONE SYRUP 15 MG/5 ML BTL PO SCH (09:09)
[2021-03-14] MEDS: LOSARTAN POTASSIUM 25 MG TAB PO SCH (09:16)
[2021-03-14 09:27] LABS: Alanine Aminotransferase 86 U/L (12-78); Albumin Level 2.4 gm/dl (3.4-5.0); Alkaline Phosphatase 313 U/L (45-117); Aspartate Aminotransferase 228 U/L (15-37); Bilirubin,Total 23.6 mg/dl (0.2-1); Blood Urea Nitrogen 3 mg/dl (7-18); Calcium 8.4 mg/dl (8.5-10.1); Carbon Dioxide 27 mmol/L (21-32); Glucose 92 mg/dl (70-99); Magnesium 1.9 mg/dl (1.8-2.4); Phosphorus 1.3 mg/dl (2.5-4.9); Potassium 3.3 mmol/L (3.5-5.1); Sodium 138 mmol/L (136-145)
--- NOTE | 2021-03-14 09:32 | Pharmacy Report ---
Pharmacy Glycemic Short Note 2 - Date of Service March 14, 2021 - Glycemic Short BSG Results (Last 24 hours): 03/13/21 03/13/21 03/13/21 11:31 16:29 21:40 Glucose POC Glucose 150 H 126 H 133 H 03/14/21 03/14/21 08:02 08:11 Glucose 92 POC Glucose 88 OUTPATIENT ANTIDIABETIC REGIMEN: * None * HbA1c 5.2% on 03/13/21 ASSESSMENT: 03/14 * Pt has received 18 units of insulin over the past 24hrs * 15 units of basal with Lantus * 3 units of bolus with NovoLog * BSGs [phone] mg/dl * No hx of DM but had multiple stressors on admission + D5W infusion leading to hyperglycemia * Pt starting prednisolone today which can cause hyperglycemia in both diabetics and non-diabetics. Will trial bolus insulin monotherapy since pt w/o hx of DM and add weight based dosing NPH if BSG > 140mg/dl. * AM fasting BSG is 88mg/dl. Pt does have Lantus 15 units on board from yesterday but possible that this is just replacing her own endogenous insulin secretion. Will trial holding basal insulin and add back if BSG > 140mg/dl 03/13 * HbA1c resulted - normal * BSG's responded nicely to interventions yesterday * POC BSG >180 mg/dL this AM, but ? if this was obtained post-prandially as it was significantly different from the random w AM labs * Will continue Novolog and also continue low-dose once daily Lantus for now * Anticipate prolonged tapering course of prednisolone to start tomorrow, per GI note 03/12 * 35 yo F admitted with alcoholic hepatitis/hematemesis. * BSG's elevated 2nd steroids administered yesterday (none ongoing) and D5W infusion for overly rapid correction of Na (none ongoing) * Will give one-time low dose of Lantus as steroid effects will likely persist today * Will tighten Novolog parameters to weight-based moderate stress estimate (with slightly tighter CHO ratio 2nd steroids yesterday) PLAN FOR INPATIENT GLYCEMIC CONTROL: * Basal insulin * Hold for now * Bolus insulin * NovoLog per scale ACHS or Q6hrs while NPO * Goal Range: Low 110 mg/dL - High 140 mg/dL * Correction Factor: 25 mg/dL/unit * Nutritional / Prandial insulin per carb ratio of 1 unit per 8 grams CHO consumed
[2021-03-14 09:39] LABS: Chloride 104 mmol/L (98-107)
[2021-03-14] MEDS ORDERED: POTASSIUM PHOS 3 MMOL/1 ML INFUSION IV STA (09:52)
[2021-03-14 09:54] LABS: Bilirubin Direct 19.2 mg/dl (0-0.2)
[2021-03-14] MEDS ORDERED: POTASSIUM PHOSPHATE 30 MMOL in SODIUM CHLORIDE 0.9% 500 ML IV ONE (10:15)
--- NOTE | 2021-03-14 10:22 | Gastroenterology Progress Note ---
Date of Service March 14, 2021 Assessment & Plan (1) Acute alcoholic hepatitis: 35 year old female with hematemesis, alcoholic hepatitis s/p EGD w/o evidence of high risk lesions, esophagitis noted, DF 70 ETOH cessation ETOH withdrawal protocol Prednisolone 40 mg daily Check Lille score day 7 If responding to steroids, continue full 28 days, and then taper off over 16 days - decrease 10 mg per day every four days until a dose of 10 mg per day is reached, then by 5 mg per day every three days then stop PO PPI BID Daily labs Watch for any acute mental status changes, asterixis etc Thank you for allowing us to participate in the care of this patient. Please call with any acute changes, questions or concerns. Please see addendum below with additional recommendation from my supervising physician. Attg add: I interviewed and examined pt, reviewed chart and labs. Pt without complaint, feels well. On exam, she is without tremor, lucid; her abd is more protuberant and dull to percuss. Labs show rising bili. RECS: Cont prednisolone with plan to check Lille score. Uls and possible tap for ascites on exam. BID PPI. Admission and Anticipated Discharge Date Admission Date: March 11, 2021 Subjective Started on Prednisone of ETOH Hep Tbili rising HGB stable. Review of Systems Review of Systems: All systems reviewed & are unremarkable except as noted in HPI & below Physical Exam Constitutional: well developed, well nourished, + ill appearing and + well hydrated; no acute distress Neck: trachea midline, no thyromegaly trachea midline; no neck crepitus Respiratory: normal respiratory effort, lungs clear to auscultation no cough Auscultation: no crackles Cardiovascular: RRR, no murmur, no edema Gastrointestinal (Abdomen): normal bowel sounds, soft, nontender, no hepatosplenomegaly Results & Data ([facility]) Vital Signs (Past 12 Hours) Vital Signs Temp Pulse Resp BP Pulse Ox 03/14/21 09:15 37 C 105 H 16 118/80 96 03/14/21 05:47 36.9 C 98 H 16 125/80 98 03/13/21 23:35 36.9 C 100 H 16 112/71 94
[2021-03-14] MEDS ORDERED: POLYETHYLENE (MIRALAX) 17 GM PACK PO ONE (10:28)
[2021-03-14] MEDS: PANTOprazole 40 MG TAB PO SCH (10:40)
[2021-03-14] MEDS: hydrOXYzine HCl 10 MG TAB PO PRN (13:13)
--- NOTE | 2021-03-14 14:59 | Ultrasound Report ---
US abdomen limited CLINICAL HISTORY: Alcoholic appetite is. Abdominal distention. Evaluate for ascites. COMPARISON STUDY: CT scan dated 03/11/2021 FINDINGS: A four-quadrant survey view was performed. There is trace lower quadrant ascites, probably slightly diminished in volume as compared the prior study. There is increased hepatic echogenicity. T here is a 7 mm hypoechoic hepatic nodule. IMPRESSION: Trace lower quadrant ascites. ACT 112: Negative or not required by law. Electronically signed by: Redd Foote M.D. 03/14/2021 2:58 PM
--- NOTE | 2021-03-14 15:55 | Hospitalist Progress Note ---
Date of Service March 14, 2021 Assessment & Plan (1) Acute alcoholic hepatitis: SEVERE acute EToH hepatitis. Troy's discriminant function score was 68 on 03/12. Down to 43 on 03/13. - Finished NAC protocol as recommended by GI. - Was on ceftriaxone for SBP prophylaxis, but no varices seen on EGD, so this was stopped. - Appreciate critical care & GI consultations. - Start prednisolone 40 mg PO daily on 03/14. Tbili up today, but INR stable. (2) Hematemesis: Seen at home. Initial hgb here is 12. - Trended down to 10.0 on 03/12. Presently 10.3 on 03/14. (3) Alcoholism: Severe. - Continue thiamine & folic acid - Psych consult requested - she reports she uses her EToH to quell her severe anxiety. - No indications of significant withdrawal. Stopped ZACK scale on 03/14. (4) Hyponatremia: Na was 117 on admission. Due to poor PO intake. - Corrected per ICU; aim for 8 - 10 mg/dL/day. On 03/14, it was 138. (5) Hypertension: BP is 115/80 today. - Continue losartan (6) Abnormal TSH: TSH was 5.6 on 03/11, but in the context of severe illness. - Would repeat the TSH in about 6 weeks as outpatient. No Rx indicated at this time. (7) Generalized anxiety disorder: - See above. (8) DVT prophylaxis: SCDs - Chemical means contraindicated due to GI bleeding Admission and Anticipated Discharge Date Admission Date: March 11, 2021 Subjective Feeling some anxiety today. Also feeling some bloating in the upper abdomen. Reports no fevers/chills, chest pain, shortness of breath, abdominal pain, nausea, or vomiting. Physical Exam Constitutional: WD/WN, vitals as above Eyes: EOM intact bilaterally; no conjunctival abnormality and sclerae not anicteric ENMT: external ear and nose normal, oropharynx normal Neck: trachea midline, no thyromegaly normal visual inspection Respiratory: normal respiratory effort, lungs clear to auscultation no respiratory distress Cardiovascular: RRR, no murmur, no edema Gastrointestinal (Abdomen): Inspection/Auscultation: abdomen normal to inspection; abdomen not distended Musculoskeletal: no cyanosis or clubbing, extremities motor strength 5/5 Skin: no rashes, warm and dry Neurologic: moves all extremities and awake Psychiatric: Orientation: alert, oriented to person and cooperative Results & Data Results & Data ([facility]) Vital Signs (Past 12 Hours) Vital Signs Temp Pulse Resp BP Pulse Ox 03/14/21 09:15 37 C 105 H 16 118/80 96 03/14/21 05:47 36.9 C 98 H 16 125/80 98 PG Care Time/CCT Total # of Minutes Spent Total Time Spent with Patient: Total time spent is greater than 50% in coordination of care (as documented) at patient's floor/unit and/or counseling patient: Coding Level of Care Code 90815 Subseq Hosp Care Lvl 2 Diagnoses Acute alcoholic hepatitis K70.10 Hematemesis K92.0 Alcoholism F10.20 Hyponatremia E87.1 Hypertension I10 Abnormal TSH R79.89 Generalized anxiety disorder F41.1 DVT prophylaxis Z29.9
[2021-03-15] MEDS: hydrOXYzine HCl 10 MG TAB PO PRN ×2 (02:40→21:10)
[2021-03-15 05:52] LABS: Hematocrit (blood only) 30.1 % (37-47); Hemoglobin 10.1 g/dL (12.0-16.0); Mean Corpuscular Hemoglobin 34.2 pg (25-34); Mean Corpuscular Hgb Conc 33.6 g/dL (32-36); Mean Platelet Volume 10.3 fL (7.4-10.4); Nucleated RBC # (auto) 0.11 K/uL (0-0); Nucleated RBC % (auto) 0.8 %; Platelet Count 149 K/uL (130-400); RDW Coefficient of Variation 21.1 % (11.5-14.5); RDW Standard Deviation 77.6 fL (36.4-46.3); Red Blood Count 2.95 M/uL (4.2-5.4); White Blood Count 14.25 K/uL (4.8-10.8)
[2021-03-15 06:07] LABS: INR 1.6 (0.9-1.1); Partial Thromboplastin Ratio 1.2; Prothrombin Time 15.4 Seconds (9.0-12.0)
[2021-03-15 06:34] LABS: Alanine Aminotransferase 81 U/L (12-78); Albumin Level 2.2 gm/dl (3.4-5.0); Alkaline Phosphatase 265 U/L (45-117); Aspartate Aminotransferase 206 U/L (15-37); Bilirubin,Total 22.6 mg/dl (0.2-1); Blood Urea Nitrogen 3 mg/dl (7-18); Calcium 7.6 mg/dl (8.5-10.1); Carbon Dioxide 28 mmol/L (21-32); Chloride 105 mmol/L (98-107); Glucose 91 mg/dl (70-99); Phosphorus 2.1 mg/dl (2.5-4.9); Potassium 3.4 mmol/L (3.5-5.1); Sodium 139 mmol/L (136-145)
[2021-03-15] MEDS: LOSARTAN POTASSIUM 25 MG TAB PO SCH (08:05)
[2021-03-15] MEDS: PANTOprazole 40 MG TAB PO SCH (08:08)
[2021-03-15] MEDS: FOLIC ACID 1 MG TAB PO SCH (08:08)
[2021-03-15] MEDS: THIAMINE HCL 100 MG TAB PO SCH (08:09)
[2021-03-15] MEDS: prednisoLONE SYRUP 15 MG/5 ML BTL PO SCH (08:09)
[2021-03-15] MEDS: INSULIN ASPART 100 UNITS/ML 3 ML PEN SC SCH ×4 (08:39→21:14)
--- NOTE | 2021-03-15 09:41 | Pharmacy Report ---
Pharmacy Glycemic Short Note 2 - Date of Service March 15, 2021 - Glycemic Short BSG Results (Last 24 hours): 03/14/21 03/14/21 03/14/21 11:31 17:01 21:09 Glucose POC Glucose 155 H 132 H 124 H 03/15/21 03/15/21 05:28 08:07 Glucose 91 POC Glucose 97 OUTPATIENT ANTIDIABETIC REGIMEN: * None * HbA1c 5.2% on 03/13/21 ASSESSMENT: 03/15 * Pt has received 13 units of insulin over the past 24hrs * 0 units of basal * 13 units of bolus with NovoLog * BSGs 14-355-643-124-91 mg/dl * AM fasting BSG remains in goal range without basal insulin. Will continue to use bolus insulin monotherapy to treat steroid induced hyperglycemia with prednisolone 40mg daily. 03/14 * Pt has received 18 units of insulin over the past 24hrs * 15 units of basal with Lantus * 3 units of bolus with NovoLog * BSGs [id number] mg/dl * No hx of DM but had multiple stressors on admission + D5W infusion leading to hyperglycemia * Pt starting prednisolone today which can cause hyperglycemia in both diabetics and non-diabetics. Will trial bolus insulin monotherapy since pt w/o hx of DM and add weight based dosing NPH if BSG > 140mg/dl. * AM fasting BSG is 88mg/dl. Pt does have Lantus 15 units on board from y but possible that this is just replacing her own endogenous insulin secretion. Will trial holding basal insulin and add back if BSG > 140mg/dl 03/13 * HbA1c resulted - normal * BSG's responded nicely to interventions yesterday * POC BSG >180 mg/dL this AM, but ? if this was obtained post-prandially as it was significantly different from the random w AM labs * Will continue Novolog and also continue low-dose once daily Lantus for now * Anticipate prolonged tapering course of prednisolone to start tomorrow, per GI note 03/12 * 35 yo F admitted with alcoholic hepatitis/hematemesis. * BSG's elevated 2nd steroids administered yesterday (none ongoing) and D5W infusion for overly rapid correction of Na (none ongoing) * Will give one-time low dose of Lantus as steroid effects will likely persist today * Will tighten Novolog parameters to weight-based moderate stress estimate (with slightly tighter CHO ratio 2nd steroids yesterday) PLAN FOR INPATIENT GLYCEMIC CONTROL: * Basal insulin * Continue to hold * Bolus insulin * NovoLog per scale ACHS or Q6hrs while NPO * Goal Range: Low 110 mg/dL - High 140 mg/dL * Correction Factor: 20 mg/dL/unit * Nutritional / Prandial insulin per carb ratio of 1 unit per 7 grams CHO consumed Looking ahead to discharge: * If patient responds well to prednisolone patient will continue with a long slow taper of prednisolone. Will continue prednisolone 40mg daily x 28 days, and then taper off over 16 days (decrease 10 mg per day every four days until a dose of 10 mg per day is reached, then by 5 mg per day every three days then stop). Concerns for continuing insulin at sc d/t anxiety and compliance issues. * May consider LOW dose FIELDS with glipizide while patient in on the 40mg/day dose. * Hepatic disease and insufficiency may increase drug levels of glipizide and may also diminish gluconeogenic capacity, both of which increase the risk of hypoglycemic reactions. Lower initial doses of glipizide are generally recommended in patients with hepatic disease. Careful blood glucose monitoring may help to avoid hypoglycemic reactions. * Could consider Glipizide (immediate release) 2.5mg PO daily WITH FOOD and at the same time that prednisolone is taken. May titrate dosing by 2.5mg to achieve goal BSGs while on steroids.
--- NOTE | 2021-03-15 09:45 | Gastroenterology Progress Note ---
Date of Service March 15, 2021 Assessment & Plan (1) Acute alcoholic hepatitis: 35 year old female with hematemesis, alcoholic hepatitis s/p EGD w/o evidence of high risk lesions, esophagitis noted, DF 40 ETOH cessation ETOH withdrawal protocol Prednisolone 40 mg daily Check Lille score day 7 (03/20) If responding to steroids, continue full 28 days, and then taper off over 16 days - decrease 10 mg per day every four days until a dose of 10 mg per day is reached, then by 5 mg per day every three days then stop PO PPI BID Daily labs Watch for any acute mental status changes, asterixis etc Once discharged she will need labs within 1 week and appointment with GI Encouraged her to use miralax Thank you for allowing us to participate in the care of this patient. Please call with any acute changes, questions or concerns. Please see addendum below with additional recommendation from my supervising physician. Attg add: I interviewed and examined pt, reviewed chart and labs. No complaints today. DF 36 today, which is improved from admission.. Imaging without ascites. SHe should have Lille score (see online calculators) on day 7 -- prednisone should be stopped if no improvement per Lille score. Please call with questions. Admission and Anticipated Discharge Date Admission Date: March 11, 2021 Subjective Pt was seen and evaluated, chart reviewed Sitting upright in bed, tolerating PO Feeling some bloating and gas moved bowel a lot yesterday Notes she is feeling 5% better than she was yesterday ABD US reviewed w/ trace ascites, less than prior Review of Systems Review of Systems: All systems reviewed & are unremarkable except as noted in HPI & below Physical Exam Constitutional: well developed, well nourished, + ill appearing and + well hydrated; no acute distress Neck: trachea midline, no thyromegaly trachea midline; no neck crepitus Respiratory: normal respiratory effort, lungs clear to auscultation no cough Auscultation: no crackles Cardiovascular: RRR, no murmur, no edema Gastrointestinal (Abdomen): normal bowel sounds, soft, nontender, no hepatosplenomegaly Results & Data ([place]) Vital Signs (Past 12 Hours) Vital Signs Temp Pulse Resp BP Pulse Ox 03/15/21 07:57 37.0 C 93 H 20 109/75 94 03/14/21 22:47 36.8 C 94 H 16 133/85 94
--- NOTE | 2021-03-15 14:42 | Hospitalist Progress Note ---
Date of Service March 15, 2021 Assessment & Plan (1) Acute alcoholic hepatitis: SEVERE acute EToH hepatitis. Troy's discriminant function score was 68 on 03/12. Down to 43 on 03/13. - Finished NAC protocol as recommended by GI. - Was on ceftriaxone for SBP prophylaxis, but no varices seen on EGD, so this was stopped. - Appreciate critical care & GI consultations. - Start prednisolone 40 mg PO daily on 03/14. Tbili down today, and INR stable. AST/ALT down also. (2) Hematemesis: Seen at home. Initial hgb here is 12. - Trended down to 10.0 on 03/12. Presently 10.3 on 03/14. (3) Alcoholism: Severe. - Continue thiamine & folic acid - Psych consult requested - she reports she uses her EToH to quell her severe anxiety. - No indications of significant withdrawal. Stopped ZACK scale on 03/14. - Will get B12/folate as well for macrocytic anemia. (4) Hyponatremia: Na was 117 on admission. Due to poor PO intake. - Corrected per ICU; aim for 8 - 10 mg/dL/day. On 03/14, it was 138. (5) Hypertension: BP is 110/75 today. - Continue losartan (6) Abnormal TSH: TSH was 5.6 on 03/11, but in the context of severe illness. - Would repeat the TSH in about 6 weeks as outpatient. No Rx indicated at this time. (7) Generalized anxiety disorder: Declined Lexapro for me on 03/15. Feels Vistaril is helping. - Continue Vistaril 10 mg PO BID PRN (8) DVT prophylaxis: SCDs - Chemical means contraindicated due to GI bleeding Admission and Anticipated Discharge Date Admission Date: March 11, 2021 Subjective Feeling better today. Reports no fevers/chills, chest pain, shortness of breath, abdominal pain, nausea, or vomiting. Physical Exam Constitutional: WD/WN, vitals as above Eyes: EOM intact bilaterally; no conjunctival abnormality and sclerae not anicteric ENMT: external ear and nose normal, oropharynx normal Neck: trachea midline, no thyromegaly normal visual inspection Respiratory: normal respiratory effort, lungs clear to auscultation no respiratory distress Cardiovascular: RRR, no murmur, no edema Gastrointestinal (Abdomen): Inspection/Auscultation: abdomen normal to inspection; abdomen not distended Musculoskeletal: no cyanosis or clubbing, extremities motor strength 5/5 Skin: no rashes, warm and dry Neurologic: moves all extremities and awake Psychiatric: Orientation: alert, oriented to person and cooperative Results & Data Results & Data ([facility]) Vital Signs (Past 12 Hours) Vital Signs Temp Pulse Resp BP Pulse Ox 03/15/21 07:57 37.0 C 93 H 20 109/75 94 PG Care Time/CCT Total # of Minutes Spent Total Time Spent with Patient: Total time spent is greater than 50% in coordination of care (as documented) at patient's floor/unit and/or counseling patient: Coding Level of Care Code 83782 Subseq Hosp Care Lvl 2 Diagnoses Acute alcoholic hepatitis K70.10 Hematemesis K92.0 Alcoholism F10.20 Hyponatremia E87.1 Hypertension I10 Abnormal TSH R79.89 Generalized anxiety disorder F41.1 DVT prophylaxis Z29.9
[2021-03-16 05:44] LABS: Hematocrit (blood only) 30.2 % (37-47); Hemoglobin 10.1 g/dL (12.0-16.0); Mean Corpuscular Hemoglobin 35.1 pg (25-34); Mean Corpuscular Hgb Conc 33.4 g/dL (32-36); Mean Corpuscular Volume 104.9 fL (80-100); Mean Platelet Volume 10.6 fL (7.4-10.4); Nucleated RBC # (auto) 0.12 K/uL (0-0); Nucleated RBC % (auto) 0.8 %; Platelet Count 146 K/uL (130-400); RDW Coefficient of Variation 21.2 % (11.5-14.5); RDW Standard Deviation 79.3 fL (36.4-46.3); Red Blood Count 2.88 M/uL (4.2-5.4)
[2021-03-16 06:07] LABS: INR 1.5 (0.9-1.1); Partial Thromboplastin Ratio 1.2; Partial Thromboplastin Time 30.7 Seconds (21.0-31.0)
[2021-03-16 06:45] LABS: Alanine Aminotransferase 77 U/L (12-78); Albumin Level 2.1 gm/dl (3.4-5.0); Alkaline Phosphatase 251 U/L (45-117); Aspartate Aminotransferase 179 U/L (15-37); Bilirubin,Total 21.1 mg/dl (0.2-1); Blood Urea Nitrogen 4 mg/dl (7-18); Carbon Dioxide 31 mmol/L (21-32); Chloride 107 mmol/L (98-107); Glucose 90 mg/dl (70-99); Magnesium 1.9 mg/dl (1.8-2.4); Phosphorus 2.4 mg/dl (2.5-4.9); Potassium 3.5 mmol/L (3.5-5.1); Sodium 141 mmol/L (136-145)
[2021-03-16 07:06] LABS: Vitamin B12 > 2000 pg/ml (193-986)
[2021-03-16] MEDS: INSULIN ASPART 100 UNITS/ML 3 ML PEN SC SCH ×4 (08:24→21:10)
[2021-03-16] MEDS: FOLIC ACID 1 MG TAB PO SCH (08:31)
[2021-03-16] MEDS: prednisoLONE SYRUP 15 MG/5 ML BTL PO SCH (08:31)
[2021-03-16] MEDS: THIAMINE HCL 100 MG TAB PO SCH (08:31)
[2021-03-16] MEDS: LOSARTAN POTASSIUM 25 MG TAB PO SCH (08:31)
[2021-03-16] MEDS: PANTOprazole 40 MG TAB PO SCH (08:31)
--- NOTE | 2021-03-16 09:38 | Pharmacy Report ---
Pharmacy Glycemic Short Note 2 - Date of Service March 16, 2021 - Glycemic Short BSG Results (Last 24 hours): 03/15/21 03/15/21 03/15/21 12:07 17:08 21:09 Glucose POC Glucose 161 H 136 H 123 H 03/16/21 03/16/21 05:23 08:10 Glucose 90 POC Glucose 91 OUTPATIENT ANTIDIABETIC REGIMEN: * None * HbA1c 5.2% on 03/13/21 ASSESSMENT: 03/16 * Megan received a total of 11 units of insulin over the past 24 hours * All 11 units were Novolog * BSGs were [id number] mg/dL, well controlled * Fasting BSG this AM was 91 mg/dL * Will continue with Novolog monotherapy for treatment of steroid induced hyperglycemia while on Prednisolone 40 mg daily. 03/15 * Pt has received 13 units of insulin over the past 24hrs * 0 units of basal * 13 units of bolus with NovoLog * BSGs 90-751-944-124-91 mg/dl * AM fasting BSG remains in goal range without basal insulin. Will continue to use bolus insulin monotherapy to treat steroid induced hyperglycemia with prednisolone 40mg daily. PLAN FOR INPATIENT GLYCEMIC CONTROL: * Basal insulin * Continue to hold * Bolus insulin * NovoLog per scale ACHS or Q6hrs while NPO * Goal Range: Low 110 mg/dL - High 140 mg/dL * Correction Factor: 20 mg/dL/unit * Nutritional / Prandial insulin per carb ratio of 1 unit per 7 grams CHO consumed Looking ahead to discharge: * If patient responds well to prednisolone patient will continue with a long slow taper of prednisolone. Will continue prednisolone 40mg daily x 28 days, and then taper off over 16 days (decrease 10 mg per day every four days until a dose of 10 mg per day is reached, then by 5 mg per day every three days then stop). Concerns for continuing insulin at hi d/t anxiety and compliance issues. * May consider LOW dose FIELDS with glipizide while patient in on the 40mg/day dose. * Hepatic disease and insufficiency may increase drug levels of glipizide and may also diminish gluconeogenic capacity, both of which increase the risk of hypoglycemic reactions. Lower initial doses of glipizide are generally recommended in patients with hepatic disease. Careful blood glucose monitoring may help to avoid hypoglycemic reactions. * Could consider Glipizide (immediate release) 2.5mg PO daily WITH FOOD and at the same time that prednisolone is taken. May titrate dosing by 2.5mg to achieve goal BSGs while on steroids.
--- NOTE | 2021-03-16 17:03 | Hospitalist Progress Note ---
Date of Service March 16, 2021 Assessment & Plan (1) Acute alcoholic hepatitis: SEVERE acute EToH hepatitis. Troy's discriminant function score was 68 on 03/12. Down to 43 on 03/13. - Finished NAC protocol as recommended by GI. - Was on ceftriaxone for SBP prophylaxis, but no varices seen on EGD, so this was stopped. - Appreciate GI consultations. - Started prednisolone 40 mg PO daily on 03/14. Tbili down today, and INR stable. AST/ALT down also. Hopefully discharge on Friday/Friday if liver continues to improve. (2) Hematemesis: Seen at home. Initial hgb here is 12. - Trended down to 10.0 on 03/12. Presently 10.1 on 03/16. Stable. (3) Alcoholism: - Continue thiamine & folic acid - Psych consult requested - she reports she uses her EToH to quell her severe anxiety. - No indications of significant withdrawal. Stopped ZACK scale on 03/14. - B12/folate also normal. (4) Hyponatremia: Na was 117 on admission. Due to poor PO intake. - Corrected per ICU. On 03/16, it was 141. (5) Hypertension: BP is 120/80 today. - Continue losartan (6) Abnormal TSH: TSH was 5.6 on 03/11, but in the context of severe illness. FT4 was 1.3, so within normal limits. - Would repeat the TSH in about 6 weeks as outpatient. No Rx indicated at this time. (7) Generalized anxiety disorder: Declined Lexapro for me on 03/15. Feels Vistaril is helping. - Continue Vistaril 10 mg PO BID PRN - Discussed with psychiatry. Would prefer to restart Lexapro, but presently Ms. Gloria would like to hold off. (8) DVT prophylaxis: SCDs - Chemical means contraindicated due to GI bleeding Admission and Anticipated Discharge Date Admission Date: March 11, 2021 Subjective Feeling 20% better today. Reports no fevers/chills, chest pain, shortness of breath, abdominal pain, nausea, or vomiting. Physical Exam Constitutional: WD/WN, vitals as above Eyes: EOM intact bilaterally; no conjunctival abnormality and sclerae not anicteric ENMT: external ear and nose normal, oropharynx normal Neck: trachea midline, no thyromegaly normal visual inspection Respiratory: normal respiratory effort, lungs clear to auscultation no respiratory distress Cardiovascular: RRR, no murmur, no edema Gastrointestinal (Abdomen): Inspection/Auscultation: abdomen normal to inspection; abdomen not distended Musculoskeletal: no cyanosis or clubbing, extremities motor strength 5/5 Skin: no rashes, warm and dry Neurologic: moves all extremities and awake Psychiatric: Orientation: alert, oriented to person and cooperative Results & Data Results & Data ([facility]) Vital Signs (Past 12 Hours) Vital Signs Temp Pulse Resp BP Pulse Ox 03/16/21 07:37 36.9 C 86 16 117/80 95 PG Care Time/CCT Total # of Minutes Spent Total Time Spent with Patient: Total time spent is greater than 50% in coordination of care (as documented) at patient's floor/unit and/or counseling patient: Coding Level of Care Code 45845 Subseq Hosp Care Lvl 3 Diagnoses Acute alcoholic hepatitis K70.10 Hematemesis K92.0 Alcoholism F10.20 Hyponatremia E87.1 Hypertension I10 Abnormal TSH R79.89 Generalized anxiety disorder F41.1 DVT prophylaxis Z29.9
[2021-03-16] MEDS ORDERED: IBUPROFEN 200 MG TAB PO PRN (17:04)
[2021-03-16] MEDS ORDERED: DICLOFENAC SOD 1% GEL 100 GM TUBE EXT PRN (17:04)
[2021-03-17] MEDS: hydrOXYzine HCl 10 MG TAB PO PRN ×2 (01:08→10:06)
[2021-03-17 05:32] LABS: Hemoglobin 10.1 g/dL (12.0-16.0); Mean Corpuscular Hgb Conc 32.6 g/dL (32-36); Mean Corpuscular Volume 104.4 fL (80-100); Mean Platelet Volume 10.3 fL (7.4-10.4); Nucleated RBC # (auto) 0.15 K/uL (0-0); Platelet Count 138 K/uL (130-400); RDW Coefficient of Variation 21.6 % (11.5-14.5); RDW Standard Deviation 82.2 fL (36.4-46.3); Red Blood Count 2.97 M/uL (4.2-5.4); White Blood Count 14.32 K/uL (4.8-10.8)
[2021-03-17 05:41] LABS: INR 1.5 (0.9-1.1); Partial Thromboplastin Ratio 1.1; Partial Thromboplastin Time 29.7 Seconds (21.0-31.0); Prothrombin Time 14.6 Seconds (9.0-12.0)
[2021-03-17 06:14] LABS: Albumin Globulin Ratio 0.6 (0.9-2); BUN Creatinine Ratio 12.8 (10-20); Bilirubin,Total 17.5 mg/dl (0.2-1); Calcium 7.8 mg/dl (8.5-10.1); Est GFR (African American) 137.6 ml/min; Est GFR (Non-African American) 118.7 ml/min; Globulin 3.2 gm/dl (2.5-4.0); Magnesium 1.9 mg/dl (1.8-2.4); Phosphorus 2.2 mg/dl (2.5-4.9); Potassium 3.4 mmol/L (3.5-5.1); Total Protein 5.2 gm/dl (6.4-8.2)
--- NOTE | 2021-03-17 06:30 | Communication Note ---
Date of Service: March 17, 2021 case reviewed as covering for Dr. Vazquez, psychiatric databases software consultant. Patient with significant ETOH use disorder and medical comps. Had considered SSRI in c ontext of acute detox. Notes reflect anxiety is responding to prn Vistaril. would avoid benzos for anxiety indication. Vistaril could be increased in frequency or dose if additional concerns. If patient does not go to an inpatient program per CM, contact liaison if need additional assistance in referrals to outpatient therapy such as [facility].
[2021-03-17] MEDS: INSULIN ASPART 100 UNITS/ML 3 ML PEN SC SCH ×2 (08:31→12:13)
[2021-03-17] MEDS: LOSARTAN POTASSIUM 25 MG TAB PO SCH (08:32)
[2021-03-17] MEDS: PANTOprazole 40 MG TAB PO SCH (08:33)
[2021-03-17] MEDS: FOLIC ACID 1 MG TAB PO SCH (08:33)
[2021-03-17] MEDS: prednisoLONE SYRUP 15 MG/5 ML BTL PO SCH (08:33)
[2021-03-17] MEDS: THIAMINE HCL 100 MG TAB PO SCH (08:34)
[2021-03-17] MEDS ORDERED: POTASSIUM CHLORIDE CRTAB 20 MEQ TABCR PO STA (08:37)
[2021-03-17] MEDS ORDERED: POTASSIUM PHOS 3 MMOL/1 ML INFUSION IV STA (08:37)
[2021-03-17] MEDS ORDERED: FUROSEMIDE 20 MG TAB PO SCH (09:00)
[2021-03-17] MEDS ORDERED: POTASSIUM PHOSPHATE 24 MMOL in SODIUM CHLORIDE 0.9% 500 ML IV ONE (09:15)
--- NOTE | 2021-03-17 15:14 | Discharge Summary ---
Date of Service March 17, 2021 Admission HPI Per Admitting Provider 35yo female with history of alcohol abuse presents with acute/chronic abdominal distension and bloating. She also mentions "seeing blood in my stool" and has had labored breathing. Over the last few days the abdominal distension has worsened. With respect to GI bleeding she states it is bright red blood; no melena. She is drinking 1-2 bottles of wine each day "for anxiety." Over 2 weeks ago she was drinking rum with coke as well. In college she became a heavy drinker, and following college the drinking worsened. She became a regular user of alcohol in the last 2-3 years. Denies any tylenol use. Last night she had hematemesis after eating Cheerios. Had at least 4 episodes of such last night. She is vague about how much blood she saw. Lastly, she mentions she had been taking ivana seltzer for her "teeth" - not GI upset. She was taking the ivana-seltzer every 4-6 hours several weeks ago. Teeth are no longer bothering her. She stopped the ivana-seltzer abut 2 weeks ago. Principal Diagnosis Acute alcohol hepatitis Discharge Exam Constitutional WD/WN, vitals as above Eyes EOM intact bilaterally; no conjunctival abnormality and sclerae not anicteric ENMT external ear and nose normal, oropharynx normal Neck trachea midline, no thyromegaly normal visual inspection Respiratory normal respiratory effort, lungs clear to auscultation no respiratory distress Cardiovascular RRR, no murmur, no edema Gastrointestinal (Abdomen) Inspection/Auscultation: abdomen normal to inspection; abdomen not distended Musculoskeletal no cyanosis or clubbing, extremities motor strength 5/5 Skin no rashes, warm and dry Neurologic moves all extremities and awake Psychiatric Orientation: alert, oriented to person and cooperative Discharge Data Allergies Allergy/AdvReac Type Severity Reaction Status Date / Time No Known Allergies Allergy Unknown Unverified 03/11/21 12:47 Consultations 03/11/21 13:19 Consult Gastroenterology Stat ED Decision to Admit Stat 03/11/21 17:22 Consult Director Of Operations For Therapy Routine Consult Psychiatry Routine Procedures Performed Operation Date: 03/11/21 18:30 Actual Procedures p Esophagogastroduodenoscopy - Brett Ochoa MD Ordered Studies 03/11/21 15:40 CT abd pelvis wo con Stat 03/14/21 14:09 US abdomen limited Routine Hospital Course (1) Acute alcoholic hepatitis: SEVERE acute EToH hepatitis. Troy's discriminant function score was 68 on 03/12. Down to 43 on 03/13. - Finished NAC protocol as recommended by GI. - Was on ceftriaxone for SBP prophylaxis, but no varices seen on EGD, so this was stopped. - Appreciate GI consultations. - Started prednisolone 40 mg PO daily on 03/14. Tbili and INR down. AST/ALT down also. - Discharged with 30 days of prednisolone. Will get labs on Friday (03/20) for Lille score; however, Tbili is improving, so it was already indicating good prognosis. Her positive score will mean continuing prednisolone with GI. - Already had follow-up with GI scheduled. - Discharged on PPI PO BID x 4 weeks. Will follow up with GI on this as well. (2) Hematemesis: Seen at home. Initial hgb here is 12. - Trended down to 10.0 on 03/12. Presently 10.1 on 03/16. Stable. (3) Alcoholism: - Continued thiamine & folic acid while inpatient. - Psych consult requested - she reports she uses her EToH to quell her severe anxiety. - No indications of significant withdrawal. Stopped ZACK scale on 03/14. - B12/folate also normal. -> Given resources for [facility] for her anxiety. She will follow up with them on Friday. (4) Hyponatremia: Na was 117 on admission. Due to poor PO intake. - Corrected per ICU. On 03/16, it was 141. (5) Hypertension: BP is 120/80 today. - Continue losartan (6) Abnormal TSH: TSH was 5.6 on 03/11, but in the context of severe illness. FT4 was 1.3, so within normal limits. - Would repeat the TSH in about 6 weeks as outpatient. No Rx indicated at this time. (7) Generalized anxiety disorder: Declined Lexapro for me on 03/15. Feels Vistaril is helping. - Continue Vistaril 10 mg PO TID PRN per psychiatry - Would prefer to restart Lexapro, but presently Ms. Gloria would like to hold off. Will assess with her psychiatrist. (8) DVT prophylaxis: SCDs - Chemical means contraindicated due to GI bleeding Total Time Total Time Spent Total Time Spent (In Minutes): 35 Discharge Plan Discharge Items Patient Disposition: Home - Self-Care Reason For Visit: ACUTE ALCHOLIC HEPATITIS, HEMATEMESIS Discharge Diagnosis: Acute alcoholic liver injury, blood in vomit Activity: Resume your previous activity Non-emergency contact: Primary Care Provider and Rehab Nurse Call non-emergency contact if: your symptoms worsen Follow-up/Referrals: [facility] [Other] ([facility] intake to call patient for appointment, if not called by Monday 03/19 please call [phone]. ) Hector Myrick III, CRNP [Primary Care Provider] - Crow Albert MD [Physician] - 03/27/21 11:30 am Diet: Regular Ambulatory Orders: Complete Blood Count no Diff (Routine) Timeframe: 20210320 Location: Determined by Patient Ordered By: Bandar Domínguez Comprehensive Metabolic Panel (Routine) Timeframe: 20210320 Location: Determined by Patient Ordered By: Bandar Domínguez Prothrombin Time INR (Routine) Timeframe: 20210320 Location: Determined by Patient Ordered By: Bandar Domínguez Partial Thromboplastin Time (Routine) Timeframe: 20210320 Location: Determined by Patient Ordered By: Bandar Domínguez Addtl Attending Provider Instructions: Ms. Gloria, You were admitted to the hospital due to liver injury from alcohol consumption. Your liver was very affected and stopped functioning very well. At the time of your admission, it was possible it would fail completely, requiring a liver transplant to live. You are incredibly fortunate, and your liver is recovering at this point. We are sending you home on steroids to help calm the liver down and allow it to heal. You will be on the steroids likely for a month or so, with a taper down after that. Please see the GI doctors this coming week. They will check on the status of your liver with lab tests and make recommendations on stopping or continuing the steroids. Please call Dr. Albert's office on Friday to arrange a follow- up appointment. It is so, so important that you get help with your mental health and anxiety. You MUST avoid all alcohol. If you return to drinking, not only could this happ en again, but the next time, your liver could *NOT* recover, and you could either need a liver transplant or even . I don't say this to scare or frighten you, but just to be realistic that your liver came very close to completely failing. [facility] should call [facility] on Friday to arrange an outpatient follow-up in the next week or so. I have given you a month's worth of Vistaril which has been h elping your anxiety. Please take this up to three times a day for anxiety. There are no refills on the prescription, so you must link up with a psychiatrist to continue this medication. I know you don't want to take lots of medications, but please consider going back on the Lexapro as well. This helped with your anxiety previously, and it can also be safely taken while taking the Vistaril occasionally. Pending Studies at Discharge: No Stand-Alone Forms: My [facility], Smoking Cessation Medications and DC Order Prescriptions: New hydroxyzine HCl 10 mg Tablet 10 mg PO TID PRN (Reason: anxiety) Qty: 90 RF: 0 prednisolone 15 mg/5 mL Solution 40 mg PO DAILY Qty: 480 RF: 0 prednisolone 15 mg/5 mL solution 40 mg PO DAILY Qty: 240 RF: 0 Continued losartan 25 mg tablet 25 mg PO DAILY Qty: 90 RF: 3 Changed pantoprazole 40 mg tablet,delayed release (DR/EC) 40 mg PO BID Qty: 90 RF: 1 Discontinued buspirone 5 mg tablet 5 mg PO BID Qty: 60 RF: 2 Discharge Orders: Discharge Order (Routine); Ordered 03/17/21 Ordered By: Bandar Shannon/Other Patient Handouts: Anxiety Disorders Tx Therapy, Alcoholism: Getting Help Admission Data Admit Date/Time: 03/11/21 15:52 Attending Provider: Bandar Domínguez Admit Provider: Tray Hartman Primary Care Provider: Hector Myrick III Other Providers: Bandar Domínguez ; Brett Ochoa ; Tray Hartman ; Dominic Dewitt ; Kate Hidalgo ; Dr Mono ; Lilly Juarez ; Cam Vazquez Other Interventions: Discharge Summary Assessment (RN) Last Done: 03/17/21 11:41 Coding Level of Care Code D/C Day Management >30 mins Diagnoses Acute alcoholic hepatitis K70.10 Hematemesis K92.0 Alcoholism F10.20 Hyponatremia E87.1 Hypertension I10 Abnormal TSH R79.89 Generalized anxiety disorder F41.1 DVT prophylaxis Z29.9
== END 2021-03-17 14:38 | disposition home or self-care (01) | DRG 432 ==
LOC: ED 10:08 → 1E 15:52 → SUATTDRO 15:52 → 1E 16:41 → 3E 03-13 12:50

== ENCOUNTER 2021-07-18 20:11 | Inpatient (IN) ==
[2021-07-18] MEDS ORDERED: FOLIC ACID 1 MG in SYRINGE 9.8 ML IV STA (21:08)
[2021-07-18] MEDS ORDERED: SODIUM CHLORIDE 0.9% 1000ML 2,000 ML IV ONE (21:08)
[2021-07-18] MEDS ORDERED: THIAMINE HCL 100 MG in SYRINGE 9 ML IV STA (21:08)
[2021-07-18 21:33] LABS: Hematocrit (blood only) 37.7 % (37-47); Hemoglobin 13.4 g/dL (12.0-16.0); Mean Corpuscular Hemoglobin 31.2 pg (25-34); Mean Corpuscular Hgb Conc 35.5 g/dL (32-36); Mean Corpuscular Volume 87.7 fL (80-100); Mean Platelet Volume 9.9 fL (7.4-10.4); Platelet Count 197 K/uL (130-400); RDW Standard Deviation 73.3 fL (36.4-46.3); White Blood Count 14.96 K/uL (4.8-10.8)
[2021-07-18 21:51] LABS: Anisocytosis Present; Basophils # (auto) 0.05 K/uL (0-0.2); Basophils % (auto) 0.3 %; Eosinophils # (auto) 0.09 K/uL (0-0.5); Eosinophils % (auto) 0.6 %; Immature Granulocytes # (auto) 0.05 K/uL (0.00-0.02); Immature Granulocytes % (auto) 0.3 %; Lymphocytes # (auto) 5.27 K/uL (1.2-3.4); Lymphocytes % (auto) 35.2 %; Monocytes # (auto) 0.84 K/uL (0.11-0.59); Monocytes % (auto) 5.6 %; Neutrophils # (auto) 8.66 K/uL (1.4-6.5); Pappenheimer Bodies 1+; Target Cells 2+
[2021-07-18 21:59] LABS: Albumin Globulin Ratio 0.5 (0.9-2); Albumin Level 2.7 gm/dl (3.4-5.0); BUN Creatinine Ratio 2.9 (10-20); Bilirubin,Total 4.7 mg/dl (0.2-1); Calcium 8.3 mg/dl (8.5-10.1); Creatinine Clr Calc Pharmacy 104.6 ml/min; Est GFR (African American) 123.7 ml/min; Est GFR (Non-African American) 106.7 ml/min; Globulin 5.6 gm/dl (2.5-4.0); Magnesium 2.2 mg/dl (1.8-2.4); Potassium 3.1 mmol/L (3.5-5.1); Total Protein 8.3 gm/dl (6.4-8.2)
[2021-07-18 22:07] LABS: Appearance Urine Clear (Clear); Bacteria Urine Automated Negative (Negative); Bilirubin Urine 1+ (Negative); Blood Urine Trace (Negative); Color Urine Dark Yellow; Epithelial Cell Urine Auto >30 /lpf (0-5); Glucose Urine UA Negative (Negative); Ketones Urine Negative (Negative); Leukocyte Esterase Urine Trace (Negative); Nitrite Urine Negative (Negative); Protein Urine Negative (Negative); RBC Urine Automated 0-4 /hpf (0-4); Specific Gravity Urine 1.005 (1.000-1.030); Urobilinogen Urine Negative (Negative); pH Urine 5.5 (4.5-7.5)
--- NOTE | 2021-07-18 22:13 | Emergency Department Note ---
Impression & Plan Acute alcoholic hepatitis, Elevated INR, Alcoholism, Pancreatitis, Abdominal pain, GI bleed, Acute hypokalemia ED Provider Note NAME: JOSEPH WALTER AGE: 35 SEX: F : 1985 ARRIVES VIA: Walk-In INFORMANT: Patient ED PROVIDER(S): Ramon Douglas DO CHIEF COMPLAINT: abdominal pain HPI: Patient is a 35-year-old female who is a known alcoholic who presents the ER for nausea, vomiting, and diarrhea which has been present for the past 2 weeks. She notes that she is having trouble keeping anything down but the vomiting has improved currently. She has been having bright red blood per rectum and and black stools. This has been going on but getting worse over the past 2 weeks. She notes that every bowel movement has bright red blood with darker stool as well. She has been vomiting which she believes to be darker and possibly coffee ground. She denies any dysuria, urgency, or frequency. She has left-sided abdominal pain which is fairly constant. No other exacerbating or remitting factors. She follows with [facility]. She has no known history that she is aware of the varices. ROS: See above HPI for pertinent positives & negatives. A total of 10 systems reviewed and were otherwise negative. PAST MEDICAL HISTORY:See Below PAST SURGICAL HISTORY:See Below FAMILY HISTORY:See Below SOCIAL HISTORY:See Below HOME MEDICATIONS:See Below ALLERGIES:See Below VITALS:See Below PHYSICAL EXAMINATION: GENERAL: Sitting up in bed, alert, chronically ill-appearing, disheveled, smell of alcohol on breath EYE EXAM: normal conjunctiva. PERRL and EOM's grossly intact. OROPHARYNX: no exudate, no erythema, lips, buccal mucosa, and tongue normal and mucous membranes are moist NECK: supple, no nuchal rigidity, no adenopathy, non-tender LUNGS: Clear to auscultation. Normal chest wall mechanics HEART: no murmurs, S1 normal and S2 normal ABDOMEN: abdomen soft, non-tender, normo-active bowel sounds, no masses, no rebound or guarding. BACK: Back is symmetrical on inspection and there is no deformity, no midline tenderness, no CVA tenderness. SKIN: no rashes and no bruising UPPER EXTREMITIES: upper extremities are grossly normal. LOWER EXTREMITIES: No pitting edema. NEURO EXAM: Normal sensorium, cranial nerves II-XII grossly intact, normal speech, no gross weakness of arms, no gross weakness of legs. MEDICAL DECISION MAKING: Patient is a 35-year-old female with a past medical history who is an alcoholic that presents the ER for the above-stated complaint. Previous EGD was performed in February which showed gastritis and a small ulcer but no varices. Patient was given IV fluids. IV was established blood work was obtained. Labs show mild leukocytosis of 14,000. No significant anemia. BMP with a hypokalemia 3.1. AST 450 and ALT of 91. T bili elevated at 4.7 which is actually improved from previous. Lipase was at 400. INR is continuing to trend up and is at 1.7 up from 1.5 on the last admission. UA did have yeast. Alcohol was 380. Covid was ordered and pending. CT abdomen pelvis showed fluid in the paracolic gutters with concern for pancreatitis or duodenitis. Patient was given a bolus of Protonix and placed on a Protonix drip. Patient was updated bedside. Mom was at bedside with the patient. Discussed with Dr. Jay admitted for further work-up. Vitals were stable while in the ER with a heart rate in the 90s.. She was not actively vomiting or having bright red blood per rectum or dark tarry stools on upon admission. Triage Nursing notes reviewed. Limited review of prior medical records performed Vital Signs: reviewed and remarkable for tachy Differential diagnosis: Differential diagnosis includes etiologies such as diverticulitis, diverticulosis, AVM, coagulopathy, colitis, inflammatory bowel disease, malig marisela, Tracie-Mendoza tear, esophagitis, peptic ulcer disease, variceal bleed, gastritis, epistaxis, fissure, hemorrhoids, as well as others were entertained. ER treatment provided: See below Diagnostics interpreted by me: ECG: none Cardiac Monitoring: An order was placed for continuous cardiac monitoring. The monitor shows a rate of 98 with sinus rhythm. Laboratory studies: As stated above and show below. Imaging studies: CT abdomen pelvis as discussed above Consultation(s): Discussed with Godfrey Sanders for further evaluation Procedures: none Critical Care: None Past Med/Surg History Medical History AA (alcohol abuse) Acute alcoholic hepatitis Coagulopathy Generalized anxiety disorder Hypertension Hyponatremia Obesities, morbid Upper GI bleed Surgical History No history of previous surgery Family History Father Myocardial infarction Depression Diabetes Heart disease Grandfather Prostate cancer Mother Depression Hypertension Denies family history of Ovarian cancer Breast cancer Colorectal cancer History of alcoholism Social History Smoking Status: Current every day smoker Tobacco Type: Cigarettes Age Started Using Tobacco: 22; Cigarettes Per Day: 5; Second Hand Exposure: No; Hx Alcohol Use: Yes Alcohol type: wine and hard liquor Alcohol Intake Frequency: 4 or More x per/Week Alcohol Intake Frequency Comment: DAILY; 1-2 bottles wine/day; multiple rum & coke Hx Substance Use: No Preferred Language: Swiss Communication Ability: Effective Visual Impairment: No Limitations Hearing Ability: Normal Bundle Cutter Required: No Beliefs That Will Affect Care: None marital status: Single Current Living Situation: Family Current Living Situation Comment: lives in [place] w/ Mom/dad current occupational status: unemployed 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 How many Children do You have: 0 Feels Safe at Home: Yes Childhood Exposure to Second-Hand Smoke: No Dental Care, Regularly: No Physical Activity Frequency: Does not Exercise Seatbelt Use: always Sunscreen Use: Yes Sexual Activity: has been sexually active, but not for at least 12 months Assistive Devices: Glasses Allergies Allergies Allergy/AdvReac Type Severity Reaction Status Date / Time No Known Allergies Allergy Unknown Unverified 07/18/21 21:35 Home Meds Home Medications Medication Instructions Recorded Confirmed escitalopram oxalate 5 mg tablet 5 mg PO DAILY 04/22/21 07/18/21 losartan 25 mg tablet 25 mg PO DAILY 04/22/21 07/18/21 pantoprazole 20 mg tablet,delayed 20 mg PO BID 04/22/21 07/18/21 release (Protonix) Results & Data (ED) Vital Signs Vital Signs - 24 hr 07/18/21 20:21 07/18/21 21:33 07/18/21 21:40 Temperature 36.7 C Temperature Source Temporal Artery Scan Pulse Rate 107 H 98 H 98 H Pulse Rate from SpO2 Sensor 98 H 101 H Respiratory Rate 20 13 20 Respiratory Effort / Characteristics Non-Labored Spontaneous Respiratory Depth Normal Blood Pressure 122/80 Blood Pressure Mean 94 Pulse Oximetry 95 98 98 Oxygen Delivery Method Room Air Sepsis New/Unexplained Change in Mental Status N/A Sepsis Action Taken by Nursing No Action Required 07/18/21 21:50 07/18/21 22:00 07/18/21 22:10 Temperature Temperature Source Pulse Rate 90 90 104 H Pulse Rate from SpO2 Sensor 91 H 93 H 104 H Respiratory Rate 18 15 16 Respiratory Effort / Characteristics Respiratory Depth Blood Pressure Blood Pressure Mean Pulse Oximetry 96 92 96 Oxygen Delivery Method Sepsis New/Unexplained Change in Mental Status Sepsis Action Taken by Nursing 07/18/21 22:20 07/18/21 22:43 07/18/21 22:50 Temperature Temperature Source Pulse Rate 96 H 100 H 96 H Pulse Rate from SpO2 Sensor 95 H 100 H Respiratory Rate 15 21 25 H Respiratory Effort / Characteristics Respiratory Depth Blood Pressure Blood Pressure Mean Pulse Oximetry 93 91 Oxygen Delivery Method Sepsis New/Unexplained Change in Mental Status Sepsis Action Taken by Nursing 07/18/21 23:00 Temperature Temperature Source Pulse Rate 99 H Pulse Rate from SpO2 Sensor 98 H Respiratory Rate 18 Respiratory Effort / Characteristics Respiratory Depth Blood Pressure Blood Pressure Mean Pulse Oximetry 94 Oxygen Delivery Method Sepsis New/Unexplained Change in Mental Status Sepsis Action Taken by Nursing Laboratory Data Result diagrams: 07/18/21 21:21 07/18/21 21:21 Lab Results 07/18/21 07/18/21 07/18/21 Range/Units 00:11 21:13 21:21 WBC 14.96 H (4.8-10.8) K/uL RBC 4.30 (4.2-5.4) M/uL Hgb 13.4 (12.0-16.0) g/dL Hct 37.7 (37-47) % MCV 87.7 (80-100) fL MCH 31.2 (25-34) pg MCHC 35.5 (32-36) g/dL RDW Std Deviation 73.3 H (36.4-46.3) fL RDW Coeff of Ace 23.0 H (11.5-14.5) % Plt Count 197 (130-400) K/uL MPV 9.9 (7.4-10.4) fL Immature Gran % (Auto) 0.3 % Neut % (Auto) 58.0 % Lymph % (Auto) 35.2 % Parker % (Auto) 5.6 % Eos % (Auto) 0.6 % Baso % (Auto) 0.3 % Neut # (Auto) 8.66 H (1.4-6.5) K/uL Lymph # (Auto) 5.27 H (1.2-3.4) K/uL Parker # (Auto) 0.84 H (0.11-0.59) K/uL Eos # (Auto) 0.09 (0-0.5) K/uL Baso # (Auto) 0.05 (0-0.2) K/uL Immature Gran # (Auto) 0.05 H (0.00-0.02) K/uL Anisocytosis Present Pappenheimer Bodies 1+ Target Cells 2+ PT INR Sodium (136-145) mmol/L Potassium (3.5-5.1) mmol/L Chloride (98-107) mmol/L Carbon Dioxide (21-32) mmol/L Anion Gap (3-11) BUN (7-18) mg/dl Creatinine (0.6-1.2) mg/dl Est Cr Clr Drug Dosing ml/min Est GFR ( Amer) ml/min Est GFR (Non-Af Amer) ml/min BUN/Creatinine Ratio (10-20) Glucose (70-99) mg/dl Calcium (8.5-10.1) mg/dl Magnesium (1.8-2.4) mg/dl Total Bilirubin (0.2-1) mg/dl AST (15-37) U/L ALT (12-78) U/L Alkaline Phosphatase (45-117) U/L Total Protein (6.4-8.2) gm/dl Albumin (3.4-5.0) gm/dl Globulin (2.5-4.0) gm/dl Albumin/Globulin Ratio (0.9-2) Lipase (73-393) U/L Specimen Hemolysis Urine Color Dark Yellow Urine Appearance Clear (Clear) Urine pH 5.5 (4.5-7.5) Ur Specific Guttenberg 1.005 (1.000-1.030) Urine Protein Negative (Negative) Urine Glucose (UA) Negative (Negative) Urine Ketones Negative (Negative) Urine Blood Trace H (Negative) Urine Nitrite Negative (Negative) Urine Bilirubin 1+ H (Negative) Urine Urobilinogen Negative (Negative) Ur Leukocyte Esterase Trace H (Negative) Urine WBC (Auto) 1-5 (0-5) /hpf Urine RBC (Auto) 0-4 (0-4) /hpf U Hyaline Cast (Auto) 1-5 (0-5) /lpf U Epithel Cells (Auto) >30 H (0-5) /lpf Urine Bacteria (Auto) Negative (Negative) Urine Yeast Budding w/ Hyphae A (None Prsent) Ethyl Alcohol mg/dL (0-3) mg/dl COVID-19 Eval Order Blood Type A Negative Antibody Screen NEGATIVE 07/18/21 07/18/21 07/18/21 Range/Units 21:21 21:21 21:21 WBC (4.8-10.8) K/uL RBC (4.2-5.4) M/uL Hgb (12.0-16.0) g/dL Hct (37-47) % MCV (80-100) fL MCH (25-34) pg MCHC (32-36) g/dL RDW Std Deviation (36.4-46.3) fL RDW Coeff of Ace (11.5-14.5) % Plt Count (130-400) K/uL MPV (7.4-10.4) fL Immature Gran % (Auto) % Neut % (Auto) % Lymph % (Auto) % Parker % (Auto) % Eos % (Auto) % Baso % (Auto) % Neut # (Auto) (1.4-6.5) K/uL Lymph # (Auto) (1.2-3.4) K/uL Parker # (Auto) (0.11-0.59) K/uL Eos # (Auto) (0-0.5) K/uL Baso # (Auto) (0-0.2) K/uL Immature Gran # (Auto) (0.00-0.02) K/uL Anisocytosis Pappenheimer Bodies Target Cells PT Cancelled INR Cancelled Sodium 138 (136-145) mmol/L Potassium 3.1 L (3.5-5.1) mmol/L Chloride 99 (98-107) mmol/L Carbon Dioxide 30 (21-32) mmol/L Anion Gap 9.0 (3-11) BUN 2 L (7-18) mg/dl Creatinine 0.73 (0.6-1.2) mg/dl Est Cr Clr Drug Dosing 104.6 ml/min Est GFR ( Amer) 123.7 ml/min Est GFR (Non-Af Amer) 106.7 ml/min BUN/Creatinine Ratio 2.9 L (10-20) Glucose 148 H (70-99) mg/dl Calcium 8.3 L (8.5-10.1) mg/dl Magnesium 2.2 (1.8-2.4) mg/dl Total Bilirubin 4.7 H (0.2-1) mg/dl AST 457 H (15-37) U/L ALT 91 H (12-78) U/L Alkaline Phosphatase 372 H (45-117) U/L Total Protein 8.3 H (6.4-8.2) gm/dl Albumin 2.7 L (3.4-5.0) gm/dl Globulin 5.6 H (2.5-4.0) gm/dl Albumin/Globulin Ratio 0.5 L (0.9-2) Lipase 347 (73-393) U/L Specimen Hemolysis Urine Color Urine Appearance (Clear) Urine pH (4.5-7.5) Ur Specific Guttenberg (1.000-1.030) Urine Protein (Negative) Urine Glucose (UA) (Negative) Urine Ketones (Negative) Urine Blood (Negative) Urine Nitrite (Negative) Urine Bilirubin (Negative) Urine Urobilinogen (Negative) Ur Leukocyte Esterase (Negative) Urine WBC (Auto) (0-5) /hpf Urine RBC (Auto) (0-4) /hpf U Hyaline Cast (Auto) (0-5) /lpf U Epithel Cells (Auto) (0-5) /lpf Urine Bacteria (Auto) (Negative) Urine Yeast (None Prsent) Ethyl Alcohol mg/dL (0-3) mg/dl COVID-19 Eval Order Blood Type Cancelled Antibody Screen Cancelled 07/18/21 07/18/21 07/18/21 Range/Units 22:02 22:58 23:42 WBC (4.8-10.8) K/uL RBC (4.2-5.4) M/uL Hgb (12.0-16.0) g/dL Hct (37-47) % MCV (80-100) fL MCH (25-34) pg MCHC (32-36) g/dL RDW Std Deviation (36.4-46.3) fL RDW Coeff of Ace (11.5-14.5) % Plt Count (130-400) K/uL MPV (7.4-10.4) fL Immature Gran % (Auto) % Neut % (Auto) % Lymph % (Auto) % Parker % (Auto) % Eos % (Auto) % Baso % (Auto) % Neut # (Auto) (1.4-6.5) K/uL Lymph # (Auto) (1.2-3.4) K/uL Parker # (Auto) (0.11-0.59) K/uL Eos # (Auto) (0-0.5) K/uL Baso # (Auto) (0-0.2) K/uL Immature Gran # (Auto) (0.00-0.02) K/uL Anisocytosis Pappenheimer Bodies Target Cells PT 16.6 H INR 1.7 H Sodium (136-145) mmol/L Potassium (3.5-5.1) mmol/L Chloride (98-107) mmol/L Carbon Dioxide (21-32) mmol/L Anion Gap (3-11) BUN (7-18) mg/dl Creatinine (0.6-1.2) mg/dl Est Cr Clr Drug Dosing ml/min Est GFR ( Amer) ml/min Est GFR (Non-Af Amer) ml/min BUN/Creatinine Ratio (10-20) Glucose (70-99) mg/dl Calcium (8.5-10.1) mg/dl Magnesium (1.8-2.4) mg/dl Total Bilirubin (0.2-1) mg/dl AST (15-37) U/L ALT (12-78) U/L Alkaline Phosphatase (45-117) U/L Total Protein (6.4-8.2) gm/dl Albumin (3.4-5.0) gm/dl Globulin (2.5-4.0) gm/dl Albumin/Globulin Ratio (0.9-2) Lipase (73-393) U/L Specimen Hemolysis Urine Color Urine Appearance (Clear) Urine pH (4.5-7.5) Ur Specific Guttenberg (1.000-1.030) Urine Protein (Negative) Urine Glucose (UA) (Negative) Urine Ketones (Negative) Urine Blood (Negative) Urine Nitrite (Negative) Urine Bilirubin (Negative) Urine Urobilinogen (Negative) Ur Leukocyte Esterase (Negative) Urine WBC (Auto) (0-5) /hpf Urine RBC (Auto) (0-4) /hpf U Hyaline Cast (Auto) (0-5) /lpf U Epithel Cells (Auto) (0-5) /lpf Urine Bacteria (Auto) (Negative) Urine Yeast (None Prsent) Ethyl Alcohol mg/dL 379.6 H (0-3) mg/dl COVID-19 Eval Order Covid19 at [facility] Blood Type Antibody Screen Administered Medications Discontinued Medications Sodium Chloride (Nss 1000ml) 2,000 mls @ 999 mls/hr IV .Q2H1M ONE Stop: 07/18/21 23:08 Last Infusion: 07/18/21 23:12 Dose: 0 mls/hr Documented by: [id number] Admin: 07/18/21 22:03 Dose: 999 mls/hr Documented by: [id number] Thiamine HCl 100 mg/ Syringe 10 mls @ 2 mls/min IV NOW STA Stop: 07/18/21 21:12 Last Admin: 07/18/21 22:03 Dose: 2 mls/min Documented by: [id number] Folic Acid 1 mg/ Syringe 10 mls @ 5 mls/min IV NOW STA Stop: 07/18/21 21:09 Last Admin: 07/18/21 22:03 Dose: 5 mls/min Documented by: [id number] Ioversol (Optiray 320 100ml) 100 ml IV ONCE ONE Stop: 07/18/21 22:37 Last Admin: 07/18/21 22:36 Dose: 93 ml Documented by: [id number] Discharge Plan Visit Data Chief Complaint: Flank Pain Stated Complaint: blood in stool, flank pain, vomit ED Provider: Ramon Douglas Discharge Problem: Acute alcoholic hepatitis, Elevated INR, Alcoholism, Pancreatitis, Abdominal pain, GI bleed, Acute hypokalemia Forms Stand Alone Forms: My [facility] Prescriptions Prescriptions: No Action pantoprazole [Protonix] 20 mg tablet,delayed release (DR/EC) 20 mg PO BID RF: 0 escitalopram oxalate 5 mg tablet 5 mg PO DAILY RF: 0 losartan 25 mg tablet 25 mg PO DAILY RF: 0 Referrals Referrals: Hector Myrick III, CRNP [Primary Care Provider] - Discharge Problem: Pancreatitis Qualifiers: Chronicity: acute Pancreatitis type: unspecified pancreatitis type Acute pancreatitis complication: unspecified Qualified Code(s): K85.90 - Acute pancreatitis without necrosis or infection, unspecified Abdominal pain Qualifiers: Abdominal location: unspecified location Qualified Code(s): R10.9 - Unspecified abdominal pain GI bleed Qualifiers: GI bleed type/associated pathology: unspecified gastrointestinal hemorrhage type Qualified Code(s): K92.2 - Gastrointestinal hemorrhage, unspecified
[2021-07-18 22:25] LABS: INR 1.7 (0.9-1.1); Prothrombin Time 16.6 Seconds (9.0-12.0)
[2021-07-18] MEDS ORDERED: OPTIRAY 320 100ml IV ONE (22:36)
[2021-07-18] MEDS ORDERED: PANTOprazole 40 MG in SYRINGE 0 ML IV ONE (23:24)
[2021-07-19] MEDS ORDERED: PANTOprazole 40 MG in DEXTROSE 5% 100 ML IV SCH (00:30)
--- NOTE | 2021-07-19 00:43 | History & Physical Report ---
Date of Service July 19, 2021 Assessment & Plan (1) Alcohol intoxication: Plan: Megan is a 35 yo woman with a PMHx of alcohol use disorder who presented to the [facility] ED for evaluation of nausea/vomiting and diarrhea. - etoh level 379 on admission - patient demonstrating symptoms of withdrawal (ie tachycardia, tremulousness, anxiety) - AWSS protocol with IV ativan ordered - thiamine 100mg daily - folate 1mg daily - consider inpatient rehab placement upon discharge (2) Alcoholic liver disease: Plan: - MELD score of 18 - AST 457, ALT 91, ALK phos 372 - trend CMP - cessation of etoh is strongly recommended - follows with [facility]; consult placed (3) GI bleed: Plan: - BRBPR reported on admission as well as blood streaked emesis - hemodynamically stable, hgb normal - etiology uncertain as for as upper vs. lower source - hx of etoh use disorder makes gastric varcies a strong possibility; intent of May EGD was to assess for this pathology - Protonix 40mg IV BID and Octreotide ggt ordered; can discontinue once UGI source is ruled out - GI consult placed, NPO in the event of procedure (4) Gastrointestinal distress: Plan: - duodenitis and colitis noted on CT scan of abdomen - etiology uncertain: suspect related to ETOH use disorder/withdrawal rather than infectious source - zofran prn for nausea (5) Yeast infection: Plan: - noted on UA - given contamination of urine with epithelial cells, may be vaginal source - diflucan 150mg ordered (6) Anxiety: Plan: - continue home dose escitalopram DVT ppx: chemo contraindicated in setting of acute GI bleed Diet: NPO Dispo: Med/tele Code: Full History of Present Illness Primary Care Provider: Hector Myrick, WILLY, JAC Megan is a 35 yo woman with a PMHx of alcohol use disorder and alcohol induced liver disease who came to the ED for evaluation of nausea/vomiting and diarrhea of 2 weeks duration. She has been have bloody bowel movements - her emesis has occasional bloody streaks. She has not taken her temperature, but states she has had intermittent chills. Both her and her mother have had URI symptoms about 2 weeks ago. Most of the URI symptoms have cleared up at this point. No recent antibiotic use or hospitalizat ion. Her last drink was at 2pm on 07/18/21. She typically has 1-2 bottles of wine per day. She was sober for a period of 2 months earlier this year - the of her father in February 2021 caused her to return to drinking. She has never been to inpatient alcohol rehab - she is 'open' to this idea. She says she uses alcohol to medicate her otherwise uncontrollable anxiety. 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 She was supposed to have an EGD in May 2021 - but she canceled it due to being too anxious. She has been seen at [facility] for anxiety - she says none of the medications she has tried have ever helped her. She has been to counseling at [facility]. Social HX: she lives at home with her mother; not currently employed or in school. She has smoked cigarettes for 15 years; currently smoking 7 cigarette per day. In the ED, she was afebrile, HR in high 90s, normal blood pressure and oxygenation. Her WBC was mildly elevated to 14, CBC otherwise normal. INR was 1.8. K low at 3.1. Ca low at 8.3. Kidney function normal. AST 457, ALT 91. Alk phos 372. Lipase 347. T bili 4.7. Urine with budding hyphae. Urine culture pending. COVID 19 neg. Etoh level of 379. CT of abdomen showing hepatomegaly with hepatic steatosis; peripancreatic fat stranding; duodenitis with diffuse thickening of the ascending colon, consistent in appearance with colitis. She was given 1 liter of NSS, 1mg folic acid, 100mg thiamine, and 40mg IV prtonix. Allergies Allergy/AdvReac Type Severity Reaction Status Date / Time No Known Allergies Allergy Unknown Unverified 07/18/21 21:35 Home Medications Medication Instructions Recorded Confirmed Type escitalopram oxalate 5 mg tablet 5 mg PO DAILY 04/22/21 07/18/21 History losartan 25 mg tablet 25 mg PO DAILY 04/22/21 07/18/21 History pantoprazole 20 mg tablet,delayed 20 mg PO BID 30 Days #60 tab 07/20/21 Rx release (Protonix) sucralfate 100 mg/mL oral 1 g PO Q6H 28 Days #1120 ml 07/20/21 Rx suspension (Carafate) Past Med/Surg History Medical History AA (alcohol abuse) Acute alcoholic hepatitis Coagulopathy Generalized anxiety disorder Hypertension Hyponatremia Obesities, morbid Upper GI bleed Surgical History No history of previous surgery Family History Father Myocardial infarction Depression Diabetes Heart disease Grandfather Prostate cancer Mother Depression Hypertension Denies family history of Ovarian cancer Breast cancer Colorectal cancer History of alcoholism Social History Smoking Status: Current some day smoker Tobacco Type: Cigarettes Age Started Using Tobacco: 22; Cigarettes Per Day: 5; Second Hand Exposure: No; Hx Alcohol Use: Yes Alcohol type: wine Alcohol Intake Frequency: 4 or More x per/Week Alcohol Intake Frequency Comment: DAILY; 1-2 bottles wine/day; multiple rum & coke Hx Substance Use: No Preferred Language: Arabic Communication Ability: Effective Visual Impairment: No Limitations Hearing Ability: Normal Precinct Captain Required: No Beliefs That Will Affect Care: None marital status: Single Current Living Situation: Alone Current Living Situation Comment: lives in [place] w/ Mom/dad current occupational status: unemployed 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 How many Children do You have: 0 Feels Safe at Home: Yes Safety Concerns: Feels Safe At This Time Childhood Exposure to Second-Hand Smoke: No Dental Care, Regularly: No Physical Activity Frequency: Does not Exercise Seatbelt Use: always Sunscreen Use: Yes Sexual Activity: has been sexually active, but not for at least 12 months Assistive Devices: None Review of Systems Review of Systems: All systems reviewed & are unremarkable except as noted in HPI & below Physical Exam Constitutional: WD/WN, vitals as above cooperative Eyes: + anicteric sclerae ENMT: external ear and nose normal, oropharynx normal Neck: trachea midline Respiratory: normal respiratory effort, lungs clear to auscultation Cardiovascular: Rate/Rhythm: regular rhythm and + tachycardic Heart Sounds: normal S1 and normal S2 Extremities: no pedal edema Gastrointestinal (Abdomen): Inspection/Auscultation: normal bowel sounds Percussion/Palpation: + abdomen tender (diffusely), abdomen soft and + hepatomegaly; no guarding Musculoskeletal: Head/Neck/Chest: normocephalic and head atraumatic Skin: no rashes, warm and dry Psychiatric: A+Ox3, euthymic affect Mood: + anxious mood + tremulous Results & Data Results & Data (MN) Vital Signs (Past 12 Hours) Vital Signs Temp Pulse Resp BP Pulse Ox 07/18/21 23:00 99 H 18 94 07/18/21 22:50 96 H 25 H 91 07/18/21 22:43 100 H 21 07/18/21 22:20 96 H 15 93 07/18/21 22:10 104 H 16 96 07/18/21 22:00 90 15 92 07/18/21 21:50 90 18 96 07/18/21 21:40 98 H 20 98 07/18/21 21:33 98 H 13 98 07/18/21 20:21 36.7 C 107 H 20 122/80 95 Supervising Physician Co-Signing Physician Notes Attending addendum: I have physically seen this patient, have supervised the medical residents activities, and agree with the H&P unless as otherwise noted. Assessment and Plan: Alcohol withdrawal/alcohol intoxication/alcoholic liver disease- MELD score 18 AWSS Protocol with IV Ativan Thiamine 100 mg IV daily Folic acid 1 mg IV daily Follow serial CBC with differential, CMP and magnesium levels Alcohol cessation counseling Consult [facility] gastroenterology from [facility] GI bleeding- Upper and lower, passing blood per rectum, and blood-streaked hematemesis NPO H&H every 6 hours Protonix 40 mg IV twice daily Octreotide drip Remaining orders and notations as noted Resident Activity Tracking Resident Involvement: Resident Care Provided Care Provided: Adult Hospital Medicine
[2021-07-19] MEDS ORDERED: LORazepam 1 MG/2 ML VIAL IV PRN (01:53)
[2021-07-19] MEDS ORDERED: ATIVAN IV ALCOHOL WITHDRAWL IV PRN (01:53)
[2021-07-19] MEDS ORDERED: LORazepam 2 MG/4 ML VIAL IV PRN (01:53)
[2021-07-19] MEDS ORDERED: FLUCONAZOLE 50 MG TAB PO ONE (01:53)
[2021-07-19] MEDS ORDERED: OCTREOTIDE ACETATE 500 MCG in 0.9 % SODIUM CHLORIDE 100 ML IV SCH (01:53)
[2021-07-19] MEDS ORDERED: ONDANSETRON INJ 2 MG/ML 2 ML VIAL IV PRN (01:53)
[2021-07-19] MEDS ORDERED: ACETAMINOPHEN 325 MG TAB PO PRN (01:53)
[2021-07-19] MEDS ORDERED: LORazepam 3 MG/6 ML VIAL IV PRN (01:53)
[2021-07-19] MEDS ORDERED: FLUCONAZOLE 50 MG TAB ONE (05:02)
[2021-07-19] MEDS ORDERED: FLUCONAZOLE 100 MG TAB ONE (05:03)
[2021-07-19] MEDS: LACTATED RINGER'S 1,000 ML IV SCH ×2 (05:12→11:23)
[2021-07-19] MEDS: OCTREOTIDE ACETATE 500 MCG in 0.9 % SODIUM CHLORIDE 100 ML IV SCH ×2 (05:25→11:22)
[2021-07-19 06:34] LABS: Basophils # (auto) 0.03 K/uL (0-0.2); Basophils % (auto) 0.3 %; Eosinophils # (auto) 0.04 K/uL (0-0.5); Eosinophils % (auto) 0.4 %; Hematocrit (blood only) 31.6 % (37-47); Immature Granulocytes # (auto) 0.03 K/uL (0.00-0.02); Immature Granulocytes % (auto) 0.3 %; Lymphocytes # (auto) 2.68 K/uL (1.2-3.4); Lymphocytes % (auto) 25.5 %; Mean Corpuscular Hemoglobin 31.1 pg (25-34); Mean Corpuscular Hgb Conc 34.8 g/dL (32-36); Mean Corpuscular Volume 89.3 fL (80-100); Mean Platelet Volume 9.6 fL (7.4-10.4); Monocytes # (auto) 0.75 K/uL (0.11-0.59); Monocytes % (auto) 7.1 %; Neutrophils % (auto) 66.4 %; Platelet Count 147 K/uL (130-400); RDW Coefficient of Variation 22.8 % (11.5-14.5); RDW Standard Deviation 75.2 fL (36.4-46.3); Red Blood Count 3.54 M/uL (4.2-5.4); White Blood Count 10.53 K/uL (4.8-10.8)
[2021-07-19 06:54] LABS: Albumin Level 2.1 gm/dl (3.4-5.0); BUN Creatinine Ratio 3.3 (10-20); Calcium 7.1 mg/dl (8.5-10.1); Est GFR (African American) 139.2 ml/min; Est GFR (Non-African American) 120.1 ml/min; Potassium 3.2 mmol/L (3.5-5.1)
[2021-07-19] MEDS ORDERED: chlordiazePOXIDE ALCOHOL WITHDRAWL 25MG PO STA (06:56)
[2021-07-19 07:03] LABS: Albumin Globulin Ratio 0.5 (0.9-2); Bilirubin,Total 4.4 mg/dl (0.2-1); Globulin 4.4 gm/dl (2.5-4.0); Total Protein 6.5 gm/dl (6.4-8.2)
[2021-07-19 07:42] LABS: Anisocytosis Present; Target Cells 2+
[2021-07-19] MEDS: chlordiazePOXIDE HCl 25 MG CAP PO SCH ×2 (08:06→12:43)
[2021-07-19] MEDS: NICOTINE 7 MG/24 HR TDSY TD SCH (08:07)
[2021-07-19] MEDS: LOSARTAN POTASSIUM 25 MG TAB PO SCH (08:07)
[2021-07-19] MEDS: PANTOprazole 40 MG in SYRINGE 0 ML IV SCH ×2 (08:08→21:35)
[2021-07-19] MEDS: THIAMINE HCL 100 MG in SYRINGE 9 ML IV SCH (08:08)
[2021-07-19] MEDS: FOLIC ACID 1 MG TAB PO SCH (08:09)
[2021-07-19] MEDS: ESCITALOPRAM OXALATE 10 MG TAB PO SCH (08:09)
--- NOTE | 2021-07-19 08:11 | Hospitalist Progress Note ---
Date of Service July 19, 2021 Assessment & Plan (1) Alcohol intoxication: Plan: Megan is a 35 yo woman with a PMHx of alcohol use disorder who presented to the [facility] ED for evaluation of nausea/vomiting and diarrhea. Alcohol withdrawal: - etoh level 379 on admission - patient demonstrating symptoms of withdrawal (ie tachycardia, tremulousness, anxiety) - AWSS protocol with IV ativan ordered - Started chlordiazepoxide per protocol - thiamine 100mg daily - folate 1mg daily - consider inpatient rehab placement upon discharge Alcoholic liver disease: - MELD score of 19 today - trend CMP - cessation of EtOH is strongly recommended - follows with [facility]; consult placed GI bleed: - BRBPR reported on admission as well as blood streaked emesis - hemodynamically stable, hgb normal - etiology uncertain as for as upper vs. lower source - hx of etoh use disorder makes gastric varcies a strong possibility; intent of May EGD was to assess for this pathology - Protonix 40mg IV BID - Start carafate 1g QID - GI consult placed: - She doesn't have a history of varices, unclear role for Octreotide -- stopped octreotide gtt - Continue IV PPI - Can start Carafate QID - Recommend putting a hat in the commode to monitor and document stool output - Trend H&H, CMP, INR - Needs repeat EGD rescheduled (pt cancelled this in May) Gastrointestinal distress: - duodenitis and colitis noted on CT scan of abdomen - etiology uncertain: suspect related to ETOH use disorder/withdrawal rather kaycee n infectious source - Zofran prn for nausea Yeast infection: - noted on UA - given contamination of urine with epithelial cells, may be vaginal source - Diflucan 150mg ordered Anxiety: - continue home dose escitalopram DVT ppx: Chemoppx contraindicated in setting of acute GI bleed Diet: Clear liquids per GI recs Dispo: Med/tele Code: Full (2) Alcoholic liver disease: (3) GI bleed: (4) Gastrointestinal distress: (5) Yeast infection: (6) Anxiety: Admission and Anticipated Discharge Date Admission Date: July 19, 2021 Supervising Physician Co-Signing Physician Notes I personally examined the patient and verified all henderson points of history and exam, discussed case, and agree with decision making with Dr Tidwell. Feeling reasonably okay. Wonders if GI bleeding was hemorrhoidsshe has had no further bleeding. No nausea or upper GI pain either. No shakes of note. Continues to have anxiety. Notes that this been a significant trouble for much of her life. Vitals noted, in general she is awake and alert pleasant no distress. HEENT normocephalic atraumatic mucous membranes moist. Breathing unlabored no accessory muscle use good effort. Neuro shows really minimal to almost no tremulousness, and whenever I first walked in the room she was asleep awakens easily her resting heart rate when she was asleep was in the mid to high 80s, she had no tremors. Shows no focal neuro deficits. Mental status shows her to have good recent and remote recall, pleasantly flat affect Alcohol intoxication/withdrawalfortunately withdrawal seems very mild. Symptom triggered therapy, continue to follow given that its really only been about a day since her last drink. Continue supportive care. Appears to drink as a self-medication for anxiety. Alcoholic hepatitisfortunately no need for corticosteroids. Alcohol cessation, hopefully liver will show improvement with sobriety. Anxietysevere and longstanding. Extensive discussion with patient on multimodal treatment for anxiety, and tried to emphasize that med management is generally not a "magic bullet" type of answer, but rather utilizing meds can help some, some form of counseling/cognitive behavioral therapy can be quite helpful over time, self-management techniques to get through stress can be helpful, and self-management techniques to manage stress can be helpfulthat utilizing it altogether is really probably the best way to approach things. GI bleedfortunately appears to have not become significant. Outpatient endoscopic work-up in the less bleeding worsens/recurs Otherwise as above Subjective No acute events. Patient reports currently feeling stable. Denies GIBBS, dizziness, shortness, of breath, CP, palp, n/v, abd pain. Does report abdominal bloating w ith significant increase in her abd circumference in the past few months and has developed stretch scott on her skin there. Discussed her alcohol use and she reports that she drinks in response to significant stress. Reports that she does take lexapro but thios isn't enough. Years ago, at age 21, felt she was better controlled on Lexapro and Xanax but has not been able to find a provider to prescribe the Xanax for her anymore. We talked about how this may be an issue due to her AUD and in general avoidance of habit-forming medications. Review of Systems Review of Systems: per subjective Physical Exam Physical Exam: GENERAL: A&Ox3. NAD. CHEST/LUNGS: CTAB A/P. No crackles, wheezes, rales, rhonchi. HEART: RRR. No m/g/r. No carotid bruits. ABDOMEN: NT/ND, soft. BS+ x4 EXTREMITIES: No cyanosis, no clubbing, no edema SKIN: Warm and dry. No rashes or lesions. PSYCHIATRIC: Anxious affect, no SI, no pressured speech, no hallucinations NEUROLOGIC: No FND. CN II-XII grossly intact. Results & Data Results & Data ([facility]) Vital Signs (Past 12 Hours) Vital Signs Temp Pulse Pulse Resp BP BP Pulse Ox 07/19/21 04:13 37.0 C 103 H 19 117/74 93 07/18/21 23:00 99 H 18 94 07/18/21 22:50 96 H 25 H 91 07/18/21 22:43 100 H 21 07/18/21 22:20 96 H 15 93 07/18/21 22:10 104 H 16 96 07/18/21 22:00 90 15 92 07/18/21 21:50 90 18 96 07/18/21 21:40 98 H 20 98 07/18/21 21:33 98 H 13 98 07/18/21 20:21 36.7 C 107 H 20 122/80 95 Resident Activity Tracking Resident Involvement: Resident Care Provided Care Provided: Adult Hospital Medicine
--- NOTE | 2021-07-19 08:11 | CT Scan Report ---
ABDOMEN AND PELVIS CT WITH IV CONTRAST CT DOSE: 556.17 mGy.cm HISTORY: Acute generalized abdominal pain abd pain TECHNIQUE: Multiaxial CT images of the abdomen and pelvis were performed following the IV administrat ion of 93 cc of Optiray, A dose lowering technique was utilized adhering to the principles of ALARA. COMPARISON STUDY: CT abdomen and pelvis 03/11/2021 FINDINGS: Mild subsegmental bibasilar atelectasis. No pneumatosis or pneumoperitoneum. The spleen and adrenal g lands are unremarkable. Hepatomegaly with hepatic steatosis. Mild nonspecific gallbladder wall thicke jay jay without significant distention or cholelithiasis. There is mild interstitial and peripancreatic edema. No pancreatic ductal dilation or pancreatic lesion identified. Homogeneous enhancement of the pancreatic parenchyma. Unremarkable kidneys. No hydronephrosis. Mild urinary bladder wall thickening with partial distention . Uterus and left adnexum appear normal. 2.3 cm right ovarian dominant follicle. Aorta and IVC are un remarkable. No adenopathy. There is no bowel obstruction. Mild wall thickening of the duodenum. Scatt ered small bowel air-fluid levels. Trace abdominal pelvic ascites. A partial distention with mild wal l thickening within the colon, notably within the descending portions and rectum which is likely seco ndary to partial distention. No CT evidence of acute appendicitis. There is recanalization of the umb ilical vein. Unremarkable soft tissues. There is no acute fracture. Scattered sclerotic foci of the p [place] are suggestive of bone islands. IMPRESSION: 1. Interstitial and peripancreatic edema with trace adjacent free fluid is suggestive of acute pancre atitis. Correlate with lipase level. Trace associated abdominal pelvic ascites. 2. Hepatomegaly with hepatic steatosis. 3. Mild wall thickening of the duodenum is likely reactive. 4. Additional findings as above. ACT 112: Negative or not required by law. The above report was generated using voice recognition software. It may contain grammatical, syntax o r spelling errors. Electronically signed by: Kaz Doshi M.D. 07/19/2021 8:09 AM
--- NOTE | 2021-07-19 12:00 | Gastrointestinal Consultation ---
Date of Consultation July 19, 2021 Assessment & Plan (1) Hematochezia: (2) ETOH abuse: This is a 35 y/o female with h/o ETOH abuse, ETOH hepatitis this summer along with EGD evidence of esophagitis, on PPI BID. Pt cancelled her repeat EGD last month. Now admitted w/ abd pain, n/v, reported dark stools/BRBPR at home. However HGB is at baseline and no obvious melena, hematochezia, hematemesis here. Do not suspect significant GIB. Though has CT mention of mild pancreatitis, this is not c/w with her clinically as lipase is not elevated and she is non tender over the epigastrium. As Maddrey's DF is not elevated, would not start steroids. Abd soft. - She doesn't have a history of varices, unclear role for Octreotide - Continue IV PPI - Can start Carafate QID - Recommend putting a hat in the commode to monitor and document stool output - Folate, thiamine supplementation - Strongly encouraged ETOH cessation, she should consider rehab - ETOH withdrawal protocol - Trend H&H, CMP, INR - Watch for any acute mental status changes, asterixis etc - Needs repeat EGD rescheduled (pt cancelled this in May) - She can have clear liquids if tolerated Thank you for allowing us to participate in the care of this patient. Please call with any acute changes, questions or concerns. Please see addendum below with additional recommendation from my supervising physician. Supervising Physician Co-Signing Physician Notes I performed a history and physical examination of the patient today, including specifically on physical exam - soft abdomen. I have discussed the patient's management with the advanced practitioner. Please refer to the nurse practitioner's note for the documented findings and plan of care. Mild Alcoholic hepatitis, MDF is low hence no steroids. No evidence of GI bleeding, plan for EGD as OP. Can start regular diet. PPI. Recall GI if needed. History of Present Illness Reason for Consultation: hematocheiza Requesting Physician: Dr. Hunter Attending Physician: Ramon Gomez DO History of Present Illness This is a 35 year old female with ETOH abuse, anxiety, depression, tobacco use, h/o alcoholic hepatitis tx w/ steroids, s/p EGD February for hematemesis, w/o evidence of high risk lesions, esophagitis noted, repeat scheduled in May but pt cancelled as she was too anxious, now admitted after presenting with nausea, vomiting, diarrhea x 2 weeks. ETOH abuse continues, her last drink was yesterday; pt states she is drinking 2 bottles of wine per day. On arrival ETOH level 379, HGB at baseline (11), hypokalemia, elevated LFTs, INR 1.7, normal renal fxn, Na, lipase, WBC. Maddrey's DF is < 32. She was placed on empiric Octreotide and IV PPI. She remains HD stable. GI consulted for hematochezia. CTAP w/ hepatomegaly/hepatic steatosis, peripancreatic fact straining, duodenitis. Currently feels improved. Pt tells me she was having sahu stools (denies black) with scant hematochezia with wiping approx 2-3 x a day. Denies hematemesis. She states she had a BM here in the ER that was no melanotic or bloody. Staff unable to see if hematochezia here as she has an automatic flush toilet. Denies abd pain, current n/v, no melena, fever, chills, CP, SOB, dark urine, jaundice, syncope, dizziness. In general she takes her PPI BID. No AC or NSAID use. EGD 02/2021: - LA Grade D erosive esophagitis. - Normal stomach. - Normal duodenal bulb and second portion of the duodenum. - No specimens collected. Allergies Allergy/AdvReac Type Severity Reaction Status Date / Time No Known Allergies Allergy Unknown Unverified 07/18/21 21:35 Home Medications Medication Instructions Recorded Confirmed Type escitalopram oxalate 5 mg tablet 5 mg PO DAILY 04/22/21 07/18/21 History losartan 25 mg tablet 25 mg PO DAILY 04/22/21 07/18/21 History pantoprazole 20 mg tablet,delayed 20 mg PO BID 04/22/21 07/18/21 History release (Protonix) Patient History Medical History AA (alcohol abuse) Acute alcoholic hepatitis Coagulopathy Generalized anxiety disorder Hypertension Hyponatremia Obesities, morbid Upper GI bleed Surgical History No history of previous surgery Family History Father Myocardial infarction Depression Diabetes Heart disease Grandfather Prostate cancer Mother Depression Hypertension Denies family history of Ovarian cancer Breast cancer Colorectal cancer History of alcoholism Social History Smoking Status: Current some day smoker Tobacco Type: Cigarettes Age Started Using Tobacco: 22; Cigarettes Per Day: 5; Second Hand Exposure: No; Hx Alcohol Use: Yes Alcohol type: wine Alcohol Intake Frequency: 4 or More x per/Week Alcohol Intake Frequency Comment: DAILY; 1-2 bottles wine/day; multiple rum & coke Hx Substance Use: No Preferred Language: Armenian Communication Ability: Effective Visual Impairment: No Limitations Hearing Ability: Normal Mobile Marketing Manager Required: No Beliefs That Will Affect Care: None marital status: Single Current Living Situation: Alone Current Living Situation Comment: lives in [place]/ Mom/dad current occupational status: unemployed 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 How many Children do You have: 0 Feels Safe at Home: Yes Safety Concerns: Feels Safe At This Time Childhood Exposure to Second-Hand Smoke: No Dental Care, Regularly: No Physical Activity Frequency: Does not Exercise Seatbelt Use: always Sunscreen Use: Yes Sexual Activity: has been sexually active, but not for at least 12 months Assistive Devices: Glasses Review of Systems Review of Systems: All systems reviewed & are unremarkable except as noted in Subjective Physical Exam Constitutional: WD/WN, vitals as above Eyes: sclera anicteric Neck: trachea midline, no thyromegaly Respiratory: normal respiratory effort, lungs clear to auscultation Cardiovascular: RRR, no murmur, no edema Gastrointestinal (Abdomen): normal bowel sounds, soft, nontender, no hepatosplenomegaly Skin: no rashes, warm and dry Neurologic: no asterixis Psychiatric: A+Ox3, euthymic affect Results & Data ([facility]) Vital Signs (Past 12 Hours) Vital Signs Temp Pulse Pulse Resp BP Pulse Ox 07/19/21 11:21 36.8 C 87 19 120/75 95 07/19/21 10:14 37 C 107 H 20 110/70 94 07/19/21 09:56 97 H 07/19/21 08:00 37 C 97 H 107 H 20 110/70 94 07/19/21 04:13 37.0 C 103 H 19 117/74 93 Laboratory Results 07/19/21 07/19/21 07/18/21 Range/Units 06:23 06:23 23:42 WBC 10.53 (4.8-10.8) K/uL RBC 3.54 L (4.2-5.4) M/uL Hgb 11.0 L (12.0-16.0) g/dL Hct 31.6 L (37-47) % MCV 89.3 (80-100) fL MCH 31.1 (25-34) pg MCHC 34.8 (32-36) g/dL RDW Std Deviation 75.2 H (36.4-46.3) fL RDW Coeff of Ace 22.8 H (11.5-14.5) % Plt Count 147 (130-400) K/uL MPV 9.6 (7.4-10.4) fL Immature Gran % (Auto) 0.3 % Neut % (Auto) 66.4 % Lymph % (Auto) 25.5 % [place] % (Auto) 7.1 % Eos % (Auto) 0.4 % Baso % (Auto) 0.3 % Neut # (Auto) 7.00 H (1.4-6.5) K/uL Lymph # (Auto) 2.68 (1.2-3.4) K/uL [place] # (Auto) 0.75 H (0.11-0.59) K/uL Eos # (Auto) 0.04 (0-0.5) K/uL Baso # (Auto) 0.03 (0-0.2) K/uL Immature Gran # (Auto) 0.03 H (0.00-0.02) K/uL Anisocytosis Present Pappenheimer Bodies Target Cells 2+ PT INR Sodium 138 (136-145) mmol/L Potassium 3.2 L (3.5-5.1) mmol/L Chloride 103 (98-107) mmol/L Carbon Dioxide 26 (21-32) mmol/L Anion Gap 9.0 (3-11) BUN 2 L (7-18) mg/dl Creatinine 0.57 L (0.6-1.2) mg/dl Est Cr Clr Drug Dosing 134.0 ml/min Est GFR ( Amer) 139.2 ml/min Est GFR (Non-Af Amer) 120.1 ml/min BUN/Creatinine Ratio 3.3 L (10-20) Glucose 110 H (70-99) mg/dl Calcium 7.1 L (8.5-10.1) mg/dl Magnesium (1.8-2.4) mg/dl Total Bilirubin 4.4 H (0.2-1) mg/dl AST 360 H (15-37) U/L ALT 68 (12-78) U/L Alkaline Phosphatase 295 H (45-117) U/L Total Protein 6.5 D (6.4-8.2) gm/dl Albumin 2.1 L (3.4-5.0) gm/dl Globulin 4.4 H (2.5-4.0) gm/dl Albumin/Globulin Ratio 0.5 L (0.9-2) Lipase (73-393) U/L Specimen Hemolysis Urine Color Urine Appearance (Clear) Urine pH (4.5-7.5) Ur Specific [place] (1.000-1.030) Urine Protein (Negative) Urine Glucose (UA) (Negative) Urine Ketones (Negative) Urine Blood (Negative) Urine Nitrite (Negative) Urine Bilirubin (Negative) Urine Urobilinogen (Negative) Ur Leukocyte Esterase (Negative) Urine WBC (Auto) (0-5) /hpf Urine RBC (Auto) (0-4) /hpf U Hyaline Cast (Auto) (0-5) /lpf U Epithel Cells (Auto) (0-5) /lpf Urine Bacteria (Auto) (Negative) Urine Yeast (None Prsent) Ethyl Alcohol mg/dL (0-3) mg/dl COVID-19 Eval Order SARS-CoV-2 (PCR) NEGATIVE (Negative) Blood Type Antibody Screen 07/18/21 07/18/21 07/18/21 Range/Units 23:42 22:58 22:02 WBC (4.8-10.8) K/uL RBC (4.2-5.4) M/uL Hgb (12.0-16.0) g/dL Hct (37-47) % MCV (80-100) fL MCH (25-34) pg MCHC (32-36) g/dL RDW Std Deviation (36.4-46.3) fL RDW Coeff of Ace (11.5-14.5) % Plt Count (130-400) K/uL MPV (7.4-10.4) fL Immature Gran % (Auto) % Neut % (Auto) % Lymph % (Auto) % [place] % (Auto) % Eos % (Auto) % Baso % (Auto) % Neut # (Auto) (1.4-6.5) K/uL Lymph # (Auto) (1.2-3.4) K/uL [place] # (Auto) (0.11-0.59) K/uL Eos # (Auto) (0-0.5) K/uL Baso # (Auto) (0-0.2) K/uL Immature Gran # (Auto) (0.00-0.02) K/uL Anisocytosis Pappenheimer Bodies Target Cells PT 16.6 H INR 1.7 H Sodium (136-145) mmol/L Potassium (3.5-5.1) mmol/L Chloride (98-107) mmol/L Carbon Dioxide (21-32) mmol/L Anion Gap (3-11) BUN (7-18) mg/dl Creatinine (0.6-1.2) mg/dl Est Cr Clr Drug Dosing ml/min Est GFR ( Amer) ml/min Est GFR (Non-Af Amer) ml/min BUN/Creatinine Ratio (10-20) Glucose (70-99) mg/dl Calcium (8.5-10.1) mg/dl Magnesium (1.8-2.4) mg/dl Total Bilirubin (0.2-1) mg/dl AST (15-37) U/L ALT (12-78) U/L Alkaline Phosphatase (45-117) U/L Total Protein (6.4-8.2) gm/dl Albumin (3.4-5.0) gm/dl Globulin (2.5-4.0) gm/dl Albumin/Globulin Ratio (0.9-2) Lipase (73-393) U/L Specimen Hemolysis Urine Color Urine Appearance (Clear) Urine pH (4.5-7.5) Ur Specific [place] (1.000-1.030) Urine Protein (Negative) Urine Glucose (UA) (Negative) Urine Ketones (Negative) Urine Blood (Negative) Urine Nitrite (Negative) Urine Bilirubin (Negative) Urine Urobilinogen (Negative) Ur Leukocyte Esterase (Negative) Urine WBC (Auto) (0-5) /hpf Urine RBC (Auto) (0-4) /hpf U Hyaline Cast (Auto) (0-5) /lpf U Epithel Cells (Auto) (0-5) /lpf Urine Bacteria (Auto) (Negative) Urine Yeast (None Prsent) Ethyl Alcohol mg/dL 379.6 H (0-3) mg/dl COVID-19 Eval Order Covid19 at [facility] SARS-CoV-2 (PCR) (Negative) Blood Type Antibody Screen 07/18/21 07/18/21 07/18/21 Range/Units 21:21 21:21 21:21 WBC (4.8-10.8) K/uL RBC (4.2-5.4) M/uL Hgb (12.0-16.0) g/dL Hct (37-47) % MCV (80-100) fL MCH (25-34) pg MCHC (32-36) g/dL RDW Std Deviation (36.4-46.3) fL RDW Coeff of Ace (11.5-14.5) % Plt Count (130-400) K/uL MPV (7.4-10.4) fL Immature Gran % (Auto) % Neut % (Auto) % Lymph % (Auto) % [place] % (Auto) % Eos % (Auto) % Baso % (Auto) % Neut # (Auto) (1.4-6.5) K/uL Lymph # (Auto) (1.2-3.4) K/uL [place] # (Auto) (0.11-0.59) K/uL Eos # (Auto) (0-0.5) K/uL Baso # (Auto) (0-0.2) K/uL Immature Gran # (Auto) (0.00-0.02) K/uL Anisocytosis Pappenheimer Bodies Target Cells PT Cancelled INR Cancelled Sodium 138 (136-145) mmol/L Potassium 3.1 L (3.5-5.1) mmol/L Chloride 99 (98-107) mmol/L Carbon Dioxide 30 (21-32) mmol/L Anion Gap 9.0 (3-11) BUN 2 L (7-18) mg/dl Creatinine 0.73 (0.6-1.2) mg/dl Est Cr Clr Drug Dosing 104.6 ml/min Est GFR ( Amer) 123.7 ml/min Est GFR (Non-Af Amer) 106.7 ml/min BUN/Creatinine Ratio 2.9 L (10-20) Glucose 148 H (70-99) mg/dl Calcium 8.3 L (8.5-10.1) mg/dl Magnesium 2.2 (1.8-2.4) mg/dl Total Bilirubin 4.7 H (0.2-1) mg/dl AST 457 H (15-37) U/L ALT 91 H (12-78) U/L Alkaline Phosphatase 372 H (45-117) U/L Total Protein 8.3 H (6.4-8.2) gm/dl Albumin 2.7 L (3.4-5.0) gm/dl Globulin 5.6 H (2.5-4.0) gm/dl Albumin/Globulin Ratio 0.5 L (0.9-2) Lipase 347 (73-393) U/L Specimen Hemolysis Urine Color Urine Appearance (Clear) Urine pH (4.5-7.5) Ur Specific [place] (1.000-1.030) Urine Protein (Negative) Urine Glucose (UA) (Negative) Urine Ketones (Negative) Urine Blood (Negative) Urine Nitrite (Negative) Urine Bilirubin (Negative) Urine Urobilinogen (Negative) Ur Leukocyte Esterase (Negative) Urine WBC (Auto) (0-5) /hpf Urine RBC (Auto) (0-4) /hpf U Hyaline Cast (Auto) (0-5) /lpf U Epithel Cells (Auto) (0-5) /lpf Urine Bacteria (Auto) (Negative) Urine Yeast (None Prsent) Ethyl Alcohol mg/dL (0-3) mg/dl COVID-19 Eval Order SARS-CoV-2 (PCR) (Negative) Blood Type Cancelled Antibody Screen Cancelled 07/18/21 07/18/21 07/18/21 Range/Units 21:21 21:13 00:11 WBC 14.96 H (4.8-10.8) K/uL RBC 4.30 (4.2-5.4) M/uL Hgb 13.4 (12.0-16.0) g/dL Hct 37.7 (37-47) % MCV 87.7 (80-100) fL MCH 31.2 (25-34) pg MCHC 35.5 (32-36) g/dL RDW Std Deviation 73.3 H (36.4-46.3) fL RDW Coeff of Ace 23.0 H (11.5-14.5) % Plt Count 197 (130-400) K/uL MPV 9.9 (7.4-10.4) fL Immature Gran % (Auto) 0.3 % Neut % (Auto) 58.0 % Lymph % (Auto) 35.2 % [place] % (Auto) 5.6 % Eos % (Auto) 0.6 % Baso % (Auto) 0.3 % Neut # (Auto) 8.66 H (1.4-6.5) K/uL Lymph # (Auto) 5.27 H (1.2-3.4) K/uL [place] # (Auto) 0.84 H (0.11-0.59) K/uL Eos # (Auto) 0.09 (0-0.5) K/uL Baso # (Auto) 0.05 (0-0.2) K/uL Immature Gran # (Auto) 0.05 H (0.00-0.02) K/uL Anisocytosis Present Pappenheimer Bodies 1+ Target Cells 2+ PT INR Sodium (136-145) mmol/L Potassium (3.5-5.1) mmol/L Chloride (98-107) mmol/L Carbon Dioxide (21-32) mmol/L Anion Gap (3-11) BUN (7-18) mg/dl Creatinine (0.6-1.2) mg/dl Est Cr Clr Drug Dosing ml/min Est GFR ( Amer) ml/min Est GFR (Non-Af Amer) ml/min BUN/Creatinine Ratio (10-20) Glucose (70-99) mg/dl Calcium (8.5-10.1) mg/dl Magnesium (1.8-2.4) mg/dl Total Bilirubin (0.2-1) mg/dl AST (15-37) U/L ALT (12-78) U/L Alkaline Phosphatase (45-117) U/L Total Protein (6.4-8.2) gm/dl Albumin (3.4-5.0) gm/dl Globulin (2.5-4.0) gm/dl Albumin/Globulin Ratio (0.9-2) Lipase (73-393) U/L Specimen Hemolysis Urine Color Dark Yellow Urine Appearance Clear (Clear) Urine pH 5.5 (4.5-7.5) Ur Specific [place] 1.005 (1.000-1.030) Urine Protein Negative (Negative) Urine Glucose (UA) Negative (Negative) Urine Ketones Negative (Negative) Urine Blood Trace H (Negative) Urine Nitrite Negative (Negative) Urine Bilirubin 1+ H (Negative) Urine Urobilinogen Negative (Negative) Ur Leukocyte Esterase Trace H (Negative) Urine WBC (Auto) 1-5 (0-5) /hpf Urine RBC (Auto) 0-4 (0-4) /hpf U Hyaline Cast (Auto) 1-5 (0-5) /lpf U Epithel Cells (Auto) >30 H (0-5) /lpf Urine Bacteria (Auto) Negative (Negative) Urine Yeast Budding w/ Hyphae A (None Prsent) Ethyl Alcohol mg/dL (0-3) mg/dl COVID-19 Eval Order SARS-CoV-2 (PCR) (Negative) Blood Type A Negative Antibody Screen NEGATIVE Diagnostic Findings CTAP: FINDINGS: Mild subsegmental bibasilar atelectasis. No pneumatosis or pneumoperitoneum. The spleen and adrenal glands are unremarkable. Hepatomegaly with hepatic steatosis. Mild nonspecific gallbladder wall thickening without significant distention or cholelithiasis. There is mild interstitial and peripancreatic edema. No pancreatic ductal dilation or pancreatic lesion identified. Homogeneous enhancement of the pancreatic parenchyma. Unremarkable kidneys. No hydronephrosis. Mild urinary bladder wall thickening with partial distention. Uterus and left adnexum appear normal. 2.3 cm right ovarian dominant follicle. Aorta and IVC are unremarkable. No adenopathy. There is no bowel obstruction. Mild wall thickening of the duodenum. Scattered small bowel air-fluid levels. Trace abdominal pelvic ascites. A partial distention with mild wall thickening within the colon, notably within the descending portions and rectum which is likely secondary to partial distention. No CT evidence of acute appendicitis. There is recanalization of the umbilical vein. Unremarkable soft tissues. There is no acute fracture. Scattered sclerotic foci of the pelvis are suggestive of bone islands. IMPRESSION: 1. Interstitial and peripancreatic edema with trace adjacent free fluid is suggestive of acute pancreatitis. Correlate with lipase level. Trace associated abdominal pelvic ascites. 2. Hepatomegaly with hepatic steatosis. 3. Mild wall thickening of the duodenum is likely reactive. 4. Additional findings as above.
[2021-07-19] MEDS: SUCRALFATE 1 GM/10 ML UDC PO SCH ×2 (18:02→21:35)
[2021-07-19] MEDS ORDERED: MELATONIN 3 MG TAB PO PRN (19:54)
[2021-07-20 07:31] LABS: Basophils # (auto) 0.04 K/uL (0-0.2); Basophils % (auto) 0.4 %; Eosinophils # (auto) 0.11 K/uL (0-0.5); Eosinophils % (auto) 1.1 %; Hematocrit (blood only) 31.9 % (37-47); Hemoglobin 11.2 g/dL (12.0-16.0); Immature Granulocytes # (auto) 0.02 K/uL (0.00-0.02); Immature Granulocytes % (auto) 0.2 %; Lymphocytes # (auto) 2.04 K/uL (1.2-3.4); Lymphocytes % (auto) 20.2 %; Mean Corpuscular Hemoglobin 31.5 pg (25-34); Mean Corpuscular Hgb Conc 35.1 g/dL (32-36); Mean Corpuscular Volume 89.9 fL (80-100); Mean Platelet Volume 9.9 fL (7.4-10.4); Monocytes # (auto) 0.52 K/uL (0.11-0.59); Monocytes % (auto) 5.1 %; Neutrophils # (auto) 7.37 K/uL (1.4-6.5); Platelet Count 134 K/uL (130-400); RDW Standard Deviation 75.7 fL (36.4-46.3); Red Blood Count 3.55 M/uL (4.2-5.4)
[2021-07-20] MEDS: ESCITALOPRAM OXALATE 10 MG TAB PO SCH (08:03)
[2021-07-20] MEDS: LOSARTAN POTASSIUM 25 MG TAB PO SCH (08:04)
[2021-07-20] MEDS: NICOTINE 7 MG/24 HR TDSY TD SCH (08:04)
[2021-07-20] MEDS: FOLIC ACID 1 MG TAB PO SCH (08:04)
[2021-07-20] MEDS: PANTOprazole 40 MG in SYRINGE 0 ML IV SCH (08:05)
[2021-07-20] MEDS: THIAMINE HCL 100 MG in SYRINGE 9 ML IV SCH (08:05)
[2021-07-20 08:06] LABS: Anisocytosis Present; Target Cells 2+
[2021-07-20 08:14] LABS: Albumin Globulin Ratio 0.5 (0.9-2); Albumin Level 1.9 gm/dl (3.4-5.0); Bilirubin,Total 6.2 mg/dl (0.2-1); Calcium 7.6 mg/dl (8.5-10.1); Creatinine Clr Calc Pharmacy 117.7 ml/min; Est GFR (African American) 133.3 ml/min; Globulin 4.2 gm/dl (2.5-4.0); Potassium 3.3 mmol/L (3.5-5.1); Total Protein 6.1 gm/dl (6.4-8.2)
[2021-07-20 08:15] LABS: INR 1.5 (0.9-1.1); Prothrombin Time 15.1 Seconds (9.0-12.0)
--- NOTE | 2021-07-20 08:39 | Hospitalist Progress Note ---
Date of Service July 20, 2021 Assessment & Plan (1) Alcohol intoxication: Plan: Megan is a 35 yo woman with a PMHx of alcohol use disorder who presented to the [facility] ED for evaluation of nausea/vomiting and diarrhea. Alcohol withdrawal: - etoh level 379 on admission - patient demonstrating symptoms of withdrawal (ie tachycardia, tremulousness, anxiety) - AWSS protocol with IV ativan ordered - Chlordiazepoxide subsequently DC'd yesterday as patient consistently with low AWSS scores and had not required much prn Ativan - thiamine 100mg daily - folate 1mg daily - Recommended inpatient rehab but patient cannot afford -- is interested in continuing to seek Psychiatric care and pyschologic therapy Alcoholic liver disease: - MELD score of 19 -- no indication for steroids - cessation of EtOH is strongly recommended - follows with [facility]; consult placed GI bleed: - BRBPR reported on admission as well as blood streaked emesis - hemodynamically stable, hgb normal - etiology uncertain as for as upper vs. lower source - hx of etoh use disorder makes gastric varcies a strong possibility; intent of May EGD was to assess for this pathology - Protonix 40mg IV BID -- will transition to oral treatment at DC - Start carafate 1g QID -- continue at DC - GI consult placed: - She doesn't have a history of varices, unclear role for Octreotide -- stopped octreotide gtt - Continue IV PPI - Can start Carafate QID - Recommend putting a hat in the commode to monitor and document stool output - Trend H&H, CMP, INR - Needs repeat EGD rescheduled (pt cancelled this in May) Gastrointestinal distress: - duodenitis and colitis noted on CT scan of abdomen - etiology uncertain: suspect related to ETOH use disorder/withdrawal rather than infectious source - Zofran prn for nausea Yeast infection: - noted on UA - given contamination of urine with epithelial cells, may be vaginal source - Diflucan 150mg ordered Anxiety: - continue home dose escitalopram DVT ppx: Chemoppx contraindicated in setting of acute GI bleed Diet: Clear liquids per GI recs Dispo: Med/tele Code: Full (2) Alcoholic liver disease: (3) GI bleed: (4) Gastrointestinal distress: (5) Yeast infection: (6) Anxiety: Admission and Anticipated Discharge Date Admission Date: July 19, 2021 Physical Exam Physical Exam: GENERAL: A&Ox3. NAD. CHEST/LUNGS: CTAB A/P. No crackles, wheezes, rales, rhonchi. HEART: RRR. No m/g/r. No carotid bruits. ABDOMEN: NT/ND, soft. BS+ x4 EXTREMITIES: No cyanosis, no clubbing, no edema SKIN: Warm and dry. No rashes or lesions. PSYCHIATRIC: Anxious affect, no SI, no pressured speech, no hallucinations NEUROLOGIC: No FND. CN II-XII grossly intact. Results & Data Results & Data ([facility]) Vital Signs (Past 12 Hours) Vital Signs Temp Pulse Pulse Resp BP Pulse Ox 07/20/21 07:50 36.7 C 83 18 128/78 92 07/20/21 06:24 80 07/20/21 04:07 37 C 84 16 109/62 95 07/19/21 22:47 37.2 C 90 16 118/77 95 07/19/21 22:18 87
[2021-07-20] MEDS: SUCRALFATE 1 GM/10 ML UDC PO SCH ×2 (09:33→12:32)
[2021-07-20] MEDS ORDERED: chlordiazePOXIDE HCl 25 MG CAP PO ONE (14:54)
--- NOTE | 2021-07-20 16:17 | Discharge Summary ---
Date of Service July 20, 2021 Admission HPI Per Admitting Provider Megan is a 35 yo woman with a PMHx of alcohol use disorder and alcohol induced liver disease who came to the ED for evaluation of nausea/vomiting and diarrhea of 2 weeks duration. She has been have bloody bowel movements - her emesis has occasional bloody streaks. She has not taken her temperature, but states she has had intermittent chills. Both her and her mother have had URI symptoms about 2 weeks ago. Most of the URI symptoms have cleared up at this point. No recent antibiotic use or hospitalization. Her last drink was at 2pm on 07/18/21. She typically has 1-2 bottles of wine per day. She was sober for a period of 2 months earlier this year - the of her father in February 2021 caused her to return to drinking. She has never been to inpatient alcohol rehab - she is 'open' to this idea. She says she uses alcohol to medicate her otherwise uncontrollable anxiety. 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 She was supposed to have an EGD in May 2021 - but she canceled it due to being too anxious. She has been seen at [place] for anxiety - she says none of the medications she has tried have ever helped her. She has been to counseling at [facility]. Social HX: she lives at home with her mother; not currently employed or in school. She has smoked cigarettes for 15 years; currently smoking 7 cigarette per day. In the ED, she was afebrile, HR in high 90s, normal blood pressure and oxygenation. Her WBC was mildly elevated to 14, CBC otherwise normal. INR was 1.8. K low at 3.1. Ca low at 8.3. Kidney function normal. AST 457, ALT 91. Alk phos 372. Lipase 347. T bili 4.7. Urine with budding hyphae. Urine culture pending. COVID [address] neg. Etoh level of 379. CT of abdomen showing hepatomegaly with hepatic steatosis; peripancreatic fat stranding; duodenitis with diffuse thickening of the ascending colon, consistent in appearance with colitis. She was given 1 liter of NSS, 1mg folic acid, 100mg thiamine, and 40mg IV prtonix. Principal Diagnosis Alcohol withdrawal Discharge Exam GENERAL: WD/WN. NAD. CHEST/LUNGS: CTAB A/P. No crackles, wheezes, rales, rhonchi. HEART: RRR. No m/g/r. No carotid bruits. ABDOMEN: NT/ND, soft. BS+ x4 EXTREMITIES: No cyanosis, no clubbing, no edema SKIN: Warm and dry. No rashes or lesions. PSYCHIATRIC: A&Ox3. Euthymic affect, no SI, no pressured speech, no hallucinations NEUROLOGIC: No FND. CN II-XII grossly intact. Discharge Data Allergies Allergy/AdvReac Type Severity Reaction Status Date / Time No Known Allergies Allergy Unknown Unverified 07/18/21 21:35 Consultations 07/18/21 23:37 ED Decision to Admit Stat 07/19/21 01:53 Consult Gastroenterology Routine Ordered Studies 07/18/21 21:08 CT abd pelvis IV con only Urgent Hospital Course (1) Alcohol intoxication: Megan is a 35 yo woman with a PMHx of alcohol use disorder who presented to the [facility] ED for evaluation of nausea/vomiting and diarrhea. Alcohol withdrawal: - etoh level 379 on admission - patient demonstrating symptoms of withdrawal (ie tachycardia, tremulousness, anxiety) - AWSS protocol with IV Ativan - Chlordiazepoxide subsequently DC'd yesterday as patient consistently with low AWSS scores and had not required much prn Ativan - thiamine 100mg daily - folate 1mg daily - Recommended inpatient rehab but patient cannot afford -- is interested in continuing to seek Psychiatric care and psychologic therapy - DC with instructions on symptoms to watch/return to hospital for Alcoholic liver disease: - MELD score of 19, Maddrey of 20 - cessation of EtOH is strongly recommended - follows with [facility]; consulted - At time of DC Bili at 6.4, which was higher than yesterday, but all other markers trending down - Recommend serial LFTs as outpatient with PCP/GI GI bleed: - BRBPR reported on admission as well as blood streaked emesis - Hemodynamically stable, hgb normal - Etiology uncertain as for as upper vs. lower source - Hx of etoh use disorder makes gastric varcies a strong possibility; intent of May EGD was to assess for this pathology - Protonix 40mg IV BID -- will transition back to home oral treatment at DC - Start Carafate 1g QID -- continue at DC - GI consult placed: - She doesn't have a history of varices, unclear role for Octreotide -- stopped octreotide gtt - Continue IV PPI - Can start Carafate QID - Recommend putting a hat in the commode to monitor and document stool output - Trend H&H, CMP, INR - Needs repeat EGD rescheduled (pt cancelled this in May) Gastrointestinal distress: - duodenitis and colitis noted on CT scan of abdomen - etiology uncertain: suspect related to ETOH use disorder/withdrawal rather than infectious source - Zofran prn for nausea Yeast infection: - noted on UA - given contamination of urine with epithelial cells, may be vaginal source - Diflucan 150mg x1 given - No symptoms Anxiety: - continue home dose escitalopram - Information provided by for Psych care and community resources Dispo: Home, Self Care with Code: Full (2) Alcoholic liver disease: (3) GI bleed: (4) Gastrointestinal distress: (5) Yeast infection: (6) Anxiety: Total Time Total Time Spent Total Time Spent (In Minutes): <30 Discharge Plan Discharge Items Patient Disposition: Home - Self-Care Reason For Visit: ALCOHOL WITHDRAWAL Discharge Diagnosis: alcohol withdrawal Activity: Per Instructions section Non-emergency contact: Primary Care Provider Call non-emergency contact if: you have any medication questions and your symptoms worsen Follow-up/Referrals: Hector Myrick III, CRNP [Primary Care Provider] - Crow Albert MD [Physician] - Diet: Regular Addtl Attending Provider Instructions: You were admitted to [facility] due to alcohol intoxication and withdrawal symptoms. You were monitored for your withdrawal, which was fortunately very mild and did not require much medication. You were also found to have some GI bleeding. You were evaluated by Gastroenterology who recommended continuing some medications and rescheduling your upper endoscopy as an outpatient. The medications you will take daily are Protonix (please continue this as you take it at home) and Carafate. The latter has been sent to your preferred pharmacy. Please continue to take these as pr escribed. Additionally, you were found to have alcoholic hepatitis, which is inflammation of your liver associated with alcohol consumption. At this point your lab results point to improvement but we do recommend some periodic lab testing to make sure this continues to improve. It is very important that you refrain from consuming alcohol as this could cause continued worsening of your liver, which could result in permanent liver failure. 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 If you develop any signs concerning for withdrawal such as chills, shakes, trembling, mental status changes, or anything else that is concerning, please return to the hospital for further evaluation. Pending Studies at Discharge: No Stand-Alone Forms: My [facility] [employer] Smoking Cessation Medications and DC Order Prescriptions: New sucralfate [Carafate] 100 mg/mL suspension 1 g PO Q6H 28 Days Qty: 1120 RF: 0 Continued escitalopram oxalate 5 mg tablet 5 mg PO DAILY RF: 0 losartan 25 mg tablet 25 mg PO DAILY RF: 0 pantoprazole [Protonix] 20 mg tablet,delayed release (DR/EC) 20 mg PO BID 30 Days Qty: 60 RF: 0 Discharge Orders: Discharge Order (Routine); Ordered 07/20/21 Ordered By: Tayo May Admission Data Admit Date/Time: 07/19/21 00:25 Attending Provider: Ramon Gomez Admit Provider: Ai Hunter Primary Care Provider: Hector Myrick III Other Providers: Godfrey Sanders ; Crow Albert Other Interventions: Discharge Summary Assessment (RN) Last Done: 07/20/21 15:00 Supervising Physician Co-Signing Physician Notes I personally examined the patient and verified all henderson points of history and exam, discussed case, and agree with decision making with Dr Tidwell. Feeling okay. No tremors, no racing heart. No confusion. Overall feeling all right. Wonders about going homeafter extensive discussions of risks benefits and follow-up, she opts to go home. Discussions also involved her mother over speaker phone. Vitals noted, in general she is awake and alert pleasant no distress. HEENT normocephalic atraumatic mucous membranes are moist. Breathing unlabored no accessory muscle use good effort. Skin shows no rashes no pallor or icterus. Neuro without focal deficits. Alcohol intoxication/withdrawalwhile she is only about 48 hours out from her last drink, she has absolutely no withdrawal symptoms. We discussed continuing to observe versus home with close family observationpatient and mother opted for home observation. I strongly suspect she will do well. Alcoholic hepatitisfortunately no need for corticosteroids. Transaminases, alk phos, INR all trending down. Bilirubin nathaniel a little bit, but Madrey score still well below the line for steroids. We discussed ongoing hospital observation and serial labs versus home with serial labsand again after careful discussion of risks/benefits/different optionspatient/mother opted for home. Very clear absolutely no alcohol, labs every other day, return to hospital if anything at all seems worsemental status/nausea/appearing more jaundiced/etc. Anxietysevere and longstanding. Extensive discussions with patient on multimodal treatment for anxiety, and tried to emphasize that med management is generally not a "magic bullet" type of answer, but rather utilizing meds can help some, some form of counseling/cognitive behavioral therapy can be quite helpful over time, self-management techniques to get through stress can be helpful, and self-management techniques to manage stress can be helpfulthat utilizing it altogether is really probably the best way to approach things. Ongoing outpatient follow-upmom was also getting patient set up with psychology. Applauded these efforts. GI bleedfortunately appears to have not become significant. Outpatient endoscopic work-up in the less bleeding worsens/recurs Otherwise as above Resident Activity Tracking Resident Involvement: Resident Care Provided Care Provided: Adult Hospital Medicine
--- NOTE | 2021-07-20 16:36 | Billing Data ---
Date of Service July 20, 2021 Coding Level of Care Code D/C DAY MANAGEMENT <30 MINS
--- NOTE | 2021-07-20 21:44 | Billing Data ---
Date of Service July 20, 2021 Coding Level of Care Code 40090 Initial Inpt Care Lvl 3
[2021-07-22] MEDS ORDERED: chlordiazePOXIDE HCl 5 MG CAP PO SCH (07:00)
--- NOTE | 2021-08-04 06:53 | Critical Care Consultation ---
Date of Consultation August 04, 2021 History of Present Illness Attending Physician: Ramon Gomez DO History of Present Illness Patient is a 35-year-old female with a significant past medical history of Allergies Allergy/AdvReac Type Severity Reaction Status Date / Time No Known Allergies Allergy Unknown Unverified 07/18/21 21:35 Home Medications Medication Instructions Recorded Confirmed Type escitalopram oxalate 5 mg tablet 5 mg PO DAILY 04/22/21 07/18/21 History losartan 25 mg tablet 25 mg PO DAILY 04/22/21 07/18/21 History pantoprazole 20 mg tablet,delayed 20 mg PO BID 30 Days #60 tab 07/20/21 Rx release (Protonix) sucralfate 100 mg/mL oral 1 g PO Q6H 28 Days #1120 ml 07/20/21 Rx suspension (Carafate) Patient History Medical History AA (alcohol abuse) Acute alcoholic hepatitis Coagulopathy Generalized anxiety disorder Hypertension Hyponatremia Obesities, morbid Upper GI bleed Surgical History No history of previous surgery Family History Father Myocardial infarction Depression Diabetes Heart disease Grandfather Prostate cancer Mother Depression Hypertension Denies family history of Ovarian cancer Breast cancer Colorectal cancer History of alcoholism Social History Smoking Status: Current some day smoker Tobacco Type: Cigarettes Age Started Using Tobacco: 22; Cigarettes Per Day: 5; Second Hand Exposure: No; Hx Alcohol Use: Yes Alcohol type: wine Alcohol Intake Frequency: 4 or More x per/Week Alcohol Intake Frequency Comment: DAILY; 1-2 bottles wine/day; multiple rum & coke Hx Substance Use: No Preferred Language: Peruvian Communication Ability: Effective Visual Impairment: No Limitations Hearing Ability: Normal Sales Operations Associate Required: No Beliefs That Will Affect Care: None marital status: Single Current Living Situation: Alone Current Living Situation Comment: lives in [place] w/ Mom/dad current occupational status: unemployed 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
== END 2021-07-20 16:13 | disposition home or self-care (01) | DRG 896 ==
LOC: ED 20:11 → SUATTDRO 07-19 00:25 → EDINP 07-19 00:25 → 2W 07-19 16:29

== ENCOUNTER 2021-08-04 02:15 | Inpatient (IN) ==
[2021-08-04] MEDS ORDERED: TXA 10% Non-IV Routes 100 MG/ML VIAL TOP ONE (03:23)
[2021-08-04] MEDS ORDERED: OCTREOTIDE ACETATE 500 MCG in 0.9 % SODIUM CHLORIDE 100 ML IV STA (03:24)
[2021-08-04] MEDS ORDERED: OCTREOTIDE ACETATE 50 MCG in SYRINGE 9.5 ML IV STA (03:24)
[2021-08-04] MEDS ORDERED: PANTOprazole 80 MG in DEXTROSE 5% 100 ML IV ONE (03:26)
[2021-08-04] MEDS ORDERED: PANTOPRAZOLE BOLUS/DRIP 1 EA IV STA (03:26)
[2021-08-04] MEDS ORDERED: SODIUM CHLORIDE 0.9% 250 ML IV PRN ×5 (03:29→15:16)
--- NOTE | 2021-08-04 03:29 | Emergency Department Note ---
ED Visit Note I have personally seen and evaluated the patient with the PA. I agree with the diagnosis and management decisions and have been personally involved in the case. Upon my evaluation the patient, she was sitting up over an emesis bag with approximately 125 cc of bright red blood in the bag. She does have fresh blood in the oral cavity, the dental mucosa/gingiva appears to be using diffusely. She does have poor dentition with several broken teeth. Patient is slightly jaundiced and sallow. Abdomen is distended with a positive fluid wave. She is noted to be tachycardic with a normal blood pressure at triage. IV octreotide, IV Protonix, IV fluids were ordered immediately. Patient will be typed and crossed for 2 units of PRBCs. TXA soaked gauze will be applied to the bleeding oral mucosa. Please see Irma Ding PA-C's notes for further details of the history, physical and visit. . : Alcoholic hepatitis Qualifiers: Ascites presence: unspecified Qualified Code(s): K70.10 - Alcoholic hepatitis without ascites Hematemesis Qualifiers: Nausea presence: unspecified Qualified Code(s): K92.0 - Hematemesis Anemia Qualifiers: Anemia type: unspecified type Qualified Code(s): D64.9 - Anemia, unspecified
[2021-08-04 03:43] LABS: Hematocrit (blood only) 25.7 % (37-47); Hemoglobin 8.9 g/dL (12.0-16.0); Mean Corpuscular Hemoglobin 32.2 pg (25-34); Mean Corpuscular Hgb Conc 34.6 g/dL (32-36); Mean Corpuscular Volume 93.1 fL (80-100); Mean Platelet Volume 9.5 fL (7.4-10.4); Platelet Count 234 K/uL (130-400); RDW Coefficient of Variation 21.4 % (11.5-14.5); RDW Standard Deviation 73.3 fL (36.4-46.3); Red Blood Count 2.76 M/uL (4.2-5.4); White Blood Count 13.53 K/uL (4.8-10.8)
--- NOTE | 2021-08-04 03:47 | Emergency Department Note ---
History of Present Illness General Chief complaint: Dental/Oral Stated complaint: MOUTH PAIN Time Seen by Provider: 08/04/21 03:09 Source: patient Mode of arrival: EMS Limitations: no limitations History of Present Illness This patient is a 35-year-old female who presents to the emergency department for evaluation of bleeding from the mouth and vomiting blood. Patient states that for the past 3 to 4 days, she has had some bleeding in her mouth, from her gums. She states that over the past day, she has started vomiting bright red blood. Patient admits to chronic alcohol use and states that she typically drinks 1-2 bottles of wine per day, but has been trying to taper herself down. She had 2 glasses of wine yesterday. She does report a history of similar. Most recent EGD was in February of this year. She states that ulcers were found, no history of esophageal varices. She denies abdominal pain or chest pain. Home Medications Medication Instructions Recorded Confirmed Type escitalopram oxalate 5 mg tablet 5 mg PO DAILY 04/22/21 07/18/21 History losartan 25 mg tablet 25 mg PO DAILY 04/22/21 07/18/21 History pantoprazole 20 mg tablet,delayed 20 mg PO BID 30 Days #60 tab 07/20/21 Rx release (Protonix) sucralfate 100 mg/mL oral 1 g PO Q6H 28 Days #1120 ml 07/20/21 Rx suspension (Carafate) escitalopram oxalate 5 mg tablet 5 mg PO DAILY 08/04/21 08/04/21 History hydroxyzine HCl 10 mg tablet 10 mg PO DAILY 08/04/21 08/04/21 History losartan 25 mg tablet 25 mg PO DAILY 08/04/21 08/04/21 History pantoprazole 40 mg tablet,delayed 40 mg PO DAILY 08/04/21 08/04/21 History release sucralfate 100 mg/mL oral 1,000 mg PO QID 08/04/21 08/04/21 History suspension Allergies Allergy/AdvReac Type Severity Reaction Status Date / Time pine nut Allergy Unknown Verified 08/04/21 09:09 Past Med/Surg History Medical History AA (alcohol abuse) Acute alcoholic hepatitis Coagulopathy Generalized anxiety disorder Hypertension Hyponatremia Obesities, morbid Upper GI bleed Surgical History No history of previous surgery Family History Father Myocardial infarction Depression Diabetes Heart disease Grandfather Prostate cancer MATERNAL Mother Depression Hypertension Denies family history of Ovarian cancer Breast cancer Colorectal cancer History of alcoholism Social History Smoking Status: Former smoker Tobacco Type: Cigarettes Age Started Using Tobacco: 22; Cigarettes Per Day: 5; Second Hand Exposure: No; Do You Dip or Chew Tobacco: No; Tobacco Cessation Education Requested by Patient: No Hx Alcohol Use: Yes Alcohol type: wine Alcohol Intake Frequency: 4 or More x per/Week Alcohol Intake Frequency Comment: DAILY; 1-2 bottles wine/day; multiple rum & coke Hx Substance Use: No Preferred Language: Uzbek Communication Ability: Effective Visual Impairment: No Limitations Hearing Ability: Normal Flash Drier Operator Required: No Beliefs That Will Affect Care: None marital status: Single Current Living Situation: Parent Current Living Situation Comment: lives in [place] w/ Mom/dad current occupational status: unemployed 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 How many Children do You have: 0 Other Information That Helps Us Care for You: No Feels Safe at Home: Yes Safety Concerns: Feels Safe At This Time Childhood Exposure to Second-Hand Smoke: No Dental Care, Regularly: No Physical Activity Frequency: Does not Exercise Seatbelt Use: always Sunscreen Use: Yes Sexual Activity: has been sexually active, but not for at least 12 months Assistive Devices: Glasses Review of Systems A total of 10 systems reviewed and were otherwise negative Physical Exam Vital Signs Vital Signs - 24 hr 08/04/21 02:24 08/04/21 03:52 08/04/21 04:24 Temperature 36.9 C Temperature Source Oral Pulse Rate 115 H Pulse Rate [Right Radial] 115 H 115 H Pulse Rhythm Regular Pulse Rhythm [Right Radial] Regular Regular Pulse Strength Normal Pulse Strength [Right Radial] Normal Normal Respiratory Rate 16 20 Respiratory Effort / Characteristics Non-Labored Non-Labored Spontaneous Respiratory Depth Normal Respiratory Pattern Regular Regular Blood Pressure 122/70 Blood Pressure [Right Arm] 122/70 114/56 L Blood Pressure Mean 87 Blood Pressure Mean [Right Arm] 87 75 Blood Pressure Position Semi-fowlers Blood Pressure Position [Right Arm] Semi-fowlers Pulse Oximetry 99 100 97 Oxygen Delivery Method Room Air Room Air Room Air Sepsis Recent Fever Within 48 Hours No Sepsis New/Unexplained Change in Mental Status No Sepsis Action Taken by Nursing No Action Required 08/04/21 06:59 Temperature 36.6 C Temperature Source Oral Pulse Rate 117 H Pulse Rate [Right Radial] Pulse Rhythm Pulse Rhythm [Right Radial] Pulse Strength Pulse Strength [Right Radial] Respiratory Rate 18 Respiratory Effort / Characteristics Respiratory Depth Respiratory Pattern Blood Pressure 90/61 L Blood Pressure [Right Arm] Blood Pressure Mean 70 Blood Pressure Mean [Right Arm] Blood Pressure Position Sitting Blood Pressure Position [Right Arm] Pulse Oximetry 98 Oxygen Delivery Method Sepsis Recent Fever Within 48 Hours Sepsis New/Unexplained Change in Mental Status Sepsis Action Taken by Nursing VITALS: Vitals are noted on the nurse's note and reviewed by myself. GENERAL: This is a 35-year-old female, ill-appearing, vomiting blood into an emesis bag. SKIN: Jaundice noted. EARS: External auditory canals clear, tympanic membranes pearly sahu without erythema or effusion bilaterally. EYES: Pupils equal round and reactive to light and accommodation. MOUTH: Moderate amount of blood within the mouth with bleeding noted from the gums. NECK: Supple without nuchal rigidity. No lymphadenopathy. HEART: Cardiac, regular rhythm without murmurs gallops or rubs. LUNGS: Clear to auscultation bilaterally without wheezes, rales or rhonchi. ABDOMEN: Positive bowel sounds x 4. Soft, nontender to palpation. NEURO: Patient was alert and oriented to person place and time. Course Consultations Consultation #1: Dr. Su - [facility] hospitalist Consultation #2: Dr. Neal - GI Administered Medications Octreotide Acetate 500 mcg/ (Sodium Chloride) 105 mls @ 10.5 mls/hr IV .Q10H STA Stop: 08/04/21 13:23 Last Admin: 08/04/21 04:57 Dose: 50 mcg/hr, 10.5 mls/hr Documented by: [id number] Pantoprazole Sodium 40 mg/ (Dextrose) 100 mls @ 20 mls/hr IV Q5H JONNA Stop: 09/03/21 03:44 Last Admin: 08/04/21 08:49 Dose: 8 mg/hr, 20 mls/hr Documented by: [id number] Infusion: 08/04/21 08:49 Dose: 8 mg/hr, 20 mls/hr Documented by: [id number] Admin: 08/04/21 04:18 Dose: 8 mg/hr, 20 mls/hr Documented by: [id number] Thiamine HCl 100 mg/ Syringe 10 mls @ 2 mls/min IV QAM JONNA Stop: 09/03/21 08:59 Last Admin: 08/04/21 07:59 Dose: 2 mls/min Documented by: [id number] Folic Acid 1 mg/ Syringe 10 mls @ 5 mls/min IV QAM JONNA Stop: 09/03/21 07:44 Last Admin: 08/04/21 07:59 Dose: 5 mls/min Documented by: [id number] Discontinued Medications Octreotide Acetate 50 mcg/ (Syringe) 10 mls @ 3 mls/min IV ONE STA Stop: 08/04/21 03:27 Last Admin: 08/04/21 04:11 Dose: 3 mls/min Documented by: [id number] Pantoprazole Sodium (Protonix Bolus/Drip) 0 mls @ 1 mls/hr IV ONE STA Stop: 08/04/21 03:27 Last Admin: 08/04/21 07:59 Dose: Not Given Documented by: [id number] Pantoprazole Sodium 80 mg/ (Dextrose) 120 mls @ 400 mls/hr IV NOW ONE Stop: 08/04/21 03:43 Last Infusion: 08/04/21 04:18 Dose: 0 mls/hr Documented by: [id number] Admin: 08/04/21 03:56 Dose: 400 mls/hr Documented by: [id number] Lorazepam (Ativan) 1 mg in 2 mls @ 2 mls/min IV NOW STA Stop: 08/04/21 04:08 Last Admin: 08/04/21 04:42 Dose: 2 mls/min Documented by: [id number] Ondansetron HCl (Ondansetron Inj 2 Mg/Ml 2 Ml Vial) 4 mg IV NOW STA Stop: 08/04/21 04:26 Last Admin: 08/04/21 04:41 Dose: 4 mg Documented by: [id number] Critical Care Time Critical Care Time: Yes Total Critical Care Time: 50 I have personally spent greater than 50 minutes of critical care time in the direct management of this patient. This includes bedside care, interpretation of diagnostic studies, and testing, discussion with consultants, patient, and family members, and other required patient management activities. This 50 minutes is in excess of all separately billable procedures. Medical Decision Making Differential Diagnosis Diverticulosis, AVM, coagulopathy, colitis, inflammatory bowel disease, malignancy, Tracie-Mendoza tear, esophagitis, peptic ulcer disease, variceal bleed, gastritis, epistaxis, fissure, hemorrhoids, as well as other pathologies. Home Medications Current Medication List: was personally reviewed by me Laboratory Data Attestation: I reviewed the patient's lab results. Result diagrams: 08/04/21 03:29 08/04/21 03:29 Lab Results 08/04/21 08/04/21 08/04/21 Range/Units 03:29 03:29 03:29 WBC 13.53 H (4.8-10.8) K/uL RBC 2.76 L (4.2-5.4) M/uL Hgb 8.9 L (12.0-16.0) g/dL POC Hgb (12.0-16.0) g/dl Hct 25.7 L (37-47) % POC Hct (37-47) % MCV 93.1 (80-100) fL MCH 32.2 (25-34) pg MCHC 34.6 (32-36) g/dL RDW Std Deviation 73.3 H (36.4-46.3) fL RDW Coeff of Ace 21.4 H (11.5-14.5) % Plt Count 234 (130-400) K/uL MPV 9.5 (7.4-10.4) fL Immature Gran % (Auto) 0.4 % Neut % (Auto) 86.0 % Lymph % (Auto) 10.1 % [place] % (Auto) 3.1 % Eos % (Auto) 0.1 % Baso % (Auto) 0.3 % Neut # (Auto) 11.64 H (1.4-6.5) K/uL Lymph # (Auto) 1.36 (1.2-3.4) K/uL [place] # (Auto) 0.42 (0.11-0.59) K/uL Eos # (Auto) 0.01 (0-0.5) K/uL Baso # (Auto) 0.04 (0-0.2) K/uL Immature Gran # (Auto) 0.06 H (0.00-0.02) K/uL Anisocytosis Present Target Cells 1+ PT 14.0 H (9.0-12.0) Seconds INR 1.4 H (0.9-1.1) APTT 35.0 H (21.0-31.0) Seconds PTT Ratio 1.3 POC Sodium (135-144) mmol/L Sodium 130 L (136-145) mmol/L POC Potassium (3.3-5.0) mmol/L Potassium 4.0 (3.5-5.1) mmol/L POC Chloride (101-112) mmol/L Chloride 98 (98-107) mmol/L Carbon Dioxide 21 (21-32) mmol/L POC Total CO2 (24-31) mmol/L Anion Gap 11.0 (3-11) POC Anion Gap (16-25) mmol/L POC BUN (7-18) mg/dl BUN 5 L (7-18) mg/dl Creatinine 0.83 (0.6-1.2) mg/dl POC Creatinine (0.6-1.3) mg/dl Est Cr Clr Drug Dosing 91.5 ml/min Est GFR ( Amer) 105.9 ml/min Est GFR (Non-Af Amer) 91.4 ml/min BUN/Creatinine Ratio 6.0 L (10-20) Glucose 178 H (70-99) mg/dl POC Glucose (other) (70-99) mg/dl Lactate (0.4-2.0) mmol/L Calcium 7.7 L (8.5-10.1) mg/dl POC Ioniz Calcium Delfino (1.12-1.32) mmol/l Total Bilirubin 4.7 H (0.2-1) mg/dl AST 250 H (15-37) U/L ALT 56 (12-78) U/L Alkaline Phosphatase 300 H (45-117) U/L Total Protein 6.7 (6.4-8.2) gm/dl Albumin 2.0 L (3.4-5.0) gm/dl Globulin 4.7 H (2.5-4.0) gm/dl Albumin/Globulin Ratio 0.4 L (0.9-2) Ethyl Alcohol mg/dL (0-3) mg/dl COVID-19 Eval Order SARS-CoV-2 (PCR) (Negative) Blood Type Antibody Screen Crossmatch 08/04/21 08/04/21 08/04/21 Range/Units 03:29 03:37 03:47 WBC (4.8-10.8) K/uL RBC (4.2-5.4) M/uL Hgb (12.0-16.0) g/dL POC Hgb 9.5 L (12.0-16.0) g/dl Hct (37-47) % POC Hct 28 L (37-47) % MCV (80-100) fL MCH (25-34) pg MCHC (32-36) g/dL RDW Std Deviation (36.4-46.3) fL RDW Coeff of Ace (11.5-14.5) % Plt Count (130-400) K/uL MPV (7.4-10.4) fL Immature Gran % (Auto) % Neut % (Auto) % Lymph % (Auto) % [place] % (Auto) % Eos % (Auto) % Baso % (Auto) % Neut # (Auto) (1.4-6.5) K/uL Lymph # (Auto) (1.2-3.4) K/uL [place] # (Auto) (0.11-0.59) K/uL Eos # (Auto) (0-0.5) K/uL Baso # (Auto) (0-0.2) K/uL Immature Gran # (Auto) (0.00-0.02) K/uL Anisocytosis Target Cells PT (9.0-12.0) Seconds INR (0.9-1.1) APTT (21.0-31.0) Seconds PTT Ratio POC Sodium 132 L (135-144) mmol/L Sodium (136-145) mmol/L POC Potassium 4.1 (3.3-5.0) mmol/L Potassium (3.5-5.1) mmol/L POC Chloride 95 L (101-112) mmol/L Chloride (98-107) mmol/L Carbon Dioxide (21-32) mmol/L POC Total CO2 18 L (24-31) mmol/L Anion Gap (3-11) POC Anion Gap 24.0 (16-25) mmol/L POC BUN 5 L (7-18) mg/dl BUN (7-18) mg/dl Creatinine (0.6-1.2) mg/dl POC Creatinine 1.0 (0.6-1.3) mg/dl Est Cr Clr Drug Dosing ml/min Est GFR ( Amer) ml/min Est GFR (Non-Af Amer) ml/min BUN/Creatinine Ratio (10-20) Glucose (70-99) mg/dl POC Glucose (other) 180 H (70-99) mg/dl Lactate 6.2 H* (0.4-2.0) mmol/L Calcium (8.5-10.1) mg/dl POC Ioniz Calcium Delfino 1.03 L (1.12-1.32) mmol/l Total Bilirubin (0.2-1) mg/dl AST (15-37) U/L ALT (12-78) U/L Alkaline Phosphatase (45-117) U/L Total Protein (6.4-8.2) gm/dl Albumin (3.4-5.0) gm/dl Globulin (2.5-4.0) gm/dl Albumin/Globulin Ratio (0.9-2) Ethyl Alcohol mg/dL (0-3) mg/dl COVID-19 Eval Order SARS-CoV-2 (PCR) (Negative) Blood Type A Negative Antibody Screen NEGATIVE Crossmatch See Detail 08/04/21 08/04/21 08/04/21 Range/Units 03:47 05:30 05:30 WBC (4.8-10.8) K/uL RBC (4.2-5.4) M/uL Hgb (12.0-16.0) g/dL POC Hgb (12.0-16.0) g/dl Hct (37-47) % POC Hct (37-47) % MCV (80-100) fL MCH (25-34) pg MCHC (32-36) g/dL RDW Std Deviation (36.4-46.3) fL RDW Coeff of Ace (11.5-14.5) % Plt Count (130-400) K/uL MPV (7.4-10.4) fL Immature Gran % (Auto) % Neut % (Auto) % Lymph % (Auto) % [place] % (Auto) % Eos % (Auto) % Baso % (Auto) % Neut # (Auto) (1.4-6.5) K/uL Lymph # (Auto) (1.2-3.4) K/uL [place] # (Auto) (0.11-0.59) K/uL Eos # (Auto) (0-0.5) K/uL Baso # (Auto) (0-0.2) K/uL Immature Gran # (Auto) (0.00-0.02) K/uL Anisocytosis Target Cells PT (9.0-12.0) Seconds INR (0.9-1.1) APTT (21.0-31.0) Seconds PTT Ratio POC Sodium (135-144) mmol/L Sodium (136-145) mmol/L POC Potassium (3.3-5.0) mmol/L Potassium (3.5-5.1) mmol/L POC Chloride (101-112) mmol/L Chloride (98-107) mmol/L Carbon Dioxide (21-32) mmol/L POC Total CO2 (24-31) mmol/L Anion Gap (3-11) POC Anion Gap (16-25) mmol/L POC BUN (7-18) mg/dl BUN (7-18) mg/dl Creatinine (0.6-1.2) mg/dl POC Creatinine (0.6-1.3) mg/dl Est Cr Clr Drug Dosing ml/min Est GFR ( Amer) ml/min Est GFR (Non-Af Amer) ml/min BUN/Creatinine Ratio (10-20) Glucose (70-99) mg/dl POC Glucose (other) (70-99) mg/dl Lactate (0.4-2.0) mmol/L Calcium (8.5-10.1) mg/dl POC Ioniz Calcium Delfino (1.12-1.32) mmol/l Total Bilirubin (0.2-1) mg/dl AST (15-37) U/L ALT (12-78) U/L Alkaline Phosphatase (45-117) U/L Total Protein (6.4-8.2) gm/dl Albumin (3.4-5.0) gm/dl Globulin (2.5-4.0) gm/dl Albumin/Globulin Ratio (0.9-2) Ethyl Alcohol mg/dL 228.0 H (0-3) mg/dl COVID-19 Eval Order Covid19 at [facility] SARS-CoV-2 (PCR) NEGATIVE (Negative) Blood Type Antibody Screen Crossmatch 08/04/21 Range/Units 05:36 WBC (4.8-10.8) K/uL RBC (4.2-5.4) M/uL Hgb (12.0-16.0) g/dL POC Hgb (12.0-16.0) g/dl Hct (37-47) % POC Hct (37-47) % MCV (80-100) fL MCH (25-34) pg MCHC (32-36) g/dL RDW Std Deviation (36.4-46.3) fL RDW Coeff of Ace (11.5-14.5) % Plt Count (130-400) K/uL MPV (7.4-10.4) fL Immature Gran % (Auto) % Neut % (Auto) % Lymph % (Auto) % [place] % (Auto) % Eos % (Auto) % Baso % (Auto) % Neut # (Auto) (1.4-6.5) K/uL Lymph # (Auto) (1.2-3.4) K/uL [place] # (Auto) (0.11-0.59) K/uL Eos # (Auto) (0-0.5) K/uL Baso # (Auto) (0-0.2) K/uL Immature Gran # (Auto) (0.00-0.02) K/uL Anisocytosis Target Cells PT (9.0-12.0) Seconds INR (0.9-1.1) APTT (21.0-31.0) Seconds PTT Ratio POC Sodium (135-144) mmol/L Sodium (136-145) mmol/L POC Potassium (3.3-5.0) mmol/L Potassium (3.5-5.1) mmol/L POC Chloride (101-112) mmol/L Chloride (98-107) mmol/L Carbon Dioxide (21-32) mmol/L POC Total CO2 (24-31) mmol/L Anion Gap (3-11) POC Anion Gap (16-25) mmol/L POC BUN (7-18) mg/dl BUN (7-18) mg/dl Creatinine (0.6-1.2) mg/dl POC Creatinine (0.6-1.3) mg/dl Est Cr Clr Drug Dosing ml/min Est GFR ( Amer) ml/min Est GFR (Non-Af Amer) ml/min BUN/Creatinine Ratio (10-20) Glucose (70-99) mg/dl POC Glucose (other) (70-99) mg/dl Lactate 5.6 H* (0.4-2.0) mmol/L Calcium (8.5-10.1) mg/dl POC Ioniz Calcium Delfino (1.12-1.32) mmol/l Total Bilirubin (0.2-1) mg/dl AST (15-37) U/L ALT (12-78) U/L Alkaline Phosphatase (45-117) U/L Total Protein (6.4-8.2) gm/dl Albumin (3.4-5.0) gm/dl Globulin (2.5-4.0) gm/dl Albumin/Globulin Ratio (0.9-2) Ethyl Alcohol mg/dL (0-3) mg/dl COVID-19 Eval Order SARS-CoV-2 (PCR) (Negative) Blood Type Antibody Screen Crossmatch Imaging Data Attestation: I personally reviewed and interpreted this imaging study as follows: My Impression: CHEST 1 VIEW: No pulmonary consolidation. No pneumothorax. Normal cardiac silhouette. MDM Narrative Continuous senior product marketing manager: Order was placed for continuous senior product marketing manager. Patient was placed on the senior product marketing manager. Patient was noted to be in sinus tachycardia at an initial rate of 117 bpm. The patient is a 35-year-old female with past medical history of alcoholic hepatitis and GI bleeding who presents today for evaluation of hematemesis. P atient did vomit approximately 100 mL of bright red blood into an emesis bag on initial assessment. Patient was noted to be in acute distress, tachycardic and hypotensive. She was aggressively resuscitated, blood pressure did stabilize although she remained tachycardic Patient found to be anemic with hemoglobin of 8.9. On review of records, patient's baseline hemoglobin appears to be approximately 11. Given the acute hematemesis and drop in hemoglobin, 2 units of packed red blood cells were ordered. Patient started on octreotide and Protonix bolus and drip. Oral TXA solution was ordered for the gum bleeding. The hospitalist and GI were consulted and patient admitted to the ICU for fu rther management. Impression & Plan Acute upper GI bleeding, Alcoholic hepatitis, Hematemesis, Anemia Discharge Plan Visit Data Chief Complaint: Dental/Oral Stated Complaint: MOUTH PAIN ED Provider: Lesa López ED Midlevel Provider: Irma Ding Discharge Problem: Acute upper GI bleeding, Alcoholic hepatitis, Hematemesis, Anemia Patient Disposition: Admitted As Inpatient Discharge Instructions Interventions: ED Discharge Assessment Last Done: 08/04/21 06:58 Discharge Problem: Alcoholic hepatitis Qualifiers: Ascites presence: unspecified Qualified Code(s): K70.10 - Alcoholic hepatitis without ascites Hematemesis Qualifiers: Nausea presence: unspecified Qualified Code(s): K92.0 - Hematemesis Anemia Qualifiers: Anemia type: unspecified type Qualified Code(s): D64.9 - Anemia, unspecified
[2021-08-04 03:58] LABS: INR 1.4 (0.9-1.1); Partial Thromboplastin Ratio 1.3
[2021-08-04] MEDS ORDERED: LORazepam 1 MG/2 ML VIAL IV STA (04:07)
[2021-08-04] MEDS ORDERED: [UNRECOGNIZED DRUG - OTHER] MT PRN (04:09)
[2021-08-04] MEDS ORDERED: TRANEXAMIC ACID MT PRN (04:09)
[2021-08-04] MEDS: PANTOprazole 40 MG in DEXTROSE 5% 100 ML IV SCH ×5 (04:18→23:00)
[2021-08-04 04:22] LABS: Albumin Globulin Ratio 0.4 (0.9-2); Bilirubin,Total 4.7 mg/dl (0.2-1); Calcium 7.7 mg/dl (8.5-10.1); Creatinine Clr Calc Pharmacy 91.5 ml/min; Est GFR (African American) 105.9 ml/min; Est GFR (Non-African American) 91.4 ml/min; Globulin 4.7 gm/dl (2.5-4.0); Total Protein 6.7 gm/dl (6.4-8.2)
[2021-08-04] MEDS ORDERED: ONDANSETRON INJ 2 MG/ML 2 ML VIAL IV STA (04:25)
[2021-08-04 04:43] LABS: Anisocytosis Present; Basophils # (auto) 0.04 K/uL (0-0.2); Basophils % (auto) 0.3 %; Eosinophils # (auto) 0.01 K/uL (0-0.5); Eosinophils % (auto) 0.1 %; Immature Granulocytes # (auto) 0.06 K/uL (0.00-0.02); Immature Granulocytes % (auto) 0.4 %; Lymphocytes # (auto) 1.36 K/uL (1.2-3.4); Lymphocytes % (auto) 10.1 %; Monocytes # (auto) 0.42 K/uL (0.11-0.59); Monocytes % (auto) 3.1 %; Neutrophils # (auto) 11.64 K/uL (1.4-6.5); Target Cells 1+
--- NOTE | 2021-08-04 07:03 | Critical Care Consultation ---
Date of Consultation August 04, 2021 Assessment & Plan (1) Admitted to intensive care unit: Reason Critically Ill: 35-year-old female with upper GI bleeding in the setting of alcoholic hepatopathy with prior history of the same requiring close hemodynamic monitoring and blood product transfusion to correct underlying bleeding dyscrasias. NEURO - * CAM ICU: NEGATIVE * Alcohol abuse: * Patient with significant past medical history of alcohol abuse. Prior admissions for the same. She did abstain from alcohol for approximately 2 weeks up until the last few days when she reports that she began drinking wine again after the loss of her father. * AWSS protocol. * Depression: * Previous inpatient notes with diagnosis of depression. * Did have a conversation with the patient bedside. She denies suicide attempt. She does state that she did utilize Gabriella-[place] secondary to her dyspepsia, but otherwise is taking no other medications. Specifically, she is not congested Tylenol or NSAID products. CARDIAC/VASCULAR - * Tachycardic: * Likely compensatory in the setting of acute blood loss anemia. * Monitor for changes in hemodynamics with goals of improvement with transfusions. * EKG: Sinus tachycardia at [address] or T wave changes. QTc 492 ms * Monitor on telemetry. RESPIRATORY - * No history of pulmonary disease. * Saturating well on room air. GI/NUTRITION - * Upper GI bleed: * Patient with history of the same over the past year. * Concerning in the patient with alcoholic hepatopathy. * Prior EGD demonstrated erosive esophagitis without varices. * Continue Protonix and octreotide drips. * Appreciate GI consultation. * Prophylaxis: RENAL/LYTES - * Hyponatremia: * Presenting with a sodium of 130. * Patient has previously had hyponatremia likely in the setting of alcoholism in the past. - * No concerns at this time ENDO - * No history of diabetes or thyroid disease * BSGs per unit protocol. ISS --> gtt per unit policy. HEME - * Acute blood loss anemia: * In the setting of upper GI bleeding and bleeding gums. * Concerns for bleeding dyscrasia with associated bleeding gums. * INR elevated at 1.4. * Further bleeding studies including D-dimer, fibrinogen, and FDP added as well. * Patient received 2 units PRBCs and 2 units FFP. ID - * SBP coverage in the patient with ascites. * Initially received IV Zosyn. LINES/IV ACCESS - * PIVs x2 -2 large-bore IVs in the bilateral ACs DVT PROPHYLAXIS - * Hold on chemoprophylaxis in the setting of upper GI bleeding. * SCDs I have personally spent 42 minutes of critical care time in the direct management of this patient. This is a life/limb threatening event. This includes time spent evaluating patient, direct bedside care, chart review, placing orders, interpretation of diagnostic studies, discussion with consultants, patient, and family members, as well as other required patient management activities. This time is exclusive of all separately billable procedures, and teaching time and separate from and in addition to any other critical care service time. Thank you for allowing us to participate in the care of this patient. Please refer to my attending physician's documentation for any further recommendations. (2) Upper GI bleed: (3) Bleeding gums: (4) Acute blood loss anemia: (5) Alcohol abuse: (6) Alcohol intoxication: (7) Alcoholic hepatitis: (8) Hyponatremia: Supervising Physician Co-Signing Physician Notes Seen and examined. Discussed with DANNY and agree with AP as noted. See my CC addendum for additional details. History of Present Illness History of Present Illness Patient is a 35-year-old female with a significant past medical history of alcoholism, alcoholic hepatitis, history of GI bleeding, and depression. She presented to the emergency department in the early hours this morning with complaints of bleeding gums and vomiting. The patient was most recently admitted to this institution in late June for alcohol withdrawal symptoms. Patient was reportedly having some bright red blood per rectum as well as blood- streaked emesis during that visit. Initially was started on a an octreotide and Protonix drip which was discontinued as she did have an EGD in February 2021 which did not demonstrate varices. Patient remained on PPI. Unfortunately, after discharge during most recent visit, the patient relapsed and began drinking again after the loss of her father. She reports that previously she was drinking 1-2 bottles of wine, but has decreased her intake to a few glasses per day. Over the last few days she has noticed bleeding gums. This morning, she had multiple episodes of bloody emesis which prompted visit to the emergency department. Upon evaluation in the emergency department, the patient had episodes of bloody emesis in excess of 200 mL. Thankfully, she is remained hemodynamically stable to this point. She was started on octreotide and Protonix boluses followed by drips. Additionally, she was typed and crossed for blood as her H&H had taken relative substantial drop in the setting of new upper GI bleeding. Orders placed for 2 units PRBC transfusion. Hospitalist did speak with ting vizcarra. Plans for conservative measures initially as the patient has had previous diagnosis of esophagitis in the past. Upon evaluation in the emergency department, the patient is awake, alert, and oriented. She smells of alcohol. She denies complaints of abdominal pain at this time. She reports that during her previous admission she did have bloody emesis as well as blood in her stools, but that had subsided up until the past few days. She reports the bleeding gums are new. Other than bleeding, the patient offers no other complaints at this time. Home Medications Medication Instructions Recorded Confirmed Type escitalopram oxalate 5 mg tablet 5 mg PO DAILY 08/04/21 08/04/21 History hydroxyzine HCl 10 mg tablet 10 mg PO DAILY 08/04/21 08/04/21 History losartan 25 mg tablet 25 mg PO DAILY 08/04/21 08/04/21 History pantoprazole 40 mg tablet,delayed 40 mg PO DAILY 08/04/21 08/04/21 History release sucralfate 100 mg/mL oral 1,000 mg PO QID 08/04/21 08/04/21 History suspension Patient History Social History Smoking Status: Former smoker Second Hand Exposure: No; Do You Dip or Chew Tobacco: No; Tobacco Cessation Education Requested by Patient: No Hx Alcohol Use: Yes Alcohol type: wine Hx Substance Use: No Preferred Language: Mongolian Communication Ability: Effective Reservation Agent Required: No Beliefs That Will Affect Care: None Current Living Situation: Parent Other Information That Helps Us Care for You: No Feels Safe at Home: Yes Safety Concerns: Feels Safe At This Time Assistive Devices: Glasses Review of Systems Review of Systems: All systems reviewed & are unremarkable except as noted in HPI & below Physical Exam Physical Exam: VITAL SIGNS - Vital signs and nursing notes were reviewed. GENERAL - 35-year-old female appearing her stated age who is in no significant distress. Communicates well with provider and answers questions appropriately. Smells of alcohol. HEAD - NC/AT. EYES - PERRL with EOMI bilaterally. Scleral icterus noted. Palpebral conjunctiva pink and moist with no injection noted. EARS - No deformities of external structures noted on gross examination bilaterally. NOSE - Midline and without cyanosis. No epistaxis. MOUTH/OROPHARYNX - Without perioral cyanosis. Diffuse fresh appearing blood noted throughout the gums. NECK - Neck with FROM. Supple to palpation. No nuchal rigidity. LUNGS - Chest wall symmetric without accessory muscle use, intercostals retractions, or central cyanosis. Normal vesicular breath sounds CTA B/L. No wheezes, rales, or rhonchi appreciated. CARDIAC - RRR with S1/S2. No murmur, rubs, or gallops appreciated. ABDOMEN - Abdominal contour obese without pulsations or visible masses. BS normoactive all four quadrants. No tenderness to palpation appreciated. No guarding. Ascites noted. EXTREMITIES - No clubbing or peripheral cyanosis. No pretibial edema present. +3/5 radial and dorsalis pedis pulses palpated throughout. +5/5 strength noted in UE/LE bilaterally. NEUROLOGIC - Cranial nerves II through XII grossly intact. Sensory intact to light touch throughout. PSYCH - A&Ox3 and cooperates fully with examiner. Flat affect. Results & Data Results & Data ([facility]) Vital Signs (Past 12 Hours) Vital Signs Temp Pulse Pulse Resp BP BP Pulse Ox 08/04/21 04:24 115 H 20 114/56 L 97 08/04/21 03:52 100 08/04/21 02:24 36.9 C 115 H 115 H 16 122/70 122/70 99 Coding Level of Care Code Critical Care 1st 30-74 mins Diagnoses Admitted to intensive care unit Z78.9 Upper GI bleed K92.2 Bleeding gums K06.8 Acute blood loss anemia D62 Alcohol abuse F10.10 Alcohol intoxication F10.929 Alcoholic hepatitis K70.10 Hyponatremia E87.1 Time Spent (min) 42
[2021-08-04 07:08] LABS: iSTAT Hemoglobin 9.5 g/dl (12.0-16.0); iSTAT Ionized Calcium 1.03 mmol/l (1.12-1.32); iSTAT Potassium 4.1 mmol/L (3.3-5.0)
[2021-08-04] MEDS ORDERED: PIPERACILL/TAZOBAC CONSULT ACTIVE PRN (07:09)
[2021-08-04] MEDS ORDERED: ATIVAN IV ALCOHOL WITHDRAWL IV PRN (07:09)
[2021-08-04] MEDS ORDERED: LORazepam 2 MG/4 ML VIAL IV PRN (07:09)
[2021-08-04] MEDS ORDERED: LORazepam 3 MG/6 ML VIAL IV PRN (07:09)
[2021-08-04] MEDS ORDERED: ICU PROTOCOL FOR HYPERGLYCEMIA PRN (07:09)
[2021-08-04] MEDS ORDERED: MULTI-VITAMIN INFUSION 10 ML, THIAMINE HCL 100 MG, FOLIC ACID 1 MG in SODIUM CHLORIDE 0... IV ONE (07:30)
[2021-08-04] MEDS ORDERED: PIPERACILLIN/TAZOBACTAM 3.375 GM in DEXTROSE 5% 100 ML IV ONE (07:45)
--- NOTE | 2021-08-04 07:55 | History and Physical Report ---
DATE OF ADMISSION: 08/04/2021. CHIEF COMPLAINT: Hematemesis, anemia, and alcohol abuse. HISTORY OF PRESENT ILLNESS: A 35-year-old female with past medical history significant for alcohol abuse, hypertension, alcoholic hepatitis, erosive esophagitis, ongoing alcoholism, presents with hematemesis. The patient states that she is having some gum bleeding for the last 2-3 days and tonight she started vomiting blood and in the ER also she vomited more than 100 mL of blood. Hemoglobin is 8.9. She was tachycardic, has some abdominal discomfort. The patient is jaundiced. Her alcohol level was 228, total bilirubin was 4.7. Lactate was 6.2, sodium 130. INR 1.4. Blood pressure is holding. The patient denies any chest pain or shortness of breath. No cough, no fevers, no headache, no blurred visions, no runny nose. Denies any sore throat, not eating much. Denies any blood in the stools or black stools, not urinating much. No rash. She says she used to drink 2 bottles of wine in the past, but has cut down to two glasses of wine daily. She lives with her mother, mother is in the room. ALLERGIES: SEEMS TO PREDNISONE AND PINE NUTS. PAST MEDICAL HISTORY: As mentioned above. PAST SURGICAL HISTORY: EGD. MEDICATIONS: At home, the patient is on Lexapro 5 mg p.o. daily,, folic acid 1 mg p.o. daily, hydroxyzine 10 mg p.o. daily, losartan 25 mg p.o. daily, Protonix 40 mg p.o. daily. FAMILY HISTORY: Significant for father has depression, diabetes, heart attack; mother has hypertension and depression; maternal grandmother has diverticulosis. SOCIAL HISTORY: Single, currently living with her mom. Currently denies any smoking, denies any drugs. Currently ongoing alcoholism. REVIEW OF SYSTEMS: As per HPI. Rest of the review of systems negative. PHYSICAL EXAMINATION: GENERAL: The patient is of moderate build, currently not in acute distress. VITAL SIGNS: Temperature 36.9, pulse 115, respiratory rate 20, blood pressure 114/56, oxygen 97% on room air. HEENT: Icterus present. Pupils equal, round, and reactive to light. Oral mucosa, some blood is seen. NECK: No obvious JVD. No neck masses. CARDIOVASCULAR: S1 and S2 heard. Tachycardia. No murmurs. RESPIRATORY: Normal AP diameter. No accessory muscle use. No wheezing, no crackles. ABDOMEN: Soft, bowel sounds present. Mild distention, no guarding, no rigidity. CENTRAL NERVOUS SYSTEM: Cranial nerves II through XII are grossly intact, nonfocal. EXTREMITIES: Mild pedal edema present, no erythema seen. LABORATORY DATA: WBC 13.5, hemoglobin 8.9, hematocrit 25.7, platelets 234. PT 14, INR 1.4, APTT 35. Sodium 130, potassium 4, chloride 98, bicarbonate 21, BUN 5, creatinine 0.8, serum glucose 178. Lactate 6.2, calcium 7.7, total bilirubin 4.7, AST 250, ALT 56, alkaline phosphatase 300, ethyl alcohol 228. IMAGING DATA: Chest x-ray, no acute findings. EKG: Sinus tachycardia at the rate of 119. Nonspecific ST changes. ASSESSMENT AND PLAN: This is a 35-year-old female with ongoing alcoholism, history of erosive esophagitis. Presents with hematemesis. As per the Epic notes, the patient has history of hematemesis and also she had EGD done in February of 2021 with no evidence of high risk lesions, but showed erosive esophagitis and at that time her discriminant function was high and she was treated with prednisone taper. Currently, blood consent obtained. Ordered 2 units of PRBCs. Ordered IV Zosyn. Started on Protonix drip and Sandostatin drip. Notified GI. Since no elevation in Bun, GI thinks it is mostly superficial bleed from the esophagitis and they plan to watch and monitor for now. Closely monitor in the ICU. 2. Elevated bilirubin, possibly alcoholic hepatitis. The DF score is not high this time. We will monitor. 3. History of hypertension: Will hold the losartan for now. As the blood pressure is on the lower side, we will monitor. 4. Alcoholism: Will give banana bag, IV thiamine, IV folic acid. Monitor for withdrawal. Placed on IV Ativan protocol for withdrawal. Once stable, we can start her also on gabapentin protocol. 5. Deep venous thrombosis prophylaxis: Sequential compression devices. DISPOSITION: Closely monitor in the ICU. Level 1 full code. Job ID: [id number] [facility]
[2021-08-04] MEDS: FOLIC ACID 1 MG in SYRINGE 9.8 ML IV SCH (07:59)
[2021-08-04] MEDS ORDERED: THIAMINE HCL 100 MG in SYRINGE 9 ML IV SCH (09:00)
[2021-08-04 09:01] LABS: Fibrinogen 133 mg/dl (184-400)
[2021-08-04 09:29] LABS: D Dimer 2220 ug/L FEU (0-500)
[2021-08-04] MEDS ORDERED: FUROSEMIDE INJ 20 MG/2 ML VIAL IV ONE (10:00)
--- NOTE | 2021-08-04 11:36 | Communication Note ---
Date of Service: August 04, 2021 Patient seen and examined. EMR reviewed. The patient continues to have episodes of bright red hematemesis. She is manifesting some bleeding from her gums as well. Fibrinogen was low so we will replete with cryo. Replace calcium as well. She is receiving her second unit. Serial hemoglobin and hematocrit. Await GI evaluation. Follow serial hemoglobin levels. Trend sodium and electrolytes. Follow LFTs. Repeat lactate. Will use Ativan for anxiety and potentially as an antiemetic. She is already receiving thiamine and folate. We will follow closely. Discussed with bedside critical care nurse. Additional 35 minutes critical care time evaluating managing and stabilizing patient Coding Level of Care Code Critical Care ea addt'l 30 min Time Spent (min) 35
[2021-08-04] MEDS ORDERED: CALCIUM GLUCONATE 10% 3,000 MG in 0.9 % SODIUM CHLORIDE 100 ML IV ONE (11:45)
[2021-08-04] MEDS: LORazepam 1 MG/2 ML VIAL IV PRN ×3 (12:05→19:25)
--- NOTE | 2021-08-04 12:24 | XRay Report ---
SINGLE VIEW CHEST CLINICAL HISTORY: Intoxication. Change in mental status. FINDINGS: An AP, portable, upright chest radiograph is obtained. No prior studies are available for c omparison at the time of dictation. The cardiomediastinal silhouette is unremarkable. There are low lung volumes with bibasilar atelectasis. The lungs and pleural spaces are otherwise clear. No pneumot horax is seen. The bony thorax is grossly intact. IMPRESSION: No active disease in the chest. ACT 112: Negative or not required by law. Electronically signed by: Denny Hoskins M.D. 08/04/2021 12:23 PM
--- NOTE | 2021-08-04 13:17 | Gastrointestinal Consultation ---
Date of Consultation August 04, 2021 Supervising Physician Co-Signing Physician Notes 35 yo fm with chronic alcohlism, admitted thru the er after drinking and noticing bleeding from her gums and then reported hematemesis. Given her bun has not risen, at the current time it does not appear to be an active ugi source, she may have some component of gum bleeding that she is swallowing that blood and vomiting it back up. Given her alcoholic intake yesterday, would advised IV hydration, IV PPI, continuation of empiric iv octreotide is fine, trend hgb and bun. If her fibrinogen drops below 100, consider replacement as that can cause gum bleeding, but theres no further evidence of dic at this time. Suspect her ddimer is reactive, consider lower ext dopplers. She has a mild case of alcoholic hepatitis per her MDF score of 18 based on her tb of 4.7, and PT of 14, NA 134. She's reamined hemodynamically stable other than tachycardia which i suspect is related to mild etoh withdrawal. At the current time, I would continue wtih npo status, iv ppi, iv octreotide, trend hgb, consider fibrinogen replacement if indicated and monitor her clinical status. History of Present Illness Reason for Consultation: ?hematemesis Requesting Physician: Dr. Su Attending Physician: Blayne Hong MD History of Present Illness 35 yo fm known to [facility] with hematemesis in the past known to have severe esophagitis per last egd in 03/12. Since then she has continued to drink, taking her PPI twice daily per report to me. Came in through the er as she had been drinking, noticed bleeding from her mouth and gums, and then reportedly vomited up some blood in the ER. She is tachycardic but also hungover from recent etoh use. This afternoon when seeing her - she is somnolent but answering questions and is oriented to person, place, time. PE - obese fm in nad, HEENT - mild scleral icterus, Abd - slightly distended soft, Blood tinged gums, no overt bleeding noted at bedside Denies hematochezia [facility]pt [facility] records reviewed- she is not knonw to be cirrhotic per prior imaging, or current imaging. Last EGD in 03/12 showed no evidence of varices. She was empirically started by the ER on octreotide, ppi drip. Further significant labs values show her AST toe b2 x her alt, TB elevation at 4.7, INR 1.4, MDF 18, Plt 234, D dimer 2200, Fibrinogen 133 Allergies Allergy/AdvReac Type Severity Reaction Status Date / Time pine nut Allergy Unknown Verified 08/04/21 09:09 Home Medications Medication Instructions Recorded Confirmed Type escitalopram oxalate 5 mg tablet 5 mg PO DAILY 04/22/21 07/18/21 History losartan 25 mg tablet 25 mg PO DAILY 04/22/21 07/18/21 History pantoprazole 20 mg tablet,delayed 20 mg PO BID 30 Days #60 tab 07/20/21 Rx release (Protonix) sucralfate 100 mg/mL oral 1 g PO Q6H 28 Days #1120 ml 07/20/21 Rx suspension (Carafate) escitalopram oxalate 5 mg tablet 5 mg PO DAILY 08/04/21 08/04/21 History hydroxyzine HCl 10 mg tablet 10 mg PO DAILY 08/04/21 08/04/21 History losartan 25 mg tablet 25 mg PO DAILY 08/04/21 08/04/21 History pantoprazole 40 mg tablet,delayed 40 mg PO DAILY 08/04/21 08/04/21 History release sucralfate 100 mg/mL oral 1,000 mg PO QID 08/04/21 08/04/21 History suspension Patient History Medical History AA (alcohol abuse) Acute alcoholic hepatitis Coagulopathy Generalized anxiety disorder Hypertension Hyponatremia Obesities, morbid Upper GI bleed Surgical History No history of previous surgery Family History Father Myocardial infarction Depression Diabetes Heart disease Grandfather Prostate cancer MATERNAL Mother Depression Hypertension Denies family history of Ovarian cancer Breast cancer Colorectal cancer History of alcoholism Social History Smoking Status: Former smoker Tobacco Type: Cigarettes Age Started Using Tobacco: 22; Cigarettes Per Day: 5; Second Hand Exposure: No; Do You Dip or Chew Tobacco: No; Tobacco Cessation Education Requested by Patient: No Hx Alcohol Use: Yes Alcohol type: wine Alcohol Intake Frequency: 4 or More x per/Week Alcohol Intake Frequency Comment: DAILY; 1-2 bottles wine/day; multiple rum & coke Hx Substance Use: No Preferred Language: Sami Communication Ability: Effective Visual Impairment: No Limitations Hearing Ability: Normal Manager Financial Reporting Required: No Beliefs That Will Affect Care: None marital status: Single Current Living Situation: Alone and Parent Current Living Situation Comment: lives in [place] w/ Mom/dad current occupational status: unemployed 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 How many Children do You have: 0 Other Information That Helps Us Care for You: No Feels Safe at Home: Yes Safety Concerns: Feels Safe At This Time Childhood Exposure to Second-Hand Smoke: No Dental Care, Regularly: No Physical Activity Frequency: Does not Exercise Seatbelt Use: always Sunscreen Use: Yes Sexual Activity: has been sexually active, but not for at least 12 months Assistive Devices: None and Glasses Physical Exam Physical Exam: Female in no acute distress, no overt vomiting up blood noted when i was present Eyes: Mild icterus, perral Respiratory: Normal respirations Gastrointestinal (Abdomen): Distended slightly, soft Neurologic: Alert and oriented to person, place, time Results & Data ([facility]) Vital Signs (Past 12 Hours) Vital Signs Temp Pulse Pulse Resp BP BP Pulse Ox 08/04/21 13:02 37 C 116 H 16 143/81 H 95 08/04/21 11:30 36.6 C 115 H 16 127/79 98 08/04/21 11:00 37 C 114 H 14 141/84 H 94 08/04/21 10:45 113 H 15 146/80 H 97 08/04/21 10:41 37 C 16 138/84 100 08/04/21 10:37 37 C 114 H 14 129/70 08/04/21 10:30 36.6 C 103 H 15 139/84 97 08/04/21 10:15 106 H 14 129/74 99 08/04/21 10:00 112 H 22 132/81 100 08/04/21 09:45 118 H 16 126/62 99 08/04/21 09:30 119 H 17 08/04/21 09:15 114 H 14 115/68 98 08/04/21 09:00 111 H 15 116/78 95 08/04/21 08:45 115 H 14 131/67 100 08/04/21 08:35 37 C 117 H 14 114/55 L 08/04/21 08:30 118 H 14 114/55 L 100 08/04/21 08:20 36.7 C 116 H 14 91/51 L 08/04/21 08:15 114 H 17 114/47 L 95 08/04/21 08:05 36.7 C 117 H 118/61 08/04/21 08:00 36.7 C 120 H 16 118/61 99 08/04/21 07:45 118 H 19 109/65 99 08/04/21 07:30 118 H 15 106/52 L 99 08/04/21 07:20 36.7 C 115 H 14 91/51 L 98 08/04/21 07:15 117 H 12 99 08/04/21 07:10 36.6 C 117 H 18 105/50 L 98 08/04/21 07:09 118 H 08/04/21 06:59 36.6 C 117 H 18 90/61 L 98 08/04/21 04:24 115 H 20 114/56 L 97 08/04/21 03:52 100 08/04/21 02:24 36.9 C 115 H 115 H 16 122/70 122/70 99 Laboratory Results Labs reviewed:WBC elevated at 13, plt normal, Hgb 11.2->8.2 on one check but another said 9.5, no bun rise and normal creatinie, TB 4.7, AST 250, ALT 56, inr 1.4, PLT 234, dD FELECIA 2000, Fibrinogen [address] shows her to be non cirrhotic
[2021-08-04] MEDS: cefTRIAXone SODIUM 2,000 MG in DEXTROSE 5% 50 ML IV SCH (13:29)
[2021-08-04] MEDS: OCTREOTIDE ACETATE 500 MCG in 0.9 % SODIUM CHLORIDE 100 ML IV SCH ×2 (13:29→21:32)
[2021-08-04] MEDS ORDERED: PIPERACILLIN/TAZOBACTAM 3.375 GM in DEXTROSE 5% 100 ML IV SCH (14:00)
[2021-08-04] MEDS: SODIUM CHLORIDE 0.9% 1000ML 1,000 ML IV SCH ×3 (14:24→22:14)
[2021-08-04 14:43] LABS: Hematocrit (blood only) 25.9 % (37-47); Hemoglobin 8.8 g/dL (12.0-16.0)
--- NOTE | 2021-08-04 16:56 | Communication Note ---
Date of Service: August 04, 2021 Chart reviewed Patient seen and examined at the bedside LEVI Hollins at the bedside throughout all encounter Patient seen sitting up in bed, appears tired, but awakens to verbal stimuli, Answers all questions appropriately Denies abdominal pain nausea vomiting Reports anxiety, mild tremors no chest pain, dyspnea, palpitations, dizziness Was noted to have gum bleeding and some hematemesis earlier this morning Blood transfusion, FFP transfusion in progress Vital signs noted reviewed Not in distress Clear breath sounds bilaterally Normal rate regular rhythm no murmurs Abdomen nondistended, normoactive bowel sounds, nontender No edema, minimal hand tremors noted All labs are reviewed Anemia, possible gingival bleed, acute GI bleed Continue blood transfusion, FFP and cryoprecipitate also given Monitor hemoglobin Protonix drip, octreotide drip, Zosyn Other diagnoses and plan of care per Dr. Su's notes Blayne Hong MD
[2021-08-04 20:02] LABS: Hematocrit (blood only) 30.1 % (37-47); Hemoglobin 10.5 g/dL (12.0-16.0)
[2021-08-04 20:26] LABS: INR 1.4 (0.9-1.1); Prothrombin Time 13.6 Seconds (9.0-12.0)
[2021-08-04 21:15] LABS: Fibrinogen 214 mg/dl (184-400)
[2021-08-04 22:56] LABS: Hematocrit (blood only) 29.5 % (37-47); Hemoglobin 10.2 g/dL (12.0-16.0)
[2021-08-05] MEDS: LORazepam 1 MG/2 ML VIAL IV PRN ×5 (03:53→21:52)
[2021-08-05] MEDS: PANTOprazole 40 MG in DEXTROSE 5% 100 ML IV SCH ×4 (03:53→19:49)
[2021-08-05] MEDS: SODIUM CHLORIDE 0.9% 1000ML 1,000 ML IV SCH ×3 (05:42→21:07)
[2021-08-05 05:51] LABS: Basophils # (auto) 0.04 K/uL (0-0.2); Basophils % (auto) 0.4 %; Eosinophils # (auto) 0.16 K/uL (0-0.5); Eosinophils % (auto) 1.5 %; Hematocrit (blood only) 27.3 % (37-47); Hemoglobin 9.4 g/dL (12.0-16.0); Immature Granulocytes # (auto) 0.06 K/uL (0.00-0.02); Immature Granulocytes % (auto) 0.6 %; Lymphocytes # (auto) 1.86 K/uL (1.2-3.4); Lymphocytes % (auto) 17.2 %; Mean Corpuscular Hgb Conc 34.4 g/dL (32-36); Mean Corpuscular Volume 90.1 fL (80-100); Mean Platelet Volume 10.3 fL (7.4-10.4); Monocytes # (auto) 0.47 K/uL (0.11-0.59); Monocytes % (auto) 4.4 %; Neutrophils % (auto) 75.9 %; Platelet Count 140 K/uL (130-400); RDW Coefficient of Variation 19.2 % (11.5-14.5); RDW Standard Deviation 62.4 fL (36.4-46.3); Red Blood Count 3.03 M/uL (4.2-5.4); White Blood Count 10.79 K/uL (4.8-10.8)
[2021-08-05] MEDS: OCTREOTIDE ACETATE 500 MCG in 0.9 % SODIUM CHLORIDE 100 ML IV SCH ×2 (06:22→16:11)
[2021-08-05 06:27] LABS: Magnesium 1.4 mg/dl (1.8-2.4); Potassium 3.6 mmol/L (3.5-5.1)
[2021-08-05 06:28] LABS: BUN Creatinine Ratio 9.3 (10-20); Calcium 7.3 mg/dl (8.5-10.1); Creatinine Clr Calc Pharmacy 103.8 ml/min; Est GFR (African American) 119.7 ml/min; Est GFR (Non-African American) 103.3 ml/min; Phosphorus 1.6 mg/dl (2.5-4.9)
--- NOTE | 2021-08-05 07:12 | Electrocardiogram Report ---
Test Reason : Blood Pressure : / mmHG Vent. Rate : 119 BPM Atrial Rate : 119 BPM P-R Int : 126 ms QRS Dur : 068 ms QT Int : 350 ms P-R-T Axes : 049 -02 018 degrees QTc Int : 492 ms Poor data quality, interpretation may be adversely affected Sinus tachycardia Low voltage QRS Possible Anterior infarct , age undetermined Nonspecific T wave abnormality Prolonged QT Abnormal ECG No previous ECGs available Confirmed by Noel Valverde ([id number]) on 08/05/2021 7:11:48 AM Referred By: REFERRED SELF Confirmed By:Noel Valverde
[2021-08-05 08:42] LABS: Iron 142 mcg/dl (35-150); Total Iron Binding Capacity 161 mcg/dl (250-450)
[2021-08-05 08:43] LABS: Transferrin 103 mg/dl (200-360)
--- NOTE | 2021-08-05 08:44 | Critical Care Progress Note ---
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 She was acutely intoxicated at the time of admission 24-hour events: Patient admitted to the ICU. She received 3 units of packed cells overnight as well as FFP. GI consultation reviewed and obtained. She received some Ativan for anxiety but is not had any issues with alcohol withdrawal. Recommendations: NEURO -continue alcohol withdrawal protocol. Continue thiamine and folate. CV: Tachycardia likely compensatory. Continue to follow for now. Her lactate is cleared and is now normal. RESPIRATORY -no current issues GI/NUTRITION -likely upper GI bleed. Previous EGD showing esophagitis without varices. Continue octreotide and Protonix. GI following. Serial hemoglobin and hematocrit. Will place on ice chips for now but avoid advancing diet until GIs had an opportunity to repeat their evaluation today. CT scan did show peripancreatic edema and fluid suggestive of pancreatitis. Her exam is benign. Lipase was normal. Continue supportive care RENAL/LYTES -presented hyponatremic but now correcting. Will initiate electrolyte replacement protocol. -no current issues ENDO -glycemic control per protocol HEME -acute blood loss anemia. Appears corrected. Continue serial hemoglobin and hematocrit. Fibrinogen responded appropriately to cryoprecipitate. Follow serial INR and platelet counts. She received FFP empirically during the course of her resuscitation. INR is currently acceptable. ID -on Rocephin for SBP prophylaxis. Trace ascites identified on CT scan. LINES/IV ACCESS - * PIVs x2 -2 large-bore IVs in the bilateral ACs DVT PROPHYLAXIS - * Hold on chemoprophylaxis in the setting of upper GI bleeding. * SCDs Will observe in the ICU today to ensure hemoglobin and hematocrit remained stable. If she does well, she can likely transfer to the floor in the next 12 to 24 hours Discussed with bedside critical care nurse and patient at bedside Admission and Anticipated Discharge Date Admission Date: August 04, 2021 Subjective Patient seen and examined. She feels better this morning. She is not having any nausea. She has not had any additional hematemesis. No additional bleeding from the mouth. She denies abdominal pain distention or vomiting. She is asking about something for her dry mouth. She is maintained hemodynamic stability. Review of Systems Review of Systems: All systems reviewed & are unremarkable except as noted in Subjective Physical Exam Constitutional: well developed and well nourished; no acute distress Slightly jaundiced Eyes: Mild icterus, perral Respiratory: normal respiratory effort, lungs clear to auscultation Cardiovascular: Rate/Rhythm: + tachycardic Heart Sounds: normal S1 and normal S2; no murmur Extremities: no edema Gastrointestinal (Abdomen): Distended slightly, soft Neurologic: Alert and oriented to person, place, time Results & Data Results & Data ([facility]) Vital Signs (Past 12 Hours) Vital Signs Temp Pulse Resp BP Pulse Ox 08/05/21 06:00 102 H 14 122/80 93 08/05/21 05:43 36.7 C 08/05/21 05:30 104 H 12 131/81 94 08/05/21 05:00 97 H 13 121/79 94 08/05/21 04:30 96 H 13 113/95 94 08/05/21 04:00 103 H 13 130/86 94 08/05/21 03:48 37.1 C 08/05/21 03:30 107 H 12 128/86 94 08/05/21 03:00 103 H 14 131/90 94 08/05/21 02:30 108 H 13 134/91 97 08/05/21 02:04 36.8 C 08/05/21 02:00 101 H 13 132/91 94 08/05/21 01:30 106 H 12 134/93 95 08/05/21 01:00 106 H 12 131/88 94 08/05/21 00:30 110 H 12 132/92 94 08/05/21 00:00 107 H 13 135/84 95 08/04/21 23:42 37.0 C 08/04/21 23:30 110 H 12 140/92 95 08/04/21 23:29 110 H 08/04/21 23:15 117 H 14 145/89 H 92 08/04/21 23:00 104 H 95 08/04/21 22:45 116 H 12 123/84 97 08/04/21 22:30 113 H 13 125/87 96 08/04/21 22:15 114 H 137/78 96 11/13/21 22:09 37.1 C 08/04/21 22:00 109 H 14 148/86 H 95 08/04/21 21:30 115 H 13 125/84 97 08/04/21 21:00 108 H 13 142/82 H 95 Critical Care Results & Data Vital Signs (Past 12 Hours) Vital Signs Temp Pulse Resp BP Pulse Ox 08/05/21 06:00 102 H 14 122/80 93 08/05/21 05:43 36.7 C 08/05/21 05:30 104 H 12 131/81 94 08/05/21 05:00 97 H 13 121/79 94 08/05/21 04:30 96 H 13 113/95 94 08/05/21 04:00 103 H 13 130/86 94 08/05/21 03:48 37.1 C 08/05/21 03:30 107 H 12 128/86 94 08/05/21 03:00 103 H 14 131/90 94 08/05/21 02:30 108 H 13 134/91 97 08/05/21 02:04 36.8 C 08/05/21 02:00 101 H 13 132/91 94 08/05/21 01:30 106 H 12 134/93 95 08/05/21 01:00 106 H 12 131/88 94 08/05/21 00:30 110 H 12 132/92 94 08/05/21 00:00 107 H 13 135/84 95 08/04/21 23:42 37.0 C 08/04/21 23:30 110 H 12 140/92 95 08/04/21 23:29 110 H 08/04/21 23:15 117 H 14 145/89 H 92 08/04/21 23:00 104 H 95 08/04/21 22:45 116 H 12 123/84 97 08/04/21 22:30 113 H 13 125/87 96 08/04/21 22:15 114 H 137/78 96 08/04/21 22:09 37.1 C 08/04/21 22:00 109 H 14 148/86 H 95 08/04/21 21:30 115 H 13 125/84 97 08/04/21 21:00 108 H 13 142/82 H 95 Lab & Micro Results (Past 24 Hours) RBC 3.03 M/uL (4.2-5.4) L 08/05/21 WBC 10.79 K/uL (4.8-10.8) 08/05/21 Hgb 9.4 g/dL (12.0-16.0) L 08/05/21 Hct 27.3 % (37-47) L 08/05/21 MCV 90.1 fL (80-100) 08/05/21 MCH 31.0 pg (25-34) 08/05/21 MCHC 34.4 g/dL (32-36) 08/05/21 RDW Standard Deviation 62.4 fL (36.4-46.3) H 08/05/21 RDW Coefficient of Variation 19.2 % (11.5-14.5) H 08/05/21 Plt Count 140 K/uL (130-400) 08/05/21 MPV 10.3 fL (7.4-10.4) 08/05/21 Neutrophils (%) (Auto) 75.9 % 08/05/21 Lymphocytes (%) (Auto) 17.2 % 08/05/21 Monocytes # (Auto) 0.47 K/uL (0.11-0.59) 08/05/21 Eosinophils # (Auto) 0.16 K/uL (0-0.5) 08/05/21 Immature Granulocyte % (Auto) 0.6 % 08/05/21 Neutrophils # (Auto) 8.20 K/uL (1.4-6.5) H 08/05/21 Lymphocytes # (Auto) 1.86 K/uL (1.2-3.4) 08/05/21 Monocytes # (Auto) 0.47 K/uL (0.11-0.59) 08/05/21 Eosinophils # (Auto) 0.16 K/uL (0-0.5) 08/05/21 Basophils # (Auto) 0.04 K/uL (0-0.2) 08/05/21 Immature Granulocyte # (Auto) 0.06 K/uL (0.00-0.02) H 08/05/21 Na 134 mmol/L (136-145) L 08/05/21 K 3.6 mmol/L (3.5-5.1) 08/05/21 Cl 103 mmol/L (98-107) 08/05/21 CO2 26 mmol/L (21-32) 08/05/21 Anion Gap 5.0 (3-11) 08/05/21 BUN 7 mg/dl (7-18) 08/05/21 Creatinine 0.75 mg/dl (0.6-1.2) 08/05/21 Estimated GFR ( Amer) 119.7 ml/min 08/05/21 Estimated GFR (Non-Af Amer) 103.3 ml/min 08/05/21 BUN/Creatinine Ratio 9.3 (10-20) L 08/05/21 Glu 162 mg/dl (70-99) H 08/05/21 Ca 7.3 mg/dl (8.5-10.1) L 08/05/21 Phosphorus Level 1.6 mg/dl (2.5-4.9) L 08/05/21 Mg 1.4 mg/dl (1.8-2.4) L 08/05/21 05:35 08/05/21 Calcium Level 7.3 mg/dl (8.5-10.1) L 08/05/21 05:35 08/05/21 Prothromb Time International Ratio 1.4 (0.9-1.1) H 08/04/21 19:35 08/04/21 Diagnostic Findings (Past 24 Hours) Chest X-Ray 08/04/21 03:16 SINGLE VIEW CHEST CLINICAL HISTORY: Intoxication. Change in mental status. FINDINGS: An AP, portable, upright chest radiograph is obtained. No prior studies are available for comparison at the time of dictation. The cardiomediastinal silhouette is unremarkable. There are low lung volumes with bibasilar atelectasis. The lungs and pleural spaces are otherwise clear. No pneumothorax is seen. The bony thorax is grossly intact. IMPRESSION: No active disease in the chest. ACT 112: Negative or not required by law. Electronically signed by: Denny Hoskins M.D. 08/04/2021 12:23 PM I & O Totals 24 Hours 08/04/21 08/05/21 08/06/21 06:59 06:59 06:59 Intake Total 120 / 120 5607.571 / 5607.571 Output Total 2650 / 2650 Balance 120 / 120 2957.571 / 2957.571 Cumulative 08/04/21 02:08 thru 08/05/21 06:22 Intake Total 5727.571 Output Total 2650 Balance 3077.571 RT Ventilator Mngmt (Last Documented) Ventilator Ordered Settings Respiratory Rate 14 08/05/21 06:00 Ventilator - PT Measurements Respiratory Rate 14 Coding Level of Care Code 23134 Subseq [facility] 3 Diagnoses Acute upper GI bleeding K92.2 Hematemesis K92.0 Nausea presence: unspecified Anemia D64.9 Anemia type: unspecified type Admitted to intensive care unit Z78.9 Alcohol abuse F10.10 Alcohol intoxication F10.929 (1) Hematemesis Nausea presence: unspecified Qualified Code(s): K92.0 - Hematemesis (2) Anemia Anemia type: unspecified type Qualified Code(s): D64.9 - Anemia, unspecified
[2021-08-05] MEDS ORDERED: CALCIUM GLUCONATE 10% 3,000 MG in 0.9 % SODIUM CHLORIDE 100 ML IV ONE (09:00)
[2021-08-05] MEDS ORDERED: THIAMINE HCL 200 MG in SYRINGE 9 ML IV SCH (09:00)
[2021-08-05] MEDS: FOLIC ACID 1 MG in SYRINGE 9.8 ML IV SCH (09:01)
[2021-08-05] MEDS: THIAMINE HCL 200 MG in SODIUM CHLORIDE 0.9% 50 ML IV SCH (09:05)
[2021-08-05] MEDS: ICU ELECTROLYTE REPLACEMENT PROTOCOL SCH ×2 (09:44→20:59)
[2021-08-05] MEDS ORDERED: SODIUM PHOSPHATE 3 MMOL/1 ML INFUSION IV STA ×2 (09:49→21:00)
[2021-08-05] MEDS ORDERED: SODIUM PHOSPHATE 21 MMOL in SODIUM CHLORIDE 0.9% 500 ML IV ONE (10:00)
[2021-08-05] MEDS: MAGNESIUM SULFATE / D5W 1 GM/100 ML BAG IV SCH ×4 (10:31→16:11)
[2021-08-05] MEDS: POTASSIUM CHLORIDE / WTR 10 MEQ/100 ML PLCT IV SCH ×7 (10:32→23:25)
--- NOTE | 2021-08-05 10:47 | Gastroenterology Progress Note ---
Date of Service August 05, 2021 Assessment & Plan Admission and Anticipated Discharge Date Admission Date: August 04, 2021 Supervising Physician Co-Signing Physician Notes 35 yo with fatty liver and self limited hematemesis that began after her gums started to bleed, no bun rise. Last EGD was in summer of severe esophagitis. Overall I think she is doing better from an alcohol withdrawal perpsective - her tachycardia has improved, her alcoholic hepatitis is mild. Her hgb has remained relatively stable and without over gi bleeding. She is not known to be cirrhotic or with varices per recent egd 5 months ago. At the current time, would try sips of liquid today, continue IV drip, consider stopping octreotide. Trend hgb, bun. She is not wanting an egd and i don't there is an acute indication given no further hematemesis - and she was swallowing blood from her bleeding gums so likely that contributed. Can empirically make her npo at midnite. Subjective No acute events overnite No further bleeding noted from her gums or hematemesis She is feeling a bit better today Her tachycardia has resolved Review of Systems Review of Systems: All systems reviewed & are unremarkable except as noted in HPI & below Physical Exam Physical Exam: Oriented but tired appearing Eyes: Slight scleral icterus Gastrointestinal (Abdomen): slightly distended but soft Neurologic: Oriented to person/place/time Results & Data ([facility]) Vital Signs (Past 12 Hours) Vital Signs Temp Pulse Resp BP Pulse Ox 08/05/21 09:00 90 12 127/96 96 08/05/21 08:00 103 H 17 126/81 92 08/05/21 07:00 100 H 15 118/81 94 08/05/21 06:00 102 H 14 122/80 93 08/05/21 05:43 36.7 C 08/05/21 05:30 104 H 12 131/81 94 08/05/21 05:00 97 H 13 121/79 94 08/05/21 04:30 96 H 13 113/95 94 08/05/21 04:00 103 H 13 130/86 94 08/05/21 03:48 37.1 C 08/05/21 03:30 107 H 12 128/86 94 08/05/21 03:00 103 H 14 131/90 94 08/05/21 02:30 108 H 13 134/91 97 08/05/21 02:04 36.8 C 08/05/21 02:00 101 H 13 132/91 94 08/05/21 01:30 106 H 12 134/93 95 08/05/21 01:00 106 H 12 131/88 94 08/05/21 00:30 110 H 12 132/92 94 08/05/21 00:00 107 H 13 135/84 95 08/04/21 23:42 37.0 C 08/04/21 23:30 110 H 12 140/92 95 08/04/21 23:29 110 H 08/04/21 23:15 117 H 14 145/89 H 92 08/04/21 23:00 104 H 95 08/04/21 22:45 116 H 12 123/84 97 Laboratory Results Labs reviewed minor ast/alt elevation still but overall improving- suspect this is from mild alcoholic hepatitis Hgb relatively stable, bun remains normal.
[2021-08-05] MEDS: cefTRIAXone SODIUM 2,000 MG in DEXTROSE 5% 50 ML IV SCH (13:58)
--- NOTE | 2021-08-05 16:17 | Hospitalist Progress Note ---
Date of Service August 05, 2021 Assessment & Plan (1) Acute upper GI bleeding: (2) Alcoholic hepatitis: Plan: Per Dr. Su's notes: ASSESSMENT AND PLAN: This is a 35-year-old female with ongoing alcoholism, history of erosive esophagitis. Presents with hematemesis. 1. GI bleed, history of esophagitis Alcoholism --Hemoglobin stable after 3 units of packed RBCs transfusion, 2 units of FFP's, changes of care precipitate --No recurrence of GI bleed so far --GI on board Continue n.p.o., IV Protonix, IV octreotide, IV ceftriaxone --Possible EGD tomorrow 2. Elevated bilirubin, possibly alcoholic hepatitis. The DF score is not high this time. --Monitor LFTs 3. History of hypertension: Will hold the losartan for now. 4. Alcoholism: --Alcohol report: Ativan as needed Low phosphorus, magnesium --Continue placement Generalized anxiety disorder --Per case maker, patient requesting psych service consultation for assistance with outpatient provider referral 5. Deep venous thrombosis prophylaxis: Sequential compression devices. Plan of care discussed with patient and her mother at the bedside in detail All questions answered They understand, agreeable, comfortable plan of care Admission and Anticipated Discharge Date Admission Date: August 04, 2021 Subjective Follow-up for GI bleed, alcohol hepatitis, etc. Seen resting in bed, comfortable, not in distress, sleeping but easily awakened States she feels better today compared to yesterday Feels relaxed today No abdominal pain, nausea vomiting, fevers or chills no chest pain, dyspnea, palpitations, dizziness No other symptoms Review of Systems Review of Systems: all noted and negative except for above Physical Exam Physical Exam: General- oriented x 3, not in distress, speaks in sentences with no effort or accessory muscle use Eyes- anicteric Neck- no JVD Lungs- clear breath sounds bilaterally No wheezing Heart- normal rate, regular rhythm; no murmurs Abdomen- normal bowel sounds, nondistended, soft, nontender Extremities- no pretibial edema, no calf tenderness Neuro- alert, oriented x 3; no gross focal neurologic deficits No tremors Skin- warm & dry Results & Data Results & Data ([facility]) Vital Signs (Past 12 Hours) Vital Signs Temp Pulse Resp BP Pulse Ox 08/05/21 09:00 90 12 127/96 96 08/05/21 08:00 103 H 17 126/81 92 08/05/21 07:00 100 H 15 118/81 94 08/05/21 06:00 102 H 14 122/80 93 08/05/21 05:43 36.7 C 08/05/21 05:30 104 H 12 131/81 94 08/05/21 05:00 97 H 13 121/79 94 08/05/21 04:30 96 H 13 113/95 94 all noted and reviewed including below (1) Alcoholic hepatitis Ascites presence: unspecified Qualified Code(s): K70.10 - Alcoholic hepatitis without ascites
[2021-08-05 20:42] LABS: BUN Creatinine Ratio 5.8 (10-20); Calcium 7.3 mg/dl (8.5-10.1); Creatinine Clr Calc Pharmacy 106.6 ml/min; Est GFR (African American) 123.7 ml/min; Est GFR (Non-African American) 106.7 ml/min; Magnesium 2.4 mg/dl (1.8-2.4); Potassium 3.8 mmol/L (3.5-5.1)
[2021-08-05] MEDS ORDERED: SODIUM PHOSPHATE 15 MMOL in SODIUM CHLORIDE 0.9% 250 ML IV ONE (21:30)
[2021-08-06] MEDS: POTASSIUM CHLORIDE / WTR 10 MEQ/100 ML PLCT IV SCH (00:42)
[2021-08-06] MEDS: PANTOprazole 40 MG in DEXTROSE 5% 100 ML IV SCH ×2 (00:45→06:02)
[2021-08-06] MEDS: OCTREOTIDE ACETATE 500 MCG in 0.9 % SODIUM CHLORIDE 100 ML IV SCH (03:02)
[2021-08-06] MEDS: SODIUM CHLORIDE 0.9% 1000ML 1,000 ML IV SCH (05:25)
[2021-08-06] MEDS: LORazepam 1 MG/2 ML VIAL IV PRN ×4 (05:26→21:50)
[2021-08-06 06:19] LABS: Hematocrit (blood only) 28.3 % (37-47); Hemoglobin 9.4 g/dL (12.0-16.0); Mean Corpuscular Hemoglobin 30.7 pg (25-34); Mean Corpuscular Hgb Conc 33.2 g/dL (32-36); Mean Corpuscular Volume 92.5 fL (80-100); Mean Platelet Volume 10.1 fL (7.4-10.4); Nucleated RBC # (auto) 0.03 K/uL (0-0); Nucleated RBC % (auto) 0.3 %; Platelet Count 137 K/uL (130-400); RDW Coefficient of Variation 19.1 % (11.5-14.5); RDW Standard Deviation 63.5 fL (36.4-46.3); Red Blood Count 3.06 M/uL (4.2-5.4); White Blood Count 10.97 K/uL (4.8-10.8)
[2021-08-06 06:58] LABS: Albumin Globulin Ratio 0.5 (0.9-2); Albumin Level 1.8 gm/dl (3.4-5.0); BUN Creatinine Ratio 4.4 (10-20); Bilirubin,Total 5.5 mg/dl (0.2-1); Calcium 7.2 mg/dl (8.5-10.1); Creatinine Clr Calc Pharmacy 119.9 ml/min; Est GFR (African American) 133.3 ml/min; Globulin 3.6 gm/dl (2.5-4.0); Magnesium 2.1 mg/dl (1.8-2.4); Phosphorus 1.7 mg/dl (2.5-4.9); Total Protein 5.4 gm/dl (6.4-8.2)
[2021-08-06 07:00] LABS: ALC (manual) 1.43 K/uL (1.2-3.4); ANC (manual) 9.06 K/uL (1.4-6.5); Basophils % (manual) 0.9 %; Eosinophils % (manual) 0.9 %; Lymphocytes # (manual) 1.43 K/uL (1.2-3.4); Metamyelocytes # (manual) 0.19 K/uL (0-0); Metamyelocytes % (manual) 1.7 %; Monocytes % (manual) 0.9 %; Neutrophils # (manual) 9.06 K/uL (1.4-6.5); Neutrophils % (manual) 82.6 %
[2021-08-06] MEDS: FOLIC ACID 1 MG in SYRINGE 9.8 ML IV SCH (09:18)
[2021-08-06] MEDS: THIAMINE HCL 200 MG in SODIUM CHLORIDE 0.9% 50 ML IV SCH (09:20)
--- NOTE | 2021-08-06 09:22 | Gastroenterology Progress Note ---
Date of Service August 06, 2021 Assessment & Plan (1) Alcoholic hepatitis: Plan: Ms. Gloria is a 35 yr old female with ETOH hepatitis, continuing to drink, admitted with bleeding gums, anemia, gross GI bleeding. - ETOH abstention - No steroid tx for ETOH hepatitis indicated as DF is low (12). (2) Hematemesis: Plan: Needs non urgent dental and/or oral surgery eval for bleeding gums. Because bleeding seems to have stopped as evidenced by green BM this morning and because pt had an EGD in March with esophagitis (no PHG, GAVE or esophageal varices), will defer EGD. DC Octreotide and PPI. Start po BID PPI. Full liquids today. If no evidence of further bleeding over night then will advance diet tomorrow. Needs OP GI f/u for ETOH liver dx. Our office will contact her to arrange. She t ells me that she missed a prior OP GI appt due to anxiety. Admission and Anticipated Discharge Date Admission Date: August 04, 2021 Supervising Physician Co-Signing Physician Notes Attg add: I interviewed and examined pt, reviwed chart ad labs. Pt without complaint, no overt GIb and hgb stable overnight with normal BUN. REcommendations as above, will sign off. Please reconsult as needed. Subjective Ms. Gloria is a 35 yr old female pt of Hector Myrick NP with a hx of alcohol abuse (continuing to drink), hypertension, alcoholic hepatitis, erosive esophagitis, ongoing alcoholism, presented with hematemesis on 08/04/21. Dental issue with lower wisdom teeth - pt states a scab come loose and bled. Hb 8.9 + 3 Units RBC ->9.4. Most recent BM this morning was green but had passed red and black BMs prior. Denies any abdominal pain. Hungry, asking to eat. Most recent EGD in February 2021 with grade D erosive esophagitis. T bili 5.5, PT 13.5, INR 1.4, Cr 0.65. DF = 12 Review of Systems Review of Systems: ROS: Gen: Denies weakness, fevers, weight loss Eyes: No eye redness, or pain, no recent vision changes Resp: No SOB, no cough Cardio: No palpitations/irregular beats, no chest pain GI: Per HPI, otherwise (-) : Denies pain on urination Skin: No jaundice, itching or new rashes Physical Exam Constitutional: well developed and cooperative Eyes: PERRL, conjunctivae normal, anicteric sclerae Respiratory: normal respiratory effort, lungs clear to auscultation Cardiovascular: RRR, no murmur, no edema Gastrointestinal (Abdomen): normal bowel sounds, soft, nontender, no hepatosplenomegaly Skin: no rashes, warm and dry normal turgor Neurologic: PERRL, EOMI, accommodation nl, no face palsy, no dysarthria awake; not confused Psychiatric: A+Ox3, euthymic affect Orientation: alert, oriented x 3 and cooperative Results & Data ([facility]) Vital Signs (Past 12 Hours) Vital Signs Temp Pulse Pulse Resp BP BP Pulse Ox 08/06/21 07:36 37.0 C 103 H 20 133/82 95 08/06/21 03:25 36.9 C 91 H 16 128/85 95 08/06/21 01:12 79 08/05/21 23:36 36.9 C 08/05/21 23:00 91 H 17 119/89 93 08/05/21 22:00 84 14 125/84 94 08/05/21 21:30 87 14 122/83 94 Laboratory Results Hb 10, Hb 9.4, Hct 28, plts 137, Na 137, K 4., Cl 107, CO2 23, BUN 3, Cr 0.5, glucose 130 T bili 5.5, AST 174, ALT 41, ALk Phos 181 (1) Alcoholic hepatitis Ascites presence: unspecified Qualified Code(s): K70.10 - Alcoholic hepatitis without ascites (2) Hematemesis Nausea presence: unspecified Qualified Code(s): K92.0 - Hematemesis
[2021-08-06] MEDS: POT PHOSPHATE MONOBASIC W/ SOD TAB PO SCH ×4 (10:29→21:40)
--- NOTE | 2021-08-06 11:32 | Psychiatric Consultation ---
Date of Consultation August 06, 2021 Impression / Recommendations Impression 35 yo woman with a history of depression, anxiety and alcohol use disorder who was admitted for anemia and hematemesis and suspected GI bleed. Psychiatry was consulted for recommendations regarding depression treatment and resources for alcohol use disorder. Diagnostically consistent with unspecified depression-MDD versus substance- induced, likely a combination of both as well as anxiety and alcohol use disorder. Discussed recommendation for residential substance use treatment which she's open to considering versus substance use IOP which she's open to. Discussed medication options for depression, anxiety and alcohol use disorder at length. She would like to continue with lexapro given good benefit in the past, because of hepatitis recommend starting at low dose and titrating cautiously. Discussed propranolol 10 mg BID prn for anxiety after discharge which she's agreeable to given high risk of respiratory depression with benzos and alcohol so this is not a sustainable or safe treatment option for her anxiety. Also discussed antiabuse vs naltrexone vs acamprosate for alcohol use disorder. She is not interested in antiabuse nor acamprosate at this time but would agreeable to trying naltrexone in the future if her LFTs improve if she's able to cut down or avoid alcohol use. Acute risk of self-harm is low given denial of SI, strong deterrents, reasons to live and motivation to seek treatment. Chronic risk is moderate given family history, and multiple non-modifiable factors. Discussed that seeking treatment for substance use and continuing with SSRI treatment are most significant fa ctors to reduce acute and chronic risk of self-harm. (1) Alcohol use disorder: (2) Depression, unspecified: (3) Anxiety: -start lexapro 5 mg qd -on discharge can offer propranolol 10mg BID prn for acute anxiety/panic attacks -psych liason exploring options for residential substance use treatment and IOP options and will help patient with referral process if she agrees to either of these -if LFTs, alk phos improve in the future to <3 times upper limit of nml then could consider starting naltrexone 50 mg qd for alcohol use disorder Risk Factors Assessment Do You Have Access To A Gun?: No Psych History Identifying Data 35 yo woman with a history of depression, anxiety and alcohol use disorder who was admitted for anemia and hematemesis and suspected GI bleed. Psychiatry was consulted for recommendations regarding depression treatment and resources for alcohol use disorder. Chief Complaint "I tend to drink when I feel anxious". History of Present Illness Megan identifies a long history of depression and anxiety for which she often drinks alcohol as a way to self-medicate and manage her symptoms. PHQ-9 score is 13 with highest scores for low mood, trouble sleeping, and low self-esteem. Denies any thoughts of SI though has significant family history with both her father and brother having by suicide. She was recently started on lexapro, 2 days prior to admission, for her mood symptoms. She found it very helpful in the past and would like to try taking it consistently now to see if it will help her mood and anxiety. She also recently tried seroquel for sleep but experienced side effects so she stopped this. She's tried buspar, atarax and xanax in the past for anxiety. She found xanax helpful but not buspar or atarax. She was recently on vacation was drinking 4-5 mixed drinks during the day and then more drinks in the evening with dinner. Since returning home she drinks 1-3 glasses of wine per night. She endorses a history of withdrawal side effects when she doesn't drink but has never experienced a seizure. Alcohol use has lead to multiple medical conditions including alcoholic hepatitis and esophagitis. She is motivated to cut down on or stop drinking but struggles to reduce her use given cravings to drink especially when she gets anxious. She did IOP substance use treatment this summer and had stopped drinking but relapsed after her father by suicide in March. Past Psychiatric History Previous Psych Admissions: once at [facility] at age 21 after suicide attempt via overdose Do You Have Access To A Gun?: No Allergies Allergy/AdvReac Type Severity Reaction Status Date / Time pine nut Allergy Unknown Verified 08/04/21 09:09 Home Medications Medication Instructions Recorded Confirmed Type escitalopram oxalate 5 mg tablet 5 mg PO DAILY 04/22/21 07/18/21 History losartan 25 mg tablet 25 mg PO DAILY 04/22/21 07/18/21 History pantoprazole 20 mg tablet,delayed 20 mg PO BID 30 Days #60 tab 07/20/21 Rx release (Protonix) sucralfate 100 mg/mL oral 1 g PO Q6H 28 Days #1120 ml 07/20/21 Rx suspension (Carafate) escitalopram oxalate 5 mg tablet 5 mg PO DAILY 08/04/21 08/04/21 History hydroxyzine HCl 10 mg tablet 10 mg PO DAILY 08/04/21 08/04/21 History losartan 25 mg tablet 25 mg PO DAILY 08/04/21 08/04/21 History pantoprazole 40 mg tablet,delayed 40 mg PO DAILY 08/04/21 08/04/21 History release sucralfate 100 mg/mL oral 1,000 mg PO QID 08/04/21 08/04/21 History suspension Family History see HPI Substance Abuse History see HPI Personal History Beliefs That Will Affect Care: None Patient History Medical History AA (alcohol abuse) Acute alcoholic hepatitis Coagulopathy Generalized anxiety disorder Hypertension Hyponatremia Obesities, morbid Upper GI bleed Surgical History No history of previous surgery Family History Father Myocardial infarction Depression Diabetes Heart disease Grandfather Prostate cancer MATERNAL Mother Depression Hypertension Denies family history of Ovarian cancer Breast cancer Colorectal cancer History of alcoholism Social History Smoking Status: Former smoker Tobacco Type: Cigarettes Age Started Using Tobacco: 22; Cigarettes Per Day: 5; Second Hand Exposure: No; Hx Alcohol Use: Yes Alcohol type: wine Alcohol Intake Frequency: 4 or More x per/Week Alcohol Intake Frequency Comment: DAILY; 1-2 bottles wine/day; multiple rum & coke Hx Substance Use: No Preferred Language: Tamazight Communication Ability: Effective Visual Impairment: No Limitations Hearing Ability: Normal Regional Agronomist Required: No Beliefs That Will Affect Care: None marital status: Single Current Living Situation: Alone and Parent Current Living Situation Comment: lives in [place] w/ Mom/dad current occupational status: unemployed 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 How many Children do You have: 0 Feels Safe at Home: Yes Childhood Exposure to Second-Hand Smoke: No Dental Care, Regularly: No Physical Activity Frequency: Does not Exercise Seatbelt Use: always Sunscreen Use: Yes Sexual Activity: has been sexually active, but not for at least 12 months Assistive Devices: None Physical Exam Psychiatric: Orientation: alert and oriented x 3 Apperance: appropriately dressed and appropriately groomed Eye Contact: good eye contact Motor Behavior: no abnormal motor movements Speech: normal rate/rhythm/volume of speech Affect: + depressed affect Mood: + depressed mood and + anxious mood Thought Process: goal directed thought process Thought Content: reality based without delusions Suicidal Thoughts: denies suicidal thoughts Homicidal Thoughts: denies homicidal thoughts Hallucinations: no auditory hallucinations and no visual hallucinations Cognition: attention grossly intact and language grossly intact Estimated Intelligence: consistent with education level Insight: + fair insight Judgement: + fair judgement Vital Signs (Past 24 Hours): Last Vital Signs Temp 36.7 C 08/06/21 11:18 Pulse 87 08/06/21 11:18 Resp 18 08/06/21 11:18 BP 122/80 08/06/21 11:18 Pulse Ox 95 08/06/21 11:18 Review of Systems All systems reviewed & are unremarkable except as noted in HPI & below started clear liquid diet today Results & Data (PSY) Laboratory Results AST ald alk phos significantly elevated Medications Administered Lorazepam (Ativan) 1 mg in 2 mls @ 2 mls/min IV UD PRN; Protocol PRN Reason: EtOH Withdrawl AWSS Score 6,7 Stop: 09/03/21 07:08 Last Admin: 08/06/21 09:44 Dose: 2 mls/min Documented by: [id number] Admin: 08/04/21 19:25 Dose: 2 mls/min Documented by: [id number] Admin: 08/04/21 12:05 Dose: 2 mls/min Documented by: [id number] Sodium Chloride (Nss 1000ml) 1,000 mls @ 75 mls/hr IV .[id number] JONNA Stop: 09/03/21 07:08 Last Infusion: 08/06/21 09:44 Dose: 0 mls/hr Documented by: [id number] Admin: 08/06/21 05:25 Dose: 125 mls/hr Documented by: [id number] Infusion: 08/06/21 05:07 Dose: 125 mls/hr Documented by: [id number] Admin: 08/05/21 21:07 Dose: 125 mls/hr Documented by: [id number] Infusion: 08/05/21 21:07 Dose: 125 mls/hr Documented by: [id number] Admin: 08/05/21 14:13 Dose: 125 mls/hr Documented by: [id number] Infusion: 08/05/21 13:42 Dose: 125 mls/hr Documented by: [id number] Admin: 08/05/21 05:42 Dose: 125 mls/hr Documented by: [id number] Infusion: 08/05/21 05:42 Dose: 125 mls/hr Documented by: [id number] Admin: 08/04/21 22:14 Dose: 125 mls/hr Documented by: [id number] Infusion: 08/04/21 22:14 Dose: 125 mls/hr Documented by: [id number] Admin: 08/04/21 15:36 Dose: Not Given Documented by: [id number] Admin: 08/04/21 14:24 Dose: 125 mls/hr Documented by: [id number] Folic Acid 1 mg/ Syringe 10 mls @ 5 mls/min IV QAM JONNA Stop: 09/03/21 07:44 Last Admin: 08/06/21 09:18 Dose: 5 mls/min Documented by: [id number] Admin: 08/05/21 09:01 Dose: 5 mls/min Documented by: [id number] Admin: 08/04/21 07:59 Dose: 5 mls/min Documented by: [id number] Lorazepam (Ativan) 1 mg in 2 mls @ 2 mls/min IV Q4H PRN PRN Reason: anxiety, nausea Stop: 09/03/21 11:30 Last Admin: 08/06/21 05:26 Dose: 2 mls/min Documented by: [id number] Admin: 08/05/21 21:52 Dose: 2 mls/min Documented by: [id number] Admin: 08/05/21 17:54 Dose: 2 mls/min Documented by: [id number] Admin: 08/05/21 14:13 Dose: 2 mls/min Documented by: [id number] Admin: 08/05/21 09:14 Dose: 2 mls/min Documented by: [id number] Admin: 08/05/21 03:53 Dose: 2 mls/min Documented by: [id number] Admin: 08/04/21 15:37 Dose: 2 mls/min Documented by: [id number] Ceftriaxone Sodium 2,000 mg/ (Dextrose) 70 mls @ 140 mls/hr IV Q24H JONNA; Protocol Stop: 08/14/21 13:59 Last Infusion: 08/05/21 15:10 Dose: 0 mls/hr Documented by: [id number] Admin: 08/05/21 13:58 Dose: 140 mls/hr Documented by: [id number] Infusion: 08/04/21 14:00 Dose: 0 mls/hr Documented by: [id number] Admin: 08/04/21 13:29 Dose: 140 mls/hr Documented by: [id number] Thiamine HCl 200 mg/ Sodium (Chloride) 52 mls @ 210 mls/hr IV QAM JONNA Stop: 09/04/21 08:59 Last Infusion: 08/06/21 10:20 Dose: 0 mls/hr Documented by: [id number] Admin: 08/06/21 09:20 Dose: 210 mls/hr Documented by: [id number] Infusion: 08/05/21 11:09 Dose: 0 mls/hr Documented by: [id number] Admin: 08/05/21 09:05 Dose: 210 mls/hr Documented by: [id number] Potassium Phosphate (Pot Phosphate Monobasic W/ Sod Tab) 2 tab PO QID JONNA Stop: 09/05/21 08:59 Last Admin: 08/06/21 10:29 Dose: 2 tab Documented by: [id number] Coding Level of Care Code 83182 Inpt Consult Level 3 Diagnoses Alcohol use disorder Depression, unspecified F32.A Anxiety F41.9
--- NOTE | 2021-08-06 11:41 | Hospitalist Progress Note ---
Date of Service August 06, 2021 Assessment & Plan (1) Acute upper GI bleeding: (2) Alcoholic hepatitis: Plan: Per Dr. Su's notes: ASSESSMENT AND PLAN: This is a 35-year-old female with ongoing alcoholism, history of erosive esophagitis. Presents with hematemesis. 1. GI bleed, history of esophagitis Alcoholism --Hemoglobin stable after 3 units of packed RBCs transfusion, 2 units of FFP's, changes of care precipitate --No recurrence of GI bleed so far --Hemoglobin stable at 9.4 --GI on board Initially placed on n.p.o., IV Protonix, IV octreotide, IV ceftriaxone --Today, patient started on clear liquid diet Plan for EGD tomorrow IV Protonix transition to p.o. Protonix twice daily, octreotide discontinued Ceftriaxone continued Continue to monitor closely 2. Elevated bilirubin, possibly alcoholic hepatitis. The DF score is not high this time. --LFTs improving Monitor GI on board 3. History of hypertension: Will hold the losartan for now. 4. Alcoholism: --No signs of overt alcohol withdrawal symptoms Continue alcohol withdrawal protocol Ativan as needed Low phosphorus, magnesium --Continue placement Generalized anxiety disorder, possible depression --Patient reports she has recently started on Lexapro Requesting to speak with psychiatry service Discussed with Dr. Conrad 5. Deep venous thrombosis prophylaxis: Sequential compression devices. Plan of care discussed with patient in detail All questions answered She is understanding, agreeable, comfortable plan of care Admission and Anticipated Discharge Date Admission Date: August 04, 2021 Subjective Follow-up for anemia, possible GI bleed, alcoholic hepatitis, etc. Seen resting in bed, comfortable, not in distress RN at bedside throughout whole encounter States she feels okay overall No abdominal pain, nausea vomiting, melena hematochezia No chest pain, palpitations, dizziness, shortness of breath Admits to having depression and anxiety leading to alcohol use Requesting to speak with a psychiatrist No other symptoms Review of Systems Review of Systems: all noted and negative except for above Physical Exam Physical Exam: General- oriented x 3, not in distress, speaks in sentences with no effort or accessory muscle use Eyes- anicteric Neck- no JVD Lungs- clear BS bilaterally, no crackles, no wheezing Heart- normal rate, regular rhythm; no murmurs Abdomen- normal bowel sounds, nondistended, soft, nontender Extremities- no pretibial edema, no calf tenderness Neuro- alert, oriented x 3; no gross focal neurologic deficits Skin- warm & dry Psych-flat affect, appropriate mood, denies suicidal ideations Results & Data Results & Data ([facility]) Vital Signs (Past 12 Hours) Vital Signs Temp Pulse Pulse Resp BP Pulse Ox 08/06/21 11:18 36.7 C 87 18 122/80 95 08/06/21 07:36 37.0 C 103 H 20 133/82 95 08/06/21 03:25 36.9 C 91 H 16 128/85 95 08/06/21 01:12 79 all noted and reviewed including below (1) Alcoholic hepatitis Ascites presence: unspecified Qualified Code(s): K70.10 - Alcoholic hepatitis without ascites
[2021-08-06] MEDS: cefTRIAXone SODIUM 2,000 MG in DEXTROSE 5% 50 ML IV SCH (14:19)
[2021-08-06] MEDS: PANTOprazole 40 MG TAB PO SCH (21:40)
[2021-08-07] MEDS: LORazepam 1 MG/2 ML VIAL IV PRN ×2 (03:46→08:46)
[2021-08-07 07:34] LABS: Basophils # (auto) 0.06 K/uL (0-0.2); Basophils % (auto) 0.6 %; Eosinophils # (auto) 0.21 K/uL (0-0.5); Eosinophils % (auto) 2.1 %; Hematocrit (blood only) 28.1 % (37-47); Hemoglobin 9.3 g/dL (12.0-16.0); Immature Granulocytes # (auto) 0.08 K/uL (0.00-0.02); Immature Granulocytes % (auto) 0.8 %; Lymphocytes % (auto) 21.4 %; Mean Corpuscular Hemoglobin 31.2 pg (25-34); Mean Corpuscular Hgb Conc 33.1 g/dL (32-36); Mean Corpuscular Volume 94.3 fL (80-100); Mean Platelet Volume 10.2 fL (7.4-10.4); Monocytes # (auto) 0.53 K/uL (0.11-0.59); Monocytes % (auto) 5.4 %; Neutrophils # (auto) 6.83 K/uL (1.4-6.5); Neutrophils % (auto) 69.7 %; Nucleated RBC # (auto) 0.05 K/uL (0-0); Nucleated RBC % (auto) 0.5 %; Platelet Count 140 K/uL (130-400); RDW Coefficient of Variation 19.1 % (11.5-14.5); RDW Standard Deviation 64.5 fL (36.4-46.3); Red Blood Count 2.98 M/uL (4.2-5.4); White Blood Count 9.81 K/uL (4.8-10.8)
[2021-08-07 08:08] LABS: Albumin Globulin Ratio 0.5 (0.9-2); Albumin Level 1.8 gm/dl (3.4-5.0); BUN Creatinine Ratio 2.2 (10-20); Bilirubin,Total 5.6 mg/dl (0.2-1); Calcium 7.3 mg/dl (8.5-10.1); Creatinine Clr Calc Pharmacy 110.7 ml/min; Est GFR (African American) 125.8 ml/min; Est GFR (Non-African American) 108.5 ml/min; Globulin 3.9 gm/dl (2.5-4.0); Magnesium 1.9 mg/dl (1.8-2.4); Phosphorus 2.2 mg/dl (2.5-4.9); Potassium 3.5 mmol/L (3.5-5.1); Total Protein 5.7 gm/dl (6.4-8.2)
[2021-08-07] MEDS: FOLIC ACID 1 MG in SYRINGE 9.8 ML IV SCH (08:30)
[2021-08-07] MEDS: PANTOprazole 40 MG TAB PO SCH (08:31)
[2021-08-07] MEDS: POT PHOSPHATE MONOBASIC W/ SOD TAB PO SCH ×2 (08:31→12:26)
[2021-08-07] MEDS: THIAMINE HCL 200 MG in SODIUM CHLORIDE 0.9% 50 ML IV SCH (08:38)
[2021-08-07] MEDS ORDERED: ESCITALOPRAM OXALATE 10 MG TAB PO SCH (09:15)
[2021-08-07] MEDS: cefTRIAXone SODIUM 2,000 MG in DEXTROSE 5% 50 ML IV SCH (14:14)
--- NOTE | 2021-08-07 15:08 | Hospitalist Progress Note ---
Date of Service August 07, 2021 Assessment & Plan (1) Acute upper GI bleeding: (2) Alcoholic hepatitis: Plan: Per Dr. Su's notes: ASSESSMENT AND PLAN: This is a 35-year-old female with ongoing alcoholism, history of erosive esophagitis. Presents with hematemesis. 1. GI bleed, history of esophagitis Alcoholism --Hemoglobin stable after 3 units of packed RBCs transfusion, 2 units of FFP's, changes of care precipitate --No recurrence of GI bleed so far --Hemoglobin stable at 9.3 --GI on board Initially placed on n.p.o., IV Protonix, IV octreotide, IV ceftriaxone --diet advanced tolerating well GI consulted- defer EGD for now "Because bleeding seems to have stopped as evidenced by randolph RICH this morning and because pt had an EGD in March with esophagitis (no PHG, GAVE or esophageal varices)" IV Protonix transition to p.o. Protonix twice daily, octreotide discontinued also given Ceftriaxone cleared for d/c by GI today ff up with PCP in 1 week repeat CBC In 1 week ff up with GI in 2 weeks 2. Elevated bilirubin, possibly alcoholic hepatitis. The DF score is not high this time. --LFTs improving Prednisone not recommended by GI --monitor as outpatient 3. History of hypertension: Will hold the losartan for now. -- monitor BP as outpatient 4. Alcoholism: --No signs of overt alcohol withdrawal symptoms given alcohol withdrawal protocol Ativan as needed Psych consulted patient declines inpatient Alcohol rehab program prefers to ff up as outpatient Psychiatrist recommends possibly starting Naltrexone once LFTs improve Low phosphorus, magnesium --replaced Mg normal Ph 2.2, continue neutraphos Generalized anxiety disorder, possible depression --Patient reports she has recently started on Lexapro -- Psych consulted recommend Lexapro 5mg po daily -- patient prefers to ff up with outpatient Psychiatry 5. Deep venous thrombosis prophylaxis: Sequential compression devices. Plan of care discussed with patient in detail All questions answered She is understanding, agreeable, comfortable plan of care Admission and Anticipated Discharge Date Admission Date: August 04, 2021 Subjective ff up for GI bleeding, anemia, etc seen wtih LEVI Joseph at bedside throughout whole encounter states she feels much better overall no chest pain, dyspnea, palpitations, dizziness no abdominal pain ,nausea/vomiting, melena/hematochezia no tremors, hallucinations, anxiety states mood is ok today no other symptoms states she is ready and would like to be discharged today Review of Systems Review of Systems: all noted and negative except for above Physical Exam Physical Exam: General- oriented x 3, not in distress, speaks in sentences with no effort or accessory muscle use Eyes- anicteric Neck- no JVD Lungs- clear breath sounds bilaterally, no rales/wheezes Heart- normal rate, regular rhythm; no murmurs Abdomen- normal bowel sounds, nondistended, soft, nontender Extremities- no pretibial edema, no calf tenderness Neuro- alert, oriented x 3; no gross focal neurologic deficits Skin- warm & dry Psych- denies suicidal ideation Results & Data Results & Data ([facility]) Vital Signs (Past 12 Hours) Vital Signs Temp Pulse Pulse Resp BP Pulse Ox 08/07/21 14:51 37.0 C 87 20 120/79 95 08/07/21 11:11 37.1 C 106 H 20 123/83 95 08/07/21 08:00 77 08/07/21 06:33 37 C 85 16 136/85 94 08/07/21 03:42 36.8 C 84 16 142/89 H 95 (1) Alcoholic hepatitis Ascites presence: unspecified Qualified Code(s): K70.10 - Alcoholic hepatitis without ascites
--- NOTE | 2021-08-07 15:31 | Discharge Summary ---
Date of Service August 07, 2021 Admission HPI Per Admitting Provider CHIEF COMPLAINT: Hematemesis, anemia, and alcohol abuse. HISTORY OF PRESENT ILLNESS: A 35-year-old female with past medical history significant for alcohol abuse, hypertension, alcoholic hepatitis, erosive esophagitis, ongoing alcoholism, presents with hematemesis. The patient states that she is having some gum bleeding for the last 2-3 days and tonight she started vomiting blood and in the ER also she vomited more than 100 mL of blood. Hemoglobin is 8.9. She was tachycardic, has some abdominal discomfort. The patient is jaundiced. Her alcohol level was 228, total bilirubin was 4.7. Lactate was 6.2, sodium 130. INR 1.4. Blood pressure is holding. The patient denies any chest pain or shortness of breath. No cough, no fevers, no headache, no blurred visions, no runny nose. Denies any sore throat, not eating much. Denies any blood in the stools or black stools, not urinating much. No rash. She says she used to drink 2 bottles of wine in the past, but has cut down to two glasses of wine daily. She lives with her mother, mother is in the room. Admission Exam (Per Admitting) Constitutional GENERAL: The patient is of moderate build, currently not in acute distress. VITAL SIGNS: Temperature 36.9, pulse 115, respiratory rate 20, blood pressure 114/56, oxygen 97% on room air. HEENT: Icterus present. Pupils equal, round, and reactive to light. Oral mucosa, some blood is seen. NECK: No obvious JVD. No neck masses. CARDIOVASCULAR: S1 and S2 heard. Tachycardia. No murmurs. RESPIRATORY: Normal AP diameter. No accessory muscle use. No wheezing, no crackles. ABDOMEN: Soft, bowel sounds present. Mild distention, no guarding, no rigidity. CENTRAL NERVOUS SYSTEM: Cranial nerves II through XII are grossly intact, nonfocal. EXTREMITIES: Mild pedal edema present, no erythema seen. Discharge Data Consultations 08/04/21 04:21 ED Decision to Admit Stat 08/04/21 07:09 Consult Gastroenterology Routine Consult Stock Dealer Routine 08/06/21 08:40 Consult Psychiatry Routine Hospital Course (1) Acute upper GI bleeding: (2) Alcoholic hepatitis: Per Dr. Palepu's notes: ASSESSMENT AND PLAN: This is a 35-year-old female with ongoing alcoholism, history of erosive esophagitis. Presents with hematemesis. 1. GI bleed, history of esophagitis Alcoholism -- admitted to ICU --Hemoglobin stable after 3 units of packed RBCs transfusion, 2 units of FFP's, changes of care precipitate --No recurrence of GI bleed so far --Hemoglobin stable at 9.3 --GI consulted Initially placed on n.p.o., IV Protonix, IV octreotide, IV ceftriaxone --diet advanced tolerating well GI: defer EGD for now "Because bleeding seems to have stopped as evidenced by green BM this morning and because pt had an EGD in March with esophagitis (no PHG, GAVE or esophageal varices)" IV Protonix transitioned to p.o. Protonix twice daily, octreotide discontinued also given Ceftriaxone cleared for d/c by GI today ff up with PCP in 1 week repeat CBC In 1 week ff up with GI in 2 weeks 2. Elevated bilirubin, possibly alcoholic hepatitis. The DF score is not high this time. --LFTs improving Prednisone not recommended by GI --monitor as outpatient 3. History of hypertension: Will hold the losartan for now. -- monitor BP as outpatient 4. Alcoholism: --No signs of overt alcohol withdrawal symptoms given alcohol withdrawal protocol Ativan as needed Psych consulted patient declines inpatient Alcohol rehab program prefers to ff up as outpatient Psychiatrist recommends possibly starting Naltrexone once LFTs improve Low phosphorus, magnesium --replaced Mg normal Ph 2.2, continue neutraphos Generalized anxiety disorder, possible depression --Patient reports she has recently started on Lexapro -- Psych consulted recommend Lexapro 5mg po daily -- patient prefers to ff up with outpatient Psychiatry 5. Deep venous thrombosis prophylaxis: Sequential compression devices. Plan of care discussed with patient in detail All questions answered She is understanding, agreeable, comfortable plan of care
--- NOTE | 2021-08-14 12:57 | Coding Query ---
CODING QUERY To promote full compliance with coding requirements relating to patient care, provider participation is requested in all cases of sports marketing internship uncertainty. Please assist us with the question(s) below: Coding Question(s): 1. There is documentation of Hematemesis and GI Bleeding through the record and there is documentation of a history of erosive esophagitis throughout the record and the H&P documents, "Currently, blood consent obtained. Ordered 2 units of PRBCs. Ordered IV Zosyn. Started on Protonix drip and Sandostatin drip. Notified GI. Since no elevation in Bun, GI thinks it is mostly superficial bleed from the esophagitis and they plan to watch and monitor for now. Closely monitor in the ICU", however I don't see this documented past the H&P, and the Discharge Summary says, " GI bleed, history of esophagitis Alcoholism -- admitted to ICU --Hemoglobin stable after 3 units of packed RBCs transfusion, 2 units of FFP's, changes of care precipitate --No recurrence of GI bleed so far --Hemoglobin stable at 9.3 --GI consulted Initially placed on n.p.o., IV Protonix, IV octreotide, IV ceftriaxone --diet advanced tolerating well GI: defer EGD for now "Because bleeding seems to have stopped as evidenced by green BM this morning and because pt had an EGD in March with esophagitis (no PHG, GAVE or esophageal varices)" IV Protonix transitioned to p.o. Protonix twice daily, octreotide discontinued also given Ceftriaxone cleared for d/c by GI today ff up with PCP in 1 week repeat CBC In 1 week ff up with GI in 2 weeks". Please specify below, in your clinical opinion, regarding the most likely source of GI Bleeding/Hematemesis. ( x ) most likely source is erosive esophagitis ( ) most likely source is Other: Please Specify ( ) most likely source is Unknown 2. The GI Consultation documents, "If her fibrinogen drops below 100, consider replacement as that can cause gum bleeding, but theres no further evidence of dic at this time", and the Critical Care Consultation documents, "Acute blood loss anemia: * In the setting of upper GI bleeding and bleeding gums. * Concerns for bleeding dyscrasia with associated bleeding gums. * INR elevated at 1.4. * Further bleeding studies including D-dimer, fibrinogen, and FDP added as well. * Patient received 2 units PRBCs and 2 units FFP", and the Critical Care Progress Note on 08/05 documents, "acute blood loss anemia. Appears corrected. Continue serial hemoglobin and hematocrit. Fibrinogen responded appropriately to cryoprecipitate. Follow serial INR and platelet counts. She received FFP empirically during the course of her resuscitation. INR is currently acceptable". There is no documentation of DIC or concern for bleeding dyscrasia in attending Progress Notes and Discharge Summary and is not clear if DIC or bleeding dyscrasia was ruled-out or stilll possible. Please specify below, in your clinical opinion, regarding DIC and bleeding dyscrasia. ( ) Possible DIC and bleeding dyscrasia were possible and treated during this admission ( x) Possible DIC and bleeding dyscrasia are ruled-out ( ) Other: Please Specify Physician's Response(s): Thank you Zora Manning Principal Diagnosis: "that condition established after study, to be chiefly responsible for occasioning the admission of the patient to the hospital for care." Co-Existing Principal Diagnosis: "when two or more diagnoses equally meet the criteria for principal diagnosis as determined by the circumstances of admission, diagnostic work up, and/or therapy provided, and the Alphabetic Index, Tabular List, or another coding guideline does not provide sequencing direction, any one of the diagnoses may be sequenced first." "When the physician has documented what appears to be a current diagnosis in the body of the record, but has not included the diagnosis in the final diagnostic statement, the physician should be asked whether the diagnosis should be added." (Source Coding [facility] 2 QTR90. p3-4) [facility]
== END 2021-08-07 18:34 | disposition home or self-care (01) | DRG 369 ==
LOC: EDBD → ED 02:15 → 1E 06:58 → MERGE 07:02 → 2W 08-06 00:32

== ENCOUNTER 2021-09-27 19:42 | Inpatient (IN) ==
[2021-09-27] MEDS ORDERED: LORazepam 1 MG/2 ML VIAL IV STA (20:15)
[2021-09-27] MEDS ORDERED: ONDANSETRON INJ 2 MG/ML 2 ML VIAL IV STA (20:15)
[2021-09-27] MEDS ORDERED: SODIUM CHLORIDE 0.9% 500 ML IV SCH (20:15)
[2021-09-27 20:54] LABS: Basophils # (auto) 0.01 K/uL (0-0.2); Basophils % (auto) 0.1 %; Hematocrit (blood only) 41.4 % (37-47); Immature Granulocytes # (auto) 0.01 K/uL (0.00-0.02); Immature Granulocytes % (auto) 0.1 %; Lymphocytes # (auto) 2.03 K/uL (1.2-3.4); Lymphocytes % (auto) 20.7 %; Mean Corpuscular Hemoglobin 31.1 pg (25-34); Mean Corpuscular Hgb Conc 33.8 g/dL (32-36); Mean Platelet Volume 10.1 fL (7.4-10.4); Monocytes # (auto) 0.36 K/uL (0.11-0.59); Monocytes % (auto) 3.7 %; Neutrophils # (auto) 7.39 K/uL (1.4-6.5); Neutrophils % (auto) 75.4 %; Platelet Count 173 K/uL (130-400); RDW Coefficient of Variation 16.9 % (11.5-14.5)
[2021-09-27 21:12] LABS: BUN Creatinine Ratio 2.1 (10-20); Calcium 8.6 mg/dl (8.5-10.1); Creatinine Clr Calc Pharmacy 77.7 ml/min; Est GFR (African American) 86.6 ml/min; Est GFR (Non-African American) 74.7 ml/min; Potassium 2.6 mmol/L (3.5-5.1)
[2021-09-27 21:14] LABS: Pregnancy Test, Serum Negative (Negative)
[2021-09-27 21:22] LABS: Albumin Globulin Ratio 0.6 (0.9-2); Globulin 5.2 gm/dl (2.5-4.0); Thyroid Stimulating Hormone 2.25 uIu/ml (0.300-4.500); Total Protein 8.2 gm/dl (6.4-8.2)
[2021-09-27 21:29] LABS: Acetaminophen < 2 ug/ml (10-30); Salicylate < 1.7 mg/dl (2.8-20)
[2021-09-27 21:55] LABS: Bilirubin,Total 3.8 mg/dl (0.2-1)
[2021-09-27] MEDS ORDERED: POTASSIUM CHLORIDE 10 MEQ TABCR PO STA (22:29)
--- NOTE | 2021-09-27 22:43 | Emergency Department Note ---
History of Present Illness General Chief complaint: Alcohol Withdrawal Stated complaint: Seizure, Alcohol Detox Time Seen by Provider: 09/27/21 20:15 History of Present Illness 35-year-old female presents to the ED with a chief complaint of alcohol withdrawal and seizure-like activity. The patient states that she was trying to detox her self at home. She states that she has been drinking 1-2 bottles of wine per day over the past several years. She has been slowly weaning herself down. She also switched to a different orange drink that has alcohol on it. She states that she began vomiting last night. . She feels that this might be the reason that she started experiencing withdrawal symptoms.The mother states that she took out the trash and when she came in she heard her moaning. She was stretching and arching her back and stated to her mother she thought she was having a seizure. The patient was then brought in by EMS. No postictal. Observed by EMS. She reports that her alcohol use is related to anxiety. The patient did not bite her tongue or have incontinence. Home Medications Medication Instructions Recorded Confirmed Type pantoprazole 40 mg tablet,delayed 40 mg PO BID #0 tab 08/07/21 09/27/21 Rx release propranolol 10 mg tablet 10 mg PO BID PRN #14 tab 08/07/21 09/27/21 Rx losartan 25 mg tablet 25 mg PO DAILY 08/09/21 09/27/21 History escitalopram oxalate 10 mg tablet 10 mg PO DAILY #90 tab 09/12/21 09/27/21 Rx Allergies Allergy/AdvReac Type Severity Reaction Status Date / Time pine nut Allergy Unknown Verified 09/27/21 20:48 Past Med/Surg History Medical History AA (alcohol abuse) Abdominal pain Acute alcoholic hepatitis Acute alcoholic hepatitis Acute hypokalemia Coagulopathy Elevated INR Generalized anxiety disorder GI bleed Hypertension Hyponatremia Obesities, morbid Pancreatitis Upper GI bleed Surgical History No history of previous surgery Family History Father Myocardial infarction Depression Diabetes Heart disease Grandfather Prostate cancer MATERNAL Mother Depression Hypertension Denies family history of Ovarian cancer Breast cancer Colorectal cancer History of alcoholism Social History Smoking Status: Current some day smoker Tobacco Type: Cigarettes Age Started Using Tobacco: 22; Cigarettes Per Day: 5; Second Hand Exposure: No; Hx Alcohol Use: Yes Alcohol type: wine Alcohol Intake Frequency: 4 or More x p er/Week Alcohol Intake Frequency Comment: DAILY; 1-2 bottles wine/day; multiple rum & coke Hx Substance Use: No Preferred Language: Ivorian Communication Ability: Effective Visual Impairment: Partially Limited Hearing Ability: Normal Technical Inspector Required: No Beliefs That Will Affect Care: None marital status: Single Current Living Situation: Alone and Parent Current Living Situation Comment: lives in [place] w/ Mom/dad current occupational status: unemployed 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 How many Children do You have: 0 Feels Safe at Home: Yes Childhood Exposure to Second-Hand Smoke: No Dental Care, Regularly: No Physical Activity Frequency: Does not Exercise Seatbelt Use: always Sunscreen Use: Yes Sexual Activity: has been sexually active, but not for at least 12 months Assistive Devices: Glasses Review of Systems A total of 10 systems reviewed and were otherwise negative Physical Exam Vital Signs Vital Signs - 24 hr 09/27/21 19:53 09/27/21 20:37 09/27/21 22:00 Temperature 36.2 C L Temperature Source Oral Pulse Rate 79 Pulse Rate [Left Apical] 72 74 Pulse Rhythm Regular Pulse Rhythm [Left Apical] Regular Regular Pulse Strength Normal Pulse Strength [Left Apical] Normal Normal Respiratory Rate 16 16 16 Respiratory Effort / Characteristics Non-Labored Non-Labored Non-Labored Respiratory Depth Normal Normal Normal Blood Pressure 123/78 Blood Pressure [Right Arm] 123/78 117/67 Blood Pressure Mean 93 Blood Pressure Mean [Right Arm] 93 83 Blood Pressure Position Sitting Pulse Oximetry 100 100 97 Oxygen Delivery Method Room Air Room Air Room Air Sepsis Recent Fever Within 48 Hours No Sepsis New/Unexplained Change in Mental Status No Sepsis Action Taken by Nursing No Action Required CONSTITUTIONAL/VITAL SIGNS: Reviewed / noted above. GENERAL: Non-toxic in appearance. INTEGUMENTARY: Warm, dry, and [place]. HEAD: Normocephalic. EYES: without scleral icterus or trauma. ENT/OROPHARYNX: clear and moist. LYMPHADENOPATHY/NECK: Is supple without lymphadenopathy or meningismus. RESPIRATORY: Clear to auscultation bilaterally. No increased work of breathing. CARDIOVASCULAR: Regular rate and rhythm. GI/ABDOMEN: Soft and nontender. No organomegaly or pulsatile mass. EXTREMITIES: Warm and well perfused. BACK: No CVA tenderness. NEUROLOGICAL: Intact without focal deficits. PSYCHIATRIC: normal affect. MUSCULOSKELETAL: Normally developed with good muscle tone. TRIAGE NURSING DOCUMENTATION REVIEWED. Course Administered Medications Discontinued Medications Sodium Chloride (Nss) 500 mls @ 999 mls/hr IV .Q31M JONNA Stop: 09/27/21 20:45 Last Infusion: 09/27/21 21:20 Dose: 0 mls/hr Documented by: [id number] Admin: 09/27/21 20:30 Dose: 999 mls/hr Documented by: [id number] Lorazepam (Ativan) 1 mg in 2 mls @ 2 mls/min IV NOW STA Stop: 09/27/21 20:16 Last Admin: 09/27/21 20:28 Dose: 2 mls/min Documented by: [id number] Ondansetron HCl (Ondansetron Inj 2 Mg/Ml 2 Ml Vial) 4 mg IV NOW STA Stop: 09/27/21 20:16 Last Admin: 09/27/21 20:28 Dose: 4 mg Documented by: [id number] Potassium Chloride (Potassium Chloride 10 Meq Tabcr) 40 meq PO NOW STA Stop: 09/27/21 22:30 Last Admin: 09/27/21 22:49 Dose: 40 meq Documented by: [id number] Medical Decision Making Differential Diagnosis Differential includes alcohol withdrawal, seizure, pseudoseizure, gastroenteritis, gastritis, dehydration, electrolyte disturbance Medical Records Attestation: I reviewed the patient's medical records. Home Medications Current Medication List: was personally reviewed by me Laboratory Data Attestation: I reviewed the patient's lab results. Result diagrams: 09/27/21 20:23 09/27/21 20:23 Lab Results 09/27/21 09/27/21 09/27/21 Range/Units 20:07 20:23 20:23 WBC 9.80 (4.8-10.8) K/uL RBC 4.50 (4.2-5.4) M/uL Hgb 14.0 (12.0-16.0) g/dL Hct 41.4 (37-47) % MCV 92.0 (80-100) fL MCH 31.1 (25-34) pg MCHC 33.8 (32-36) g/dL RDW Std Deviation 57.0 H (36.4-46.3) fL RDW Coeff of Ace 16.9 H (11.5-14.5) % Plt Count 173 (130-400) K/uL MPV 10.1 (7.4-10.4) fL Immature Gran % (Auto) 0.1 % Neut % (Auto) 75.4 % Lymph % (Auto) 20.7 % [place] % (Auto) 3.7 % Eos % (Auto) 0.0 % Baso % (Auto) 0.1 % Neut # (Auto) 7.39 H (1.4-6.5) K/uL Lymph # (Auto) 2.03 (1.2-3.4) K/uL [place] # (Auto) 0.36 (0.11-0.59) K/uL Eos # (Auto) 0.00 (0-0.5) K/uL Baso # (Auto) 0.01 (0-0.2) K/uL Immature Gran # (Auto) 0.01 (0.00-0.02) K/uL Sodium (136-145) mmol/L Potassium (3.5-5.1) mmol/L Chloride (98-107) mmol/L Carbon Dioxide (21-32) mmol/L Anion Gap (3-11) BUN (7-18) mg/dl Creatinine (0.6-1.2) mg/dl Est Cr Clr Drug Dosing ml/min Est GFR ( Amer) ml/min Est GFR (Non-Af Amer) ml/min BUN/Creatinine Ratio (10-20) Glucose (70-99) mg/dl POC Glucose 163 H (70-99) mg/dl Calcium (8.5-10.1) mg/dl Total Bilirubin (0.2-1) mg/dl AST (15-37) U/L ALT (12-78) Alkaline Phosphatase (45-117) U/L Total Protein (6.4-8.2) gm/dl Albumin (3.4-5.0) gm/dl Globulin (2.5-4.0) gm/dl Albumin/Globulin Ratio (0.9-2) TSH (0.300-4.500) uIu/ml HCG, Qual Negative (Negative) Salicylates (2.8-20) mg/dl Acetaminophen (10-30) ug/ml Ethyl Alcohol mg/dL (0-3) mg/dl 09/27/21 09/27/21 09/27/21 Range/Units 20:23 20:23 20:23 WBC (4.8-10.8) K/uL RBC (4.2-5.4) M/uL Hgb (12.0-16.0) g/dL Hct (37-47) % MCV (80-100) fL MCH (25-34) pg MCHC (32-36) g/dL RDW Std Deviation (36.4-46.3) fL RDW Coeff of Ace (11.5-14.5) % Plt Count (130-400) K/uL MPV (7.4-10.4) fL Immature Gran % (Auto) % Neut % (Auto) % Lymph % (Auto) % [place] % (Auto) % Eos % (Auto) % Baso % (Auto) % Neut # (Auto) (1.4-6.5) K/uL Lymph # (Auto) (1.2-3.4) K/uL [place] # (Auto) (0.11-0.59) K/uL Eos # (Auto) (0-0.5) K/uL Baso # (Auto) (0-0.2) K/uL Immature Gran # (Auto) (0.00-0.02) K/uL Sodium 138 (136-145) mmol/L Potassium 2.6 L (3.5-5.1) mmol/L Chloride 100 (98-107) mmol/L Carbon Dioxide 25 (21-32) mmol/L Anion Gap 14.0 H (3-11) BUN 2 L (7-18) mg/dl Creatinine 0.98 (0.6-1.2) mg/dl Est Cr Clr Drug Dosing 77.7 ml/min Est GFR ( Amer) 86.6 ml/min Est GFR (Non-Af Amer) 74.7 ml/min BUN/Creatinine Ratio 2.1 L (10-20) Glucose 160 H (70-99) mg/dl POC Glucose (70-99) mg/dl Calcium 8.6 (8.5-10.1) mg/dl Total Bilirubin 3.8 H (0.2-1) mg/dl AST 250 H (15-37) U/L ALT 70 (12-78) Alkaline Phosphatase 275 H D (45-117) U/L Total Protein 8.2 (6.4-8.2) gm/dl Albumin 3.0 L (3.4-5.0) gm/dl Globulin 5.2 H (2.5-4.0) gm/dl Albumin/Globulin Ratio 0.6 L (0.9-2) TSH 2.250 (0.300-4.500) uIu/ml HCG, Qual (Negative) Salicylates < 1.7 L (2.8-20) mg/dl Acetaminophen < 2 L (10-30) ug/ml Ethyl Alcohol mg/dL < 3.0 (0-3) mg/dl ECG Data Attestation: I personally reviewed and interpreted this ECG as follows: Additional Comments: Twelve-lead EKG: Per my interpretation there is a sinus rhythm at a rate of 65. No ST elevation. No PVCs. Slightly prolonged QTC. MDM Narrative 35-year-old female presents with concerns about possible alcohol withdrawal and what sounds like some unusual seizure-like activity. The details are listed above. The patient's exam was unremarkable. No lip or tongue injury. She is not tachycardic. Vital signs are normal. CBC was unremarkable. Chemistry showed potassium of 2.6. Glucose 160. AST of 250. Salicylate and Tylenol were negative. Alcohol was negative. Because of the patient's history and symptoms she was treated with 1 mg IV lorazepam as well as some IV Zofran, oral potassium and IV fluids. She remained calm and without tachycardia during her ED stay. Because of her seizure-like activity and her hypokalemia, I feel the patient should be observed overnight for any additional symptoms of alcohol withdrawal. Impression & Plan Acute hypokalemia, Alcoholism, Vomiting, Seizure-like activity Discharge Plan Visit Data Chief Complaint: Alcohol Withdrawal Stated Complaint: Seizure, Alcohol Detox ED Provider: Lisandro Chowdhury Discharge Problem: Acute hypokalemia, Alcoholism, Vomiting, Seizure-like activity Patient Disposition: Being Evaluated by Hospitalist Forms Stand Alone Forms: My [facility], Suicide Prevention Resources, Virtual Emergency Department, Important Visit Information Prescriptions Prescriptions: No Action escitalopram oxalate 10 mg tablet 10 mg PO DAILY Qty: 90 RF: 1 losartan 25 mg tablet 25 mg PO DAILY RF: 0 propranolol 10 mg tablet 10 mg PO BID PRN (Reason: anxiety, panic attack) Qty: 14 RF: 0 pantoprazole 40 mg tablet,delayed release (DR/EC) 40 mg PO BID Qty: 0 RF: 0 Referrals Referrals: Hector Myrick III, CRNP [Primary Care Provider] -
[2021-09-27] MEDS ORDERED: THIAMINE HCL 500 MG in SODIUM CHLORIDE 0.9% 50 ML IV STA (23:47)
[2021-09-27] MEDS ORDERED: FOLIC ACID 1 MG in SYRINGE 9.8 ML IV STA (23:47)
--- NOTE | 2021-09-27 23:47 | History & Physical Report ---
Date of Service September 27, 2021 Assessment & Plan (1) Seizure-like activity: Plan: Seizure-like activity/alcohol withdrawal/alcoholism/alcohol liver disorder- Full liquid diet as tolerated Did receive lorazepam 1 mg IV in the ED AWSS protocol Thiamine 500 mg IV x1 500 mg p.o. every morning Folic acid 1 mg IV x1 Folic acid 1 mg p.o. every morning Alcohol cessation counseling (2) Alcohol withdrawal: Plan: See above (3) Alcoholism: Plan: See above (4) Acute hypokalemia: Plan: Replace both orally and IV, and recheck laboratories in a.m. (5) Hypertension: Plan: Hold losartan and propranolol (6) Generalized anxiety disorder: Plan: Resume Lexapro when able to take p.o. (7) Alcoholic liver disease: Plan: See above History of Present Illness Chief Complaint: The patient presents to the emergency department with seizure-like activity concerning for alcohol withdrawal, while trying to undergo self detox while at home Primary Care Provider: Hector Myrick III, CRNP The patient is a 35-year-old female with past medical history including anxiety with depression, alcohol use disorder, acute upper GI bleed, alcoholic hepatitis, hematemesis, acute blood loss anemia, hyponatremia, alcoholic liver disease, UTI, coagulopathy, hypertension, alcoholism, and ascites. Allergies Allergy/AdvReac Type Severity Reaction Status Date / Time pine nut Allergy Unknown Verified 09/27/21 20:48 Home Medications Medication Instructions Recorded Confirmed Type pantoprazole 40 mg tablet,delayed 40 mg PO BID #0 tab 08/07/21 09/27/21 Rx release propranolol 10 mg tablet 10 mg PO BID PRN #14 tab 08/07/21 09/27/21 Rx losartan 25 mg tablet 25 mg PO DAILY 08/09/21 09/27/21 History escitalopram oxalate 10 mg tablet 10 mg PO DAILY #90 tab 09/12/21 09/27/21 Rx Past Med/Surg History Medical History AA (alcohol abuse) Abdominal pain Acute alcoholic hepatitis Acute alcoholic hepatitis Acute hypokalemia Coagulopathy Elevated INR Generalized anxiety disorder GI bleed Hypertension Hyponatremia Obesities, morbid Pancreatitis Upper GI bleed Surgical History No history of previous surgery Family History Father Myocardial infarction Depression Diabetes Heart disease Grandfather Prostate cancer MATERNAL Mother Depression Hypertension Denies family history of Ovarian cancer Breast cancer Colorectal cancer History of alcoholism Social History Smoking Status: Current some day smoker Tobacco Type: Cigarettes Age Started Using Tobacco: 22; Cigarettes Per Day: 5; Second Hand Exposure: No; Hx Alcohol Use: Yes Alcohol type: wine Alcohol Intake Frequency: 4 or More x per/Week Alcohol Intake Frequency Comment: DAILY; 1-2 bottles wine/day; multiple rum & coke Hx Substance Use: No Preferred Language: Samoan Communication Ability: Effective Visual Impairment: Partially Limited Hearing Ability: Normal Pairer Required: No Beliefs That Will Affect Care: None marital status: Single Current Living Situation: Alone and Parent Current Living Situation Comment: lives in [place] w/ Mom/dad current occupational status: unemployed 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 How many Children do You have: 0 Feels Safe at Home: Yes Childhood Exposure to Second-Hand Smoke: No Dental Care, Regularly: No Physical Activity Frequency: Does not Exercise Seatbelt Use: always Sunscreen Use: Yes Sexual Activity: has been sexually active, but not for at least 12 months Assistive Devices: Glasses Review of Systems Review of Systems: The patient denies chest pain, palpitations, shortness of breath, dyspnea on exertion, cough, lower extremity swelling, sore throat, fevers, chills, sweats, diarrhea , constipation, abdominal pain, pelvic pain, blood in urine or stool, dysuria, urinary frequency or urgency, loss of consciousness, rash, abnormal bruising or bleeding, imbalance, focal weakness, numbness or tingling in arms or legs, generalized arthralgias or myalgias, back or neck pain, or night sweats. The review of systems is otherwise negative other than for that already noted above, and at least 10 systems have been reviewed. Physical Exam Physical Exam: The patient is awake, alert and oriented 3, well developed and well nourished, normocephalic and atraumatic, lying in bed and in no acute distress. HEENT--PERRL, EOMI, mucous membranes and oropharynx dry. Neck--supple. No JVD. No bruits. Thyroid normal, trachea midline, no a denopathy. Heart--normal S1 and S2. No murmurs, rubs or gallops. Lungs--clear bilaterally, no respiratory distress, no accessory muscle use. Abdomen--normal bowel sounds and soft. Nontender. Nondistended, no hernias or masses, no organomegaly. Extremities--no cyanosis or clubbing. No edema. Dermatologic--normal skin turgor, normal color, no abnormal lymph nodes, no rash. Neurologic--cranial nerves II through XII grossly intact. Rheumatologic--normal range of motion. Psychiatric--normal affect. Results & Data Results & Data ([facility]) Vital Signs (Past 12 Hours) Vital Signs Temp Pulse Pulse Resp BP BP Pulse Ox 09/27/21 22:00 74 16 117/67 97 09/27/21 20:37 72 16 123/78 100 09/27/21 19:53 36.2 C L 79 16 123/78 100 Laboratory Results Laboratory Results WBC 9.80 K/uL (4.8-10.8) 09/27/21 20: RBC 4.50 M/uL (4.2-5.4) 09/27/21 20:23 Hgb 14.0 g/dL (12.0-16.0) 09/27/21 20:23 Hct 41.4 % (37-47) 09/27/21 20: MCV 92.0 fL (80-100) 09/27/21 20: MCH 31.1 pg (25-34) 09/27/21 20: MCHC 33.8 g/dL (32-36) 09/27/21 20: RDW Std Deviation 57.0 fL (36.4-46.3) H 09/27/21 20:23 RDW Coeff of Ace 16.9 % (11.5-14.5) H 09/27/21 20: Plt Count 173 K/uL (130-400) 09/27/21 20: MPV 10.1 fL (7.4-10.4) 09/27/21 20:23 Immature Gran % (Auto) 0.1 % 09/27/21 20: Neut % (Auto) 75.4 % 09/27/21 20:23 Lymph % (Auto) 20.7 % 09/27/21 20: [place] % (Auto) 3.7 % 09/27/21 20: Eos % (Auto) 0.0 % 09/27/21 20: Baso % (Auto) 0.1 % 09/27/21 20: Neut # (Auto) 7.39 K/uL (1.4-6.5) H 09/27/21 20:23 Lymph # (Auto) 2.03 K/uL (1.2-3.4) 09/27/21 20: [place] # (Auto) 0.36 K/uL (0.11-0.59) 09/27/21 20: Eos # (Auto) 0.00 K/uL (0-0.5) 09/27/21 20: Baso # (Auto) 0.01 K/uL (0-0.2) 09/27/21 20: Immature Gran # (Auto) 0.01 K/uL (0.00-0.02) 09/27/21 20: PT 14.0 Seconds (9.0-12.0) H 09/27/21 20:44 INR 1.4 (0.9-1.1) H 09/27/21 20:44 APTT 31.5 Seconds (21.0-31.0) H 09/27/21 20:44 PTT Ratio 1.2 09/27/21 20:44 Sodium 138 mmol/L (136-145) 09/27/21 20:23 Potassium 2.6 mmol/L (3.5-5.1) L 09/27/21 20: Chloride 100 mmol/L (98-107) 09/27/21 20: Carbon Dioxide 25 mmol/L (21-32) 09/27/21 20: Anion Gap 14.0 (3-11) H 09/27/21 20:23 BUN 2 mg/dl (7-18) L 09/27/21 20: Creatinine 0.98 mg/dl (0.6-1.2) 09/27/21 20: Est Cr Clr Drug Dosing 77.7 ml/min 09/27/21 20:23 Est GFR ( Amer) 86.6 ml/min 09/27/21 20: Est GFR (Non-Af Amer) 74.7 ml/min 09/27/21 20:23 BUN/Creatinine Ratio 2.1 (10-20) L 09/27/21 20:23 Glucose 160 mg/dl (70-99) H 09/27/21 20:23 POC Glucose 163 mg/dl (70-99) H 09/27/21 20:07 Calcium 8.6 mg/dl (8.5-10.1) 09/27/21 20:23 Total Bilirubin 3.8 mg/dl (0.2-1) H 09/27/21 20:23 AST 250 U/L (15-37) H 09/27/21 20:23 ALT 70 (12-78) 09/27/21 20:23 Alkaline Phosphatase 275 U/L (45-117) H D 09/27/21 20:23 Total Protein 8.2 gm/dl (6.4-8.2) 09/27/21 20:23 Albumin 3.0 gm/dl (3.4-5.0) L 09/27/21 20:23 Globulin 5.2 gm/dl (2.5-4.0) H 09/27/21 20:23 Albumin/Globulin Ratio 0.6 (0.9-2) L 09/27/21 20:23 Lipase 181 U/L (73-393) 09/27/21 20:23 TSH 2.250 uIu/ml (0.300-4.500) 09/27/21 20:23 HCG, Qual Negative (Negative) 09/27/21 20:23 Salicylates < 1.7 mg/dl (2.8-20) L 09/27/21 20:23 Acetaminophen < 2 ug/ml (10-30) L 09/27/21 20:23 Ethyl Alcohol mg/dL < 3.0 mg/dl (0-3) 09/27/21 20:23 SARS-CoV-2, RNA, NAAT NEGATIVE (NEGATIVE) 09/28/21 00:25 Code Status & VTE Plan Code Status Full code VTE Prophylaxis Plan VTE Prophylaxis will be ordered: Yes PG Care Time/CCT Total # of Minutes Spent Total Time Spent with Patient: Total time spent is greater than 50% in coordination of care (as documented) at patient's floor/unit and/or counseling patient: Coding Level of Care Code 01851 Initial Inpt Care Lvl 3 Diagnoses Acute hypokalemia E87.6 Alcoholism F10.20 Seizure-like activity R56.9 Hypertension I10 Generalized anxiety disorder F41.1 Alcohol withdrawal F10.230 Complication of substance-induced condition: uncomplicated Alcoholic liver disease K70.9 (1) Alcohol withdrawal Complication of substance-induced condition: uncomplicated Qualified Code(s): F10.230 - Alcohol dependence with withdrawal, uncomplicated
[2021-09-27 23:49] LABS: INR 1.4 (0.9-1.1); Partial Thromboplastin Ratio 1.2; Partial Thromboplastin Time 31.5 Seconds (21.0-31.0)
[2021-09-28] MEDS ORDERED: LORazepam 1 MG/2 ML VIAL IV PRN (01:46)
[2021-09-28] MEDS ORDERED: ONDANSETRON INJ 2 MG/ML 2 ML VIAL IV PRN ×2 (01:46→18:18)
[2021-09-28] MEDS ORDERED: LORazepam 3 MG/6 ML VIAL IV PRN (01:46)
[2021-09-28] MEDS ORDERED: ATIVAN IV ALCOHOL WITHDRAWL IV PRN (01:46)
[2021-09-28] MEDS ORDERED: LORazepam 2 MG/4 ML VIAL IV PRN (01:46)
[2021-09-28] MEDS: FOLIC ACID 1 MG TAB PO SCH ×2 (03:17→08:53)
[2021-09-28] MEDS: THIAMINE HCL 100 MG TAB PO SCH ×2 (03:17→08:52)
[2021-09-28 06:44] LABS: Albumin Level 2.5 gm/dl (3.4-5.0); BUN Creatinine Ratio 4.7 (10-20); Calcium 8.1 mg/dl (8.5-10.1); Creatinine Clr Calc Pharmacy 102.9 ml/min; Est GFR (African American) 121.7 ml/min; Potassium 2.7 mmol/L (3.5-5.1)
[2021-09-28 07:16] LABS: Albumin Globulin Ratio 0.6 (0.9-2); Bilirubin,Total 3.8 mg/dl (0.2-1); Globulin 4.3 gm/dl (2.5-4.0); Total Protein 6.8 gm/dl (6.4-8.2)
[2021-09-28] MEDS: ENOXAPARIN INJ 40 MG/0.4 ML SYR SQ SCH (08:52)
[2021-09-28] MEDS: LACTATED RINGER'S 1,000 ML IV SCH ×3 (08:53→16:25)
[2021-09-28] MEDS ORDERED: POTASSIUM CHLORIDE CRTAB 20 MEQ TABCR PO STA ×2 (09:54→17:33)
--- NOTE | 2021-09-28 09:54 | Hospitalist Progress Note ---
Date of Service September 28, 2021 Assessment & Plan (1) Alcohol withdrawal: Plan: Chronic alcohol abuse 1-2 bottles wine daily, working to wean off (6 beers/day past week). Last drink 09/26 11PM. Vomiting all day Th09/27, unable to keep anything down despite trying to drink wine when noted anxiousness/tremulousness Presented to ED 09/27 following seizure-like activity at home. Received IV ativan x1. EtOH negative. No seizures since arrival to [facility] - CIWA protocol w/ PRN 1-3mg ativan IV - Working on re-establishing outpatient counseling & EtOH resources w/ [facility]. Considering inpatient detox/rehab - provided resources by ED CM. Guzman & her mom will call [facility] to hope to have her accepted/admitted [facility]. - Seizure precautions (2) Alcoholic steatohepatitis: Plan: Previously complicated by acute alcoholic hepatitis & bleeding esophagitis. Suspect current alcoholic gastritis led to vomiting [employer]. No evidence of acute alcoholic hepatitis, pancreatitis, or GI bleeding at present. Imaging & lab evidence of ongoing VAN. CT A/P 06/2021: hepatomegaly, hepatic steatosis MDF 15.3 - glucocorticoids not indicated MELD-Na 16 No overt evidence of portal hypertension Trace ascites on US & CT 2020 Last EGD 02/2021 w/ grade D esophagitis but no EV/GV, PHG Sees Mariella Beckford outpatient ([facility] 05/2021) - 1g folate daily + 100mg thiamine daily - Patient educated on & aware of severe health detriments of ongoing alcohol use. She is motivated to achieve & maintain complete abstinence. - Encouraged to schedule ongoing follow up w/ hepatology, she is interested in a new provider. (3) Alcohol use disorder: Plan: Chronic alcohol abuse 1-2 bottles wine daily, working to wean off (6 beers/day past week). Very motivated to quit alcohol use. Notes that she uses alcohol to control severe anxiety. Needs medication for anxiety. - Managing withdrawal & planning for detox/rehab as above - Anxiety management as below - Outpatient consider acamprosate for pharmacologic management of EtOH use disorder (4) Acute hypokalemia: Plan: Due to intractable vomiting at home likely due to alcoholic gastritis. K 2.6 on admission. Remains low K 2.7 today - KCl 20 mEQ IV + 40 mEQ PO - Recheck in PM --> K improved to 3.4 --> 40mEq KCL PO in PM - RFP + Mg in AM. KCL 20mEq BID scheduled (5) Anxiety: Plan: Home meds: escitalopram 10mg daily Held on admission due to N/V EKG w/ prolonged QTc (582 09/27, 513 09/28) likely in s/o hypokalemia. - HOLD escitalopram given QTc prolongation >500ms. Correct hypokalemia & reassess EKG. If QTc normalized, resume escitalopram 10mg - START buspirone 5mg TID - Outpatient would favor increasing to 20mg escitalopram daily (if QTc allows) + continuing buspirone 5mg TID (can use as TID PRN if preferred) to control anxiety and help Megan in avoiding alcohol use. Avoid wellbutrin given seizures. (6) Hypertension: Plan: Hold home losartan 25mg BID & propranolol 10mg BID given recent N/V & nor motension at present (7) Vomiting: Plan: Intractable NBNB vomiting 09/27 prior to admission, unable to keep even liquids down Likely due to alcohol induced gastritis. No abdominal pain, normal lipase - do not suspect pancreatitis. Improved w/ lorazepam & zofran - Zofran PRN N/V (minimize use as able given QT prolongation) Plan: DVT ppx: Lovenox Code: Full Dispo: Likely weekend if adequate resources arranged & patient feels safe to go home & no ongoing s/s of withdrawal & hypokalemia stabilized Discussed dispo plan w/ patient & her mom. They are working to arrange inpatient treatment but feel ok going home tomorrow if medically stable. Needs PCP f/u, [facility] counseling f/u as well. Admission and Anticipated Discharge Date Admission Date: September 27, 2021 Elza Gloria is a 35F admitted 09/27 from the ED after presenting with seizure like activity at home due to alcohol withdrawal in the setting of intractable vomiting. EtOH level negative on admission. Received IV ativan in ED. Her PMH is notable for - Chronic alcohol abuse with chronic alcoholic steatohepatitis (1-2 bottles wine daily for years) previously complicated by acute alcoholic hepatitis pancreatitis upper GI bleeding 2/2 erosive esophagitis - Anxiety/depression - Hypertension Last drink: Tuesday 09/26 11PM Today - VSS - AM labs w/ persistent hypokalemia 2.7 as well as elevated Tbili/AST/ALP in s/o EtOH liver disease - No recurrent seizure activity. Has not required any ativan PRNs. Not feeling anxious or tremulous - Nausea much improved, tolerating clears. No ongoing emesis. No blood in stools or vomit at home. No abdominal pain Review of Systems Review of Systems: No headache blurry vision chest pain shortness of breath abdominal pain jaundice tremulousness or lower extremity edema Physical Exam Physical Exam: General: Well appearing, sitting in chair comfortably CV: Normal rate, regular rhythm. No murmurs. Resp: Breathing comfortably on room air. Lungs clear to auscultation bilaterally. No wheezes, crackles, or rhonchi Abd: Soft, nontender. Wide purple abdominal striae. No caput medusae. No fluid wave. No palpable tenderness Skin: a few spider angiomata on upper chest. No jaundice Eyes: mild scleral icterus under lower eyelids, pupils equal & round Ext: Warm, well perfused. No edema Neuro: calm, alert, oriented, pleasant. no asterixis very mild fine tremor of outstretched hands. Results & Data Results & Data ([facility]) Vital Signs (Past 12 Hours) Vital Signs Temp Pulse Resp BP Pulse Ox 09/28/21 07:34 98.1 F 63 12 119/78 97 09/27/21 22:00 74 16 117/67 97 PG Care Time/CCT Total # of Minutes Spent Total Time Spent with Patient: Total time spent is greater than 50% in coordination of care (as documented) at patient's floor/unit and/or counseling patient: Coding Level of Care Code 10335 Subseq Hosp Care Lvl 3 Diagnoses Alcohol use disorder Anxiety F41.9 Acute hypokalemia E87.6 Alcohol withdrawal F10.230 Complication of substance-induced condition: uncomplicated Hypertension I10 Alcoholic steatohepatitis K70.10 Vomiting R11.10 (1) Alcohol withdrawal Complication of substance-induced condition: uncomplicated Qualified Code(s): F10.230 - Alcohol dependence with withdrawal, uncomplicated
[2021-09-28] MEDS: POTASSIUM CHLORIDE / WTR 10 MEQ/100 ML PLCT IV SCH ×2 (10:30→11:59)
[2021-09-28 11:03] LABS: Color Urine Orange
[2021-09-28 11:04] LABS: Appearance Urine Cloudy (Clear); Specific Gravity Urine 1.029 (1.000-1.030)
[2021-09-28 11:07] LABS: Bacteria Urine 1+ (Negative); Epithelial Cell Urine >30 /lpf (0-5); RBC Urine 0-4 /hpf (0-4)
[2021-09-28 11:08] LABS: Hyaline Casts Urine 0-5 /lpf (0-5); Mucus Urine Present (None Prsent)
[2021-09-28 11:17] LABS: Amphetamines+Metham, Urine Neg (Neg); Barbiturates, Urine Neg (Neg); Benzodiazepine, Urine Neg (Neg); Cocaine, Urine Neg (Neg); MDMA (Ecstacy), Urine Neg (Neg); Methadone, Urine Neg (Neg); Opiate, Urine Neg (Neg); Phencyclidine, Urine Neg (Neg)
--- NOTE | 2021-09-28 16:14 | Electrocardiogram Report ---
Test Reason : Blood Pressure : / mmHG Vent. Rate : 065 BPM Atrial Rate : 065 BPM P-R Int : 156 ms QRS Dur : 086 ms QT Int : 560 ms P-R-T Axes : 044 -18 177 degrees QTc Int : 582 ms Sinus rhythm with marked sinus arrhythmia Poor R wave progression, consider anterior LA vs. lead placement vs. LVH Abnormal ECG When compared with ECG of 12-MAR-2021 10:30, Vent. rate has decreased BY 37 BPM Questionable change in initial forces of Lateral leads QT has lengthened Confirmed by Chuckie Cherry ([id number]) on 09/28/2021 4:14:17 PM Referred By: REFERRED SELF Confirmed By:Chuckie Cherry
--- NOTE | 2021-09-28 16:18 | Electrocardiogram Report ---
Test Reason : Blood Pressure : / mmHG Vent. Rate : 063 BPM Atrial Rate : 063 BPM P-R Int : 166 ms QRS Dur : 080 ms QT Int : 502 ms P-R-T Axes : 084 -05 059 degrees QTc Int : 513 ms Normal sinus rhythm Poor R wave progression, consider anterior IA vs. lead placement vs. LVH Abnormal ECG When compared with ECG of 27-SEP-2021 22:54, (unconfirmed) Nonspecific T wave abnormality, improved in Lateral leads QT has shortened Confirmed by Chuckie Cherry ([id number]) on 09/28/2021 4:18:02 PM Referred By: REFERRED SELF Confirmed By:Chuckie Cherry
[2021-09-28] MEDS ORDERED: ONDANSETRON 4 MG OD TAB PO PRN (18:17)
[2021-09-28] MEDS: busPIRone 5 MG TAB PO SCH (21:16)
[2021-09-29 05:55] LABS: Basophils # (auto) 0.02 K/uL (0-0.2); Basophils % (auto) 0.3 %; Eosinophils % (auto) 1.6 %; Hematocrit (blood only) 39.2 % (37-47); Hemoglobin 12.4 g/dL (12.0-16.0); Immature Granulocytes # (auto) 0.01 K/uL (0.00-0.02); Immature Granulocytes % (auto) 0.2 %; Lymphocytes # (auto) 2.19 K/uL (1.2-3.4); Mean Corpuscular Hgb Conc 31.6 g/dL (32-36); Mean Corpuscular Volume 94.9 fL (80-100); Mean Platelet Volume 11.2 fL (7.4-10.4); Monocytes # (auto) 0.33 K/uL (0.11-0.59); Monocytes % (auto) 5.3 %; Neutrophils % (auto) 57.6 %; Platelet Count 132 K/uL (130-400); RDW Standard Deviation 58.9 fL (36.4-46.3); Red Blood Count 4.13 M/uL (4.2-5.4); White Blood Count 6.25 K/uL (4.8-10.8)
[2021-09-29 06:24] LABS: Potassium 3.5 mmol/L (3.5-5.1)
[2021-09-29 06:26] LABS: INR 1.5 (0.9-1.1); Partial Thromboplastin Ratio 1.1; Partial Thromboplastin Time 30.2 Seconds (21.0-31.0)
[2021-09-29 06:43] LABS: Albumin Globulin Ratio 0.5 (0.9-2); Albumin Level 2.3 gm/dl (3.4-5.0); BUN Creatinine Ratio 4.8 (10-20); Calcium 8.1 mg/dl (8.5-10.1); Creatinine Clr Calc Pharmacy 107.7 ml/min; Est GFR (African American) 125.8 ml/min; Est GFR (Non-African American) 108.5 ml/min; Globulin 4.2 gm/dl (2.5-4.0); Magnesium 1.7 mg/dl (1.8-2.4); Total Protein 6.5 gm/dl (6.4-8.2)
[2021-09-29] MEDS: busPIRone 5 MG TAB PO SCH ×2 (08:29→13:47)
[2021-09-29] MEDS: THIAMINE HCL 100 MG TAB PO SCH (08:30)
[2021-09-29] MEDS: ENOXAPARIN INJ 40 MG/0.4 ML SYR SQ SCH (08:30)
[2021-09-29] MEDS: FOLIC ACID 1 MG TAB PO SCH (08:30)
[2021-09-29] MEDS ORDERED: POTASSIUM CHLORIDE CRTAB 20 MEQ TABCR PO SCH (09:00)
--- NOTE | 2021-09-29 14:03 | Discharge Summary ---
Date of Service September 29, 2021 Admission HPI Per Admitting Provider The patient is a 35-year-old female with past medical history including anxiety with depression, alcohol use disorder, acute upper GI bleed, alcoholic hepatitis, hematemesis, acute blood loss anemia, hyponatremia, alcoholic liver disease, UTI, coagulopathy, hypertension, alcoholism, and ascites. Principal Diagnosis Alcohol withdrawal causing seizure Discharge Exam General: well developed, well nourished, no acute distress, comfortable Neck: supple, trachea midline, normal thyroid Lungs: clear to auscultation bilaterally, normal respiratory effort, no accessory muscle use, no distress Heart: regular S1 and S2, no murmur, peripheral pulses normal, capillary refill normal, no edema Abdomen: soft, NT, ND, + BS, no hepatomegaly, normal to percussion Extremities: normal in appearance, no cyanosis, no petechiae, strength is 5/5 bilaterally Neuro: awake, cooperative, moves all extremities, no focal motor deficits, CN II-XII intact, sensation in extremities intact, normal speech Skin: warm, dry, no rash, normal turgor Psych: Awake, alert oriented x 3, euthymic affect Discharge Data Allergies Allergy/AdvReac Type Severity Reaction Status Date / Time pine nut Allergy Unknown Verified 09/27/21 20:48 Hospital Course (1) Alcohol withdrawal: Chronic alcohol abuse 1-2 bottles wine daily, working to wean off (6 beers/day past week). Last drink Wed 09/26 11PM. Vomiting all day Thurs 09/27, unable to keep anything down despite trying to drink wine when noted anxiousness/tremulousness Presented to ED 09/27 following seizure-like activity at home. Received IV ativan x1. EtOH negative. No seizures since arrival to [facility] (several days) no current signs of withdrawal, she will be discharged to home with her mother has a list of inpatient alcohol treatment facilities (2) Alcoholic steatohepatitis: Previously complicated by acute alcoholic hepatitis & bleeding esophagitis. Suspect current alcoholic gastritis led to vomiting [employer]. No evidence of acute alcoholic hepatitis, pancreatitis, or GI bleeding at present. Imaging & lab evidence of ongoing VAN. CT A/P 06/2021: hepatomegaly, hepatic steatosis MDF 15.3 - glucocorticoids not indicated MELD-Na 16 No overt evidence of portal hypertension Trace ascites on US & CT 2020 Last EGD 02/2021 w/ grade D esophagitis but no EV/GV, PHG Sees Mariella GI JAC Shakeel outpatient ([facility] 05/2021) - 1g folate daily + 100mg thiamine daily - she would like a referral to [facility], this was made on discharge educated again on danger of continued alcohol abuse and irreversible damage to liver (3) Alcohol use disorder: Chronic alcohol abuse 1-2 bottles wine daily, working to wean off (6 beers/day past week). Very motivated to quit alcohol use. Notes that she uses alcohol to control severe anxiety. Needs medication for anxiety. - Managing withdrawal & planning for detox/rehab as above - Anxiety management as below - Outpatient consider acamprosate for pharmacologic management of EtOH use disorder (4) Acute hypokalemia: Due to intractable vomiting at home likely due to alcoholic gastritis. K 2.6 on admission coming up with oral and IV replacement eating much better safe for discharge (5) Anxiety: Home meds: escitalopram 10mg daily Held on admission due to N/V EKG w/ prolonged QTc (582 09/27, 513 09/28) repeat EKG day of discharge with normal QTc - resumed escitalopram 10mg - START buspirone 5mg TID - Outpatient would favor increasing to 20mg escitalopram daily (if QTc allows) + continuing buspirone 5mg TID (can use as TID PRN if preferred) to control anxiety and help Megan in avoiding alcohol use. Avoid wellbutrin given seizur es. (6) Hypertension: Hold home losartan 25mg BID & propranolol 10mg BID given recent N/V & normotension at present will hold on discharge as BP has been normal patient states that her pressures are typically up in the office because she stops drinking prior to PCP visit (7) Vomiting: Intractable NBNB vomiting 1/6 prior to admission, unable to keep even liquids down Likely due to alcohol induced gastritis. No abdominal pain, normal lipase - do not suspect pancreatitis. Improved w/ lorazepam & zofran - Zofran PRN N/V (minimize use as able given QT prolongation) discharge to home, she will be with her mother follow up with PCP, refer to [facility] she has a list of inpatient alcohol treatment facilities Total Time Total Time Spent Total Time Spent (In Minutes): 34 minutes Total Time Includes: Examination of the Patient, Discharge Planning and Medication Reconciliation Discharge Plan Discharge Items Patient Disposition: Home - Self-Care Reason For Visit: ALCOHOL WITHDRAWL, HYPOKALEMIA Discharge Diagnosis: Alcohol withdrawal Anxiety Hepatic steatosis Condition on Discharge: Good Goals: call about inpatient alcohol rehab treat anxiety with Lexapro and Buspar follow up with [facility] Activity: Resume your previous activity Driving/Machine Use: No limitations Weightbearing: Full weightbearing Non-emergency contact: Primary Care Provider and Grinding Machine [employer] Call non-emergency contact if: you have any medication questions and your symptoms worsen Follow-up/Referrals: Hector Myrick III, CRNP [Primary Care Provider] - (one week) Vladimir Mack MD [Physician] - (can be with any provider, new patient referral for alcoholic steatosis) Diet: Regular Addtl Attending Provider Instructions: Medications: - BUSPAR: take 5mg three times a day, this is for anxiety - FOLIC ACID and THIAMINE: this is nutrition supplement due to your alcohol abuse Alcohol withdraw with seizure no further seizure activity, you did not need Ativan in 48 hours, no further signs of withdrawal recommend complete abstinence from alcohol recommend you call inpatient alcohol rehab services, refer to list I made a referral to [facility] services, they can likely see you in a few weeks as we discussed, your liver numbers (bilirubin, AST, alkaline phosphatase) are all improving slowly cannot stress enough the importance of staying sober, you are young, if you continue to drink you will develop cirrhosis cirrhosis is IRREVERSIBLE and it is a miserable way to live and is life threatening once you develop it again, the time to stop drinking is now Anxiety: EKG showed that QTc was normal now, can resume Lexapro 10mg will prescribe you Buspar 5mg three times a day for anxiety rely on family support, counseling to help you deal with anxiety and avoid using alcohol as treatment stay well nourished, well hydrated and get rest the next few days Pending Studies at Discharge: No Stand-Alone Forms: My [facility], Smoking Cessation Medications and DC Order Prescriptions: New buspirone 5 mg Tablet 5 mg PO TID 30 Days Qty: 90 RF: 1 folic acid 1 mg Tablet 1 mg PO QAM Qty: 30 RF: 0 thiamine HCl (vitamin B1) 100 mg Tablet 100 mg PO QAM Qty: 30 RF: 0 Continued escitalopram oxalate 10 mg tablet 10 mg PO DAILY Qty: 90 RF: 1 pantoprazole 40 mg tablet,delayed release (DR/EC) 40 mg PO BID Qty: 0 RF: 0 Discontinued losartan 25 mg tablet 25 mg PO DAILY RF: 0 propranolol 10 mg tablet 10 mg PO BID PRN (Reason: anxiety, panic attack) Qty: 14 RF: 0 Discharge Orders: Discharge Order (Routine); Ordered 09/29/21 Ordered By: Damien Perry Admission Data Admit Date/Time: 09/27/21 23:47 Attending Provider: Damien ePrry Admit Provider: Godfrey Sanders Primary Care Provider: Hector Myrick III Other Providers: Godfrey Sanders Other Interventions: Discharge Summary Assessment (RN) Last Done: 09/29/21 14:47 Coding Level of Care Code D/C DAY MANAGEMENT >30 MINS Diagnoses Alcohol withdrawal F10.230 Complication of substance-induced condition: uncomplicated Alcoholic steatohepatitis K70.10 Alcohol use disorder Acute hypokalemia E87.6 Anxiety F41.9 Hypertension I10 Vomiting R11.10
--- NOTE | 2021-10-01 05:32 | Electrocardiogram Report ---
Test Reason : Blood Pressure : / mmHG Vent. Rate : 060 BPM Atrial Rate : 060 BPM P-R Int : 112 ms QRS Dur : 082 ms QT Int : 454 ms P-R-T Axes : 001 -08 015 degrees QTc Int : 454 ms Poor data quality, interpretation may be adversely affected Normal sinus rhythm Cannot rule out Inferior infarct , age undetermined Poor R wave progression, consider anterior DE vs. lead placement vs. LVH Nonspecific T wave abnormality Abnormal ECG When compared with ECG of 28-SEP-2021 10:50, QT has shortened Confirmed by Noel Valverde ([id number]) on 10/01/2021 5:31:56 AM Referred By: REFERRED SELF Confirmed By:Noel Valverde
== END 2021-09-29 14:55 | disposition home or self-care (01) | DRG 897 ==
LOC: ED 19:42 → EDINP 23:47 → SUATTDRO 23:47 → EDINP 09-28 02:00

== ENCOUNTER 2021-10-06 22:58 | Observation (INO) ==
[2021-10-06] MEDS ORDERED: SODIUM CHLORIDE 0.9% 1000ML 1,000 ML IV SCH (23:15)
--- NOTE | 2021-10-06 23:23 | Emergency Department Note ---
Impression & Plan Alcohol intoxication ED Provider Note NAME: JOSEPH WALTER AGE: 35 SEX: F : 1985 ARRIVES VIA: Ambulance INFORMANT: Patient, EMS ED PROVIDER(S): Chuckie Stanton DO CHIEF COMPLAINT: Possible seizure HPI: The patient is a 35-year-old female who has a history of alcoholism and alcohol-related seizures who presented to the emergency department for possible seizure episode. The patient states she was drinking alcohol this evening. She does not remember exactly what happened. Apparently her mother called 911. The patient arrived via ALS. The patient denies having any chest pain or difficulty breathing. She denies having any headache or neck pain. She denies having any abdominal pain. She has had no dysuria or frequency. The patient states that she has been compliant with her usual medications. She was discharged in our facility approximately 1 week ago because of alcohol related seizures. The michael ent states that she has no suicidal or homicidal ideation. The patient's had no recent fevers. ROS: See above HPI for pertinent positives & negatives. A total of 10 systems reviewed and were otherwise negative. PAST MEDICAL HISTORY: See Below PAST SURGICAL HISTORY: See Below FAMILY HISTORY: See Below SOCIAL HISTORY: See Below HOME MEDICATIONS: See Below ALLERGIES: See Below VITALS: See Below PHYSICAL EXAMINATION: GENERAL: Patient is awake alert in no acute distress patient is resting comfortably and showing no signs of anxiety EYES: The conjunctivae are clear. The pupils are round and reactive. EARS, NOSE, MOUTH AND THROAT: The nose is without any evidence of any deformity. NECK: The neck is nontender and supple. RESPIRATORY: Normal respiratory effort is noted there is no evidence of wheezing rhonchi or rales CARDIOVASCULAR: Regular rate and rhythm noted there no murmurs rubs or gallops normal S1 normal S2. GASTROINTESTINAL: The abdomen is soft. Abdomen is nontender. MUSCULOSKELETAL/EXTREMITIES: There is no evidence of gross deformity full range of motion is noted in the hips and shoulders. SKIN: There is no obvious evidence of any rash. There are no petechiae, pallor or cyanosis noted. NEUROLOGIC: Patient is awake alert and oriented x3 strength is symmetric patellar reflexes are 2+ bilaterally MEDICAL DECISION MAKING: The patient is a 35-year-old female who presented to emergency department for an evaluation of possible seizure. The patient has a history of alcohol withdrawal seizures. Upon arrival the patient was thought to be intoxicated. She was awake and alert but admitted to alcohol use. I discussed patient's laboratory and radiographic studies with her. Her alcohol level was very elevated over 400. This would represent a very significant elevation and it would be higher than the patient's recent visits for alcohol intoxication. She has a history of withdrawal and withdrawal related seizures. The patient states that she does have desire to stop drinking. I am unsure if it would be safe to discharge the patient at this time. The patient would be at very high risk for withdrawal related complications. For this reason I will discuss her case with the on-call [facility]. Triage Nursing notes reviewed. Prior medical records reviewed Vital Signs: reviewed and remarkable for no significant abnormalities Differential diagnosis: Epilepsy, infection, hypoglycemia, electrolyte abnormalities, cardiac sources, intracerebral event, trauma, toxicologic, neurologic, syncope, as well as other pathologies. ER treatment provided: See below Diagnostics interpreted by me: ECG: EKG was obtained in the emergency department. My interpretation is normal sinus rhythm at 91 bpm. There is no ectopy. Diffuse T wave flattening was noted. This was compared to a tracing from September 29, 2021. No changes were noted. Cardiac Monitoring: An order was placed for continuous cardiac monitoring. The monitor shows a rate of 91 bpm with sinus rhythm. Laboratory studies: As stated above and show below. Imaging studies: See below Consultation(s): The case was discussed with Dr. Burgess who is on-call for the [facility]. Past Med/Surg History Medical History AA (alcohol abuse) Abdominal pain Acute alcoholic hepatitis Acute alcoholic hepatitis Acute hypokalemia Acute hypokalemia Alcohol withdrawal Alcoholic steatohepatitis Coagulopathy Elevated INR Generalized anxiety disorder GI bleed Hypertension Hyponatremia Obesities, morbid Pancreatitis Seizure-like activity Upper GI bleed Vomiting Surgical History No history of previous surgery Family History Father Myocardial infarction Depression Diabetes Heart disease Grandfather Prostate cancer MATERNAL Mother Depression Hypertension Denies family history of Ovarian cancer Breast cancer Colorectal cancer History of alcoholism Social History Smoking Status: Former smoker Tobacco Type: Cigarettes Age Started Using Tobacco: 22; Cigarettes Per Day: 5; Second Hand Exposure: No; Hx Alcohol Use: Yes Alcohol type: wine Alcohol Intake Frequency: 4 or More x per/Week Alcohol Intake Frequency Comment: DAILY; 1-2 bottles wine/day; multiple rum & coke Hx Substance Use: No Preferred Language: Ukrainian Communication Ability: Effective Visual Impairment: Partially Limited Hearing Ability: Normal Brick Shader Required: No Beliefs That Will Affect Care: None marital status: Single Current Living Situation: Parent Current Living Situation Comment: lives in [place] w/ Mom/dad current occupational status: unemployed 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 How many Children do You have: 0 Feels Safe at Home: Yes Childhood Exposure to Second-Hand Smoke: No Dental Care, Regularly: No Physical Activity Frequency: Does not Exercise Seatbelt Use: always Sunscreen Use: Yes Sexual Activity: has been sexually active, but not for at least 12 months Assistive Devices: None Allergies Allergies Allergy/AdvReac Type Severity Reaction Status Date / Time pine nut Allergy Unknown Verified 09/27/21 20:48 Home Meds Previous Rx's Medication Instructions Recorded pantoprazole 40 mg tablet,delayed 40 mg PO BID #0 tab 08/07/21 release escitalopram oxalate 10 mg tablet 10 mg PO DAILY #90 tab 09/12/21 buspirone 5 mg tablet 5 mg PO TID 30 Days #90 tab 09/29/21 folic acid 1 mg tablet 1 mg PO QAM #30 tab 09/29/21 thiamine HCl (vitamin B1) 100 mg 100 mg PO QAM #30 tab 09/29/21 tablet Results & Data (ED) Vital Signs Vital Signs - 24 hr 10/06/21 23:06 10/06/21 23:12 10/07/21 00:12 Temperature 36.8 C Temperature Source Oral Pulse Rate 96 H Pulse Rate [Apical] 94 H Respiratory Rate 16 18 Respiratory Depth Normal Blood Pressure 137/85 Blood Pressure [Right Arm] 125/92 Blood Pressure Mean 102 Blood Pressure Mean [Right Arm] 103 Blood Pressure Position Sitting Pulse Oximetry 99 98 97 Oxygen Delivery Method Room Air Room Air Room Air Sepsis Recent Fever Within 48 Hours No Sepsis New/Unexplained Change in Mental Status No Sepsis Action Taken by Nursing No Action Required 10/07/21 01:30 Temperature Temperature Source Pulse Rate Pulse Rate [Apical] 91 H Respiratory Rate 16 Respiratory Depth Normal Blood Pressure Blood Pressure [Right Arm] 111/75 Blood Pressure Mean Blood Pressure Mean [Right Arm] 87 Blood Pressure Position Pulse Oximetry 92 Oxygen Delivery Method Room Air Sepsis Recent Fever Within 48 Hours Sepsis New/Unexplained Change in Mental Status Sepsis Action Taken by Detention Medications Current Medication List: was personally reviewed by me Laboratory Data Attestation: I reviewed the patient's lab results. Result diagrams: 10/06/21 23:13 10/06/21 23:13 Lab Results 10/06/21 10/06/21 10/06/21 Range/Units 23:13 23:13 23:13 WBC 8.27 (4.8-10.8) K/uL RBC 4.71 (4.2-5.4) M/uL Hgb 14.8 (12.0-16.0) g/dL Hct 44.6 (37-47) % MCV 94.7 (80-100) fL MCH 31.4 (25-34) pg MCHC 33.2 (32-36) g/dL RDW Std Deviation 62.8 H (36.4-46.3) fL RDW Coeff of Ace 18.1 H (11.5-14.5) % Plt Count 203 (130-400) K/uL MPV 10.3 (7.4-10.4) fL Neutrophils % (Manual) 37.4 % Lymphocytes % (Manual) 27.8 % Monocytes % (Manual) 3.5 % Eosinophils % (Manual) 0.9 % Basophils % (Manual) 2.6 % Neutrophils # (Manual) 3.09 (1.4-6.5) K/uL Total Absolute Neuts 3.09 (1.4-6.5) K/uL Lymphocytes # (Manual) 2.30 (1.2-3.4) K/uL Total Abs Lymphocytes 4.60 H (1.2-3.4) K/uL Monocytes # (Manual) 0.29 (0.11-0.59) K/uL Eosinophils # (Manual) 0.07 (0-0.5) K/uL Basophils # (Manual) 0.22 H (0-0.2) K/uL Large Granular Lymphs 27.8 % # Lrg Granular Lymphs 2.30 K/uL PT (9.0-12.0) Seconds INR (0.9-1.1) APTT (21.0-31.0) Seconds PTT Ratio Sodium 144 (136-145) mmol/L Potassium 3.3 L (3.5-5.1) mmol/L Chloride 106 (98-107) mmol/L Carbon Dioxide 27 (21-32) mmol/L Anion Gap 11 (3-11) BUN 3 L (6-23) mg/dl Creatinine 0.56 L (0.6-1.2) mg/dl Est Cr Clr Drug Dosing 135.5 ml/min Est GFR ( Amer) 140.0 ml/min Est GFR (Non-Af Amer) 120.8 ml/min BUN/Creatinine Ratio 5.4 L (10-20) Glucose 136 H (70-99) mg/dl Calcium 8.2 L (8.5-10.1) mg/dl Total Bilirubin 2.0 H (0.2-1.0) mg/dl AST 214 H (13-39) U/L ALT 56 H (7-52) U/L Alkaline Phosphatase 182 H (34-104) U/L Troponin I < 0.03 (0-0.04) ng/ml Total Protein 7.9 (6.0-8.3) gm/dl Albumin 3.7 (3.4-5.0) gm/dl Globulin 4.2 H (2.5-4.0) gm/dl Albumin/Globulin Ratio 0.9 (0.9-2) HCG, Qual (Negative) Urine Color Urine Appearance (Clear) Urine pH (4.5-7.5) Ur Specific [place] (1.000-1.030) Urine Protein (Negative) Urine Glucose (UA) (Negative) Urine Ketones (Negative) Urine Blood (Negative) Urine Nitrite (Negative) Urine Bilirubin (Negative) Urine Urobilinogen (Negative) Ur Leukocyte Esterase (Negative) Urine WBC (Auto) (0-5) /hpf Urine RBC (Auto) (0-4) /hpf U Hyaline Cast (Auto) (0-5) /lpf U Epithel Cells (Auto) (0-5) /lpf Urine Bacteria (Auto) (Negative) Salicylates < 3.0 L (3.0-30) mg/dl Urine Opiates Screen (Neg) Ur Methadone, Qual (Neg) Acetaminophen < 3 L (10-30) ug/ml Urine Barbiturates (Neg) Ur Phencyclidine (PCP) (Neg) U Amphetamin/Meth Scrn (Neg) MDMA (Ecstasy) Screen (Neg) U Benzodiazepines Scrn (Neg) Ur Cocaine Metabolite (Neg) U Marijuana (THC) Screen (Neg) Ethyl Alcohol mg/dL (<10.0) mg/dl SARS-CoV-2, RNA, NAAT (NEGATIVE) 10/06/21 10/06/21 10/06/21 Range/Units 23:13 23:25 23:25 WBC (4.8-10.8) K/uL RBC (4.2-5.4) M/uL Hgb (12.0-16.0) g/dL Hct (37-47) % MCV (80-100) fL MCH (25-34) pg MCHC (32-36) g/dL RDW Std Deviation (36.4-46.3) fL RDW Coeff of Ace (11.5-14.5) % Plt Count (130-400) K/uL MPV (7.4-10.4) fL Neutrophils % (Manual) % Lymphocytes % (Manual) % Monocytes % (Manual) % Eosinophils % (Manual) % Basophils % (Manual) % Neutrophils # (Manual) (1.4-6.5) K/uL Total Absolute Neuts (1.4-6.5) K/uL Lymphocytes # (Manual) (1.2-3.4) K/uL Total Abs Lymphocytes (1.2-3.4) K/uL Monocytes # (Manual) (0.11-0.59) K/uL Eosinophils # (Manual) (0-0.5) K/uL Basophils # (Manual) (0-0.2) K/uL Large Granular Lymphs % # Lrg Granular Lymphs K/uL PT (9.0-12.0) Seconds INR (0.9-1.1) APTT (21.0-31.0) Seconds PTT Ratio Sodium (136-145) mmol/L Potassium (3.5-5.1) mmol/L Chloride (98-107) mmol/L Carbon Dioxide (21-32) mmol/L Anion Gap (3-11) BUN (6-23) mg/dl Creatinine (0.6-1.2) mg/dl Est Cr Clr Drug Dosing ml/min Est GFR ( Amer) ml/min Est GFR (Non-Af Amer) ml/min BUN/Creatinine Ratio (10-20) Glucose (70-99) mg/dl Calcium (8.5-10.1) mg/dl Total Bilirubin (0.2-1.0) mg/dl AST (13-39) U/L ALT (7-52) U/L Alkaline Phosphatase (34-104) U/L Troponin I (0-0.04) ng/ml Total Protein (6.0-8.3) gm/dl Albumin (3.4-5.0) gm/dl Globulin (2.5-4.0) gm/dl Albumin/Globulin Ratio (0.9-2) HCG, Qual Negative (Negative) Urine Color Yellow Urine Appearance Clear (Clear) Urine pH 7.5 (4.5-7.5) Ur Specific [place] 1.007 (1.000-1.030) Urine Protein Negative (Negative) Urine Glucose (UA) Negative (Negative) Urine Ketones Negative (Negative) Urine Blood 2+ H (Negative) Urine Nitrite Negative (Negative) Urine Bilirubin Negative (Negative) Urine Urobilinogen Negative (Negative) Ur Leukocyte Esterase Negative (Negative) Urine WBC (Auto) 1-5 (0-5) /hpf Urine RBC (Auto) 0-4 (0-4) /hpf U Hyaline Cast (Auto) 0 (0-5) /lpf U Epithel Cells (Auto) >30 H (0-5) /lpf Urine Bacteria (Auto) Negative (Negative) Salicylates (3.0-30) mg/dl Urine Opiates Screen Neg (Neg) Ur Methadone, Qual Neg (Neg) Acetaminophen (10-30) ug/ml Urine Barbiturates Neg (Neg) Ur Phencyclidine (PCP) Neg (Neg) U Amphetamin/Meth Scrn Neg (Neg) MDMA (Ecstasy) Screen Neg (Neg) U Benzodiazepines Scrn Neg (Neg) Ur Cocaine Metabolite Neg (Neg) U Marijuana (THC) Screen Neg (Neg) Ethyl Alcohol mg/dL (<10.0) mg/dl SARS-CoV-2, RNA, NAAT (NEGATIVE) 10/06/21 10/06/21 10/07/21 Range/Units 23:45 23:45 01:25 WBC (4.8-10.8) K/uL RBC (4.2-5.4) M/uL Hgb (12.0-16.0) g/dL Hct (37-47) % MCV (80-100) fL MCH (25-34) pg MCHC (32-36) g/dL RDW Std Deviation (36.4-46.3) fL RDW Coeff of Ace (11.5-14.5) % Plt Count (130-400) K/uL MPV (7.4-10.4) fL Neutrophils % (Manual) % Lymphocytes % (Manual) % Monocytes % (Manual) % Eosinophils % (Manual) % Basophils % (Manual) % Neutrophils # (Manual) (1.4-6.5) K/uL Total Absolute Neuts (1.4-6.5) K/uL Lymphocytes # (Manual) (1.2-3.4) K/uL Total Abs Lymphocytes (1.2-3.4) K/uL Monocytes # (Manual) (0.11-0.59) K/uL Eosinophils # (Manual) (0-0.5) K/uL Basophils # (Manual) (0-0.2) K/uL Large Granular Lymphs % # Lrg Granular Lymphs K/uL PT 13.5 H (9.0-12.0) Seconds INR 1.4 H (0.9-1.1) APTT 32.2 H (21.0-31.0) Seconds PTT Ratio 1.2 Sodium (136-145) mmol/L Potassium (3.5-5.1) mmol/L Chloride (98-107) mmol/L Carbon Dioxide (21-32) mmol/L Anion Gap (3-11) BUN (6-23) mg/dl Creatinine (0.6-1.2) mg/dl Est Cr Clr Drug Dosing ml/min Est GFR ( Amer) ml/min Est GFR (Non-Af Amer) ml/min BUN/Creatinine Ratio (10-20) Glucose (70-99) mg/dl Calcium (8.5-10.1) mg/dl Total Bilirubin (0.2-1.0) mg/dl AST (13-39) U/L ALT (7-52) U/L Alkaline Phosphatase (34-104) U/L Troponin I (0-0.04) ng/ml Total Protein (6.0-8.3) gm/dl Albumin (3.4-5.0) gm/dl Globulin (2.5-4.0) gm/dl Albumin/Globulin Ratio (0.9-2) HCG, Qual (Negative) Urine Color Urine Appearance (Clear) Urine pH (4.5-7.5) Ur Specific [place] (1.000-1.030) Urine Protein (Negative) Urine Glucose (UA) (Negative) Urine Ketones (Negative) Urine Blood (Negative) Urine Nitrite (Negative) Urine Bilirubin (Negative) Urine Urobilinogen (Negative) Ur Leukocyte Esterase (Negative) Urine WBC (Auto) (0-5) /hpf Urine RBC (Auto) (0-4) /hpf U Hyaline Cast (Auto) (0-5) /lpf U Epithel Cells (Auto) (0-5) /lpf Urine Bacteria (Auto) (Negative) Salicylates (3.0-30) mg/dl Urine Opiates Screen (Neg) Ur Methadone, Qual (Neg) Acetaminophen (10-30) ug/ml Urine Barbiturates (Neg) Ur Phencyclidine (PCP) (Neg) U Amphetamin/Meth Scrn (Neg) MDMA (Ecstasy) Screen (Neg) U Benzodiazepines Scrn (Neg) Ur Cocaine Metabolite (Neg) U Marijuana (THC) Screen (Neg) Ethyl Alcohol mg/dL 459.0 H (<10.0) mg/dl SARS-CoV-2, RNA, NAAT NEGATIVE (NEGATIVE) Administered Medications Discontinued Medications Sodium Chloride (Nss 1000ml) 1,000 mls @ 999 mls/hr IV .[id number] JONNA Stop: 10/07/21 00:15 Last Infusion: 10/07/21 00:16 Dose: 0 mls/hr Documented by: [id number] Admin: 10/06/21 23:15 Dose: 999 mls/hr Documented by: [id number] Imaging Data Attestation: I personally reviewed and interpreted this imaging study as follows: My Impression: 1 view chest x-ray was obtained in the emergency department. My interpretation is no definite infiltrate no free air, no acute disease. Radiologist's Impression: Patient: JOSEPH WALTER (Female) : 85 Status: ER Date: 10/07/21 00:02 Room #: History: SEIZURE Slices: 58 Priors: Vikram: Vlad Edwards @ [phone] Exams: CT HEAD Contrast: Accession Numbers: [id number] Referring Physician: REFERRED SELF Preliminary Findings Only See Final Report For Complete Findings CT HEAD: Comparison: CT head 01/23/12 No acute intracranial finding. Cerebral volume loss is progressed from prior, which may be related to seizure medication in the appropriate clinical setting. Radiologist: Jeffery Noguera MD Study ready at 00:03 and initial results transmitted at 01:36 Discharge Plan Visit Data Chief Complaint: Seizure Stated Complaint: SEIZURE LIKE ACTIVITY ED Provider: Chuckie Stanton Discharge Problem: Alcohol intoxication Patient Disposition: Being Evaluated by Hospitalist Forms Stand Alone Forms: My [facility] [employer] (deja mi) Prescriptions Prescriptions: No Action escitalopram oxalate 10 mg tablet 10 mg PO DAILY Qty: 90 RF: 1 pantoprazole 40 mg tablet,delayed release (DR/EC) 40 mg PO BID Qty: 0 RF: 0 buspirone 5 mg Tablet 5 mg PO TID 30 Days Qty: 90 RF: 1 folic acid 1 mg Tablet 1 mg PO QAM Qty: 30 RF: 0 thiamine HCl (vitamin B1) 100 mg Tablet 100 mg PO QAM Qty: 30 RF: 0 Referrals Referrals: Hector Myrick III, CRNP [Primary Care Provider] -
[2021-10-06 23:29] LABS: Hematocrit (blood only) 44.6 % (37-47); Hemoglobin 14.8 g/dL (12.0-16.0); Mean Corpuscular Hemoglobin 31.4 pg (25-34); Mean Corpuscular Hgb Conc 33.2 g/dL (32-36); Mean Corpuscular Volume 94.7 fL (80-100); Mean Platelet Volume 10.3 fL (7.4-10.4); Platelet Count 203 K/uL (130-400); RDW Coefficient of Variation 18.1 % (11.5-14.5); RDW Standard Deviation 62.8 fL (36.4-46.3); Red Blood Count 4.71 M/uL (4.2-5.4); White Blood Count 8.27 K/uL (4.8-10.8)
[2021-10-06 23:48] LABS: Acetaminophen < 3 ug/ml (10-30); Salicylate < 3.0 mg/dl (3.0-30)
[2021-10-06 23:51] LABS: Troponin I < 0.03 ng/ml (0-0.04)
[2021-10-06 23:52] LABS: Alanine Aminotransferase 56 U/L (7-52); Albumin Globulin Ratio 0.9 (0.9-2); Albumin Level 3.7 gm/dl (3.4-5.0); Alkaline Phosphatase 182 U/L (34-104); Anion Gap 11 (3-11); Aspartate Aminotransferase 214 U/L (13-39); BUN Creatinine Ratio 5.4 (10-20); Blood Urea Nitrogen 3 mg/dl (6-23); Calcium 8.2 mg/dl (8.5-10.1); Carbon Dioxide 27 mmol/L (21-32); Chloride 106 mmol/L (98-107); Creatinine Clr Calc Pharmacy 135.5 ml/min; Est GFR (Non-African American) 120.8 ml/min; Globulin 4.2 gm/dl (2.5-4.0); Glucose 136 mg/dl (70-99); Potassium 3.3 mmol/L (3.5-5.1); Sodium 144 mmol/L (136-145); Total Protein 7.9 gm/dl (6.0-8.3)
[2021-10-06 23:57] LABS: Pregnancy Test, Serum Negative (Negative)
[2021-10-07 00:04] LABS: ANC (manual) 3.09 K/uL (1.4-6.5); Basophils # (manual) 0.22 K/uL (0-0.2); Basophils % (manual) 2.6 %; Eosinophils # (manual) 0.07 K/uL (0-0.5); Eosinophils % (manual) 0.9 %; Large Granular Lymph % (manual) 27.8 %; Lymphocytes % (manual) 27.8 %; Monocytes # (manual) 0.29 K/uL (0.11-0.59); Monocytes % (manual) 3.5 %; Neutrophils # (manual) 3.09 K/uL (1.4-6.5); Neutrophils % (manual) 37.4 %
[2021-10-07 00:07] LABS: INR 1.4 (0.9-1.1); Partial Thromboplastin Ratio 1.2; Partial Thromboplastin Time 32.2 Seconds (21.0-31.0); Prothrombin Time 13.5 Seconds (9.0-12.0)
[2021-10-07 00:19] LABS: Appearance Urine Clear (Clear); Bacteria Urine Automated Negative (Negative); Bilirubin Urine Negative (Negative); Blood Urine 2+ (Negative); Cast Urine Automated 0 /lpf (0-5); Color Urine Yellow; Epithelial Cell Urine Auto >30 /lpf (0-5); Glucose Urine UA Negative (Negative); Ketones Urine Negative (Negative); Leukocyte Esterase Urine Negative (Negative); Nitrite Urine Negative (Negative); Protein Urine Negative (Negative); RBC Urine Automated 0-4 /hpf (0-4); Specific Gravity Urine 1.007 (1.000-1.030); Urobilinogen Urine Negative (Negative); pH Urine 7.5 (4.5-7.5)
[2021-10-07 00:22] LABS: Amphetamines+Metham, Urine Neg (Neg); Barbiturates, Urine Neg (Neg); Benzodiazepine, Urine Neg (Neg); Cocaine, Urine Neg (Neg); MDMA (Ecstacy), Urine Neg (Neg); Methadone, Urine Neg (Neg); Opiate, Urine Neg (Neg); Phencyclidine, Urine Neg (Neg)
--- NOTE | 2021-10-07 02:02 | History & Physical Report ---
Date of Service October 07, 2021 Assessment & Plan (1) Alcohol use disorder: Plan: 35 y/o F w/ alcohol use disorder and recent [facility] admission 09/27/21-09/29/21 for alcohol use-related seizure-like activity at home who presents w/ alcohol intoxication w/ lower suspicion of seizure episode. - Last drink was 8PM 10/06/21, average consumption is 1-2 bottles of wine (5-10 d rinks). - Currently withdrawal symptoms are mild; slight tremor. - AWSS active protocol because of large etoh intake and significant blood etoh level - Banana bag - MELD score 13 points. 6% estimated 3-month mortality - [facility] Discriminant Function: 13.5 points: Good prognosis. Below threshold for possible benefit from glucocorticoid therapy. - D/c'd zofran prn for prolonged qtc - Continue home daily thiamine and folate - Other etoh-related medical problems per chart review: alcoholic hepatoste atosis and hx UGIB - CT head w/ no acute findings. Mention of cerebral volume loss compared to CT head in 2011. - Follow CMP and Mg - Will need further discussion regarding etoh rehab and patient goals (2) Anxiety: Plan: - continue home buspar and lexapro (3) Alcoholic liver disease: Plan: - see above (4) Hypertension: Plan: - controlled. not on medications Plan: regular diet full code sq heparin q8 med tele History of Present Illness Chief Complaint: seizure-like activity Primary Care Provider: Hector Myrick, III, ORTHOTICS ASSISTANT 35 y/o F w/ PMHx of alcohol use disorder (1-2 bottles of wine daily) w/ recent [facility] admission 09/27/21-09/29/21 for alcohol use-related seizure-like activity at home who presents w/ similar presentation. She was drinking at home at 8pm (last drink) when her mother noticed that the patient began rolling her eyes back and called EMS. There was supposedly no other seizure-like symptoms and patient is not sure if she had a seizure. No tongue biting. She does not remember the details of what happened until after EMS arrived. In the ED, patient's EtOh le nba was 459, compared to <3 on 09/27/21. Patient states that her head currently feels a little fuzzy. Denies visual or auditory hallucinations. After the last admission, she had restarted drinking on 10/03/21. Hx of cocaine use (last used 4-5 years ago). Denies hx of IV drug use. ED course: 1L NSS Allergies Allergy/AdvReac Type Severity Reaction Status Date / Time pine nut Allergy Unknown Verified 09/27/21 20:48 Home Medications Medication Instructions Recorded Confirmed Type pantoprazole 40 mg tablet,delayed 40 mg PO BID #0 tab 08/07/21 10/06/21 Rx release escitalopram oxalate 10 mg tablet 10 mg PO DAILY #90 tab 09/12/21 10/06/21 Rx buspirone 5 mg tablet 5 mg PO TID 30 Days #90 tab 09/29/21 10/06/21 Rx folic acid 1 mg tablet 1 mg PO QAM #30 tab 09/29/21 10/06/21 Rx thiamine HCl (vitamin B1) 100 mg 100 mg PO QAM #30 tab 09/29/21 10/06/21 Rx tablet Past Med/Surg History Medical History (Updated 10/07/21 @ 02:00 by Teofilo Garcia MD) AA (alcohol abuse) Abdominal pain Acute alcoholic hepatitis Acute alcoholic hepatitis Acute hypokalemia Acute hypokalemia Alcohol withdrawal Alcoholic steatohepatitis Coagulopathy Elevated INR Generalized anxiety disorder GI bleed Hypertension Hyponatremia Obesities, morbid Pancreatitis Seizure-like activity Upper GI bleed Vomiting Surgical History No history of previous surgery Family History Father Myocardial infarction Depression Diabetes Heart disease Grandfather Prostate cancer MATERNAL Mother Depression Hypertension Denies family history of Ovarian cancer Breast cancer Colorectal cancer History of alcoholism Social History Smoking Status: Light tobacco smoker Tobacco Type: Cigarettes Age Started Using Tobacco: 22; Cigarettes Per Day: 5; Second Hand Exposure: No; Do You Dip or Chew Tobacco: No; Tobacco Cessation Education Requested by Patient: No Hx Alcohol Use: Yes Alcohol type: wine and other Alcohol Intake Frequency: 4 or More x per/Week Alcohol Intake Frequency Comment: DAILY; 1-2 bottles wine/day; multiple rum & coke Hx Substance Use: No Preferred Language: Nigerian Communication Ability: Effective Visual Impairment: Partially Limited Hearing Ability: Normal Instructor Technical Training Required: No Beliefs That Will Affect Care: None and Caodaism marital status: Single Current Living Situation: Parent Current Living Situation Comment: Lives w/ mom. 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 Review of Systems Review of Systems: All systems reviewed & are unremarkable except as noted in HPI & below Constitutional: Denies fever, chills, Eyes: Denies blurry vision. Recently has been seeing some floaters intermit tently x 2 weeks. ENT: Denies sore throat Cardiovascular: Denies chest pain. Intermittent palpitations Respiratory: Denies shortness of breath Gastrointestinal: Denies abdominal pain, vomiting, constipation, diarrhea. + nausea Genitourinary: Denies urinary symptoms including dysuria Musculoskeletal: Denies weakness, muscle aches/pain, joint aches/pain Neurological: Denies headache, numbness, tingling, focal weakness Physical Exam Physical Exam: General: Grossly A&O. NAD. Cooperative. Appears slightly intoxicated, but is answering questions appropriately. HEENT: Atraumatic, normocephalic. EOMI. No scleral icterus. No tongue bite rosette. Pulm: CTAB. -wheezes, -rales, -rhonchi. No respiratory distress. Cardiac: RRR, -mrg. Radial pulses intact and symmetrical. No lower extremity edema. Abdominal: Nontender, nondistended, soft. Integ: Warm, dry, intact. No jaundice. Neuro: Normal environmental inspector strength. Shrugging shoulders. No gross focal neuro deficits. Mild tremor w/ hands held out. Results & Data Results & Data ([facility]) Vital Signs (Past 12 Hours) Vital Signs Subsequent pulse ox saturations 94-96. The 92% was likely from read on the oximeter. Temp Pulse Pulse Resp BP BP Pulse Ox 10/07/21 01:30 91 H 16 111/75 92 10/07/21 00:12 94 H 18 125/92 97 10/06/21 23:12 98 10/06/21 23:06 36.8 C 96 H 16 137/85 99 Laboratory Results cbc reviewed. K 3.3.. ast 214, unchanged.t bili 2.0, chronic. trop <0.03x1. beta hcg neg. 2+ blood on UA. etoh 459. 10/06/21 23:13 10/06/21 23:13 Cardiac Enzymes 10/06/21 Range/Units 23:13 AST 214 H (13-39) U/L Troponin I < 0.03 (0-0.04) ng/ml Coagulation 10/06/21 Range/Units 23:45 PT 13.5 H (9.0-12.0) Seconds APTT 32.2 H (21.0-31.0) Seconds CBC 10/06/21 Range/Units 23:13 WBC 8.27 (4.8-10.8) K/uL RBC 4.71 (4.2-5.4) M/uL Hgb 14.8 (12.0-16.0) g/dL Hct 44.6 (37-47) % Plt Count 203 (130-400) K/uL Comprehensive Metabolic Panel 10/06/21 Range/Units 23:13 Sodium 144 (136-145) mmol/L Potassium 3.3 L (3.5-5.1) mmol/L Chloride 106 (98-107) mmol/L Carbon Dioxide 27 (21-32) mmol/L BUN 3 L (6-23) mg/dl Creatinine 0.56 L (0.6-1.2) mg/dl Glucose 136 H (70-99) mg/dl Calcium 8.2 L (8.5-10.1) mg/dl AST 214 H (13-39) U/L ALT 56 H (7-52) U/L Alkaline Phosphatase 182 H (34-104) U/L Total Protein 7.9 (6.0-8.3) gm/dl Albumin 3.7 (3.4-5.0) gm/dl Intake and Output 10/06/21 10/06/21 10/07/21 14:59 22:59 06:59 Intake Total 1000 / 1000 Balance 1000 / 1000 Intake: IV 1000 / 1000 Sodium Chloride 0.9% 1000ML 1, 1000 / 1000 000 ml @ 999 mls/hr IV .Q1H1M JONNA Rx#:[id number] Other: Weight 74.4 kg Weight Measurement Method Built in [facility] Patient Weight 10/07/21 06:59 Weight 74.4 kg Diagnostic Findings statrad preliminary findings CT HEAD: Comparison: CT head 02/02/12 No acute intracranial finding. Cerebral volume loss is progressed from prior, which may be related to seizure medication in the appropriate clinical setting. Interpreted by radiologist Abhilash Perla MD. 10/06/21 0003. cxr: Per my interpretation, no acute findings. Slight cardiomegaly. ECG Additional Comments: Per my interpretation: NSR 91. qtc 506. Normal axis. No new ischemic changes. PRWP unchanged from prior ecgs. Code Status & VTE Plan Code Status full VTE Prophylaxis Plan VTE Prophylaxis will be ordered: Yes Supervising Physician Co-Signing Physician Notes Patient seen and examined, chart reviewed, case discussed with Dr. Garcia and I agree with his assessment and plan as above. 35yo female with longstanding history of EtOH abuse with complications to include alcoholic hepatitis, pancreatitis, withdrawal seizures - recently admitted for EtOH withdrawal. Returns today because of questionable seizure activity. Exam is largely unremarkable. VSS Patient is intoxicated but appropriate, answering questions and following commands. Requesting ativan No tremor on my exam +S1/S2, regular Lungs CTA Abd soft NT/ND no masses/organomegaly/ascites Ext - no edema Assessment/Plan - Etoh abuse, possible seizure. Uncertain details. Patient's EtOH level is 459. If seizure occurred possibly EtOH induced seizure rather than withdrawal seizure. Patient wants to quit drinking. States she was unaware that rehabilitation takes 2-4 weeks. States that she wants to be with her mother for her birthday and her late father's birthday prior to going to rehab. Patient has a very tragic family history with brother committing suicide as well as father committing suicide. She has a lot of anxiety that she feels is not properly controlled which is why she drinks. -AWSS, Thiamine, Folate -PPI -Encourage inpatient rehab -Remainder as above Resident Activity Tracking Resident Involvement: Resident Care Provided Care Provided: Adult [facility]
[2021-10-07] MEDS ORDERED: LORazepam 3 MG/6 ML VIAL IV PRN (03:27)
[2021-10-07] MEDS ORDERED: ATIVAN IV ALCOHOL WITHDRAWL IV PRN (03:27)
[2021-10-07] MEDS ORDERED: LORazepam 2 MG/4 ML VIAL IV PRN (03:27)
[2021-10-07] MEDS ORDERED: ONDANSETRON INJ 2 MG/ML 2 ML VIAL ONE (04:24)
[2021-10-07] MEDS ORDERED: POLYETHYLENE (MIRALAX) 17 GM PACK PO PRN (05:16)
[2021-10-07] MEDS: MULTI-VITAMIN INFUSION 10 ML, THIAMINE HCL 100 MG, FOLIC ACID 1 MG in SODIUM CHLORIDE 0... IV STA ×2 (05:17→05:30)
[2021-10-07] MEDS: HEPARIN SOD 5,000 UNIT/0.5 ML VIAL SQ SCH ×3 (06:37→21:11)
[2021-10-07] MEDS: LORazepam 1 MG/2 ML VIAL IV PRN ×3 (07:59→16:17)
--- NOTE | 2021-10-07 08:31 | XRay Report ---
XR chest 1V portable CLINICAL HISTORY: Seizure. Evaluate cardiopulmonary status. COMPARISON STUDY: 08/04/2021 TECHNIQUE: 1 view of the chest FINDINGS: Single frontal view of the chest demonstrates the cardiomediastinal silhouette to be within normal li mits. The lungs are clear of alveolar opacities. There is no evidence for pleural effusion. There is no evidence for vascular congestion. There is no acute osseous pathology. IMPRESSION: No acute cardiopulmonary disease. ACT 112: Negative or not required by law. Electronically signed by: Jens Pollard M.D. 10/07/2021 8:30 AM
--- NOTE | 2021-10-07 08:39 | CT Scan Report ---
CT head/brain wo con CLINICAL HISTORY: Seizure COMPARISON STUDY: 01/23/2012 CT DOSE: 537.48 mGy.cm TECHNIQUE: Standard CT of the Brain was performed without IV contrast. A dose lowering technique was utilized adhering to the principles of ALARA. FINDINGS: Extraaxial space: There is no evidence for subdural hematoma. There are no extra-axial fluid collecti ons. Ventricles and cisterns: The ventricles are normal in size and configuration. There is no evidence f or midline shift or mass effect. Parenchyma: There is no subarachnoid or intraparenchymal hemorrhage. There is no evidence for an acu te infarct or cerebral edema. There is homogeneous attenuation of the brain parenchyma. There are no gross mass lesions. Osseous structures: There is no evidence for an acute fracture. The visualized paranasal sinuses are clear. The mastoid air cells are clear bilaterally. Soft tissues: There is no evidence for focal soft tissue swelling. IMPRESSION: No acute intracerebral pathology. ACT 112: Negative or not required by law. Electronically signed by: Jens Pollard M.D. 10/07/2021 8:38 AM
[2021-10-07] MEDS: busPIRone 15 MG TAB PO SCH ×3 (09:54→20:52)
[2021-10-07] MEDS: PANTOprazole 40 MG TAB PO SCH ×2 (09:55→20:52)
[2021-10-07] MEDS: ESCITALOPRAM OXALATE 10 MG TAB PO SCH (09:55)
[2021-10-07] MEDS: THIAMINE HCL 100 MG TAB PO SCH (09:55)
[2021-10-07] MEDS: FOLIC ACID 1 MG TAB PO SCH (09:55)
--- NOTE | 2021-10-07 10:09 | Electrocardiogram Report ---
Test Reason : Blood Pressure : / mmHG Vent. Rate : 091 BPM Atrial Rate : 091 BPM P-R Int : 138 ms QRS Dur : 080 ms QT Int : 412 ms P-R-T Axes : 044 -13 024 degrees QTc Int : 506 ms Normal sinus rhythm Poor R wave progression, consider anterior WI vs. lead placement vs. LVH Nonspecific T wave abnormality Prolonged QT Abnormal ECG When compared with ECG of 29-SEP-2021 13:47, Vent. rate has increased BY 31 BPM QT has prolonged Confirmed by Adriano Alves ([id number]) on 10/07/2021 10:09:37 AM Referred By: REFERRED SELF Confirmed By:Adriano Alves
--- NOTE | 2021-10-07 11:37 | Hospitalist Progress Note ---
Date of Service October 07, 2021 Assessment & Plan (1) Alcohol use disorder: Plan: Repeated abuses of alcohol resulting in multiple admissions. - Would expect minimal withdrawal as she has only been out of the hospital for 1 week and could barely have time to redevelop tolerance/addiction in that time. - Continue thiamine and folate - Continue PPI PO BID for prior esophagitis - CM to assist tomorrow with rehab - patient states she plans to go to inpatient rehab. (2) Alcoholic hepatitis: Plan: Mild transaminitis from alcohol. Maddrey's DF too low for steroid treatment. - Monitor (3) Depression, unspecified: Plan: Depression/anxiety long-standing. - Continue home escitalopram & buspirone (4) DVT prophylaxis: Plan: Has hx of alchohol-related gastritis and esophagitis. EGD done in 02/2021 showed no varices. No present hematemesis reported to me by patient. Heparin 5,000 units SQ Q12h Admission and Anticipated Discharge Date Admission Date: October 07, 2021 Subjective Doing better today. Less tremor. Reports no fevers/chills, chest pain, shortness of breath, abdominal pain, nausea, or vomiting. Physical Exam Constitutional: WD/WN, vitals as above Eyes: EOM intact bilaterally; no conjunctival abnormality ENMT: external ear and nose normal, oropharynx normal No tongue fasciculations Neck: trachea midline, no thyromegaly normal visual inspection Respiratory: normal respiratory effort, lungs clear to auscultation no respiratory distress Cardiovascular: RRR, no murmur, no edema Gastrointestinal (Abdomen): Inspection/Auscultation: abdomen normal to inspection; abdomen not distended Musculoskeletal: no cyanosis or clubbing, extremities motor strength 5/5 Skin: no rashes, warm and dry Neurologic: moves all extremities and awake Motor/Sensory: no tremor Psychiatric: Orientation: alert, oriented to person and cooperative Results & Data Results & Data ([facility]) Vital Signs (Past 12 Hours) Vital Signs Temp Pulse Pulse Pulse Resp BP BP 10/07/21 10:00 36.8 C 94 H 18 121/68 10/07/21 09:35 36.9 C 96 H 20 110/68 10/07/21 07:36 85 10/07/21 07:00 36.8 C 98 H 20 122/76 10/07/21 06:27 90 10/07/21 05:20 37.3 C 102 H 18 124/76 10/07/21 04:30 92 H 20 111/69 10/07/21 04:00 82 18 114/70 10/07/21 03:26 88 20 125/80 10/07/21 01:30 91 H 16 111/75 10/07/21 00:12 94 H 18 125/92 Pulse Ox 10/07/21 10:00 96 10/07/21 09:35 95 10/07/21 07:36 10/07/21 07:00 95 10/07/21 06:27 10/07/21 05:20 94 10/07/21 04:30 96 10/07/21 04:00 95 10/07/21 03:26 94 10/07/21 01:30 92 10/07/21 00:12 97 PG Care Time/CCT Total # of Minutes Spent Total Time Spent with Patient: Total time spent is greater than 50% in coordination of care (as documented) at patient's floor/unit and/or counseling patient: Coding Level of Care Code 78463 Subseq Obs Care Lvl 3 Diagnoses Alcohol use disorder Alcoholic hepatitis K70.10 Ascites presence: unspecified Depression, unspecified F32.A DVT prophylaxis Z29.9 (1) Alcoholic hepatitis Ascites presence: unspecified Qualified Code(s): K70.10 - Alcoholic hepatitis without ascites
--- NOTE | 2021-10-07 13:36 | Billing Data ---
Date of Service October 07, 2021 Coding Level of Care Code 65537 Initial Inpt Care Lvl 2
[2021-10-07] MEDS ORDERED: ONDANSETRON INJ 2 MG/ML 2 ML VIAL IV PRN (16:24)
[2021-10-08] MEDS: LORazepam 1 MG/2 ML VIAL IV PRN (00:40)
[2021-10-08] MEDS: HEPARIN SOD 5,000 UNIT/0.5 ML VIAL SQ SCH ×2 (05:02→13:42)
[2021-10-08 07:37] LABS: Basophils # (auto) 0.03 K/uL (0-0.2); Basophils % (auto) 0.5 %; Eosinophils # (auto) 0.07 K/uL (0-0.5); Eosinophils % (auto) 1.2 %; Hematocrit (blood only) 37.1 % (37-47); Hemoglobin 12.3 g/dL (12.0-16.0); Immature Granulocytes # (auto) 0.01 K/uL (0.00-0.02); Immature Granulocytes % (auto) 0.2 %; Lymphocytes # (auto) 1.53 K/uL (1.2-3.4); Lymphocytes % (auto) 26.5 %; Mean Corpuscular Hemoglobin 30.7 pg (25-34); Mean Corpuscular Hgb Conc 33.2 g/dL (32-36); Mean Corpuscular Volume 92.5 fL (80-100); Mean Platelet Volume 10.6 fL (7.4-10.4); Monocytes # (auto) 0.41 K/uL (0.11-0.59); Monocytes % (auto) 7.1 %; Neutrophils # (auto) 3.73 K/uL (1.4-6.5); Neutrophils % (auto) 64.5 %; Platelet Count 152 K/uL (130-400); RDW Coefficient of Variation 17.2 % (11.5-14.5); RDW Standard Deviation 58.1 fL (36.4-46.3); Red Blood Count 4.01 M/uL (4.2-5.4); White Blood Count 5.78 K/uL (4.8-10.8)
[2021-10-08 07:46] LABS: INR 1.4 (0.9-1.1); Prothrombin Time 13.8 Seconds (9.0-12.0)
[2021-10-08 08:01] LABS: Albumin Globulin Ratio 0.9 (0.9-2); Albumin Level 2.8 gm/dl (3.4-5.0); BUN Creatinine Ratio 6.9 (10-20); Bilirubin,Total 2.5 mg/dl (0.2-1.0); Calcium 7.5 mg/dl (8.5-10.1); Est GFR (African American) 138.4 ml/min; Est GFR (Non-African American) 119.4 ml/min; Globulin 3.2 gm/dl (2.5-4.0); Magnesium 1.4 mg/dl (1.7-2.4); Potassium 3.3 mmol/L (3.5-5.1)
[2021-10-08] MEDS: busPIRone 15 MG TAB PO SCH ×2 (08:39→13:42)
[2021-10-08] MEDS: FOLIC ACID 1 MG TAB PO SCH (08:40)
[2021-10-08] MEDS: ESCITALOPRAM OXALATE 10 MG TAB PO SCH (08:40)
[2021-10-08] MEDS: PANTOprazole 40 MG TAB PO SCH (08:40)
[2021-10-08] MEDS: THIAMINE HCL 100 MG TAB PO SCH (08:40)
[2021-10-08] MEDS ORDERED: FOLIC ACID 1 MG TAB PO SCH (09:00)
[2021-10-08] MEDS ORDERED: THIAMINE HCL 100 MG TAB PO SCH (09:00)
[2021-10-08 11:37] VITALS: BP 130/83; TEMP 98.6; O2SAT 97
--- NOTE | 2021-10-08 12:33 | Discharge Summary ---
Date of Service October 08, 2021 Admission HPI Per Admitting Provider 35 y/o F w/ PMHx of alcohol use disorder (1-2 bottles of wine daily) w/ recent [facility] admission 09/27/21-09/29/21 for alcohol use-related seizure-like activity at home who presents w/ similar presentation. She was drinking at home at 8pm (last drink) when her mother noticed that the patient began rolling her eyes back and called EMS. There was supposedly no other seizure-like symptoms and patient is not sure if she had a seizure. No tongue biting. She does not remember the details of what happened until after EMS arrived. In the ED, patient's EtOh level was 459, compared to <3 on 09/27/21. Patient states that her head currently feels a little fuzzy. Denies visual or auditory hallucinations. After the last admission, she had restarted drinking on 10/03/21. Hx of cocaine use (last used 4-5 years ago). Denies hx of IV drug use. ED course: 1L NSS Principal Diagnosis Alcohol abuse Alcoholic hepatitis Discharge Exam Constitutional WD/WN, vitals as above Eyes EOM intact bilaterally; no conjunctival abnormality ENMT external ear and nose normal, oropharynx normal No tongue fasciculations Neck trachea midline, no thyromegaly normal visual inspection Respiratory normal respiratory effort, lungs clear to auscultation no respiratory distress Cardiovascular RRR, no murmur, no edema Gastrointestinal (Abdomen) Inspection/Auscultation: abdomen normal to inspection; abdomen not distended Musculoskeletal no cyanosis or clubbing, extremities motor strength 5/5 Skin no rashes, warm and dry Neurologic moves all extremities and awake Motor/Sensory: no tremor Psychiatric Orientation: alert, oriented to person and cooperative Discharge Data Allergies Allergy/AdvReac Type Severity Reaction Status Date / Time pine nut Allergy Unknown Verified 09/27/21 20:48 Consultations 10/07/21 01:59 ED Decision to Admit Stat Ordered Studies 10/06/21 23:11 CT head/brain wo con Urgent Hospital Course (1) Alcohol use disorder: Repeated abuses of alcohol resulting in multiple admissions. - Would expect minimal withdrawal as she has only been out of the hospital for 1 week and could barely have time to redevelop tolerance/addiction in that time. - Continue thiamine and folate - Continue PPI PO BID for prior esophagitis - Zofran PRN - Minimal signs of withdrawal with only needing about 1 mg of Ativan over 24 hours prior to discharge. On my AM exam, she had no signs/symptoms of withdrawal. -> Offered inpatient rehab to patient, but she wanted to go home for her birthday and her late father's birthday (10/10) before going to rehab. She reported she had rehab in mind in [place]. Discussed with CM who will help with referral or any other needs prior to d/c. (2) Alcoholic hepatitis: Mild transaminitis from alcohol. Maddrey's DF too low for steroid treatment. - Monitor -> Improving on discharge. Strongly encouraged alcohol cessation. (3) Depression, unspecified: Depression/anxiety long-standing. - Continue home escitalopram & buspirone (4) DVT prophylaxis: Has hx of alchohol-related gastritis and esophagitis. EGD done in 02/2021 showed no varices. No present hematemesis reported to me by patient. Heparin 5,000 units SQ Q12h Total Time Total Time Spent Total Time Spent (In Minutes): 35 Discharge Plan Discharge Items Patient Disposition: Home - Self-Care Reason For Visit: ALCOHOL INTOXICATION Discharge Diagnosis: Alcohol intoxication and mild liver injury Activity: Resume your previous activity Non-emergency contact: Primary Care Provider Call non-emergency contact if: your symptoms worsen Follow-up/Referrals: Hector Myrick III, CRNP [Primary Care Provider] - Diet: Regular Addtl Attending Provider Instructions: You were admitted with alcohol intoxication, mild withdrawal, and mild liver injury from alcohol. You improved over the course of two days, and are ready for discharge from the hospital. Your liver function testing is improving. You reported you would like to go home, but plan to enter a rehab after your birthday and your father's birthday. Please remain abstinent during these two days. Your liver can recover if you avoid drinking, but if you start to drink again, it will inflame the liver once again. Eventually, this causes scarring of the liver (which we call cirrhosis), and this is not reversible. The only treatment at that point is a liver transplant. You can avoid this level of liver damage by not drinking. Take care, and please get the help you need to avoid drinking alcohol. Pending Studies at Discharge: No Stand-Alone Forms: My OneTouch, Smoking Cessation Medications and DC Order Prescriptions: New ondansetron 4 mg tablet,disintegrating 4 mg PO TID PRN (Reason: nausea and vomiting) 5 Days Qty: 30 RF: 0 Continued escitalopram oxalate 10 mg tablet 10 mg PO DAILY Qty: 90 RF: 1 pantoprazole 40 mg tablet,delayed release (DR/EC) 40 mg PO BID Qty: 0 RF: 0 buspirone 5 mg Tablet 5 mg PO TID 30 Days Qty: 90 RF: 1 folic acid 1 mg Tablet 1 mg PO QAM Qty: 30 RF: 0 thiamine HCl (vitamin B1) 100 mg Tablet 100 mg PO QAM Qty: 30 RF: 0 Discharge Orders: Discharge Order (Routine); Ordered 10/08/21 Ordered By: Bandar Domínguez Admission Data Admit Date/Time: 10/07/21 03:24 Attending Provider: Bandar Domínguez Admit Provider: Teofilo Garcia Primary Care Provider: Hector Myrick III Other Providers: Bandar Domínguez Coding Level of Care Code 74478 OBS Care - Discharge Diagnoses Alcohol use disorder Alcoholic hepatitis K70.10 Ascites presence: unspecified Depression, unspecified F32.A DVT prophylaxis Z29.9
[2021-10-08 13:53] VITALS: PULSE 102
== END 2021-10-08 14:33 | disposition home or self-care (01) ==
LOC: ED 22:58 → 2N 22:58 → SUATTDRO 10-07 03:24 → 2N 10-07 04:51